=== PATIENT | male | born 1935 | race Caucasian/White ===

== ENCOUNTER 2016-09-06 15:33 | Emergency (ER) ==
[2016-09-06 15:41] VITALS: BP 153/79; TEMP 98.6; BMI 25.4
[2016-09-06 16:38] LABS: BASOPHILS # (AUTO) 0.1 K/uL (0-0.2); BASOPHILS % (AUTO) 0.9 % (0.0-3.0); EOSINOPHILS # (AUTO) 0.1 K/ul (0.0-0.7); EOSINOPHILS % (AUTO) 1.5 % (0.0-7.0); HEMATOCRIT 46.2 % (42.0-52.0); HEMOGLOBIN 15.9 g/dl (14.0-18.0); IMMATURE GRANULOCYTE % (AUTO) 0.3 % (0.0-5.0); LYMPHOCYTES # (AUTO) 1.8 K/uL (0.60-3.4); LYMPHOCYTES % (AUTO) 23.1 (10.0-50.0); MEAN CORPUSCULAR HEMOGLOBIN 29.6 pg (27.0-31.0); MEAN CORPUSCULAR HGB CONC 34.4 (31.8-35.4); MONOCYTES # (AUTO) 0.6 K/uL (0.4-2.0); MONOCYTES % (AUTO) 8.2 (0-10); NEUTROPHILS # (AUTO) 5.1 K/ul (2.0-6.9); PLATELET COUNT 205 10^3/uL (140-440); RED BLOOD COUNT 5.37 10^6/ul (4.70-6.10); WHITE BLOOD COUNT 7.79 K/ul (4.2-10.2)
--- NOTE | 2016-09-06 16:50 | DI ---
EXAM: Chest two views HISTORY: Cough COMPARISON: 03/20/2016 TECHNIQUE: Two views of the chest were performed FINDINGS: Mild left basilar subsegmental atelectasis and/or scarring. Mild biapical scarring. No airspace consolidation. There is no pleural effusion or pneumothorax. The heart is normal in size. The mediastinal contour is normal. There are no acute abnormalities of the bones. IMPRESSION: Mild left basilar subsegmental atelectasis and/or scarring. No acute cardiopulmonary p rocess.
[2016-09-06 17:03] LABS: ALANINE AMINOTRANSFERASE 14 U/L (12-78); ALBUMIN 4.3 g/dL (3.4-5.0); ALBUMIN/GLOBULIN RATIO 1.19; ALKALINE PHOSPHATASE 55 U/L (56-119); ASPARTATE AMINO TRANSFERASE 15 U/L (15-37); BILIRUBIN,TOTAL 1.15 mg/dL (0.00-1.20); BLOOD UREA NITROGEN 15 mg/dL (7-18); BUN/CREATININE RATIO 14.85; CALCIUM 9.7 mg/dL (8.2-10.2); CARBON DIOXIDE 25 mmol/L (23-31); CHLORIDE 107 mmol/L (98-107); CREATINE KINASE 46 U/L; CREATININE 1.01 mg/dL (0.60-1.10); GLUCOSE 97 mg/dL (82-115); SODIUM 142 mmol/L (136-145); TOTAL PROTEIN 7.9 g/dL (5.8-8.1)
--- NOTE | 2016-09-06 17:04 | CT ---
EXAM: CT of the abdomen pelvis without contrast History: Abdominal pain. Comparison: CT abdomen pelvis 03/21/2016 Technique: Multiplanar CT images through the abdomen pelvis were obtained without the administratio n of IV contrast Findings: Lung bases are free of consolidation. Borderline cardiomegaly. Osteopenia. L1 vertebral body hemangioma again noted. Moderate to severe degenerative disc disease at L5-S1. Cholecystectomy clips. Atherosclerotic vascular calcifications. No focal liver lesions. No focal l iver or splenic lesions. Prominent pancreatic head and there are scattered pancreatic calcification s. Adrenal glands are unremarkable. No renal stones and no hydronephrosis. No ureteral calculi. Atherosclerotic vascular calcifications. No bowel obstruction. No free air. Enlarged prostate abu tting the base of the bladder. Trace pelvic fluid. No perirectal inflammation. Mobile cecum. Tiny fat containing left inguinal hernia. Impression: 1. Prominent pancreatic head could be due to scarring from prior episodes of pancreatitis but neopl astic pancreatic head tumor is not excluded and recommend followup with a nonemergent pancreatic MRI protocol. Also correlate with pancreatic enzymes for possible superimposed acute pancreatitis. 2. Enlarged prostate abutting the base of the bladder.
[2016-09-06 17:06] LABS: BILIRUBIN,URINE Negative (NEGATIVE); KETONES,URINE 1+ (NEGATIVE); LEUKOCYTE ESTERASE ,URINE Negative (NEGATIVE); NITRITE,URINE Negative (NEGATIVE); PROTEIN,URINE Negative (NEGATIVE); URINE, BLOOD 1+ (NEGATIVE)
[2016-09-06 17:44] LABS: ADD URINE MICROSCOPIC YES
--- NOTE | 2016-09-06 17:54 | ED.PDOC ---
General ED Provider: Dr. LUCÍA CHRISTIANSON Chief Complaint: Abdominal Pain Stated Complaint: abdominal pain Time Seen by Physician: 15:40 Mode of Arrival: Walk-In Information Source: Patient Exam Limitations: No limitations Primary Care Provider: FRANCISCO HERNANDEZ Nursing and Triage Documentation Reviewed and Agree: Yes GI Complaint Exam - Abdominal Pain Complaint/Exam Onset: Gradual Duration: 1 day Symptoms Are: Still present Timing: Intermittent Initial Severity: Mild Current Severity: Mild Location of Pain: Diffuse Character: Reports: Dull Aggravating: Reports: None Alleviating: Reports: None Associated Signs and Symptoms: Denies: Diaphoresis, Fever, Cough, Chest pain, Dizziness, Back pain, Constipation, Blood in stool, Dysuria, Urinary frequency, Decreased urine output, Decreased appetite, Discharge, Nausea, Vomiting, Diarrhea, Decreased activity Related History: Reports: Similar episode AAA Risk Factors: Reports: Hypertension Cardiac Risk Factors: Reports: Hypertension Testicular Torsion Risk Factors: Reports: None Surgical Obstruction Risk Factors: Reports: None Related Surgical History: Reports: None Abdominal Findings: Present: None Differential Diagnoses: Bowel Obstruction, Constipation, Gastroenteritis Review of Systems - Review Of Systems Constitutional: Reports: No symptoms Eyes: Reports: No symptoms Ears, Nose, Mouth, Throat: Reports: No symptoms Respiratory: Reports: No symptoms Cardiac: Reports: No symptoms GI: Reports: Abdominal pain : Reports: No symptoms Musculoskeletal: Reports: No symptoms Skin: Reports: No symptoms Neurological: Reports: No symptoms Endocrine: Reports: No symptoms Hematologic/Lymphatic: Reports: No symptoms All Other Systems: Reviewed and Negative Past Medical History - Past Medical History Endocrine: Reports: None Cardiovascular: Reports: CAD, Hypertension, A-Fib Respiratory: Reports: COPD, Asthma Hematological: Reports: None Gastrointestinal: Reports: Other (obstruction post appendectomy- 3 episodes after , another episode- last over a year ago- now same symptoms) Genitourinary: Reports: None Neuro/Psych: Reports: None Musculoskeletal: Reports: Arthritis, Back Pain Cancer: Reports: None Other Pertinent Past Medical History: CHOLECTOMY - Surgical History General Surgical History: Reports: Appendectomy, Cholecystectomy, Back Surgery. Denies: CABG (stents) - Family History Family History: Reports: Unknown - Social History Smoking Status: Never smoker Hx Substance Use: No Alcohol Screening: None Physical Exam - Physical Exam Appearance: Well-appearing, No pain distress, Well-nourished Eyes: SHWETA, EOMI, Conjunctiva clear ENT: Ears normal, Nose normal, Oropharynx normal Respiratory: Airway patent, Breath sounds clear, Breath sounds equal, Respirations nonlabored Cardiovascular: RRR, Pulses normal, No rub, No murmur GI/: Soft, Nontender, No masses, Bowel sounds normal, No Organomegaly Musculoskeletal: Normal strength, ROM intact, No edema, No calf tenderness Skin: Warm, Dry, Normal color Neurological: Sensation intact, Motor intact, Reflexes intact, Cranial nerves intact, Alert, Oriented Psychiatric: Affect appropriate, Mood appropriate Interpretation - Radiology Interpretation Radiology Interpretation By: Radiologist Radiology Results: No acute changes Critical Care Note - Critical Care Note Total Time (mins): 0 Course - Course Hematology/Chemistry: 09/06/16 16:37 09/06/16 16:37 Orders, Labs, Meds: Lab Review 09/06/16 09/06/16 16:37 17:00 WBC 7.79 RBC 5.37 Hgb 15.9 Hct 46.2 MCV 86.0 MCH 29.6 MCHC 34.4 RDW Coeff of Bernadette 13.2 Plt Count 205 Immature Gran % (Auto) 0.3 Neut % (Auto) 66.0 Lymph % (Auto) 23.1 Miller % (Auto) 8.2 Eos % (Auto) 1.5 Baso % (Auto) 0.9 Immature Gran # (Auto) 0.0 Neut # 5.1 Lymph # 1.8 Miller # 0.6 Eos # 0.1 Baso # 0.1 Sodium 142 Potassium 4.0 Chloride 107 Carbon Dioxide 25 Anion Gap 14.0 BUN 15 Creatinine 1.01 Estimated GFR (MDRD) 71.00 BUN/Creatinine Ratio 14.85 Glucose 97 Calcium 9.7 Total Bilirubin 1.15 AST 15 ALT 14 Alkaline Phosphatase 55 L Total Creatine Kinase 46 Troponin I < 0.0100 Total Protein 7.9 Albumin 4.3 Globulin 3.6 Albumin/Globulin Ratio 1.19 Urine Color Yellow Urine Clarity Clear Urine pH 6.0 Ur Specific [place] 1.015 Urine Protein Negative Urine Glucose (UA) Negative Urine Ketones 1+ Urine Blood 1+ Urine Nitrite Negative Urine Bilirubin Negative Urine Urobilinogen 0.2 Ur Leukocyte Esterase Negative Urine Microscopic RBC 0-2 Ur Squamous Epith Cells Not present Orders Category Date Time Status EKG-(ED ONLY) Stat CARDIO 09/06/16 16:18 Completed CBC W/ AUTO DIFF Stat LAB 09/06/16 16:37 Completed COMPREHENSIVE METABOLIC PANEL Stat LAB 09/06/16 16:37 Completed CREATINE KINASE Stat LAB 09/06/16 16:37 Completed TROPONIN I Stat LAB 09/06/16 16:37 Completed URINALYSIS C & S IF INDICATED Stat LAB 09/06/16 17:00 Completed CHEST, 2 VIEWS PA & LAT Stat RADS 09/06/16 16:[address] ABDOMEN/PELVIS WO CONTRAST Stat RADS 09/06/16 16:17 Completed Vital Signs: Temp Pulse Resp BP Pulse Ox 09/06/16 15:34 98.6 F 66 20 153/79 H 94 L Departure - Departure Time of Disposition: 17:53 Disposition: HOME SELF-CARE Discharge Problem: Abdominal pain Instructions: Abdominal Pain (ED) Condition: Good Pt referred to PMD for follow-up: No Additional Instructions: Please call your Family Physician as soon as possible to schedule a follow-up appointment. Allergies/Adverse Reactions: Allergies butorphanol tartrate [From Stadol] Adverse Reaction (Verified 09/06/16 15:43) hydromorphone HCl [From Dilaudid] Adverse Reaction (Verified 09/06/16 15:43) meperidine HCl [From Demerol] Adverse Reaction (Verified 09/06/16 15:43) makes dizzy Home Medications: Ambulatory Orders Terazosin HCl [Hytrin] 5 mg PO BEDTIME 05/12/13 Sotalol HCl [Betapace] 40 mg PO BID #60 tablet 05/16/13 Alprazolam 0.5 mg PO BEDTIME #30 tablet 03/11/14 Aspirin [Aspirin Chewable] 81 mg PO DAILYWM 03/21/15 Finasteride 5 mg PO DAILY 03/21/15 Simvastatin 40 mg PO DAILY 03/21/15 Gabapentin [Neurontin] 300 mg PO DAILY 03/19/16 Disposition Discussed With: Patient
== END 2016-09-06 18:12 | disposition home or self-care (01) ==
LOC: ED 15:33
DX: R10.84 Generalized abdominal pain (principal); I10 Essential (primary) hypertension; K86.9 Disease of pancreas, unspecified; R31.9 Hematuria, unspecified; I25.10 Atherosclerotic heart disease of native coronary artery without angina pectoris; Z79.899 Other long term (current) drug therapy
CPT/HCPCS: 36415; 80053; 81001; 82550; 84484; 85025; 93005; 93010; 99283

== ENCOUNTER 2016-10-02 08:50 | Outpatient (CLI) ==
--- NOTE | 2016-10-02 13:38 | MRI ---
EXAM: MRI abdomen without and with contrast HISTORY: Prominent pancreatic head TECHNIQUE: Multiplanar, multisequence without and following administration of intravenous Omniscan, amount unspecified COMPARISON: CT abdomen from 09/06/2016 FINDINGS: The heart is incompletely imaged. No pericardial or pleural effusions are evident. Patient respiratory motion artifact obscures details on several sequences. The hepatic signal inten sity is normal relative to the spleen. The spleen has normal size and signal. No hepatic lesions a re evident. The gallbladder is surgically absent without biliary dilatation. The pancreatic duct h as normal caliber without evidence of divisum or side branch duct dilatation. No duodenal diverticu la are appreciated. The pancreas has slight decreased signal prior to the administration of contras t and has diminished enhancement. There is nonspecific prominence of the pancreatic head without a discrete mass. No diffusion restriction is appreciated in this region. The adrenal glands are norm al. A small simple cyst at the interpolar region of the right kidney is 5.3 mm. No suspicious quinten l lesions are evident. The renal collecting systems are nondilated. The aorta has normal caliber a nd flow signal. The visible intestines have normal signal caliber. No lymphadenopathy or ascites are detected. The bone marrow signal intensity is maintained. IMPRESSION: 1. No evidence of pancreatic head mass. 2. Chronic pancreatitis. 3. Simple cyst, interpolar region of the right kidney.
== END 2016-10-02 08:51 | disposition home or self-care (01) ==
LOC: RAD 08:50
PROVIDERS: ATTEND Internal Medicine
DX: K86.89 Other specified diseases of pancreas (principal)

== ENCOUNTER 2016-10-27 08:51 | Outpatient (CLI) ==
[2016-10-27 13:41] VITALS: BMI 24.9
== END 2016-10-27 08:52 | disposition home or self-care (01) ==
LOC: AMBL 08:51
PROVIDERS: ATTEND Emergency Medicine
DX: R11.10 Vomiting, unspecified (principal); R53.1 Weakness; R10.9 Unspecified abdominal pain; R55 Syncope and collapse

== ENCOUNTER 2016-10-27 09:11 | Inpatient (IN) ==
[2016-10-27] MEDS ORDERED: SODIUM CHLORIDE 1,000 ML IV STA (09:21)
[2016-10-27] MEDS ORDERED: ZOFRAN 4 MG/2 ML IVP STA (09:21)
--- NOTE | 2016-10-27 09:39 | ED.PDOC ---
General ED Provider: Dr. ZACH FERRARI JR Chief Complaint: Abdominal Pain Stated Complaint: started feeling bad last night at 10 dizzy vomiting, passing out this morning. denies diarrhea[ End ]syncope twice observed when trying to get him up has had bradycardia in the past 97.4 60 18 96% 164/116 Time Seen by Physician: 09:30 Mode of Arrival: Ambulance Information Source: Patient, EMT Exam Limitations: Clinical condition Primary Care Provider: FRANCISCO HERNANDEZ Nursing and Triage Documentation Reviewed and Agree: No Review of Systems - Review Of Systems Constitutional: Reports: Malaise Eyes: Reports: No symptoms Ears, Nose, Mouth, Throat: Reports: No symptoms Respiratory: Reports: No symptoms Cardiac: Reports: No symptoms GI: Reports: Vomiting : Reports: No symptoms Musculoskeletal: Reports: No symptoms Skin: Reports: No symptoms Neurological: Reports: Other (DIZZY everything is spinning so much I vomit, canot move without everything gettin worse) Endocrine: Reports: No symptoms Hematologic/Lymphatic: Reports: No symptoms All Other Systems: Other Past Medical History - Past Medical History Endocrine: Reports: Dyslipidemia Cardiovascular: Reports: CAD, Hypertension, A-Fib Respiratory: Reports: COPD, Asthma Hematological: Reports: None Gastrointestinal: Reports: GERD, Other (obstruction post appendectomy- 3 episodes after , another episode- last over a year ago- now same symptoms) Genitourinary: Reports: None Neuro/Psych: Reports: None Musculoskeletal: Reports: Arthritis, Back Pain Cancer: Reports: None Other Pertinent Past Medical History: CHOLECTOMY - Surgical History General Surgical History: Reports: Appendectomy, Cholecystectomy, Tonsillectomy , Stent (3 STENTS), Back Surgery ( 35 YRS AGO WITH A FUSION). Denies: CABG ( stents) - Family History Family History: Reports: Unknown - Social History Smoking Status: Never smoker Hx Substance Use: No Alcohol Screening: None Physical Exam - Physical Exam Appearance: Well-appearing, Ill-appearing Ill-appearing: Mild Pain Distress: Mild Eyes: SHWETA, EOMI, Conjunctiva clear, Right pupil size, Left pupil size ( leftward nystagmus) ENT: Nose normal, Oropharynx normal, TMs Occluded (left completely right partially) Neck: Supple Respiratory: Airway patent, Breath sounds clear, Breath sounds equal, Respirations nonlabored Cardiovascular: RRR, Pulses normal, No rub, No murmur GI/: Soft, Nontender, No masses, Bowel sounds normal, No Organomegaly Musculoskeletal: Normal strength, ROM intact, No edema, No calf tenderness Skin: Warm, Dry, Normal color Neurological: Sensation intact, Motor intact, Reflexes intact, Cranial nerves intact, Alert, Oriented Psychiatric: Affect appropriate, Mood appropriate Interpretation - Radiology Interpretation Radiology Interpretation By: Radiologist Radiology Results: No acute changes Exam Interpreted: CT Scan Critical Care Note - Critical Care Note Total Time (mins): 0 Course - Course Hematology/Chemistry: 10/27/16 10:00 10/27/16 10:00 Orders, Labs, Meds: Lab Review 10/27/16 10/27/16 09:50 10:00 WBC 6.62 RBC 4.87 Hgb 14.5 Hct 41.3 L MCV 84.8 MCH 29.8 MCHC 35.1 RDW Coeff of Bernadette 12.6 Plt Count 181 Immature Gran % (Auto) 0.3 Neut % (Auto) 84.4 Lymph % (Auto) 10.4 [place] % (Auto) 4.4 Eos % (Auto) 0.2 Baso % (Auto) 0.3 Immature Gran # (Auto) 0.0 Neut # 5.6 Lymph # 0.7 Park # 0.3 L Eos # 0.0 Baso # 0.0 D-Dimer (Manual) 380.54 Puncture Site R rad O2 Saturation 93.0 L ABG pH 7.372 ABG pCO2 43.0 ABG pO2 70.0 L ABG HCO3 24.9 ABG Total CO2 26 ABG Base Excess 0 Ozzy Test + FiO2 % 21.0 Sodium 141 Potassium 3.7 Chloride 109 H Carbon Dioxide 23 Anion Gap 12.7 BUN 12 Creatinine 0.80 Estimated GFR (MDRD) 93.00 BUN/Creatinine Ratio 15.00 Glucose 120 H Lactic Acid 7.6 Calcium 8.6 Total Bilirubin 1.15 AST 11 L ALT 11 L Alkaline Phosphatase 46 L Total Creatine Kinase 54 Troponin I < 0.0100 B-Natriuretic Peptide 76 Total Protein 6.7 Albumin 3.7 Globulin 3.0 Albumin/Globulin Ratio 1.23 Amylase 53 Lipase 43 Procalcitonin < 0.05 Orders Category Date Time Status ABG DRAW REQUEST Stat CARDIO 10/27/16 09:36 Completed EKG-(ED ONLY) Stat CARDIO 10/27/16 09:33 Completed ED SECURITY INTELLIGENCE ANALYST APPLIED .ONCE EMERGENCY 10/27/16 09:33 Active ED IV/MEDIPORT/POWERPORT .ONCE EMERGENCY 10/27/16 09:33 Active ABG Stat LAB 10/27/16 09:50 Completed AMYLASE Stat LAB 10/27/16 10:00 Completed B-TYPE NATRIURETIC PEPTIDE Stat LAB 10/27/16 10:00 Completed BLOOD CULTURE Stat LAB 10/27/16 10:00 Received CBC W/ AUTO DIFF Stat LAB 10/27/16 10:00 Completed COMPREHENSIVE METABOLIC PANEL Stat LAB 10/27/16 10:00 Completed CREATINE KINASE Stat LAB 10/27/16 10:00 Completed D-DIMER Stat LAB 10/27/16 10:00 Completed LACTIC ACID Stat LAB 10/27/16 10:00 Completed LIPASE Stat LAB 10/27/16 10:00 Completed PROCALCITONIN Stat LAB 10/27/16 10:00 Completed TROPONIN I Stat LAB 10/27/16 10:00 Completed URINALYSIS C & S IF INDICATED Stat LAB 10/27/16 13:05 Completed 0.9 % Sodium Chloride [Saline Flush] MEDS 10/27/16 09:33 Active 1 syr IVF PRN PRN Carbamide Peroxide Otic [Debrox] MEDS 10/27/16 09:58 Discontinued 1 drop OT .STK-MED ONE Carbamide Peroxide Otic [Debrox] MEDS 10/27/16 09:58 Discontinued 5 drop OT ONCE STA Meclizine HCl [Antivert] MEDS 10/27/16 12:50 Discontinued 25 mg PO ONCE STA Ondansetron HCl/Pf [Zofran 4 mg/2 ml] MEDS 10/27/16 09:21 Discontinued 4 mg IVP ONCE STA Sodium Chloride 0.9% [Sodium Chloride] 1,000 ml MEDS 10/27/16 09:21 Discontinued IV BOLUS CHEST, 1V AP ONLY Stat RADS 10/27/16 09:[address] HEAD W/O CONTRAST Stat RADS 10/27/16 09:38 Completed Medications Generic Name Dose Route Start Last Admin Trade Name Freq PRN Reason Stop Dose Admin Acetaminophen 650 mg 10/27/16 13:36 10/27/16 18:34 Tylenol PO 650 mg Q4H PRN Administration Mild Pain Alprazolam 0.5 mg 10/27/16 21:00 Xanax PO BEDTIME YANN Aspirin 81 mg 10/28/16 08:00 Aspirin Chewable PO DAILYWM YANN Carbamide Perox/Anhydrous Glycerin 5 drop 10/27/16 21:00 Debrox OT Q12HR YANN Diazepam 5 mg 10/27/16 18:00 10/27/16 17:43 Valium PO 5 mg Q6HR YANN Administration Finasteride 5 mg 10/28/16 09:00 Proscar PO DAILY YANN Gabapentin 300 mg 10/28/16 09:00 Neurontin PO DAILY YANN Hydrochlorothiazide 6.25 mg 10/27/16 14:30 10/27/16 14:43 Hydrochlorothiazide PO 6.25 mg [id number] YANN Administration Sodium Chloride 1,000 mls @ 70 mls/hr 10/27/16 13:30 10/27/16 14:10 Sodium Chloride IV 10/28/16 03:47 70 mls/hr .[id number] YANN Administration Losartan Potassium 50 mg 10/27/16 14:30 10/27/16 14:42 Cozaar PO 50 mg [id number] YANN Administration Meclizine HCl 25 mg 10/27/16 17:00 10/27/16 17:43 Antivert PO 25 mg QID YANN Administration Simvastatin 40 mg 10/28/16 09:00 Zocor PO DAILY YANN Sodium Chloride 1 syr 10/27/16 09:33 Saline Flush IVF PRN PRN To flush IV Sotalol HCl 40 mg 10/27/16 21:00 Betapace PO BID YANN Terazosin HCl 5 mg 10/27/16 21:00 Hytrin PO BEDTIME YANN Discontinued Medications Generic Name Dose Route Start Last Admin Trade Name Freq PRN Reason Stop Dose Admin Carbamide Perox/Anhydrous Glycerin 5 drop 10/27/16 09:58 10/27/16 10:02 Debrox OT 10/27/16 09:59 5 drop ONCE STA Administration Diazepam 5 mg 10/27/16 13:10 10/27/16 13:59 Valium PO 10/27/16 13:11 5 mg ONCE STA Administration Sodium Chloride 1,000 mls @ 1,000 mls/hr 10/27/16 09:21 10/27/16 09:30 Sodium Chloride IV 10/27/16 10:20 1,000 mls/hr BOLUS STA Administration Meclizine HCl 25 mg 10/27/16 12:50 10/27/16 13:00 Antivert PO 10/27/16 12:51 25 mg ONCE STA Administration Non-Formulary Medication 0.5 tab 10/27/16 13:45 10/27/16 14:59 Losartan/Hydrochlorothiazide [Losartan-Hctz 100-12.5 Mg Tab] PO Not Given [facility] Ondansetron HCl 4 mg 10/27/16 09:21 10/27/16 09:30 Zofran 4 Mg/2 Ml IVP 10/27/16 09:22 4 mg ONCE STA Administration Vital Signs: Temp Pulse Resp BP Pulse Ox 10/27/16 09:12 97.4 F L 60 18 164/116 H 96 Departure - Departure Time of Disposition: 13:30 Disposition: ADMITTED INPATIENT Discharge Problem: Nausea, Vomiting, Vertigo Condition: Good Pt referred to PMD for follow-up: Yes Allergies/Adverse Reactions: Allergies butorphanol tartrate [From Stadol] Adverse Reaction (Verified 10/27/16 09:16) hydromorphone HCl [From Dilaudid] Adverse Reaction (Verified 10/27/16 09:16) meperidine HCl [From Demerol] Adverse Reaction (Verified 10/27/16 09:16) makes dizzy Home Medications: Ambulatory Orders Terazosin HCl [Hytrin] 5 mg PO BEDTIME 05/12/13 Sotalol HCl [Betapace] 40 mg PO BID #60 tablet 05/16/13 Alprazolam 0.5 mg PO BEDTIME #30 tablet 03/11/14 Aspirin [Aspirin Chewable] 81 mg PO DAILYWM 03/21/15 Finasteride 5 mg PO DAILY 03/21/15 Simvastatin 40 mg PO DAILY 03/21/15 Gabapentin [Neurontin] 300 mg PO DAILY 03/19/16 Losartan/Hydrochlorothiazide [Losartan-Hctz 100-12.5 mg Tab] 0.5 tab PO MOWEFR 10/27/16
[2016-10-27 09:54] LABS: ABG BASE EXCESS 0 (-2.0-2.0); ABG HCO3 24.9 (22.0-26.0); ABG PH 7.372 (7.35-7.45); ABG TCO2 26 (22.0-28.0)
[2016-10-27] MEDS ORDERED: DEBROX OT STA (09:58)
[2016-10-27] MEDS ORDERED: DEBROX OT ONE (09:58)
[2016-10-27 10:13] LABS: BASOPHILS % (AUTO) 0.3 % (0.0-3.0); EOSINOPHILS % (AUTO) 0.2 % (0.0-7.0); HEMATOCRIT 41.3 % (42.0-52.0); HEMOGLOBIN 14.5 g/dl (14.0-18.0); IMMATURE GRANULOCYTE % (AUTO) 0.3 % (0.0-5.0); LYMPHOCYTES # (AUTO) 0.7 K/uL (0.60-3.4); LYMPHOCYTES % (AUTO) 10.4 (10.0-50.0); MEAN CORPUSCULAR HEMOGLOBIN 29.8 pg (27.0-31.0); MEAN CORPUSCULAR HGB CONC 35.1 (31.8-35.4); MEAN CORPUSCULAR VOLUME 84.8 fl (80.0-94.0); MONOCYTES # (AUTO) 0.3 K/uL (0.4-2.0); MONOCYTES % (AUTO) 4.4 (0-10); NEUTROPHILS # (AUTO) 5.6 K/ul (2.0-6.9); NEUTROPHILS % (AUTO) 84.4; PLATELET COUNT 181 10^3/uL (140-440); RED BLOOD COUNT 4.87 10^6/ul (4.70-6.10); WHITE BLOOD COUNT 6.62 K/ul (4.2-10.2)
--- NOTE | 2016-10-27 10:19 | DI ---
EXAM: Single frontal view of the chest HISTORY: Chest pain. COMPARISON: Chest x-ray 09/06/2016 FINDINGS: Cardiomediastinal silhouette is unremarkable. There is no pneumothorax or pleural effusio n. There is no consolidation, nodule or mass. There is minimal left basilar atelectasis. Calcifie d granulomas noted in the left lung. The osseous structures are unchanged. IMPRESSION: Mild left basilar atelectasis.
[2016-10-27 10:56] LABS: ALANINE AMINOTRANSFERASE 11 U/L (12-78); ALBUMIN 3.7 g/dL (3.4-5.0); ALBUMIN/GLOBULIN RATIO 1.23; ALKALINE PHOSPHATASE 46 U/L (56-119); AMYLASE 53 U/L (25-115); ANION GAP 12.7; ASPARTATE AMINO TRANSFERASE 11 U/L (15-37); BILIRUBIN,TOTAL 1.15 mg/dL (0.00-1.20); BLOOD UREA NITROGEN 12 mg/dL (7-18); CALCIUM 8.6 mg/dL (8.2-10.2); CARBON DIOXIDE 23 mmol/L (23-31); CHLORIDE 109 mmol/L (98-107); CREATINE KINASE 54 U/L; GLUCOSE 120 mg/dL (82-115); LIPASE 43 U/L (8-78); POTASSIUM 3.7 mmol/L (3.5-5.1); SODIUM 141 mmol/L (136-145); TOTAL PROTEIN 6.7 g/dL (5.8-8.1)
--- NOTE | 2016-10-27 12:14 | CT ---
Exam: CT head without contrast. HISTORY: Dizziness with nausea and vomiting. Vertigo, bradycardia. Procedures: 5 mm contiguous axial images were obtained through the skull without the use of contras t. FINDINGS: There are no prior studies of the head at this institution. There is mild prominence of the bilateral lateral ventricles and cerebral sulci. There is mild periventricular white matter hyp odensity.There is no intracranial hemorrhage, mass effect, hydrocephalus, extra-axial fluid collecti on or midline shift. The ventricles and basal cisterns are patent. There is no evidence of acute l arge vessel infarct. Bone windows demonstrate normal aeration of the mastoid air cells. There is complete opacification of the left maxillary sinus with coarse calcifications superiorly nearly occluded ostiomeatal unit. Bilateral mary bullosa are noted, larger on the right. Atherosclerotic calcifications are noted. There is no acute fracture. IMPRESSION: No acute intracranial process. 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 Chronic-appearing opacification throughout the left maxillary sinus with dystrophic calcifications s uperiorly in the region of the occluded ostiomeatal unit. Bilateral mary bullosa. Findings were faxed to the emergency department at 11:55 a.m.
[2016-10-27] MEDS ORDERED: ANTIVERT PO STA (12:50)
[2016-10-27] MEDS ORDERED: VALIUM PO STA (13:10)
[2016-10-27 13:18] LABS: BILIRUBIN,URINE Negative (NEGATIVE); KETONES,URINE 2+ (NEGATIVE); LEUKOCYTE ESTERASE ,URINE Negative (NEGATIVE); NITRITE,URINE Negative (NEGATIVE); PROTEIN,URINE Trace (NEGATIVE); URINE, BLOOD Trace-intact (NEGATIVE)
[2016-10-27 13:20] LABS: ADD URINE MICROSCOPIC YES
[2016-10-27] MEDS ORDERED: SODIUM CHLORIDE 1,000 ML IV SCH (13:30)
[2016-10-27 13:41] VITALS: BMI 24.9
[2016-10-27] MEDS ORDERED: LOSARTAN PO SCH (13:45)
[2016-10-27] MEDS ORDERED: [UNRECOGNIZED DRUG - OTHER] PO SCH (13:45)
[2016-10-27] MEDS ORDERED: HYDROCHLOROTHIAZIDE PO SCH (13:45)
[2016-10-27] MEDS ORDERED: ZOFRAN 4 MG/2 ML ONE (13:57)
[2016-10-27] MEDS: COZAAR PO SCH (14:42)
[2016-10-27] MEDS: HYDROCHLOROTHIAZIDE PO SCH (14:43)
--- NOTE | 2016-10-27 15:01 | US ---
EXAM: Ultrasound bilateral carotid duplex HISTORY: Dizziness COMPARISON: CT head same day TECHNIQUE: Sonographic and color Doppler evaluation of the carotids were performed. FINDINGS: The right carotid is patent in appearance with moderate atherosclerotic plaque visualized. The right ICA peak systolic velocity measures 140 cm/sec which is normal. The ICA / CCA peak systolic velocity ratio is 2.4 and ICA end-diastolic velocity is 30 cm/sec. The left carotid is patent in appearance with mild atherosclerotic plaque visualized. The left ICA peak systolic velocity measures 90 cm/sec which is normal. The left ICA / CCA peak systolic velocity ratio is 0.8 and ICA end-diastolic velocity is 20 cm/sec. Vertebral arteries demonstrate antegrade flow bilaterally. IMPRESSION: 1. Elevated right ICA peak systolic velocity with moderate sonographic atherosclerotic disease cons istent with moderate, 50 - 69% stenosis. 2. Atherosclerotic disease of the left carotid without elevated velocities to suggest hemodynamical ly significant stenosis.
[2016-10-27] MEDS: VALIUM PO SCH ×2 (17:43→23:51)
[2016-10-27] MEDS: ANTIVERT PO SCH ×2 (17:43→21:06)
[2016-10-27] MEDS: TYLENOL PO PRN (18:34)
[2016-10-27 20:22] LABS: TROPONIN I 0.019 ng/ml (0.0000-0.4000)
[2016-10-27] MEDS: XANAX PO SCH (21:06)
[2016-10-27] MEDS: HYTRIN PO SCH (21:06)
[2016-10-27] MEDS: BETAPACE PO SCH (21:07)
[2016-10-27] MEDS: DEBROX OT SCH (21:07)
[2016-10-28 05:02] LABS: BASOPHILS # (AUTO) 0.1 K/uL (0-0.2); EOSINOPHILS # (AUTO) 0.1 K/ul (0.0-0.7); HEMATOCRIT 40.9 % (42.0-52.0); IMMATURE GRANULOCYTE % (AUTO) 0.3 % (0.0-5.0); LYMPHOCYTES # (AUTO) 1.6 K/uL (0.60-3.4); LYMPHOCYTES % (AUTO) 26.3 (10.0-50.0); MEAN CORPUSCULAR HEMOGLOBIN 30.2 pg (27.0-31.0); MEAN CORPUSCULAR HGB CONC 34.2 (31.8-35.4); MEAN CORPUSCULAR VOLUME 88.3 fl (80.0-94.0); MONOCYTES # (AUTO) 0.5 K/uL (0.4-2.0); MONOCYTES % (AUTO) 8.9 (0-10); NEUTROPHILS # (AUTO) 3.7 K/ul (2.0-6.9); NEUTROPHILS % (AUTO) 61.5; PLATELET COUNT 119 10^3/uL (140-440); RED BLOOD COUNT 4.63 10^6/ul (4.70-6.10); WHITE BLOOD COUNT 6.04 K/ul (4.2-10.2)
[2016-10-28 05:22] LABS: ALBUMIN 3.2 g/dL (3.4-5.0); ALBUMIN/GLOBULIN RATIO 1.23; ANION GAP 13.7; BILIRUBIN,TOTAL 1.13 mg/dL (0.00-1.20); BUN/CREATININE RATIO 13.09; CALCIUM 8.2 mg/dL (8.2-10.2); CREATININE 0.84 mg/dL (0.60-1.10); POTASSIUM 3.7 mmol/L (3.5-5.1); TOTAL PROTEIN 5.8 g/dL (5.8-8.1)
[2016-10-28 05:36] LABS: CREATINE KINASE 157 U/L
[2016-10-28 05:38] LABS: CREATINE KINASE MB 1.2 ng/ml (0.0-3.6)
[2016-10-28] MEDS: VALIUM PO SCH ×4 (05:47→23:53)
[2016-10-28] MEDS: DEBROX OT SCH ×2 (08:43→21:33)
[2016-10-28] MEDS: NEURONTIN PO SCH (08:43)
[2016-10-28] MEDS: ASPIRIN CHEWABLE PO SCH (08:44)
[2016-10-28] MEDS: PROSCAR PO SCH (08:44)
[2016-10-28] MEDS: ANTIVERT PO SCH ×4 (08:44→21:33)
[2016-10-28] MEDS: ZOCOR PO SCH (08:44)
[2016-10-28] MEDS: BETAPACE PO SCH ×2 (08:44→21:36)
--- NOTE | 2016-10-28 10:00 | PCM.PROG ---
Attending Provider: ATTENDING PROVIDER: Dr. FRANCISCO HERNANDEZ DATE OF SERVICE: 10/28/16 SUBJECTIVE: This 81 year old WHITE/ M was hospitalized 10/27/16 with near syncopal episode. The patient has bradycardia for number of years. It under control with Valium and Antivert. REVIEW OF SYSTEMS: CONSTITUTIONAL: No night sweats. No fatigue, malaise, lethargy. No fever or chills. HEENT: Eyes: No visual changes. No eye pain. No eye discharge. ENT: No runny nose. No epistaxis. No sinus pain. No odynophagia. No congestion. RESPIRATORY: No cough, no congestion. No hemoptysis. CARDIOVASCULAR: No angina symptoms. No CHF symptoms. No atypical chest pain for CAD. No palpitations. No shortness of breath. GASTROINTESTINAL: No abdominal pain. No nausea or vomiting. No diarrhea or constipation. No hematemesis. No hematochezia. GENITOURINARY: No urgency. No frequency. No dysuria. No hematuria. No obstructive symptoms. No discharge. No pain. No significant abnormal bleeding. MUSCULOSKELETAL: No musculoskeletal pain; no joint swelling. NEUROLOGICAL: Awake, alert, oriented to time, place and person. No headache. No neck pain. No syncope. No seizures. No dizziness. PSYCHIATRIC: Not anxious. No depression. No suicidal thoughts. No homicidal thoughts. SKIN: No rash. No lesions. No wounds. ENDOCRINE: No unexplained weight loss. No weight gain. HEMATOLOGIC/LYMPHATIC: No anemia. No purpura. No petechiae. No prolonged or excessive bleeding. No palpable lymph nodes. PHYSICAL EXAMINATION: GENERAL: The patient is awake, alert and oriented to time,place and person, lying in bed in no distress. VITAL SIGNS: Temperature 97.2 F, Pulse 51, Respiratory Rate 16, BP 108/56, Pulse Ox 95% HEENT: Head normocephalic, atraumatic. Eyes: Extraocular muscles are intact. Pupils are equal, round and reactive to light and accommodation. Ears: No lesions. Nose appeared normal. Throat: No exudate or erythema. NECK: Supple. No JVD, no carotid bruit. No lymphadenopathy or thyromegaly. LUNGS: Clear to auscultation. Percussion note normal. Chest symmetrical. HEART: S1, S2, no S3. No murmurs. No cyanosis or clubbing. No ascites. Pulses: Dorsalis pedis and posterior tibial pulses +1 to +2 both sides. ABDOMEN: Soft. Non-tender. Bowel sounds active. No CVA tenderness. No mass felt. EXTREMITIES: No edema. Full range of motion of all extremities, equal. NEUROLOGIC: No focal deficit. Cranial nerves II through XII are grossly intact. No headache, no double vision or headache. SKIN: Not dry. Intact. Turgor-normal. LYMPHATIC: No palpable lymph nodes/no lymphedema. MUSCULOSKELETAL: Normal joints with no swelling. Muscle tone is normal. LAB REVIEW: 10/28/16 03:45 10/28/16 03:45 10/28/16 03:45: WBC 6.04, RBC 4.63 L, Hgb 14.0, Hct 40.9 L, MCV 88.3, MCH 30.2, MCHC 34.2, RDW Coeff of Bernadette 13.2, Plt Count 119 L D, Immature Gran % (Auto) 0.3 , Neut % (Auto) 61.5, Lymph % (Auto) 26.3, [place] % (Auto) 8.9, Eos % (Auto) 2.0, Baso % (Auto) 1.0, Immature Gran # (Auto) 0.0, Neut # 3.7, Lymph # 1.6, Walsh # 0.5, Eos # 0.1, Baso # 0.1, Sodium 143, Potassium 3.7, Chloride 111 H, Carbon Dioxide 22 L, Anion Gap 13.7, BUN 11, Creatinine 0.84, Estimated GFR (MDRD) 88.00, BUN/Creatinine Ratio 13.09, Glucose 79 L, Calcium 8.2, Total Bilirubin 1.13, AST 16, ALT 10 L, Alkaline Phosphatase 40 L, Total Creatine Kinase 157, CK -MB (CK-2) 1.2, CK-MB (CK-2) % 0.38493, Troponin I < 0.0100, Total Protein 5.8, Albumin 3.2 L, Globulin 2.6, Albumin/Globulin Ratio 1.23 10/27/16 19:50: Total Creatine Kinase 50, Troponin I 0.0190 10/27/16 13:05: Urine Color Yellow, Urine Clarity Clear, Urine pH 7.0, Ur Specific [place] 1.020, Urine Protein Trace, Urine Glucose (UA) Negative, Urine Ketones 2+, Urine Blood Trace-intact, Urine Nitrite Negative, Urine Bilirubin Negative, Urine Urobilinogen 1.0, Ur Leukocyte Esterase Negative, Urine Microscopic RBC 2-5, Ur Squamous Epith Cells 0-2 ASSESSMENT: 1. Syncopal episode likely from vertigo 2. Coronary artery disease PLAN: 1. Antivert 2. Valium Plan and coordination of the patient's care discussed in the presence of Media Consultant and nurse. CONDITION: Stable SCRIBED BY: Dipak LILLY scribed while in presence of service performed by Dr. FRANCISCO HERNANDEZ on 10/28/16 ([id number])
--- NOTE | 2016-10-28 13:16 | DS ---
DATE OF SERVICE: 10/29/16 FINAL DIAGNOSIS: 1. Syncope 2. Vestibular dysfunction 3. Vertigo 4. Bradycardia 5. Hypertension 6. Dyslipidemia 7. Coronary artery disease 8. GERD 9. 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 Enlarged prostate(Dr. Watt) 12. Anxiety 13. Cholecystectomy 14. Status post stent application, 2007 and 2009 15. Appendectomy 16. Tonsillectomy 17. Lumbar Fusion, 1981 LAST VITALS: Temperature 97, pulse 52, blood pressure 134/71, respiratory rate 18 and pulse ox 94% DISCHARGE INSTRUCTIONS: Discharge the patient home. Return to the office to see Dr. Paulino in one week. Resume home medications. MEDICATIONS AT DISCHARGE: Xanax 0.5mg PO bedtime Aspirin chewable 81mg PO daily Proscar 5mg PO daily Neurontin 300mg PO daily Losartan Hydrochlorothiazide 100-12.5mg half tablet PO MoWeFr at 0900 Antivert 12.5mg PO four times a day Zocor 40mg PO daily Betapace 40mg Po twice a day Hytrin 5mg PO bedtime ALLERGIES: Butorphanol tartrate Hydromorphone meperidine HCL NEW PRESCRIPTIONS: Meclizine HCL 25mg PO four times a day PRN dizziness #30 with 0 refills. DIET INSTRUCTIONS: Regular as tolerated ACTIVITY: Get plenty of rest at home. Gradually increase activity according to toleration. Do not rise quickly. Dangle feet/legs prior to rising. SMOKING: Non smoker DISEASE SPECIFIC EDUCATION: Syncope Vertigo Bradycardia Home medications New prescriptions Activity Followup HOSPITAL COURSE: The patient is a 81 year old white male hospitalized with dizziness. The patient almost pasted out a couple of time before coming to the hospital. The patient had typical vestibular dysfunction with vertigo. It was treated with Antivert and Valium. The patient was kept in the hospital for 48 hours. Telemetry strip revealed bradycardia which the patient has had it for number of years. The patient is up and about. His heart rate fluctuates from 40-80 per minutes. His blood pressure is normal. He did not have any pauses more than 2 seconds, Carotid scan was practically unremarkable except for one side showed 50 -70% occulted carotid artery. His neurological status remained normal. On discharge the patient's hgb was 13.2, hct 39, WBC 6,000 normal differential, creatinine 0.8, BUN 15, potassium 3.7. Condition at the time of discharge is stable. The patient is strongly advised to eat a little bit more salt, drink more fluids and advised to take some rest when working outside in the hot weather every 2-3 hourly. CONDITION: Stable. TIME SPENT: More than 60 minutes. MTDD
[2016-10-28] MEDS ORDERED: DECADRON 4 MG/ML SDV ONE (16:02)
[2016-10-28] MEDS: XANAX PO SCH (21:33)
[2016-10-28] MEDS: HYTRIN PO SCH (21:33)
[2016-10-28] MEDS: TYLENOL PO PRN (21:36)
[2016-10-29 05:25] LABS: BASOPHILS # (AUTO) 0.1 K/uL (0-0.2); BASOPHILS % (AUTO) 1.6 % (0.0-3.0); EOSINOPHILS # (AUTO) 0.2 K/ul (0.0-0.7); EOSINOPHILS % (AUTO) 2.9 % (0.0-7.0); HEMATOCRIT 39.1 % (42.0-52.0); HEMOGLOBIN 13.2 g/dl (14.0-18.0); IMMATURE GRANULOCYTE % (AUTO) 0.2 % (0.0-5.0); LYMPHOCYTES # (AUTO) 1.8 K/uL (0.60-3.4); LYMPHOCYTES % (AUTO) 29.5 (10.0-50.0); MEAN CORPUSCULAR HEMOGLOBIN 29.5 pg (27.0-31.0); MEAN CORPUSCULAR HGB CONC 33.8 (31.8-35.4); MEAN CORPUSCULAR VOLUME 87.5 fl (80.0-94.0); MONOCYTES # (AUTO) 0.5 K/uL (0.4-2.0); MONOCYTES % (AUTO) 8.6 (0-10); NEUTROPHILS # (AUTO) 3.5 K/ul (2.0-6.9); NEUTROPHILS % (AUTO) 57.2; PLATELET COUNT 160 10^3/uL (140-440); RED BLOOD COUNT 4.47 10^6/ul (4.70-6.10); WHITE BLOOD COUNT 6.14 K/ul (4.2-10.2)
[2016-10-29] MEDS: VALIUM PO SCH (05:28)
[2016-10-29 05:36] LABS: ALBUMIN 3.3 g/dL (3.4-5.0); ALBUMIN/GLOBULIN RATIO 1.27; ANION GAP 10.7; BILIRUBIN,TOTAL 0.92 mg/dL (0.00-1.20); BUN/CREATININE RATIO 17.44; CALCIUM 8.5 mg/dL (8.2-10.2); CREATININE 0.86 mg/dL (0.60-1.10); POTASSIUM 3.7 mmol/L (3.5-5.1); TOTAL PROTEIN 5.9 g/dL (5.8-8.1)
[2016-10-29] MEDS: ASPIRIN CHEWABLE PO SCH (08:30)
[2016-10-29] MEDS: PROSCAR PO SCH (08:30)
[2016-10-29] MEDS: ZOCOR PO SCH (08:30)
[2016-10-29] MEDS: ANTIVERT PO SCH ×2 (08:31→13:14)
[2016-10-29] MEDS: BETAPACE PO SCH (08:31)
[2016-10-29] MEDS: NEURONTIN PO SCH (08:31)
[2016-10-29] MEDS: HYDROCHLOROTHIAZIDE PO SCH (08:31)
[2016-10-29] MEDS: COZAAR PO SCH (08:31)
[2016-10-29] MEDS: DEBROX OT SCH (08:32)
[2016-10-29 10:59] VITALS: BP 134/71; TEMP 97
--- NOTE | 2016-10-29 13:19 | PCM.PROG ---
Attending Provider: ATTENDING PROVIDER: Dr. FRANCISCO HERNANDEZ DATE OF SERVICE: 10/29/16 SUBJECTIVE: This 81 year old WHITE/ M was hospitalized 10/27/16 with vertigo, vestibular dysfunction. The patient's condition has improve remarkably. He is up and about walking with little supervision, steady, no black outs or syncopal episodes. The patient is bradycardiac as usual, dips into the 40's lower it is asymptomatic. REVIEW OF SYSTEMS: CONSTITUTIONAL: No night sweats. No fatigue, malaise, lethargy. No fever or chills. HEENT: Eyes: No visual changes. No eye pain. No eye discharge. ENT: No runny nose. No epistaxis. No sinus pain. No odynophagia. No congestion. RESPIRATORY: No cough, no congestion. No hemoptysis. CARDIOVASCULAR: No angina symptoms. No CHF symptoms. No atypical chest pain for CAD. No palpitations. No shortness of breath. GASTROINTESTINAL: No abdominal pain. No nausea or vomiting. No diarrhea or constipation. No hematemesis. No hematochezia. GENITOURINARY: No urgency. No frequency. No dysuria. No hematuria. No obstructive symptoms. No discharge. No pain. No significant abnormal bleeding. MUSCULOSKELETAL: No musculoskeletal pain; no joint swelling. NEUROLOGICAL: Awake, alert, oriented to time, place and person. No headache. No neck pain. No syncope. No seizures. No dizziness. PSYCHIATRIC: Not anxious. No depression. No suicidal thoughts. No homicidal thoughts. SKIN: No rash. No lesions. No wounds. ENDOCRINE: No unexplained weight loss. No weight gain. HEMATOLOGIC/LYMPHATIC: No anemia. No purpura. No petechiae. No prolonged or excessive bleeding. No palpable lymph nodes. PHYSICAL EXAMINATION: GENERAL: The patient is awake, alert and oriented to time, place and person, lying in bed in no distress. VITAL SIGNS: Temperature 97.5 F, Pulse 45, Respiratory Rate 14, BP 117/69, Pulse Ox 97% HEENT: Head normocephalic, atraumatic. Eyes: Extraocular muscles are intact. Pupils are equal, round and reactive to light and accommodation. Ears: No lesions. Nose appeared normal. Throat: No exudate or erythema. NECK: Supple. No JVD, no carotid bruit. No lymphadenopathy or thyromegaly. LUNGS: Clear to auscultation. Percussion note normal. Chest symmetrical. HEART: S1, S2, no S3. No murmurs. No cyanosis or clubbing. No ascites. Pulses: Dorsalis pedis and posterior tibial pulses +1 to +2 both sides. ABDOMEN: Soft. Non-tender. Bowel sounds active. No CVA tenderness. No mass felt. EXTREMITIES: No edema. Full range of motion of all extremities, equal. NEUROLOGIC: No focal deficit. Cranial nerves II through XII are grossly intact. No headache, no double vision or headache. Drowsiness because of Valium. SKIN: Not dry. Intact. Turgor-normal. LYMPHATIC: No palpable lymph nodes/no lymphedema. MUSCULOSKELETAL: Normal joints with no swelling. Muscle tone is normal. LAB REVIEW: 10/29/16 05:14 10/29/16 05:14 10/29/16 05:14: WBC 6.14, RBC 4.47 L, Hgb 13.2 L, Hct 39.1 L, MCV 87.5, MCH 29.5 , MCHC 33.8, RDW Coeff of Bernadette 13.1, Plt Count 160 D, Immature Gran % (Auto) 0.2 , Neut % (Auto) 57.2, Lymph % (Auto) 29.5, [place] % (Auto) 8.6, Eos % (Auto) 2.9, Baso % (Auto) 1.6, Immature Gran # (Auto) 0.0, Neut # 3.5, Lymph # 1.8, [place] # 0.5, Eos # 0.2, Baso # 0.1, Sodium 142, Potassium 3.7, Chloride 109 H, Carbon Dioxide 26, Anion Gap 10.7, BUN 15, Creatinine 0.86, Estimated GFR (MDRD) 86.00 , BUN/Creatinine Ratio 17.44, Glucose 79 L, Calcium 8.5, Total Bilirubin 0.92, AST 11 L, ALT 10 L, Alkaline Phosphatase 43 L, Total Protein 5.9, Albumin 3.3 L , Globulin 2.6, Albumin/Globulin Ratio 1.27 ASSESSMENT: 1. Presyncope from vestibular dysfunction, has resolve PLAN: 1. Work up so far negative. 2. Carotid scan showed 50 to 70% on left side will follow 3. Echo to be done if not done in past couple of years to evaluate LV function and vertigo. 4. Advised to drink a lot of fluid and rest especially after hours of working outside. Plan and coordination of the patient's care discussed in the presence of Panel Saw Operator and nurse. CONDITION: Stable SCRIBED BY: Dipak LILLY scribed while in presence of service performed by Dr. FRANCISCO HERNANDEZ on 10/29/16 ([id number])
--- NOTE | 2016-10-31 11:47 | HP ---
DATE OF SERVICE: 10/27/16 REASON FOR HOSPITALIZATION: Syncopal episode HISTORY OF PRESENT ILLNESS: The patient is an 81 year old white male was brought to the emergency room because the patient passed out twice and has been working since morning in the hot weather. The patient got extremely dizzy, lighted headed with nausea. His head started spinning and the next thing he knows that he was passing out. The patient recovered from it and the second episode happened he called his son and by then he had already passed out second time. REVIEW OF SYSTEMS: CONSTITUTIONAL: No night sweats. Weakness and fatigue with dizziness. No fever or chills. HEENT: Eyes: No visual changes. No eye pain. No eye discharge. ENT: No runny nose. No epistaxis. No sinus pain. No sore throat. No odynophagia. No ear pain. No congestion. RESPIRATORY: No cough, no congestion. No hemoptysis. CARDIOVASCULAR: No angina symptoms. No CHF symptoms. No atypical chest pain for CAD. No palpitations. No shortness of breath. No chest. No PND. No Orthopnea. GASTROINTESTINAL: No abdominal pain. Nausea but no vomiting. No diarrhea or constipation. No hematemesis. No hematochezia. GENITOURINARY: No urgency. No frequency. No dysuria. No hematuria. No obstructive symptoms. No discharge. No pain. No significant abnormal bleeding. MUSCULOSKELETAL: No musculoskeletal pain. No joint swelling. No arthritis. NEUROLOGICAL: No headache. No neck pain. No syncope. No seizures. Dizziness. PSYCHIATRIC: Not anxious. No depression. No suicidal thoughts. No homicidal thoughts. SKIN: No rash. No lesions. No wounds. ENDOCRINE: No unexplained weight loss. No weight gain. HEMATOLOGIC/LYMPHATIC: No anemia. No purpura. No petechiae. No prolonged or excessive bleeding. No palpable lymph nodes. PERSONAL/FAMILY/SOCIAL HISTORY: The patient is , non-smoker and no alcohol abuse. The patient lives by himself with the help of daughter and son. he does all activity of daily living ; very active. PAST MEDICAL/SURGICAL PROBLEMS: History of intermittent small bowel obstruction Claudio arrhythmias PVC's Coronary artery disease Benign Prostatic Hypertrophy Dyslipidemia Hypertension Neuropathy MEDICATIONS: Hytrin 5mg PO daily Betapace 40mg PO twice a day Xanax 0.5mg at bedtime Aspirin 81mg PO daily Finasteride 5mg PO daily Simvastatin 40mg PO daily Neurontin 300mg PO daily Hyzaar 100-12.5mg PO daily ALLERGIES: Butorphanol Hydromorphone Meperidine PHYSICAL EXAMINATION: GENERAL: The patient is oriented to time, place and person. Color looks normal. VITAL SIGNS: Temperature 97.5, pulse 80, respiratory rate 20, blood pressure 160/100 and pulse 96%. BMI 25. HEENT: Head normocephalic, atraumatic. Eyes: Extraocular muscles are intact. Pupils are equal, round and reactive to light and accommodation. Ears: No lesions. Nose appeared normal. Throat: No exudate or erythema. Face: Symmetrical. NECK: Supple. No JVP, no carotid bruit. No lymphadenopathy or thyromegaly. LUNGS: Decreased breath sounds but Clear to auscultation. Percussion note normal. Chest symmetrical. HEART: S1, S2, no S3. No murmurs. No cyanosis or clubbing. No ascites. Pulses: Dorsalis pedis and posterior tibial pulses +1 Bilaterally. ABDOMEN: Soft. Nontender. Bowel sounds active. No CVA tenderness. No mass felt. EXTREMITIES: No edema. Full range of motion of all extremities, equal. Pulses +2 bilaterally. NEUROLOGIC: No focal deficit. Cranial nerves II through XII are grossly intact. No headache, no double vision or headache. SKIN: Not dry. Intact. Turgor - normal. No rash. LYMPHATIC: No palpable lymph nodes/no lymphedema. MUSCULOSKELETAL: Normal joints with no swelling. Muscle tone is normal. LABS: Hgb 14.5, hct 41, WBC 6,600 normal differential, creatinine 0.8, BUN 12, potassium 3.7, glucose 120 and BNP 76. ASSESSMENT: 1. Syncopal episode type of symptoms likely from vertigo or vestibular dysfunction 2. Claudio arrhythmia 3. Coronary artery disease 4. Hypertension 5. Dyslipidemia 6. Recurrent small bowel obstruction PLAN: 1. Antivert 25mg Three times a day 2. Valium 5mg PO four times a day 3. Continue the rest of the medications 4. Telemetry 5. Cardiac markers to rule out MA ischemia 6. Carotid scan 7. CT scan of the head was negative. CONDITION: Stable at present time. TIME SPENT: More than [address] [facility]
--- NOTE | 2016-10-31 11:55 | PN ---
10/27/16: Level 5 10/28/16: Intermediate 10/29/16: D as in discharge MTDD
--- NOTE | 2016-11-04 12:18 | ECHO2D ---
Date of Exam: 10/29/2016 Ordering Physician: FRANCISCO HERNANDEZ Reason for Echo: SHORT OF BREATH, CORONARY ARTERY DISEASE, HYPERTENSION M-Mode Normal Adult Results LV Dimensions Normal Adult Results AoV Opening excursions >1.6 >1.6 LVEDD-base- 3.5-5.8 4.8 Ao root dimensions 2.0-3.7 4.1 LVESD-base- 3.1-4.6 L. Atrium dimensions 1.9-3.8 5.4 Post. Wall thickness 0.8-1.1 1.4 IV septum (thickness) 0.7-1.2 1.5 Post. Wall excursion 0.72-1.3 NORMAL Septal motion NORMAL Systolic motion R. Ventricular cavity 1.5-2.0 NORMAL LVEF 60% 62% Paradoxical septal wall motion NORMAL 2-D :ENLARGED LEFT ATRIAL CAVITY, NORMAL LEFT VENTRICLE SIZE, NORMAL LEFT VENTRICULAR CONTRACTILITY, NO EFFUSION, NO THROMBUS. M-MODE: MV: NORMAL AV: NORMAL TV: NORMAL PV: CHAMBER SIZE: BORDERLINE LEFT ATRIAL ENLARGEMENT WALL MOTION: NORMAL PERICARDIUM: NORMAL INTERPRETATION: 1. LEFT VENTRICULAR HYPERTROPHY WITH ENLARGED LEFT ATRIAL CAVITY (5.4cm) 2. NORMAL LEFT VENTRICULAR CONTRACTILITY 3. 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
== END 2016-10-29 15:35 | disposition home or self-care (01) | DRG 312 ==
LOC: ED 09:11 → MEDSURG B 12:59
PROVIDERS: ADMIT Internal Medicine; ATTEND Internal Medicine
DX: R55 Syncope and collapse (principal); H81.90 Unspecified disorder of vestibular function, unspecified ear; R42 Dizziness and giddiness; R11.2 Nausea with vomiting, unspecified; R10.9 Unspecified abdominal pain; I49.8 Other specified cardiac arrhythmias; I25.10 Atherosclerotic heart disease of native coronary artery without angina pectoris; I10 Essential (primary) hypertension; E78.5 Hyperlipidemia, unspecified; H55.00 Unspecified nystagmus; Z79.899 Other long term (current) drug therapy
CPT/HCPCS: 36415; 80053; 81001; 82150; 82550; 82553; 82803; 83605; 83690; 83880; 84145; 84484; 85025; 85379; 87040; 93005; 93010; 96361; 96374; 99284

== ENCOUNTER 2016-12-23 06:34 | Outpatient (CLI) ==
--- NOTE | 2016-12-23 09:30 | ECHO2D ---
Date of Exam: 12/23/16 Ordering Physician: FRANCISCO HERNANDEZ Reason for Echo: A-FIB, CAD WITH STENT M-Mode Normal Adult Results LV Dimensions Normal Adult Results AoV Opening excursions >1.6 >1.6 LVEDD-base- 3.5-5.8 4.9 Ao root dimensions 2.0-3.7 4.0 LVESD-base- 3.1-4.6 L. Atrium dimensions 1.9-3.8 3.8 Post. Wall thickness 0.8-1.1 1.3 IV septum (thickness) 0.7-1.2 1.3 Post. Wall excursion 0.72-1.3 NORMAL Septal motion NORMAL Systolic motion R. Ventricular cavity 1.5-2.0 NORMAL LVEF 60% 53% Paradoxical septal wall motion NORMAL 2-D : 2-D M Mode Echocardiogram was performed using apical four chamber and left parasternal long and short axis views. Mitral, tricuspid and aortic valves appear to be normal. Contractility of the left ventricle seems to be normal, so is the cavity size. Left atrial cavity size and aortic root appear to be normal. There is no pericardial effusion. There is no thrombus noted in the left ventricular or left aortic cavity. No mitral valve prolapse noted. M-MODE: MV: NORMAL AV: NORMAL TV: NORMAL PV: CHAMBER SIZE: NORMAL WALL MOTION: NORMAL PERICARDIUM: NORMAL INTERPRETATION: 1. LEFT VENTRICLE HYPERTROPHY 2. NORMAL VALVES 3. NORMAL LEFT VENTRICULAR CONTRACTILITY MTDD
== END 2016-12-23 06:35 | disposition home or self-care (01) ==
LOC: CAR 06:34
PROVIDERS: ATTEND Internal Medicine
DX: I48.91 Unspecified atrial fibrillation (principal); I10 Essential (primary) hypertension; I51.7 Cardiomegaly; I25.10 Atherosclerotic heart disease of native coronary artery without angina pectoris; Z95.5 Presence of coronary angioplasty implant and graft; Z01.810 Encounter for preprocedural cardiovascular examination
CPT/HCPCS: 93005; 93010

== ENCOUNTER 2016-12-25 06:45 | Outpatient (CLI) ==
[2016-12-25] MEDS ORDERED: ATROPINE SULFATE PFS ONE (07:08)
[2016-12-25] MEDS ORDERED: DOBUTAMINE 250 ML IV ONE (07:08)
--- NOTE | 2016-12-26 10:35 | ECHOSTRESS ---
Date of Exam: 12/25/16 Ordering Physician: FRANCISCO HERNANDEZ Reason for Echo: SURG CLEARANCE, HX A-FIB, CAD WITH STENT, DOBUTAMINE STRESS -- NO ISCHEMIA M-Mode Normal Adult Results LV Dimensions Normal Adult Results AoV Opening excursions >1.6 LVEDD-base- 3.5-5.8 Ao root dimensions 2.0-3.7 LVESD-base- 3.1-4.6 L. Atrium dimensions 1.9-3.8 Post. Wall thickness 0.8-1.1 IV septum (thickness) 0.7-1.2 Post. Wall excursion 0.72-1.3 Septal motion Systolic motion R. Ventricular cavity 1.5-2.0 LVEF 60% Paradoxical septal wall motion 2-D: NORMAL LEFT VENTRICULAR CONTRACTILITY--RESTING AND WITH DOBUTAMINE INFUSION M-MODE: MV: AV: TV: PV: CHAMBER SIZE: WALL MOTION: NORMAL LEFT VENTRICULAR CONTRACTILITY--RESTING AND WITH DOBUTAMINE INFUSION PERICARDIUM: INTERPRETATION: 1. NORMAL LEFT VENTRICULAR CONTRACTILITY--RESTING AND WITH DOBUTAMINE INFUSION MTDD
--- NOTE | 2016-12-26 10:44 | DOBSTECHO ---
Date of Test: 12/25/16 Ordering Physician: FRANCISCO HERNANDEZ Reason for Examination: SURGICAL CLEARANCE, HX OF A-FIB, CAD WITH STENT Current Medications: ASPIRIN, FINASTERIDE, SOTALOL, SIMVASTATIN, TERAZOSIN, SYMBICORT, GABAPENTIN, LOSARTAN Height: 77" Weight: 212 LBS Target Heart Rate: 119/140 ST Segment Stage Time HR BPM BP mmhg Rhythm +/- Up Down Comments/Symptoms Control Sitting 40 130/60 SR X NONE Dobutamine 250mg/D5W 5cmg/KG/mn 10cmg/KG/mn 3" 45 148/60 SR X NONE 15cmg/KG/mn 2" 46 150/80 SR X NONE 20cmg/KG/mn 2" 48 176/80 SR X NONE 25cmg/KG/mn 2" 66 190/80 SR X NONE 30cmg/KG/mn 2:10 114 SR X .25 ATROPINE 35cmg/KG/mn 40cmg/KG/mn Time: 4" HR B/P Time: 7" HR B/P Time: 9" HR B/P Recovery 72 190/90 Recovery 63 120/80 Recovery 58 Total Time: 11:10 Maximum Heart Rate Reached: 114 Interpretation: 1. NO EVIDENCE OF ISCHEMIA BY ST-T WAVE 2. NO CHEST PAIN OR DISCOMFORT 3. NORMAL LEFT VENTRICULAR CONTRACTILITY--RESTING AND WITH DOBUTAMINE INFUSION MTDD
== END 2016-12-25 06:46 | disposition home or self-care (01) ==
LOC: CAR 06:45
PROVIDERS: ATTEND Internal Medicine
DX: R06.02 Shortness of breath (principal); I10 Essential (primary) hypertension; I51.7 Cardiomegaly; I48.91 Unspecified atrial fibrillation; I25.10 Atherosclerotic heart disease of native coronary artery without angina pectoris; Z95.5 Presence of coronary angioplasty implant and graft; Z01.810 Encounter for preprocedural cardiovascular examination

== ENCOUNTER 2017-04-02 15:16 | Inpatient (IN) ==
[2017-04-02] MEDS ORDERED: OXYCODONE PO PRN (15:51)
[2017-04-02 16:15] VITALS: BMI 25.2
--- NOTE | 2017-04-02 16:33 | RS.OTINEVL ---
Subjective - Patient information Date of Evaluation: 04/02/17 Date of Arrival on Unit: 04/02/17 Admitted From:: Facility Transfer Diagnosis: R TKA Usual Living Arrangement: Alone Living Arrangement Comments: Pt lives alone in his house. He is a 4 yrs ago. Pt has 2 steps to enter his home. Pt has a handle at the door to hold on to. Medical History: Hypertension, Arthritis Medical History Comments:: Back surgery over 40 years ago. Surgical History: Knee Replacement Surgical History Comments:: 2 stents in heart, 1 stent in heart, gallbladder removed, bowel obstr. 3 yrs ago, appendectomy Subjective Information/ Patient Comments:: "They were walking me down the [place] and my face started to droop and my Left thumb went numb. Daughter reports he had a TIA on Thursday and was slurring his words and had difficulty swallowing. 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 Pt was driving and independent with ADLS. Current Level of Function: Partially Dependent Current Equipment Used at Home: No equipment. Pain Assessment - Pain Side: right Pain Location Body Site: Knee Pain Aggravating Factors: ADL's, Changing Position, Standing, Walking Pain Alleviating Factors: Ice, Medication, Sitting, Lying Supine Interventions - Objective Patient Orientation: Person, Place, Situation Current Interventions: IV's Observation: Pt is approximately 6 foot 6 inches. Pt is very motivated. Pt has little edema and heat in his R TKA. Pt appears to have LUE impaired proprioception, and coordination of left side. Pt overshoots the nose with eyes closed and uses the ring finger instead of the index finger x 2. OT cued pt to use the index finger and he attempted again with the ring finger. Pt is weak in the Left thumb. Interventions - ROM Right Upper Extremity AROM: WFL's Left Upper Extremity AROM: WFL's - Strength Right Upper Extremity Strength: Normal Left Upper Extremity Strength: Mild Weakness - Sensation Right Upper Extremity Sensation: Intact/Normal Left Upper Extremity Sensation: Impaired Balance - Sitting Balance Static Sitting Balance: Good Dynamic Sitting Balance: Good - Standing Balance Static Standing Balance: Fair Dynamic Standing Balance: Fair - Comments Balance Assessment Comments: Pt requires a RW at this time to maintain balance. ADL Skills - Self Feeding Self Feeding: CGA - Grooming Grooming: Min Assist - Bathing Bathing UE: Supervision Bathing LE: Min Assist - Dressing Dressing UE: Supervision Dressing LE: Mod Assist - Toilet Management Toileting Management: Min Assist Functional Mobility - Bed Mobility Rolling R/L: Independent Scooting: Supervision Supine to Sit: Supervision Sit to Supine: Supervision - Transfers Sit to Stand: Min Assist, 1 person assist Stand to Sit: Min Assist, 1 person assist Stand Pivot Transfers: Min Assist, 1 person assist - Ambulation Weight Bearing Status: FWB Assistive Device Used: Rolling Walker Assistance needed with Ambulation: Min Assist, 1 person assist - Safety Awareness Safety Awareness: Fair Additional Treatment Performed - Additional units charged ADL: 15 - Time with patient Total treatment time: 33 Activities Patient Interests:: Watching Television Patient Education Patient Education: Home Safety, Activity Modification, Education of Plan of Care Teaching Recipient: Patient, Family Teaching Methods: Discussion Assessment Problem List:: Decreased level of function, Decreased safety/Risk of falls, Weakness Rehab Potential: Good Further Therapy Indicated?: Yes Short Term Goals - Goals GOAL 1: Pt to be CGA with sink level ADLS. Goal to be met by: 04/09/17 Progress towards goal: Progressing GOAL 2: Pt to increase LUE strength to 4/5. Goal to be met by: 04/09/17 GOAL 3: Pt to increase standing balance to Good for self care management. Goal to be met by: 04/09/17 Air Twister Winder Goals GOAL 1: Pt to be [place] with sink level ADLS. Goal to be met by: 04/16/17 GOAL 2: Pt to increase LUE strength to 4+/5. Goal to be met by: 04/16/17 GOAL 3: Pt to increase standing balance to Good+ for self care management. Goal to be met by: 04/16/17 Plan Plan of Care: Therapeutic EX, Neuromuscular Re-Educ, Therapeutic Activity, Self- Care/Home Management Modalities: Cold Pack/Cryotherapy Frequency of Treatment: 1-2 X day, as tolerated Duration of Treatment: 2 Weeks Anticipated Discharge Destination: Home Has the Physician been added for Co-signature?: Yes
--- NOTE | 2017-04-02 17:25 | DI ---
EXAM: AP single view of the chest. HISTORY: Cough. FINDINGS: The bones are unremarkable. The cardiac silhouette is mildly enlarged. The pulmonary vasc ulature is within normal limits. The costophrenic angles are clear. There are calcified granulomas. No infiltrate or consolidation. Impression: Mild cardiomegaly.
[2017-04-02] MEDS: XARELTO PO SCH (17:46)
[2017-04-02] MEDS: BETAPACE PO SCH (17:46)
[2017-04-02] MEDS: FORMOTEROL IH SCH (20:18)
[2017-04-02] MEDS: MOMETASONE IH SCH (20:18)
[2017-04-02] MEDS: XANAX PO SCH (20:19)
[2017-04-02] MEDS: OXYCODONE PO PRN (20:19)
[2017-04-02] MEDS: HYTRIN PO SCH (20:19)
[2017-04-02] MEDS: DUONEB NEB SCH (23:27)
[2017-04-03 05:05] LABS: BASOPHILS % (AUTO) 0.6 % (0.0-3.0); EOSINOPHILS # (AUTO) 0.3 K/ul (0.0-0.7); EOSINOPHILS % (AUTO) 3.7 % (0.0-7.0); HEMATOCRIT 33.2 % (42.0-52.0); HEMOGLOBIN 11.3 g/dl (14.0-18.0); IMMATURE GRANULOCYTE % (AUTO) 0.3 % (0.0-5.0); LYMPHOCYTES # (AUTO) 1.1 K/uL (0.60-3.4); LYMPHOCYTES % (AUTO) 14.9 (10.0-50.0); MEAN CORPUSCULAR HEMOGLOBIN 29.5 pg (27.0-31.0); MEAN CORPUSCULAR VOLUME 86.7 fl (80.0-94.0); MONOCYTES # (AUTO) 0.7 K/uL (0.4-2.0); MONOCYTES % (AUTO) 9.8 (0-10); NEUTROPHILS % (AUTO) 70.7; PLATELET COUNT 150 10^3/uL (140-440); RED BLOOD COUNT 3.83 10^6/ul (4.70-6.10); WHITE BLOOD COUNT 7.03 K/ul (4.2-10.2)
[2017-04-03] MEDS: DUONEB NEB SCH ×3 (05:12→21:53)
[2017-04-03 05:32] LABS: ALBUMIN 2.4 g/dL (3.4-5.0); ALBUMIN/GLOBULIN RATIO 0.71; BILIRUBIN,TOTAL 1.21 mg/dL (0.00-1.20); BUN/CREATININE RATIO 18.42; CALCIUM 8.7 mg/dL (8.2-10.2); CREATININE 0.76 mg/dL (0.60-1.10); TOTAL PROTEIN 5.8 g/dL (5.8-8.1)
[2017-04-03] MEDS ORDERED: MILK OF MAGNESIA PO PRN (08:05)
[2017-04-03] MEDS: MOMETASONE IH SCH ×2 (08:12→20:41)
[2017-04-03] MEDS: FORMOTEROL IH SCH ×2 (08:12→20:41)
[2017-04-03] MEDS: ASPIRIN CHEWABLE PO SCH (08:13)
[2017-04-03] MEDS: BETAPACE PO SCH ×2 (08:13→16:39)
[2017-04-03] MEDS: PROSCAR PO SCH (08:14)
[2017-04-03] MEDS: NEURONTIN PO SCH (08:14)
[2017-04-03] MEDS: COZAAR PO SCH (08:14)
[2017-04-03] MEDS: HYDROCHLOROTHIAZIDE PO SCH (08:14)
[2017-04-03] MEDS: OXYCODONE PO PRN ×2 (09:08→19:00)
--- NOTE | 2017-04-03 09:08 | HP ---
DATE OF SERVICE: 04/03/17 (Dr. Paulino did not see the patient on day of admission) HISTORY OF PRESENT ILLNESS: This 82-year-old white/ male was hospitalized 04/02/17. The patient was admitted to [facility] for total right knee replacement. He had questionable TIA during hospitalization at [facility]. He experienced drooling, speech disturbance and hand weakness. Symptoms have resolved with exception of mild left hand weakness. PAST MEDICAL HISTORY: Hypertension Osteoarthritis Benign prostatic hypertrophy Anxiety COPD History of intermittent small bowel obstruction CAD Dyslipidemia Neuropathy PAST SURGICAL HISTORY: Cholecystectomy Lumbar laminectomy Appendectomy Heart catheterization REVIEW OF SYSTEMS: CONSTITUTIONAL: No night sweats. No fatigue, malaise, lethargy. No fever or chills. HEENT: Eyes: No visual changes. No eye pain. No eye discharge. ENT: No runny nose. No epistaxis. No sinus pain. No odynophagia. No congestion. RESPIRATORY: No cough, no congestion. No hemoptysis. No shortness of breath. CARDIOVASCULAR: No angina symptoms. No CHF symptoms. No atypical chest pain for CAD. No palpitations. No orthopnea.. GASTROINTESTINAL: No abdominal pain. No nausea or vomiting. No diarrhea or constipation. No hematemesis. No hematochezia. GENITOURINARY: No urgency. No frequency. No dysuria. No hematuria. No obstructive symptoms. No discharge. No pain. No significant abnormal bleeding. MUSCULOSKELETAL: Mild right knee pain. NEUROLOGICAL: Awake, alert, oriented to time, place and person. No headache. No neck pain. No syncope. No seizures. No dizziness. Mild left hand weakness. PSYCHIATRIC: Not anxious. No depression. No suicidal thoughts. No homicidal thoughts. SKIN: No rash. Right knee incision. ENDOCRINE: No unexplained weight loss. No weight gain. HEMATOLOGIC/LYMPHATIC: No anemia. No purpura. No petechiae. No prolonged or excessive bleeding. No palpable lymph nodes. PERSONAL/FAMILY/SOCIAL HISTORY: The patient is a . He is a nonsmoker. No alcohol abuse. The patient lives by himself with the help of daughter and son. He does all activities of daily living, is very active. MEDICATIONS: (Home) Hytrin 5 mg p.o. bedtime Betapace 40 mg p.o. b.i.d. Alprazolam 0.5 mg p.o. bedtime Finasteride 5 mg p.o. daily Aspirin 81 mg p.o. daily with meal Neurontin 300 mg p.o. daily Losartan/Hydrochlorothiazide 0.5 mg tab p.o. SorenWeFr Anand one vial NEB Rtq.8hr Mometasone/Formoterol 8.8 gm Hfa.Aer.Ad 2 inh IH b.i.d. ALLERGIES: BUTORPHANOL TARTRATE, HYDROMORPHONE HCI, MEPERIDINE HCI PHYSICAL EXAMINATION: GENERAL: The patient is lying in bed in no distress. VITAL SIGNS: Temperature 98.1, pulse 75, BP 111/64, respiratory rate 18. Oxygen 91% on room air. HEENT: Head normocephalic, atraumatic. Eyes: Extraocular muscles are intact. Pupils are equal, round and reactive to light and accommodation. Ears: No lesions. Nose appeared normal. Throat: No exudate or erythema. NECK: Supple. No JVD, no carotid bruit. No lymphadenopathy or thyromegaly. LUNGS: Diminished breath sounds but clear and equal to auscultation. Percussion note normal. Chest symmetrical. HEART: S1, S2, no S3. No murmurs. No cyanosis or clubbing. No ascites. Pulses: Dorsalis pedis and posterior tibial pulses +1 to +2 both sides. ABDOMEN: Soft. Nontender. Bowel sounds active. No CVA tenderness. No mass felt. EXTREMITIES: No edema. Full range of motion of all extremities, equal. NEUROLOGIC: Mild left hand weakness.. Cranial nerves II through XII are grossly intact. No headache, no double vision or headache. SKIN: Warm and dry. Incision anterior right knee, clean, dry and intact. No sign of infection. LYMPHATIC: No palpable lymph nodes/no lymphedema. MUSCULOSKELETAL: Normal joints with no swelling. Muscle tone is normal. LAB REVIEW: 04/03/17 04:47: Sodium 139, Potassium 4.0, Chloride 106, Carbon Dioxide 27, Anion Gap 10.0, BUN 14, Creatinine 0.76, Estimated GFR (MDRD) 98.00, BUN/ Creatinine Ratio 18.42, Glucose 98, Calcium 8.7, Total Bilirubin 1.21 H, AST 28 , ALT 35, Alkaline Phosphatase 68, Total Protein 5.8, Albumin 2.4 L, Globulin 3.4, Albumin/Globulin Ratio 0.71 04/03/17 04:47: WBC 7.03, RBC 3.83 L, Hgb 11.3 L, Hct 33.2 L, MCV 86.7, MCH 29.5 , MCHC 34.0, RDW Coeff of Bernadette 13.2, Plt Count 150, Immature Gran % (Auto) 0.3, Neut % (Auto) 70.7, Lymph % (Auto) 14.9, [place] % (Auto) 9.8, Eos % (Auto) 3.7, Baso % (Auto) 0.6, Immature Gran # (Auto) 0.0, Neut # 5.0, Lymph # 1.1, [place] # 0.7, Eos # 0.3, Baso # 0.0 ASSESSMENT: 1. Total right knee replacement 2. Questionable TIA with left hand weakness PLAN: 1. Telemetry for 24 hours 2. H & H daily 3. CMP every other day 4. Speech therapy consult 5. PT/OT evaluate and treat TIME SPENT: More than 70 minutes. Plan and coordination of the patient's care discussed in the presence of Turning And Beading Machine Operator and nurse. CONDITION: Stable SCRIBED BY: STEWART TYLER Sulfur Burner scribed while in presence of service performed by Dr. Paulino/Anjelica Dewey APRN on 04/03/17 ([id number]) [facility]OSPITALAutumn
[2017-04-03] MEDS: COLACE PO SCH ×2 (09:34→20:41)
--- NOTE | 2017-04-03 11:45 | RS.PTINEVL ---
Subjective - Patient information Date of Evaluation: 04/03/17 Date of Arrival on Unit: 04/02/17 Admitted From:: Facility Transfer Diagnosis: OA R knee , pt also suffered TIA after surgery Usual Living Arrangement: Alone Living Arrangement Comments: son lives close by and dtr is also available to help Home Environment: House, Level/No stairs Medical History: COPD Medical History Comments:: CAD, GERD, Afib, h/o SBO LATEX ALLERGY?: No Surgical History: Knee Replacement, Lumbar Spine, Cholecystectomy Subjective Information/ Patient Comments:: pt states that he had a pain pill approx 1 hour ago - Level of function Prior to this admission, the patient could do the following:: Independent Selfcare, Independent ADL's, Independent Ambulation, Perform Spectrographer/ Cooking Current Level of Function: Partially Dependent Current Equipment Used at Home: No equipment. Pain Assessement - Location Right Knee Description: Sharp, Aching Intensity: 8 (with ROM, 3/10 at rest) Pain Behavior: Rubbing Site, Facial Grimacing Pain Aggravating Factors: Changing Position, Exercise/Activity, Walking Pain Alleviating Factors: Ice, Medication Effects of Pain: limits ROM and mobility Interventions - Objective Patient Orientation: Person, Place, Time, Situation Current Interventions: Telemetry Observation: pt with 2+pitting edema RLE Range of Motion - ROM Right Upper Extremity AROM: WFL's Left Upper Extremity AROM: WFL's Right Lower Extremity AROM: Slight limitation (R knee AAROM flex 55 ext -12) Left Lower Extremity AROM: WFL's Muscle Strength - Muscle Strength Right Upper Extremity Strength: Normal Left Upper Extremity Strength: Mild Weakness (shld flex 4/5, elbow flex/ext 4/5 , decresed housing project manager strength on L) Right Lower Extremity Strength: Mild Weakness (hip flex 4/5, knee flex/ext 3-/5 , ankle Df/PF 4-/5) Left Lower Extremity Strength: Mild Weakness (grossly 4+/5) Sensation - Sensation Right Upper Extremity Sensation: Intact/Normal Left Upper Extremity Sensation: Intact/Normal Right Lower Extremity Sensation: Intact/Normal Left Lower Extremity Sensation: Intact/Normal Balance - Sitting Balance and Reactions Static Sitting Balance: Good Dynamic Sitting Balance: Fair Sitting Equilibrium Reactions: Delayed Left, Delayed Right Sitting Protective Reactions: Delayed Left, Delayed Right - Standing Balance and Reactions Static Standing Balance: Fair Dynamic Standing Balance: Poor Standing Equilibrium Reactions: Delayed Left, Delayed Right Standing Protective Reactions: Delayed Left, Delayed Right - Comments Balance Assessment Comments: TUG 50secs Functional Mobility - Bed Mobility Rolling R/L: Min Assist Supine to Sit: Min Assist - Transfers Sit to Stand: Min Assist Stand to Sit: CGA - Safety Awareness Safety Awareness: Good Ambulation - Ambulation Weight Bearing Status: WBAT Assistive Device Used: Rolling Walker Distance: 50ft Assistance needed with Ambulation: Min Assist, 1 person assist, Verbal Cues Gait Deviations: Forward posture, Short stride Ambulation Comments: pt amb with decreased heel strike/toe off gait pattern with antalgic gait with decreased step length, flexed posture Factors Affecting Ambulation: Decreased Balance, Pain, Weakness, Decreased ROM, Decreased Safety, Limited Endurance Treatment time - Units charged Exercise: 1 - Time with patient Total treatment time: 50 Patient Education - Education Patient Education: Education of diagnosis, Home Exercise Program, Home Safety, Activity Modification, Education of Plan of Care Teaching Recipient: Patient Teaching Methods: Discussion, Demonstration (Discussion regarding standing with assist to urinate, pt states RN wants him to use urinal in the bed but he makes a mess) Assessment - Assessment Problem List:: Decreased level of function, Requires training/education, Decreased safety/Risk of falls, Weakness, Pain limits previous level of function , Cognitive status limits abilities Rehab Potential: Good Further Therapy Indicated?: Yes Short Term Goals GOAL #1: pt demonstrate independence with positioning in bed Goal to be met by: 04/10/17 GOAL #2: pt transfer sup to/from sit to/from stand CGA Goal to be met by: 04/10/17 GOAL #3: pt amb with rwx with improved heel strike and no LOB CGA Goal to be met by: 04/10/17 Cash Specialist Goals GOAL #1: pt ROM R knee flex 100 ext 0 and pt independent with HEP Goal to be met by: 04/17/17 GOAL #2: pt amb with AAD with no LOB and improved sequencing functional distance Goal to be met by: 04/17/17 GOAL #3: pt transfer sup to/from sit to/from stand independently Goal to be met by: 04/17/17 Plan Plan of Care: Therapeutic EX, Therapeutic Activity, Self-Care/Home Management Modalities: Cold Pack/Cryotherapy Other:: gait training Frequency of Treatment: 1-2 X day, as tolerated Duration of Treatment: 2 Weeks Anticipated Discharge Destination: Home Has the Physician been added for Co-signature?: Yes
[2017-04-03] MEDS ORDERED: [UNRECOGNIZED DRUG - OTHER] PO SCH (15:52)
[2017-04-03] MEDS ORDERED: LOSARTAN PO SCH (15:52)
[2017-04-03] MEDS ORDERED: HYDROCHLOROTHIAZIDE PO SCH (15:52)
[2017-04-03] MEDS: XARELTO PO SCH (16:39)
[2017-04-03] MEDS: XANAX PO SCH (20:41)
[2017-04-03] MEDS: HYTRIN PO SCH (20:41)
[2017-04-04] MEDS: DUONEB NEB SCH ×3 (05:00→22:54)
[2017-04-04] MEDS: OXYCODONE PO PRN ×2 (07:56→20:19)
[2017-04-04] MEDS: NEURONTIN PO SCH (08:32)
[2017-04-04] MEDS: ASPIRIN CHEWABLE PO SCH (08:32)
[2017-04-04] MEDS: BETAPACE PO SCH ×2 (08:32→16:48)
[2017-04-04] MEDS: COLACE PO SCH ×2 (08:32→20:20)
[2017-04-04] MEDS: PROSCAR PO SCH (08:33)
[2017-04-04] MEDS: MOMETASONE IH SCH ×2 (08:34→20:19)
[2017-04-04] MEDS: FORMOTEROL IH SCH ×2 (08:34→20:19)
[2017-04-04] MEDS: XARELTO PO SCH (16:48)
[2017-04-04] MEDS: XANAX PO SCH (20:20)
[2017-04-04] MEDS: HYTRIN PO SCH (20:20)
[2017-04-05] MEDS: OXYCODONE PO PRN ×3 (03:09→21:55)
[2017-04-05] MEDS: DUONEB NEB SCH ×3 (05:00→22:17)
[2017-04-05] MEDS: MOMETASONE IH SCH ×2 (08:07→20:07)
[2017-04-05] MEDS: FORMOTEROL IH SCH ×2 (08:07→20:07)
[2017-04-05] MEDS: BETAPACE PO SCH ×2 (08:07→16:37)
[2017-04-05] MEDS: ASPIRIN CHEWABLE PO SCH (08:07)
[2017-04-05] MEDS: NEURONTIN PO SCH (08:07)
[2017-04-05] MEDS: PROSCAR PO SCH (08:07)
[2017-04-05] MEDS: COLACE PO SCH ×2 (08:07→20:05)
[2017-04-05] MEDS: XARELTO PO SCH (16:37)
[2017-04-05] MEDS: XANAX PO SCH (20:05)
[2017-04-05] MEDS: HYTRIN PO SCH (20:05)
[2017-04-06 05:19] LABS: BASOPHILS # (AUTO) 0.1 K/uL (0-0.2); EOSINOPHILS # (AUTO) 0.2 K/ul (0.0-0.7); EOSINOPHILS % (AUTO) 2.7 % (0.0-7.0); HEMATOCRIT 34.2 % (42.0-52.0); HEMOGLOBIN 11.3 g/dl (14.0-18.0); IMMATURE GRANULOCYTE % (AUTO) 0.5 % (0.0-5.0); LYMPHOCYTES # (AUTO) 1.4 K/uL (0.60-3.4); LYMPHOCYTES % (AUTO) 17.2 (10.0-50.0); MEAN CORPUSCULAR HEMOGLOBIN 28.6 pg (27.0-31.0); MEAN CORPUSCULAR VOLUME 86.6 fl (80.0-94.0); MONOCYTES % (AUTO) 13.2 (0-10); NEUTROPHILS # (AUTO) 5.1 K/ul (2.0-6.9); NEUTROPHILS % (AUTO) 65.4; PLATELET COUNT 255 10^3/uL (140-440); RED BLOOD COUNT 3.95 10^6/ul (4.70-6.10); WHITE BLOOD COUNT 7.86 K/ul (4.2-10.2)
[2017-04-06] MEDS: DUONEB NEB SCH ×3 (05:20→21:14)
[2017-04-06 05:40] LABS: ALBUMIN 2.5 g/dL (3.4-5.0); ALBUMIN/GLOBULIN RATIO 0.71; ANION GAP 12.1; BILIRUBIN,TOTAL 1.91 mg/dL (0.00-1.20); BUN/CREATININE RATIO 17.56; CALCIUM 8.4 mg/dL (8.2-10.2); CREATININE 0.74 mg/dL (0.60-1.10); POTASSIUM 4.1 mmol/L (3.5-5.1)
[2017-04-06] MEDS: ASPIRIN CHEWABLE PO SCH (08:07)
[2017-04-06] MEDS: BETAPACE PO SCH ×2 (08:07→17:18)
[2017-04-06] MEDS: NEURONTIN PO SCH (08:07)
[2017-04-06] MEDS: PROSCAR PO SCH (08:07)
[2017-04-06] MEDS: COZAAR PO SCH (08:08)
[2017-04-06] MEDS: COLACE PO SCH ×3 (08:08→20:26)
[2017-04-06] MEDS: HYDROCHLOROTHIAZIDE PO SCH (08:08)
[2017-04-06] MEDS: MOMETASONE IH SCH ×2 (08:09→20:27)
[2017-04-06] MEDS: FORMOTEROL IH SCH ×2 (08:09→20:27)
--- NOTE | 2017-04-06 09:53 | PCM.PROG ---
Attending Provider: ATTENDING PROVIDER: Dr. FRANCISCO HERNANDEZ This patient is seen with Anjelica Dewey, Nurse Practitioner. DATE OF SERVICE: 04/06/17 SUBJECTIVE: This 82 year old WHITE/ M was hospitalized 04/02/17. The patient is sitting in chair, is alert. He has been getting up and about over weekend. hE IS ready to start PT today. REVIEW OF SYSTEMS: CONSTITUTIONAL: No night sweats. No fatigue, malaise, lethargy. No fever or chills. HEENT: Eyes: No visual changes. No eye pain. No eye discharge. ENT: No runny nose. No epistaxis. No sinus pain. No odynophagia. No congestion. RESPIRATORY: No cough, no congestion. No hemoptysis. No shortness of breath. CARDIOVASCULAR: No angina symptoms. No CHF symptoms. No atypical chest pain for CAD. No palpitations. No orthopnea.. GASTROINTESTINAL: No abdominal pain. No nausea or vomiting. Constipation. No hematemesis. No hematochezia. GENITOURINARY: No urgency. No frequency. No dysuria. No hematuria. No obstructive symptoms. No discharge. No pain. No significant abnormal bleeding. MUSCULOSKELETAL: Right knee pain. NEUROLOGICAL: Awake, alert, oriented to time, place and person. No headache. No neck pain. No syncope. No seizures. No dizziness. PSYCHIATRIC: Not anxious. No depression. No suicidal thoughts. No homicidal thoughts. SKIN: No rash. No lesions. Right knee incision ENDOCRINE: No unexplained weight loss. No weight gain. HEMATOLOGIC/LYMPHATIC: No anemia. No purpura. No petechiae. No prolonged or excessive bleeding. No palpable lymph nodes. PHYSICAL EXAMINATION: GENERAL: The patient is awake, alert and oriented, sitting in chair in no distress. VITAL SIGNS: Temperature 98.4 F, Pulse 81, Respiratory Rate 16, BP 141/80, Pulse Ox 94% HEENT: Head normocephalic, atraumatic. Eyes: Extraocular muscles are intact. Pupils are equal, round and reactive to light and accommodation. Ears: No lesions. Nose appeared normal. Throat: No exudate or erythema. NECK: Supple. No JVD, no carotid bruit. No lymphadenopathy or thyromegaly. LUNGS: Clear to auscultation. Percussion note normal. Chest symmetrical. HEART: S1, S2, no S3. No murmurs. No cyanosis or clubbing. No ascites. Pulses: Dorsalis pedis and posterior tibial pulses +1 to +2 both sides. ABDOMEN: Soft. Non-tender. Bowel sounds active. No CVA tenderness. No mass felt. EXTREMITIES: No edema. Full range of motion of all extremities, equal. NEUROLOGIC: No focal deficit. Cranial nerves II through XII are grossly intact. No headache, no double vision or headache. SKIN: Right knee swelling incision clean, dry and intact no sign of infection LYMPHATIC: No palpable lymph nodes/no lymphedema. MUSCULOSKELETAL: Normal joints with no swelling. Muscle tone is normal. LAB REVIEW: 04/06/17 05:17 04/06/17 05:17 04/06/17 05:17: Sodium 138, Potassium 4.1, Chloride 107, Carbon Dioxide 23, Anion Gap 12.1, BUN 13, Creatinine 0.74, Estimated GFR (MDRD) 102.00, BUN/ Creatinine Ratio 17.56, Glucose 107, Calcium 8.4, Total Bilirubin 1.91 H, AST 71 H, ALT 86 H, Alkaline Phosphatase 95, Total Protein 6.0, Albumin 2.5 L, Globulin 3.5, Albumin/Globulin Ratio 0.71 04/06/17 05:17: WBC 7.86, RBC 3.95 L, Hgb 11.3 L, Hct 34.2 L, MCV 86.6, MCH 28.6 , MCHC 33.0, RDW Coeff of Bernadette 13.1, Plt Count 255, Immature Gran % (Auto) 0.5, Neut % (Auto) 65.4, Lymph % (Auto) 17.2, [place] % (Auto) 13.2 H, Eos % (Auto) 2.7 , Baso % (Auto) 1.0, Immature Gran # (Auto) 0.0, Neut # 5.1, Lymph # 1.4, [place] # 1.0, Eos # 0.2, Baso # 0.1 ASSESSMENT: 1. Total right hip replacement 2. Questionable TIA with left hand weakness 3. Constipation 4. Elevated liver function PLAN: 1. D/C telemetry 2. Repeat CMP tomorrow 3. Colace suppository. Plan and coordination of the patient's care discussed in the presence of Block Operator and nurse. CONDITION: Stable SCRIBED BY: STEWART TYLER Career Agent scribed while in presence of service performed by Dr. Hernandez/Anjelica Dewey APRN on 04/06/17 ([id number])
[2017-04-06] MEDS: OXYCODONE PO PRN ×3 (13:30→23:34)
[2017-04-06] MEDS: DULCOLAX RC PRN (15:53)
[2017-04-06] MEDS: XARELTO PO SCH (17:18)
[2017-04-06] MEDS: XANAX PO SCH (20:26)
[2017-04-06] MEDS: HYTRIN PO SCH (20:26)
[2017-04-07 05:12] LABS: ALBUMIN 2.5 g/dL (3.4-5.0); ALBUMIN/GLOBULIN RATIO 0.68; ANION GAP 12.9; BILIRUBIN,TOTAL 1.9 mg/dL (0.00-1.20); BUN/CREATININE RATIO 19.23; CALCIUM 8.5 mg/dL (8.2-10.2); CREATININE 0.78 mg/dL (0.60-1.10); POTASSIUM 3.9 mmol/L (3.5-5.1); TOTAL PROTEIN 6.2 g/dL (5.8-8.1)
[2017-04-07] MEDS: DUONEB NEB SCH ×3 (05:30→22:28)
[2017-04-07] MEDS: ASPIRIN CHEWABLE PO SCH (08:42)
[2017-04-07] MEDS: BETAPACE PO SCH ×2 (08:43→17:07)
[2017-04-07] MEDS: COLACE PO SCH ×3 (08:43→20:58)
[2017-04-07] MEDS: MOMETASONE IH SCH ×2 (08:44→20:59)
[2017-04-07] MEDS: FORMOTEROL IH SCH ×2 (08:44→20:59)
[2017-04-07] MEDS: OXYCODONE PO PRN ×4 (08:45→23:19)
[2017-04-07] MEDS: PROSCAR PO SCH (08:45)
[2017-04-07] MEDS: NEURONTIN PO SCH (08:45)
--- NOTE | 2017-04-07 11:04 | PCM.PROG ---
Attending Provider: ATTENDING PROVIDER: Dr. FRANCISCO HERNANDEZ DATE OF SERVICE: 04/07/17 SUBJECTIVE: This 82 year old WHITE/ M was hospitalized 04/02/17. The patient is hospitalized with total right knee replacement. The patient is recovering very well. He doesn't have any problem with walking except for mild soreness of right knee. REVIEW OF SYSTEMS: CONSTITUTIONAL: No night sweats. No fatigue, malaise, lethargy. No fever or chills. HEENT: Eyes: No visual changes. No eye pain. No eye discharge. ENT: No runny nose. No epistaxis. No sinus pain. No odynophagia. No congestion. RESPIRATORY: No cough, no congestion. No hemoptysis. No shortness of breath. CARDIOVASCULAR: No angina symptoms. No CHF symptoms. No atypical chest pain for CAD. No palpitations. No orthopnea.. GASTROINTESTINAL: No abdominal pain. No nausea or vomiting. No diarrhea or constipation. No hematemesis. No hematochezia. GENITOURINARY: No urgency. No frequency. No dysuria. No hematuria. No obstructive symptoms. No discharge. No pain. No significant abnormal bleeding. MUSCULOSKELETAL: Soreness of right knee. NEUROLOGICAL: Awake, alert, oriented to time, place and person. No headache. No neck pain. No syncope. No seizures. No dizziness. PSYCHIATRIC: Not anxious. No depression. No suicidal thoughts. No homicidal thoughts. SKIN: No rash. No lesions. Right knee incision looks clean, dry and intact. ENDOCRINE: No unexplained weight loss. No weight gain. HEMATOLOGIC/LYMPHATIC: No anemia. No purpura. No petechiae. No prolonged or excessive bleeding. No palpable lymph nodes. PHYSICAL EXAMINATION: GENERAL: The patient is awake, alert and oriented, lying/sitting in bed in no distress. VITAL SIGNS: Temperature 98.1 F, Pulse 77, Respiratory Rate 20, BP 116/62, Pulse Ox 94% HEENT: Head normocephalic, atraumatic. Eyes: Extraocular muscles are intact. Pupils are equal, round and reactive to light and accommodation. Ears: No lesions. Nose appeared normal. Throat: No exudate or erythema. NECK: Supple. No JVD, no carotid bruit. No lymphadenopathy or thyromegaly. LUNGS: Clear to auscultation. Percussion note normal. Chest symmetrical. HEART: S1, S2, no S3. No murmurs. No cyanosis or clubbing. No ascites. Pulses: Dorsalis pedis and posterior tibial pulses +1 to +2 both sides. ABDOMEN: Soft. Non-tender. Bowel sounds active. No CVA tenderness. No mass felt. EXTREMITIES: No edema. Full range of motion of all extremities, equal. NEUROLOGIC: No focal deficit. Cranial nerves II through XII are grossly intact. No headache, no double vision or headache. SKIN: Warm, dry. Right knee incision is clean and dry. No sign of infection. Turgor-normal. LYMPHATIC: No palpable lymph nodes/no lymphedema. MUSCULOSKELETAL: Normal joints with no swelling. Muscle tone is normal. LAB REVIEW: 04/06/17 05:17 04/07/17 04:47 04/07/17 04:47: Sodium 138, Potassium 3.9, Chloride 106, Carbon Dioxide 23, Anion Gap 12.9, BUN 15, Creatinine 0.78, Estimated GFR (MDRD) 96.00, BUN/ Creatinine Ratio 19.23, Glucose 105, Calcium 8.5, Total Bilirubin 1.90 H, AST 53 H, ALT 77, Alkaline Phosphatase 97, Total Protein 6.2, Albumin 2.5 L, Globulin 3.7, Albumin/Globulin Ratio 0.68 ASSESSMENT: 1. Right knee replacement recovering well; incision looks clean. Calf muscles are nontender. 2. 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 3. Telemetry does not show atrial fibrillation. 4. CVS stable. PLAN: Continue PT Plan and coordination of the patient's care discussed in the presence of Fourdrinier Machine Operator and nurse. CONDITION: Stable SCRIBED BY: Dipak PETERS scribed while in presence of service performed by Dr. FRANCISCO HERNANDEZ on 04/07/17 ([id number])
[2017-04-07] MEDS: XARELTO PO SCH (17:08)
[2017-04-07] MEDS: HYTRIN PO SCH (20:58)
[2017-04-07] MEDS: XANAX PO SCH (20:58)
[2017-04-08] MEDS: DUONEB NEB SCH ×3 (05:08→21:59)
[2017-04-08] MEDS: MOMETASONE IH SCH ×2 (08:44→20:33)
[2017-04-08] MEDS: FORMOTEROL IH SCH ×2 (08:44→20:33)
[2017-04-08] MEDS: ASPIRIN CHEWABLE PO SCH (08:45)
[2017-04-08] MEDS: HYDROCHLOROTHIAZIDE PO SCH (08:45)
[2017-04-08] MEDS: COLACE PO SCH ×3 (08:45→20:33)
[2017-04-08] MEDS: PROSCAR PO SCH (08:45)
[2017-04-08] MEDS: NEURONTIN PO SCH (08:45)
[2017-04-08] MEDS: BETAPACE PO SCH ×2 (08:45→17:47)
[2017-04-08] MEDS: COZAAR PO SCH (08:46)
--- NOTE | 2017-04-08 11:02 | PCM.PROG ---
Attending Provider: ATTENDING PROVIDER: Dr. FRANCISCO HERNANDEZ This patient is seen with Anjelica Dewey, Nurse Practitioner. DATE OF SERVICE: 04/08/17 SUBJECTIVE: This 82 year old WHITE/ M was hospitalized 04/02/17. The patient is sitting in the chair, is alert. The patient is doing well with physical therapy. He has been eating good. REVIEW OF SYSTEMS: CONSTITUTIONAL: No night sweats. No fatigue, malaise, lethargy. No fever or chills. HEENT: Eyes: No visual changes. No eye pain. No eye discharge. ENT: No runny nose. No epistaxis. No sinus pain. No odynophagia. No congestion. RESPIRATORY: No cough, no congestion. No hemoptysis. No shortness of breath. CARDIOVASCULAR: No angina symptoms. No CHF symptoms. No atypical chest pain for CAD. No palpitations. No orthopnea.. GASTROINTESTINAL: No abdominal pain. No nausea or vomiting. No diarrhea or constipation. No hematemesis. No hematochezia. GENITOURINARY: No urgency. No frequency. No dysuria. No hematuria. No obstructive symptoms. No discharge. No pain. No significant abnormal bleeding. MUSCULOSKELETAL: Right knee pain. NEUROLOGICAL: Awake, alert, oriented to time, place and person. No headache. No neck pain. No syncope. No seizures. No dizziness. PSYCHIATRIC: Not anxious. No depression. No suicidal thoughts. No homicidal thoughts. SKIN: No rash. No lesions. Right knee incision. ENDOCRINE: No unexplained weight loss. No weight gain. HEMATOLOGIC/LYMPHATIC: No anemia. No purpura. No petechiae. No prolonged or excessive bleeding. No palpable lymph nodes. PHYSICAL EXAMINATION: GENERAL: The patient is awake, alert and oriented, sitting in chair in no distress. VITAL SIGNS: Temperature 97.6 F, Pulse 75, Respiratory Rate 18, BP 122/56, Pulse Ox 95% HEENT: Head normocephalic, atraumatic. Eyes: Extraocular muscles are intact. Pupils are equal, round and reactive to light and accommodation. Ears: No lesions. Nose appeared normal. Throat: No exudate or erythema. NECK: Supple. No JVD, no carotid bruit. No lymphadenopathy or thyromegaly. LUNGS: Clear to auscultation. Percussion note normal. Chest symmetrical. HEART: S1, S2, no S3. No murmurs. No cyanosis or clubbing. No ascites. Pulses: Dorsalis pedis and posterior tibial pulses +1 to +2 both sides. ABDOMEN: Soft. Non-tender. Bowel sounds active. No CVA tenderness. No mass felt. EXTREMITIES: No edema. Full range of motion of all extremities, equal. Calf muscles nontender. NEUROLOGIC: No focal deficit. Cranial nerves II through XII are grossly intact. No headache, no double vision or headache. SKIN: Warm, dry and intact. Turgor-normal. Incision looks clean, dry and intact, no sign of infection. LYMPHATIC: No palpable lymph nodes/no lymphedema. MUSCULOSKELETAL: Normal joints with no swelling. Muscle tone is normal. LAB REVIEW: 04/06/17 05:17 04/07/17 04:47 ASSESSMENT: 1. Right knee replacement recovering well, incision is clean and healthy looking. 2. 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 4. Telemetry does not show atrial fibrillation 5. CVS stable 6. Liver function improved PLAN: 1. Continue PT/OT 2. Continue to monitor Plan and coordination of the patient's care discussed in the presence of Material Flow Analyst and nurse. CONDITION: Stable SCRIBED BY: STEWART TYLER Fish Agent scribed while in presence of service performed by Dr. Hernandez/Anjelica Dewey APRN on 04/08/17 ([id number])
--- NOTE | 2017-04-08 12:46 | PN ---
DATE OF SERVICE: SUBJECTIVE: The patient was hospitalized with right knee replacement. The patient is up and about doing well. He is remarkable doing better. Has mild soreness. PHYSICAL EXAMINATION: GENERAL: The patient is up and about. VITAL SIGNS: HEENT: Head normocephalic, atraumatic. Eyes: Extraocular muscles are intact. Pupils are equal, round and reactive to light and accommodation. Ears: No lesions. Nose appeared normal. Throat: No exudate or erythema. NECK: Supple. No JVD, no carotid bruit. No lymphadenopathy or thyromegaly. LUNGS: Clear to auscultation. Percussion note normal. Chest symmetrical. HEART: S1, S2, no S3. No murmurs. No cyanosis or clubbing. No ascites. Pulses: Dorsalis pedis and posterior tibial pulses +1 to +2 both sides. ABDOMEN: Soft. Nontender. Bowel sounds active. No CVA tenderness. No mass felt. EXTREMITIES: No edema. Full range of motion of all extremities, equal. Mild swelling of the right knee. NEUROLOGIC: No focal deficit. Cranial nerves II through XII are grossly intact. No headache, no double vision or headache. Had CVA with left hemiparesis we can classify that as a TIA but I think that it lasted more than 24 hours. SKIN: Not dry. Intact. Turgor - normal. LYMPHATIC: No palpable lymph nodes/no lymphedema. MUSCULOSKELETAL: Normal joints with no swelling. Muscle tone is normal. The patient was seen and examined with Nurse Practitioner and Heel Cementer Machine. TIME SPENT: More than 30 minutes. Plan and coordination of the patient's care discussed in the presence of nurse. SHARON
[2017-04-08] MEDS: XARELTO PO SCH (17:47)
[2017-04-08] MEDS: XANAX PO SCH (20:33)
[2017-04-08] MEDS: HYTRIN PO SCH (20:33)
[2017-04-08] MEDS: OXYCODONE PO PRN (20:34)
[2017-04-09] MEDS: DUONEB NEB SCH ×3 (05:20→21:24)
[2017-04-09 06:10] LABS: BASOPHILS # (AUTO) 0.1 K/uL (0-0.2); BASOPHILS % (AUTO) 1.1 % (0.0-3.0); EOSINOPHILS # (AUTO) 0.2 K/ul (0.0-0.7); EOSINOPHILS % (AUTO) 1.9 % (0.0-7.0); HEMATOCRIT 32.4 % (42.0-52.0); HEMOGLOBIN 10.8 g/dl (14.0-18.0); LYMPHOCYTES # (AUTO) 1.6 K/uL (0.60-3.4); LYMPHOCYTES % (AUTO) 19.5 (10.0-50.0); MEAN CORPUSCULAR HEMOGLOBIN 29.1 pg (27.0-31.0); MEAN CORPUSCULAR HGB CONC 33.3 (31.8-35.4); MEAN CORPUSCULAR VOLUME 87.3 fl (80.0-94.0); MONOCYTES # (AUTO) 0.8 K/uL (0.4-2.0); MONOCYTES % (AUTO) 9.7 (0-10); NEUTROPHILS # (AUTO) 5.4 K/ul (2.0-6.9); NEUTROPHILS % (AUTO) 66.8; PLATELET COUNT 300 10^3/uL (140-440); RED BLOOD COUNT 3.71 10^6/ul (4.70-6.10); WHITE BLOOD COUNT 8.04 K/ul (4.2-10.2)
[2017-04-09 06:36] LABS: ALBUMIN 2.6 g/dL (3.4-5.0); ALBUMIN/GLOBULIN RATIO 0.74; ANION GAP 10.6; BILIRUBIN,TOTAL 1.35 mg/dL (0.00-1.20); BUN/CREATININE RATIO 21.05; CALCIUM 8.4 mg/dL (8.2-10.2); CREATININE 0.76 mg/dL (0.60-1.10); POTASSIUM 3.6 mmol/L (3.5-5.1); TOTAL PROTEIN 6.1 g/dL (5.8-8.1)
[2017-04-09] MEDS: PROSCAR PO SCH (08:02)
[2017-04-09] MEDS: MOMETASONE IH SCH ×2 (08:02→20:12)
[2017-04-09] MEDS: FORMOTEROL IH SCH ×2 (08:02→20:12)
[2017-04-09] MEDS: COLACE PO SCH ×3 (08:02→20:12)
[2017-04-09] MEDS: NEURONTIN PO SCH (08:03)
[2017-04-09] MEDS: ASPIRIN CHEWABLE PO SCH (08:03)
[2017-04-09] MEDS: BETAPACE PO SCH ×2 (08:03→17:05)
[2017-04-09] MEDS: OXYCODONE PO PRN ×3 (08:54→20:13)
--- NOTE | 2017-04-09 11:32 | PN ---
DATE OF SERVICE: 04/05/17 SUBJECTIVE: 82-year-old white male hospitalized with total right knee replacement. The patient also had a TIA with left hemiparesis. In fact, the patient's hemiparesis lasted for more than 24 hours so it could be classified as stroke. In any case, the patient has completely recovered. He is able to walk on his own. The stiffness of the right knee is much less. REVIEW OF SYSTEMS: CONSTITUTIONAL: No night sweats. No fatigue, malaise, lethargy. No fever or chills. HEENT: Eyes: No visual changes. No eye pain. No eye discharge. ENT: No runny nose. No epistaxis. No sinus pain. No sore throat. No odynophagia. No congestion. RESPIRATORY: No cough, no congestion. No hemoptysis. No shortness of breath. No PND. CARDIOVASCULAR: No angina symptoms. No CHF symptoms. No atypical chest pain for CAD. No palpitations. No orthopnea. GASTROINTESTINAL: No abdominal pain. No nausea or vomiting. No diarrhea or constipation. No hematemesis. No hematochezia. GENITOURINARY: No urgency. No frequency. No dysuria. No hematuria. No obstructive symptoms. No discharge. No pain. No significant abnormal bleeding. MUSCULOSKELETAL: No musculoskeletal pain; no joint swelling. NEUROLOGICAL: No headache. No neck pain. No syncope. No seizures. No dizziness. PSYCHIATRIC: Not anxious. No depression. No suicidal thoughts. No homicidal thoughts. SKIN: No rash. No lesions. No wounds. ENDOCRINE: No unexplained weight loss. No weight gain. HEMATOLOGIC/LYMPHATIC: No anemia. No purpura. No petechiae. No prolonged or excessive bleeding. No palpable lymph nodes. PHYSICAL EXAMINATION: GENERAL: The patient is oriented to time, place and person. VITAL SIGNS: Temperature 98, pulse 88, respiratory rate 18, BP 125/70, pulse ox 96%. HEENT: Head normocephalic, atraumatic. Eyes: Extraocular muscles are intact. Pupils are equal, round and reactive to light and accommodation. Ears: No lesions. Nose appeared normal. Throat: No exudate or erythema. NECK: Supple. No JVD, no carotid bruit. No lymphadenopathy or thyromegaly. LUNGS: Decreased breath sounds. Clear to auscultation. Percussion note normal. Chest symmetrical. HEART: S1, S2, no S3. No murmurs. No cyanosis or clubbing. No ascites. Pulses: Dorsalis pedis and posterior tibial pulses +1 to +2 both sides. ABDOMEN: Soft. Nontender. Bowel sounds active. No CVA tenderness. No mass felt. EXTREMITIES: No edema. Full range of motion of all extremities, equal. NEUROLOGIC: No focal deficit. Cranial nerves II through XII are grossly intact. No headache, no double vision or headache. SKIN: Not dry. Intact. Turgor - normal. LYMPHATIC: No palpable lymph nodes/no lymphedema. MUSCULOSKELETAL: Normal joints with no swelling. Muscle tone is normal. LABS: Hemoglobin 11, hematocrit 33, WBC 7,000, normal differential. Creatinine 0.7. BUN 14. ASSESSMENT: 1. Right knee replacement, stable 2. History of CVA with left hemiparesis status post surgery PLAN: 1. Will put telemetry on patient to see whether patient has atrial fib or not. Carotid scan did not show any significantly blocked arteries. The patient's cardiovascular status is stable. The patient has kary arrhythmias. CONDITION: Stable TIME SPENT: More than 30 minutes. Plan and coordination of the patient's care discussed in the presence of nurse. SHARON
--- NOTE | 2017-04-09 11:34 | PN ---
CODING FOR BILLIN04/05/17 INTERMEDIATE MTDD
[2017-04-09] MEDS: DULCOLAX RC PRN (16:08)
[2017-04-09] MEDS: XARELTO PO SCH (17:05)
[2017-04-09] MEDS: HYTRIN PO SCH (20:12)
[2017-04-09] MEDS: XANAX PO SCH (20:12)
[2017-04-10] MEDS: DUONEB NEB SCH ×3 (05:03→22:00)
[2017-04-10] MEDS: BETAPACE PO SCH ×2 (08:40→17:17)
[2017-04-10] MEDS: ASPIRIN CHEWABLE PO SCH (08:40)
[2017-04-10] MEDS: COLACE PO SCH ×3 (08:40→20:11)
[2017-04-10] MEDS: OXYCODONE PO PRN ×2 (08:41→20:07)
[2017-04-10] MEDS: HYDROCHLOROTHIAZIDE PO SCH (08:41)
[2017-04-10] MEDS: PROSCAR PO SCH (08:41)
[2017-04-10] MEDS: COZAAR PO SCH (08:41)
[2017-04-10] MEDS: NEURONTIN PO SCH (08:42)
[2017-04-10] MEDS: FORMOTEROL IH SCH ×2 (08:42→20:07)
[2017-04-10] MEDS: MOMETASONE IH SCH ×2 (08:42→20:07)
--- NOTE | 2017-04-10 09:48 | PCM.PROG ---
Attending Provider: ATTENDING PROVIDER: Dr. FRANCISCO HERNANDEZ This patient is seen with Anjelica Dewey, Nurse Practitioner. DATE OF SERVICE: 04/10/17 SUBJECTIVE: This 82 year old WHITE/ M was hospitalized 04/02/17. The patient is sitting in chair, is alert. He slept well, is eating well. He had a bowel movement yesterday. He is doing well with PT. REVIEW OF SYSTEMS: CONSTITUTIONAL: No night sweats. No fatigue, malaise, lethargy. No fever or chills. HEENT: Eyes: No visual changes. No eye pain. No eye discharge. ENT: No runny nose. No epistaxis. No sinus pain. No odynophagia. No congestion. RESPIRATORY: No cough, no congestion. No hemoptysis. No shortness of breath. CARDIOVASCULAR: No angina symptoms. No CHF symptoms. No atypical chest pain for CAD. No palpitations. No orthopnea.. GASTROINTESTINAL: No abdominal pain. No nausea or vomiting. No diarrhea or constipation. No hematemesis. No hematochezia. GENITOURINARY: No urgency. No frequency. No dysuria. No hematuria. No obstructive symptoms. No discharge. No pain. No significant abnormal bleeding. MUSCULOSKELETAL: Right knee pain. NEUROLOGICAL: Awake, alert, oriented to time, place and person. No headache. No neck pain. No syncope. No seizures. No dizziness. PSYCHIATRIC: Not anxious. No depression. No suicidal thoughts. No homicidal thoughts. SKIN: No rash. Right knee incision looks good. No sign of infection. ENDOCRINE: No unexplained weight loss. No weight gain. HEMATOLOGIC/LYMPHATIC: No anemia. No purpura. No petechiae. No prolonged or excessive bleeding. No palpable lymph nodes. PHYSICAL EXAMINATION: GENERAL: The patient is awake, alert and oriented, sitting in chair in no distress. VITAL SIGNS: Temperature 98.3 F, Pulse 73, Respiratory Rate 20, BP 131/99, Pulse Ox 94% HEENT: Head normocephalic, atraumatic. Eyes: Extraocular muscles are intact. Pupils are equal, round and reactive to light and accommodation. Ears: No lesions. Nose appeared normal. Throat: No exudate or erythema. NECK: Supple. No JVD, no carotid bruit. No lymphadenopathy or thyromegaly. LUNGS: Clear to auscultation. Percussion note normal. Chest symmetrical. HEART: S1, S2, no S3. No murmurs. No cyanosis or clubbing. No ascites. Pulses: Dorsalis pedis and posterior tibial pulses +1 to +2 both sides. ABDOMEN: Soft. Non-tender. Bowel sounds active. No CVA tenderness. No mass felt. EXTREMITIES: No edema. Full range of motion of all extremities, equal. NEUROLOGIC: No focal deficit. Cranial nerves II through XII are grossly intact. No headache, no double vision or headache. SKIN: Warm, dry and intact. Turgor-normal. Right knee incision is clean, dry and intact. No sign of infection. LYMPHATIC: No palpable lymph nodes/no lymphedema. MUSCULOSKELETAL: Normal joints with no swelling. Muscle tone is normal. LAB REVIEW: 04/09/17 04:49 04/09/17 04:49 ASSESSMENT: 1. Right knee replacement recovering well, incision is clean and healthy looking. 2. 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 4. Telemetry does not show atrial fibrillation 5. CVS stable 6. Liver function improved PLAN: 1. Continue PT Plan and coordination of the patient's care discussed in the presence of Home Care Consultant and nurse. CONDITION: Stable SCRIBED BY: STEWART TYLER Metallurgy Laboratory Technician scribed while in presence of service performed by Dr. Hernandez/Anjelica Dewey APRN on 04/10/17 ([id number])
[2017-04-10] MEDS: XARELTO PO SCH (17:18)
[2017-04-10] MEDS: XANAX PO SCH (20:07)
[2017-04-10] MEDS: HYTRIN PO SCH (20:07)
[2017-04-11] MEDS: DUONEB NEB SCH ×3 (05:12→21:14)
[2017-04-11] MEDS: PROSCAR PO SCH (08:28)
[2017-04-11] MEDS: NEURONTIN PO SCH (08:28)
[2017-04-11] MEDS: ASPIRIN CHEWABLE PO SCH (08:28)
[2017-04-11] MEDS: COLACE PO SCH ×3 (08:28→20:55)
[2017-04-11] MEDS: FORMOTEROL IH SCH ×2 (08:28→20:55)
[2017-04-11] MEDS: OXYCODONE PO PRN ×2 (08:28→20:55)
[2017-04-11] MEDS: MOMETASONE IH SCH ×2 (08:28→20:55)
[2017-04-11] MEDS: BETAPACE PO SCH ×2 (08:29→17:29)
[2017-04-11] MEDS: XARELTO PO SCH (17:29)
[2017-04-11] MEDS: XANAX PO SCH (20:55)
[2017-04-11] MEDS: HYTRIN PO SCH (20:55)
[2017-04-12] MEDS: OXYCODONE PO PRN ×3 (01:03→23:08)
[2017-04-12] MEDS: DUONEB NEB SCH ×3 (05:03→22:45)
[2017-04-12 05:32] LABS: BASOPHILS # (AUTO) 0.1 K/uL (0-0.2); BASOPHILS % (AUTO) 1.1 % (0.0-3.0); EOSINOPHILS # (AUTO) 0.2 K/ul (0.0-0.7); EOSINOPHILS % (AUTO) 2.3 % (0.0-7.0); HEMATOCRIT 33.3 % (42.0-52.0); HEMOGLOBIN 11.2 g/dl (14.0-18.0); IMMATURE GRANULOCYTE % (AUTO) 0.4 % (0.0-5.0); LYMPHOCYTES # (AUTO) 1.6 K/uL (0.60-3.4); LYMPHOCYTES % (AUTO) 21.1 (10.0-50.0); MEAN CORPUSCULAR HEMOGLOBIN 29.2 pg (27.0-31.0); MEAN CORPUSCULAR HGB CONC 33.6 (31.8-35.4); MEAN CORPUSCULAR VOLUME 86.7 fl (80.0-94.0); MONOCYTES # (AUTO) 0.6 K/uL (0.4-2.0); MONOCYTES % (AUTO) 8.1 (0-10); NEUTROPHILS # (AUTO) 5.1 K/ul (2.0-6.9); PLATELET COUNT 317 10^3/uL (140-440); RED BLOOD COUNT 3.84 10^6/ul (4.70-6.10); WHITE BLOOD COUNT 7.53 K/ul (4.2-10.2)
[2017-04-12 05:57] LABS: ALBUMIN 2.7 g/dL (3.4-5.0); ALBUMIN/GLOBULIN RATIO 0.73; BILIRUBIN,TOTAL 1.02 mg/dL (0.00-1.20); BUN/CREATININE RATIO 16.88; CALCIUM 8.7 mg/dL (8.2-10.2); CREATININE 0.77 mg/dL (0.60-1.10); TOTAL PROTEIN 6.4 g/dL (5.8-8.1)
[2017-04-12] MEDS: NEURONTIN PO SCH (08:39)
[2017-04-12] MEDS: ASPIRIN CHEWABLE PO SCH (08:39)
[2017-04-12] MEDS: COLACE PO SCH ×3 (08:39→20:29)
[2017-04-12] MEDS: BETAPACE PO SCH ×2 (08:39→17:40)
[2017-04-12] MEDS: FORMOTEROL IH SCH ×2 (08:39→20:29)
[2017-04-12] MEDS: MOMETASONE IH SCH ×2 (08:39→20:29)
[2017-04-12] MEDS: PROSCAR PO SCH (08:39)
[2017-04-12] MEDS: XARELTO PO SCH (17:38)
[2017-04-12] MEDS: HYTRIN PO SCH (20:29)
[2017-04-12] MEDS: XANAX PO SCH (20:30)
[2017-04-13] MEDS: DUONEB NEB SCH ×3 (05:03→22:18)
--- NOTE | 2017-04-13 09:04 | PN ---
DATE OF SERVICE: 04/13/17 SUBJECTIVE: The patient was hospitalized with right knee replacement. The patient's condition has improved. He is walking around and feeling a lot better and getting strength back. Mild soreness of the right knee noted. PHYSICAL EXAMINATION: HEENT: Head normocephalic, atraumatic. Eyes: Extraocular muscles are intact. Pupils are equal, round and reactive to light and accommodation. Ears: No lesions. Nose appeared normal. Throat: No exudate or erythema. NECK: Supple. No JVD, no carotid bruit. No lymphadenopathy or thyromegaly. LUNGS: Clear to auscultation. Percussion note normal. Chest symmetrical. HEART: S1, S2, no S3. No murmurs. No cyanosis or clubbing. No ascites. Pulses: Dorsalis pedis and posterior tibial pulses +1 to +2 both sides. ABDOMEN: Soft. Nontender. Bowel sounds active. No CVA tenderness. No mass felt. EXTREMITIES: No edema. Full range of motion of all extremities, equal. Right knee healing properly with no evidence of infection. Calf nontender. NEUROLOGIC: No focal deficit. Cranial nerves II through XII are grossly intact. No headache, no double vision or headache. Neurological status is stable after the patient had mild stroke with no neurological deficit post surgical. SKIN: Not dry. Intact. Turgor - normal. LYMPHATIC: No palpable lymph nodes/no lymphedema. MUSCULOSKELETAL: Normal joints with no swelling. Muscle tone is normal. CONDITION: Stable The patient was seen and examined with Nurse Practitioner and Pre Billing Specialist. TIME SPENT: More than 30 minutes. Plan and coordination of the patient's care discussed in the presence of nurse. SHARON
[2017-04-13] MEDS: MOMETASONE IH SCH ×2 (09:07→20:24)
[2017-04-13] MEDS: FORMOTEROL IH SCH ×2 (09:07→20:24)
[2017-04-13] MEDS: ASPIRIN CHEWABLE PO SCH (09:08)
[2017-04-13] MEDS: HYDROCHLOROTHIAZIDE PO SCH (09:08)
[2017-04-13] MEDS: COLACE PO SCH ×3 (09:10→20:25)
[2017-04-13] MEDS: NEURONTIN PO SCH (09:10)
[2017-04-13] MEDS: COZAAR PO SCH (09:11)
[2017-04-13] MEDS: PROSCAR PO SCH (09:11)
[2017-04-13] MEDS: BETAPACE PO SCH ×2 (09:12→17:50)
--- NOTE | 2017-04-13 10:32 | PCM.PROG ---
Attending Provider: ATTENDING PROVIDER: Dr. FRANCISCO HERNANDEZ This patient is seen with Anjelica Dewey, Nurse Practitioner. DATE OF SERVICE: 04/13/17 SUBJECTIVE: This 82 year old WHITE/ M was hospitalized 04/02/17. The patient is alert, lying in bed. He has been feeling well over weekend. REVIEW OF SYSTEMS: CONSTITUTIONAL: No night sweats. No fatigue, malaise, lethargy. No fever or chills. HEENT: Eyes: No visual changes. No eye pain. No eye discharge. ENT: No runny nose. No epistaxis. No sinus pain. No odynophagia. No congestion. RESPIRATORY: No cough, no congestion. No hemoptysis. No shortness of breath. CARDIOVASCULAR: No angina symptoms. No CHF symptoms. No atypical chest pain for CAD. No palpitations. No orthopnea.. GASTROINTESTINAL: No abdominal pain. No nausea or vomiting. No diarrhea or constipation. No hematemesis. No hematochezia. GENITOURINARY: No urgency. No frequency. No dysuria. No hematuria. No obstructive symptoms. No discharge. No pain. No significant abnormal bleeding. MUSCULOSKELETAL: Right knee pain. NEUROLOGICAL: Awake, alert, oriented to time, place and person. No headache. No neck pain. No syncope. No seizures. No dizziness. PSYCHIATRIC: Not anxious. No depression. No suicidal thoughts. No homicidal thoughts. SKIN: No rash. No lesions. Right knee incision looks good. No sign of infection. ENDOCRINE: No unexplained weight loss. No weight gain. HEMATOLOGIC/LYMPHATIC: No anemia. No purpura. No petechiae. No prolonged or excessive bleeding. No palpable lymph nodes. PHYSICAL EXAMINATION: GENERAL: The patient is awake, alert and oriented, lying in bed in no distress. VITAL SIGNS: Temperature 98.2 F, Pulse 72, Respiratory Rate 16, BP 130/75, Pulse Ox 94% HEENT: Head normocephalic, atraumatic. Eyes: Extraocular muscles are intact. Pupils are equal, round and reactive to light and accommodation. Ears: No lesions. Nose appeared normal. Throat: No exudate or erythema. NECK: Supple. No JVD, no carotid bruit. No lymphadenopathy or thyromegaly. LUNGS: Clear to auscultation. Percussion note normal. Chest symmetrical. HEART: S1, S2, no S3. No murmurs. No cyanosis or clubbing. No ascites. Pulses: Dorsalis pedis and posterior tibial pulses +1 to +2 both sides. ABDOMEN: Soft. Non-tender. Bowel sounds active. No CVA tenderness. No mass felt. EXTREMITIES: No edema. Full range of motion of all extremities, equal. NEUROLOGIC: No focal deficit. Cranial nerves II through XII are grossly intact. No headache, no double vision or headache. SKIN: Not dry. Intact. Turgor-normal. Right knee incision is clean, dry and intact. No sign of infection. LYMPHATIC: No palpable lymph nodes/no lymphedema. MUSCULOSKELETAL: Normal joints with no swelling. Muscle tone is normal. LAB REVIEW: 04/12/17 05:20 04/12/17 05:20 ASSESSMENT: 1. Right knee replacement recovering well, incision is clean and healthy looking. 2. 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 3. CVS stable 4. Liver function improved PLAN: 1. Resume PT/OT today 2. The patient progressing well Plan and coordination of the patient's care discussed in the presence of Air Compressor Engineer and nurse. CONDITION: Stable SCRIBED BY: STEWART TYLER Core Maker scribed while in presence of service performed by Dr. Hernandez/Anjelica Dewey APRN on 04/13/17 ([id number])
--- NOTE | 2017-04-13 13:23 | PN ---
DATE OF SERVICE: 04/08/17 SUBJECTIVE: The patient had right knee replacement and was seen and examined with the nurse practitioner, shelter case manager. PHYSICAL EXAMINATION: HEENT: Head normocephalic, atraumatic. Eyes: Extraocular muscles are intact. Pupils are equal, round and reactive to light and accommodation. Ears: No lesions. Nose appeared normal. Throat: No exudate or erythema. NECK: Supple. No JVD, no carotid bruit. No lymphadenopathy or thyromegaly. LUNGS: Clear to auscultation. Percussion note normal. Chest symmetrical. HEART: S1, S2, no S3. No murmurs. No cyanosis or clubbing. No ascites. Pulses: Dorsalis pedis and posterior tibial pulses +1 to +2 both sides. ABDOMEN: Soft. Nontender. Bowel sounds active. No CVA tenderness. No mass felt. EXTREMITIES: No edema. Right knee looks good with no drainage. The patient has normal neurological status. NEUROLOGIC: No focal deficit. Cranial nerves II through XII are grossly intact. No headache, no double vision or headache. SKIN: Not dry. Intact. Turgor - normal. LYMPHATIC: No palpable lymph nodes/no lymphedema. MUSCULOSKELETAL: Normal joints with no swelling. Muscle tone is normal. CONDITION: STABLE TIME SPENT: More than 30 minutes. Plan and coordination of the patient's care discussed in the presence of nurse. SHARON
--- NOTE | 2017-04-13 14:08 | PN ---
DATE OF SERVICE: 04/10/17 SUBJECTIVE: The patient is up and about, admitted after right knee replacement. The patient , during the hospital stay, post op developed CVA with left hemiparesis, could have been TIA, duration was a little bit over 24 hours. In any case, the patient has no residual CHEF'S ASSISTANT effect. He is up and about, normal talking, swallowing. REVIEW OF SYSTEMS: CONSTITUTIONAL: No night sweats. No fatigue, malaise, lethargy. No fever or chills. HEENT: Eyes: No visual changes. No eye pain. No eye discharge. ENT: No runny nose. No epistaxis. No sinus pain. No sore throat. No odynophagia. No congestion. RESPIRATORY: No cough, no congestion. No hemoptysis. No shortness of breath. CARDIOVASCULAR: No angina symptoms. No CHF symptoms. No atypical chest pain for CAD. No palpitations. No orthopnea. GASTROINTESTINAL: No abdominal pain. No nausea or vomiting. No diarrhea or constipation. No hematemesis. No hematochezia. GENITOURINARY: No urgency. No frequency. No dysuria. No hematuria. No obstructive symptoms. No discharge. No pain. No significant abnormal bleeding. MUSCULOSKELETAL: No musculoskeletal pain; no joint swelling. NEUROLOGICAL: No headache. No neck pain. No syncope. No seizures. No dizziness. PSYCHIATRIC: Not anxious. No depression. No suicidal thoughts. No homicidal thoughts. SKIN: No rash. No lesions. Incision healthy looking. No sign of infection. ENDOCRINE: No unexplained weight loss. No weight gain. HEMATOLOGIC/LYMPHATIC: No anemia. No purpura. No petechiae. No prolonged or excessive bleeding. No palpable lymph nodes. PHYSICAL EXAMINATION: HEENT: Head normocephalic, atraumatic. Eyes: Extraocular muscles are intact. Pupils are equal, round and reactive to light and accommodation. Ears: No lesions. Nose appeared normal. Throat: No exudate or erythema. NECK: Supple. No JVD, no carotid bruit. No lymphadenopathy or thyromegaly. LUNGS: Clear to auscultation. Percussion note normal. Chest symmetrical. HEART: S1, S2, no S3. No murmurs. No cyanosis or clubbing. No ascites. Pulses: Dorsalis pedis and posterior tibial pulses +1 to +2 both sides. ABDOMEN: Soft. Nontender. Bowel sounds active. No CVA tenderness. No mass felt. EXTREMITIES: No edema. Full range of motion of all extremities, equal. NEUROLOGIC: No focal deficit. Cranial nerves II through XII are grossly intact. No headache, no double vision or headache. SKIN: Not dry. Intact. Turgor - normal. LYMPHATIC: No palpable lymph nodes/no lymphedema. MUSCULOSKELETAL: Normal joints with no swelling. Muscle tone is normal. LABS: Hemoglobin/hematocrit 10.8 and 32. ASSESSMENT: 1. Right knee replacement, stable. The patient is up and about progressing very well. TIME SPENT: More than 30 minutes. Plan and coordination of the patient's care discussed in the presence of nurse. SHARON
--- NOTE | 2017-04-13 14:23 | PN ---
DATE OF SERVICE: 04/11/17 SUBJECTIVE: 82 year old white male hospitalized with right knee replacement. The patient's condition has improved and he is much better. He is working with the physical therapy well. REVIEW OF SYSTEMS: CONSTITUTIONAL: No night sweats. No fatigue, malaise, lethargy. No fever or chills. HEENT: Eyes: No visual changes. No eye pain. No eye discharge. ENT: No runny nose. No epistaxis. No sinus pain. No sore throat. No odynophagia. No congestion. RESPIRATORY: No cough, no congestion. No hemoptysis. No shortness of breath. CARDIOVASCULAR: No angina symptoms. No CHF symptoms. No atypical chest pain for CAD. No palpitations. No orthopnea. No PND. GASTROINTESTINAL: No abdominal pain. No nausea or vomiting. No diarrhea or constipation. No hematemesis. No hematochezia. GENITOURINARY: No urgency. No frequency. No dysuria. No hematuria. No obstructive symptoms. No discharge. No pain. No significant abnormal bleeding. MUSCULOSKELETAL: No musculoskeletal pain; no joint swelling. NEUROLOGICAL: No headache. No neck pain. No syncope. No seizures. No dizziness. PSYCHIATRIC: Not anxious. No depression. No suicidal thoughts. No homicidal thoughts. SKIN: No rash. No lesions. No wounds. ENDOCRINE: No unexplained weight loss. No weight gain. HEMATOLOGIC/LYMPHATIC: No anemia. No purpura. No petechiae. No prolonged or excessive bleeding. No palpable lymph nodes. PHYSICAL EXAMINATION: GENERAL: The patient is oriented to time, place and person. VITAL SIGNS: Temperature 98, pulse 72, respiratory rate 16, blood pressure 122/ 60 and pulse ox 95%. HEENT: Head normocephalic, atraumatic. Eyes: Extraocular muscles are intact. Pupils are equal, round and reactive to light and accommodation. Ears: No lesions. Nose appeared normal. Throat: No exudate or erythema. NECK: Supple. No JVD, no carotid bruit. No lymphadenopathy or thyromegaly. LUNGS: Decreased breath sounds but clear to auscultation. Percussion note normal. Chest symmetrical. HEART: S1, S2, no S3. No murmurs. No cyanosis or clubbing. No ascites. Pulses: Dorsalis pedis and posterior tibial pulses +1 to +2 both sides. ABDOMEN: Soft. Nontender. Bowel sounds active. No CVA tenderness. No mass felt. EXTREMITIES: No edema. Full range of motion of all extremities, equal. Calf muscles nontender. NEUROLOGIC: No focal deficit. Cranial nerves II through XII are grossly intact. No headache, no double vision or headache. SKIN: Not dry. Intact. Turgor - normal. Incision looks with no drainage. LYMPHATIC: No palpable lymph nodes/no lymphedema. MUSCULOSKELETAL: Normal joints with no swelling. Muscle tone is normal. LABS: Hgb 10.8, hct 32, WBC 8,000 normal differential, creatinine 0.7, BUN 16, potassium 3.6. ASSESSMENT: 1. Right knee replacement, patient recovering well 2. CVA post surgery, no evidence of it. Neurological normal. The patient has left hemiparesis with TIA and/or CVA PLAN: 1. The patient doesn't seem to have atrial fibrillation noted and any other arrhythmias except for bradyarrhythmias on telemetry. CONDITION: STABLE TIME SPENT: More than 30 minutes. Plan and coordination of the patient's care discussed in the presence of nurse. SHARON
[2017-04-13] MEDS: XARELTO PO SCH (17:51)
[2017-04-13] MEDS: OXYCODONE PO PRN (20:23)
[2017-04-13] MEDS: XANAX PO SCH (20:23)
[2017-04-13] MEDS: HYTRIN PO SCH (20:23)
[2017-04-14] MEDS: DUONEB NEB SCH ×3 (05:14→22:26)
[2017-04-14] MEDS: PROSCAR PO SCH (08:15)
[2017-04-14] MEDS: MOMETASONE IH SCH ×2 (08:15→20:36)
[2017-04-14] MEDS: COLACE PO SCH ×3 (08:15→20:38)
[2017-04-14] MEDS: ASPIRIN CHEWABLE PO SCH (08:15)
[2017-04-14] MEDS: FORMOTEROL IH SCH ×2 (08:15→20:36)
[2017-04-14] MEDS: NEURONTIN PO SCH (08:16)
[2017-04-14] MEDS: BETAPACE PO SCH ×2 (08:16→16:50)
[2017-04-14] MEDS: XARELTO PO SCH (16:50)
[2017-04-14] MEDS: XANAX PO SCH (20:38)
[2017-04-14] MEDS: HYTRIN PO SCH (20:38)
[2017-04-14] MEDS: OXYCODONE PO PRN (20:38)
[2017-04-15] MEDS: OXYCODONE PO PRN ×3 (01:15→20:46)
[2017-04-15] MEDS: DUONEB NEB SCH ×3 (05:08→22:08)
[2017-04-15 05:49] LABS: BASOPHILS # (AUTO) 0.1 K/uL (0-0.2); BASOPHILS % (AUTO) 1.5 % (0.0-3.0); EOSINOPHILS # (AUTO) 0.2 K/ul (0.0-0.7); EOSINOPHILS % (AUTO) 2.3 % (0.0-7.0); HEMATOCRIT 33.8 % (42.0-52.0); HEMOGLOBIN 11.4 g/dl (14.0-18.0); IMMATURE GRANULOCYTE % (AUTO) 0.2 % (0.0-5.0); LYMPHOCYTES # (AUTO) 1.5 K/uL (0.60-3.4); LYMPHOCYTES % (AUTO) 22.6 (10.0-50.0); MEAN CORPUSCULAR HEMOGLOBIN 29.3 pg (27.0-31.0); MEAN CORPUSCULAR HGB CONC 33.7 (31.8-35.4); MEAN CORPUSCULAR VOLUME 86.9 fl (80.0-94.0); MONOCYTES # (AUTO) 0.6 K/uL (0.4-2.0); MONOCYTES % (AUTO) 9.1 (0-10); NEUTROPHILS # (AUTO) 4.2 K/ul (2.0-6.9); NEUTROPHILS % (AUTO) 64.3; PLATELET COUNT 322 10^3/uL (140-440); RED BLOOD COUNT 3.89 10^6/ul (4.70-6.10); WHITE BLOOD COUNT 6.51 K/ul (4.2-10.2)
[2017-04-15 06:25] LABS: ALBUMIN 2.7 g/dL (3.4-5.0); ALBUMIN/GLOBULIN RATIO 0.75; ANION GAP 9.8; BILIRUBIN,TOTAL 0.83 mg/dL (0.00-1.20); BUN/CREATININE RATIO 15.18; CALCIUM 8.8 mg/dL (8.2-10.2); CREATININE 0.79 mg/dL (0.60-1.10); POTASSIUM 3.8 mmol/L (3.5-5.1); TOTAL PROTEIN 6.3 g/dL (5.8-8.1)
[2017-04-15] MEDS: ASPIRIN CHEWABLE PO SCH (09:21)
[2017-04-15] MEDS: HYDROCHLOROTHIAZIDE PO SCH (09:21)
[2017-04-15] MEDS: BETAPACE PO SCH ×2 (09:23→16:57)
[2017-04-15] MEDS: NEURONTIN PO SCH (09:23)
[2017-04-15] MEDS: PROSCAR PO SCH (09:23)
[2017-04-15] MEDS: COZAAR PO SCH (09:24)
[2017-04-15] MEDS: MOMETASONE IH SCH ×2 (09:26→20:46)
[2017-04-15] MEDS: COLACE PO SCH ×3 (09:26→20:46)
[2017-04-15] MEDS: FORMOTEROL IH SCH ×2 (09:26→20:46)
--- NOTE | 2017-04-15 13:39 | PCM.PROG ---
Attending Provider: ATTENDING PROVIDER: Dr. FRANCISCO HERNANDEZ DATE OF SERVICE: 04/15/17 SUBJECTIVE: This 82 year old WHITE/ M was hospitalized 04/02/17. The patient is admitted to swing bed for right knee replacement. He is up and about> Incision looks good. Calf muscles are normal. Cardiovascular status is stable. Neurological status is stable. Labs are normal. REVIEW OF SYSTEMS: CONSTITUTIONAL: No night sweats. No fatigue, malaise, lethargy. No fever or chills. HEENT: Eyes: No visual changes. No eye pain. No eye discharge. ENT: No runny nose. No epistaxis. No sinus pain. No odynophagia. No congestion. RESPIRATORY: No cough, no congestion. No hemoptysis. No shortness of breath. CARDIOVASCULAR: No angina symptoms. No CHF symptoms. No atypical chest pain for CAD. No palpitations. No orthopnea.. GASTROINTESTINAL: No abdominal pain. No nausea or vomiting. No diarrhea or constipation. No hematemesis. No hematochezia. GENITOURINARY: No urgency. No frequency. No dysuria. No hematuria. No obstructive symptoms. No discharge. No pain. No significant abnormal bleeding. MUSCULOSKELETAL: No musculoskeletal pain; no joint swelling. NEUROLOGICAL: Awake, alert, oriented to time, place and person. No headache. No neck pain. No syncope. No seizures. No dizziness. PSYCHIATRIC: Not anxious. No depression. No suicidal thoughts. No homicidal thoughts. SKIN: No rash. No lesions. Right knee incision, healthy looking. ENDOCRINE: No unexplained weight loss. No weight gain. HEMATOLOGIC/LYMPHATIC: No anemia. No purpura. No petechiae. No prolonged or excessive bleeding. No palpable lymph nodes. PHYSICAL EXAMINATION: GENERAL: The patient is awake, alert and oriented, lying/sitting in bed in no distress. VITAL SIGNS: Temperature 98.1 F, Pulse 67, Respiratory Rate 18, BP 118/66, Pulse Ox 92% HEENT: Head normocephalic, atraumatic. Eyes: Extraocular muscles are intact. Pupils are equal, round and reactive to light and accommodation. Ears: No lesions. Nose appeared normal. Throat: No exudate or erythema. NECK: Supple. No JVD, no carotid bruit. No lymphadenopathy or thyromegaly. LUNGS: Clear to auscultation. Percussion note normal. Chest symmetrical. HEART: S1, S2, no S3. No murmurs. No cyanosis or clubbing. No ascites. Pulses: Dorsalis pedis and posterior tibial pulses +1 to +2 both sides. ABDOMEN: Soft. Non-tender. Bowel sounds active. No CVA tenderness. No mass felt. EXTREMITIES: No edema. Full range of motion of all extremities, equal. NEUROLOGIC: No focal deficit. Cranial nerves II through XII are grossly intact. No headache, no double vision or headache. SKIN: Warm, dry and intact. Turgor-normal. Right knee incision is healthy looking, clean, dry and intact. No sign of infection. LYMPHATIC: No palpable lymph nodes/no lymphedema. MUSCULOSKELETAL: Normal joints with no swelling. Muscle tone is normal. LAB REVIEW: 04/15/17 05:24 04/15/17 05:24 04/15/17 05:24: Sodium 140, Potassium 3.8, Chloride 107, Carbon Dioxide 27, Anion Gap 9.8, BUN 12, Creatinine 0.79, Estimated GFR (MDRD) 94.00, BUN/ Creatinine Ratio 15.18, Glucose 94, Calcium 8.8, Total Bilirubin 0.83, AST 14 L , ALT 18, Alkaline Phosphatase 84, Total Protein 6.3, Albumin 2.7 L, Globulin 3.6, Albumin/Globulin Ratio 0.75 04/15/17 05:24: WBC 6.51, RBC 3.89 L, Hgb 11.4 L, Hct 33.8 L, MCV 86.9, MCH 29.3 , MCHC 33.7, RDW Coeff of Bernadette 13.2, Plt Count 322, Immature Gran % (Auto) 0.2, Neut % (Auto) 64.3, Lymph % (Auto) 22.6, [place] % (Auto) 9.1, Eos % (Auto) 2.3, Baso % (Auto) 1.5, Immature Gran # (Auto) 0.0, Neut # 4.2, Lymph # 1.5, [place] # 0.6, Eos # 0.2, Baso # 0.1 ASSESSMENT: 1. Right knee replacement 2. History of left hemiparesis with CVA postop PLAN: 1. Up and about 2. Continue PT Plan and coordination of the patient's care discussed in the presence of Line Clearance Foreman and nurse. CONDITION: Stable SCRIBED BY: STEWART TYLER, Bilingual Administrative Assistant scribed while in presence of service performed by Dr. FRANCISCO HERNANDEZ on 04/15/17 (0800)
[2017-04-15] MEDS: XARELTO PO SCH (16:10)
[2017-04-15] MEDS: XANAX PO SCH (20:46)
[2017-04-15] MEDS: HYTRIN PO SCH (20:46)
[2017-04-16] MEDS: DUONEB NEB SCH ×3 (05:10→22:30)
[2017-04-16] MEDS: ASPIRIN CHEWABLE PO SCH (08:14)
[2017-04-16] MEDS: PROSCAR PO SCH (08:14)
[2017-04-16] MEDS: COLACE PO SCH ×3 (08:14→20:28)
[2017-04-16] MEDS: BETAPACE PO SCH ×2 (08:14→17:19)
[2017-04-16] MEDS: FORMOTEROL IH SCH ×2 (08:15→20:31)
[2017-04-16] MEDS: MOMETASONE IH SCH ×2 (08:15→20:31)
[2017-04-16] MEDS: NEURONTIN PO SCH (08:15)
--- NOTE | 2017-04-16 14:35 | PN ---
DATE OF SERVICE: 04/03/17 SUBJECTIVE: 82-year-old white female hospitalized with total right knee replacement. The patient also had an episode in the hospital with TIA involving the left upper and lower extremity with some slurred speech which has completely resolved. The patient is feeling better. He did not mention that to me. REVIEW OF SYSTEMS: CONSTITUTIONAL: No night sweats. No fatigue, malaise, lethargy. No fever or chills. HEENT: Eyes: No visual changes. No eye pain. No eye discharge. ENT: No runny nose. No epistaxis. No sinus pain. No sore throat. No odynophagia. No congestion. RESPIRATORY: No cough, no congestion. No hemoptysis. No shortness of breath. CARDIOVASCULAR: No angina symptoms. No CHF symptoms. No atypical chest pain for CAD. No palpitations. No orthopnea. GASTROINTESTINAL: No abdominal pain. No nausea or vomiting. No diarrhea or constipation. No hematemesis. No hematochezia. GENITOURINARY: No urgency. No frequency. No dysuria. No hematuria. No obstructive symptoms. No discharge. No pain. No significant abnormal bleeding. MUSCULOSKELETAL: No musculoskeletal pain; no joint swelling. NEUROLOGICAL: No headache. No neck pain. No syncope. No seizures. No dizziness. PSYCHIATRIC: Not anxious. No depression. No suicidal thoughts. No homicidal thoughts. SKIN: No rash. ENDOCRINE: No unexplained weight loss. No weight gain. HEMATOLOGIC/LYMPHATIC: No anemia. No purpura. No petechiae. No prolonged or excessive bleeding. No palpable lymph nodes. PHYSICAL EXAMINATION: GENERAL: The patient is oriented to time, place and person. HEENT: Head normocephalic, atraumatic. Eyes: Extraocular muscles are intact. Pupils are equal, round and reactive to light and accommodation. Ears: No lesions. Nose appeared normal. Throat: No exudate or erythema. NECK: Supple. No JVD, no carotid bruit. No lymphadenopathy or thyromegaly. LUNGS: Decreased breath sounds but clear to auscultation. Percussion note normal. Chest symmetrical. HEART: S1, S2, no S3. No murmurs. No cyanosis or clubbing. No ascites. Pulses: Dorsalis pedis and posterior tibial pulses +1 to +2 both sides. ABDOMEN: Soft. Nontender. Bowel sounds active. No CVA tenderness. No mass felt. EXTREMITIES: No edema. Right knee seems to be somewhat swollen with mild redness. No discharge noted. The calf is nontender. Full range of motion of all extremities, equal. NEUROLOGIC: No focal deficit. Cranial nerves II through XII are grossly intact. No headache, no double vision or headache. SKIN: Not dry. Intact. Turgor - normal. LYMPHATIC: No palpable lymph nodes/no lymphedema. MUSCULOSKELETAL: Normal joints with no swelling. Muscle tone is normal. ASSESSMENT: 1. RIGHT KNEE REPLACEMENT 2. CORONARY ARTERY DISEASE 3. 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 HYPERTENSION 6. DYSLIPIDEMIA PLAN: 1. Have telemetry watch the patient's neurological status. 2. The patient is on Xarelto 10 and aspirin, to watch H & H. CONDITION: Stable. The patient was seen and examined with the nurse practitioner and correctional case records supervisor. TIME SPENT: More than 30 minutes. Plan and coordination of the patient's care discussed in the presence of nurse. SHARON
[2017-04-16] MEDS: XARELTO PO SCH (17:19)
[2017-04-16] MEDS: HYTRIN PO SCH (20:28)
[2017-04-16] MEDS: XANAX PO SCH (20:28)
[2017-04-16] MEDS: OXYCODONE PO PRN (20:29)
[2017-04-17] MEDS: DUONEB NEB SCH (05:00)
[2017-04-17 05:45] VITALS: BP 123/64; TEMP 98.1
[2017-04-17] MEDS: BETAPACE PO SCH (07:52)
[2017-04-17] MEDS: ASPIRIN CHEWABLE PO SCH (07:52)
[2017-04-17 08:45] LABS: BASOPHILS # (AUTO) 0.1 K/uL (0-0.2); BASOPHILS % (AUTO) 1.1 % (0.0-3.0); EOSINOPHILS # (AUTO) 0.1 K/ul (0.0-0.7); EOSINOPHILS % (AUTO) 1.2 % (0.0-7.0); HEMATOCRIT 38.8 % (42.0-52.0); IMMATURE GRANULOCYTE % (AUTO) 0.3 % (0.0-5.0); LYMPHOCYTES # (AUTO) 1.1 K/uL (0.60-3.4); LYMPHOCYTES % (AUTO) 17.3 (10.0-50.0); MEAN CORPUSCULAR HEMOGLOBIN 29.2 pg (27.0-31.0); MEAN CORPUSCULAR HGB CONC 33.5 (31.8-35.4); MEAN CORPUSCULAR VOLUME 87.2 fl (80.0-94.0); MONOCYTES # (AUTO) 0.6 K/uL (0.4-2.0); MONOCYTES % (AUTO) 8.5 (0-10); NEUTROPHILS # (AUTO) 4.6 K/ul (2.0-6.9); NEUTROPHILS % (AUTO) 71.6; PLATELET COUNT 355 10^3/uL (140-440); RED BLOOD COUNT 4.45 10^6/ul (4.70-6.10); WHITE BLOOD COUNT 6.48 K/ul (4.2-10.2)
[2017-04-17 09:02] LABS: ALBUMIN 3.2 g/dL (3.4-5.0); ALBUMIN/GLOBULIN RATIO 0.86; ANION GAP 10.1; BILIRUBIN,TOTAL 0.92 mg/dL (0.00-1.20); BUN/CREATININE RATIO 15.29; CALCIUM 9.3 mg/dL (8.2-10.2); CREATININE 0.85 mg/dL (0.60-1.10); POTASSIUM 4.1 mmol/L (3.5-5.1); TOTAL PROTEIN 6.9 g/dL (5.8-8.1)
[2017-04-17] MEDS: FORMOTEROL IH SCH (09:10)
[2017-04-17] MEDS: MOMETASONE IH SCH (09:10)
[2017-04-17] MEDS: HYDROCHLOROTHIAZIDE PO SCH (09:11)
[2017-04-17] MEDS: COZAAR PO SCH (09:11)
[2017-04-17] MEDS: PROSCAR PO SCH (09:13)
[2017-04-17] MEDS: NEURONTIN PO SCH (09:13)
[2017-04-17] MEDS: COLACE PO SCH (09:18)
--- NOTE | 2017-04-17 09:28 | PCM.PROG ---
Attending Provider: ATTENDING PROVIDER: Dr. FRANCISCO HERNANDEZ This patient is seen with Anjelica Dewey, Nurse Practitioner. DATE OF SERVICE: 04/17/17 SUBJECTIVE: This 82 year old WHITE/ M was hospitalized 04/02/17. The patient is lying in bed, is alert. He states he is ready to go home. He would like to do further therapy at [facility] as outpatient. REVIEW OF SYSTEMS: CONSTITUTIONAL: No night sweats. No fatigue, malaise, lethargy. No fever or chills. HEENT: Eyes: No visual changes. No eye pain. No eye discharge. ENT: No runny nose. No epistaxis. No sinus pain. No odynophagia. No congestion. RESPIRATORY: No cough, no congestion. No hemoptysis. No shortness of breath. CARDIOVASCULAR: No angina symptoms. No CHF symptoms. No atypical chest pain for CAD. No palpitations. No orthopnea.. GASTROINTESTINAL: No abdominal pain. No nausea or vomiting. No diarrhea or constipation. No hematemesis. No hematochezia. GENITOURINARY: No urgency. No frequency. No dysuria. No hematuria. No obstructive symptoms. No discharge. No pain. No significant abnormal bleeding. MUSCULOSKELETAL: Right knee pain. NEUROLOGICAL: Awake, alert, oriented to time, place and person. No headache. No neck pain. No syncope. No seizures. No dizziness. PSYCHIATRIC: Not anxious. No depression. No suicidal thoughts. No homicidal thoughts. SKIN: No rash. No lesions. Surgical incision right knee. ENDOCRINE: No unexplained weight loss. No weight gain. HEMATOLOGIC/LYMPHATIC: No anemia. No purpura. No petechiae. No prolonged or excessive bleeding. No palpable lymph nodes. PHYSICAL EXAMINATION: GENERAL: The patient is awake, alert and oriented, lying in bed in no distress. VITAL SIGNS: Temperature 98.1 F, Pulse 61, Respiratory Rate 16, BP 123/64, Pulse Ox 99% HEENT: Head normocephalic, atraumatic. Eyes: Extraocular muscles are intact. Pupils are equal, round and reactive to light and accommodation. Ears: No lesions. Nose appeared normal. Throat: No exudate or erythema. NECK: Supple. No JVD, no carotid bruit. No lymphadenopathy or thyromegaly. LUNGS: Clear to auscultation. Percussion note normal. Chest symmetrical. HEART: S1, S2, no S3. No murmurs. No cyanosis or clubbing. No ascites. Pulses: Dorsalis pedis and posterior tibial pulses +1 to +2 both sides. ABDOMEN: Soft. Non-tender. Bowel sounds active. No CVA tenderness. No mass felt. EXTREMITIES: No edema. Full range of motion of all extremities, equal. NEUROLOGIC: No focal deficit. Cranial nerves II through XII are grossly intact. No headache, no double vision or headache. SKIN: Warm, dry. Intact. Turgor-normal. Right knee incision clean, dry and intact. No sign of infection. No drainage, no redness. LYMPHATIC: No palpable lymph nodes/no lymphedema. MUSCULOSKELETAL: Normal joints with no swelling. Muscle tone is normal. LAB REVIEW: 04/15/17 05:24 04/15/17 05:24 ASSESSMENT: 1. Right knee replacement 2. History of left hemiparesis with CVA postop 3. Anemia as result of surgery PLAN: 1. D/C home 2. CBC CMP prior to discharge 3. Schedule outpatient PT/OT at [facility] 4. Appointment next week [facility] Dr. Hernandez/Anjelica Dewey APRN 5. Appointment with Ortho/Dr. Mazin Hernandez 05/12/17 Plan and coordination of the patient's care discussed in the presence of Supervisor Gelatin Plant and nurse. CONDITION: Stable SCRIBED BY: STEWART TYLER Medical Records Technician scribed while in presence of service performed by Dr. Hernandez/Anjelica Dewey APRN on 04/17/17 (075)
--- NOTE | 2017-04-17 09:45 | CM.DICTOOL ---
ADMISSION: 04/02/17 15:16 DISCHARGE: 04/17/17 FINAL DIAGNOSIS TOTAL RIGHT KNEE REPLACEMENT, DR. YUKI HERNANDEZ, 03/30/17 ([place]) TIA, 03/31/17 ATRIAL-FIBRILLATION ANEMIA, IRON DEFICIENCY ANXIETY ASTHMA CAD S/P CARDIAC STENTS X3 AND CABG CONSTIPATION COPD DYSLIPIDEMIA GERD HYPERTENSION HISTORY OF SMALL BOWEL OBSTRUCTION OSTEOARTHRITIS SINUS BRADYCARDIA APPENDECTOMY BACK SURGERY CHOLECYSTECTOMY COLONOSCOPY CATARACT REMOVAL WITH LENS IMPLANTS NEVER USED TOBACCO NO ALCOHOL LAST VITALS Temp Pulse Resp BP Pulse Ox 98.1 F 61 16 123/64 99 04/17/17 05:44 04/17/17 05:44 04/17/17 05:44 04/17/17 05:44 04/17/17 05:44 ACTIVE MEDICATIONS Albuterol/Ipratropium (Duoneb) 1 vial NEB RTQ8H [facility] Last Admin: 04/17/17 05:00 Dose: 1 vial Alprazolam (Xanax) 0.5 mg PO BEDTIME [facility] Last Admin: 04/16/17 20:28 Dose: 0.5 mg Aspirin (Aspirin Chewable) 81 mg PO DAILYWM [facility] Last Admin: 04/16/17 08:14 Dose: 81 mg Finasteride (Proscar) 5 mg PO DAILY [facility] Last Admin: 04/16/17 08:14 Dose: 5 mg Gabapentin (Neurontin) 300 mg PO DAILY [facility] Last Admin: 04/16/17 08:15 Dose: 300 mg Hydrochlorothiazide (Hydrochlorothiazide) 6.25 mg PO MoWeFr [facility] Last Admin: 04/15/17 09:21 Dose: 6.25 mg Losartan Potassium (Cozaar) 50 mg PO MoWeFr [facility] Last Admin: 04/15/17 09:24 Dose: 50 mg Non-Formulary Medication (Mometasone/Formoterol [Dulera 100 Mcg/5 Mcg Inhaler]) 2 inh IH BID [facility] Last Admin: 04/16/17 20:31 Dose: 2 inh Oxycodone HCl (Oxycodone) 5 - 15 mg PO Q4-6H PRN PRN Reason: pain Last Admin: 04/16/17 20:29 Dose: 5 mg Rivaroxaban (Xarelto) 10 mg PO QPM [facility] Last Admin: 04/16/17 17:19 Dose: 10 mg Sotalol HCl (Betapace) 40 mg PO BIDWM [facility] Last Admin: 04/16/17 17:19 Dose: 40 mg Terazosin HCl (Hytrin) 5 mg PO BEDTIME [facility] Last Admin: 04/16/17 20:28 Dose: 5 mg ALLERGIES butorphanol tartrate [From Stadol] Adverse Reaction (Verified 10/27/16 09:16) hydromorphone HCl [From Dilaudid] Adverse Reaction (Verified 10/27/16 09:16) meperidine HCl [From Demerol] Adverse Reaction (Verified 10/27/16 09:16) NEW PRESCRIPTIONS: NEW MEDICATIONS: 1. OXYCODONE 5MG TAKE 1 TO 3 TABLETS EVERY 4 TO 6 HOURS NEEDED FOR PAIN 2. XARELTO 10MG TAKE 1 TABLET DAILY FOR 18 DAYS. YOU FINISHED YOUR 18 DAYS ON . SMOKING: N/A DISEASE SPECIFIC EDUCATION: POST -OP CARE INFECTION S/S MEDICATION ACTIVITY/SAFETY LAB REVIEW: 04/17/17 08:15 04/17/17 08:15 04/17/17 08:15: Sodium 139, Potassium 4.1, Chloride 106, Carbon Dioxide 27, Anion Gap 10.1, BUN 13, Creatinine 0.85, Estimated GFR (MDRD) 87.00, BUN/ Creatinine Ratio 15.29, Glucose 109, Calcium 9.3, Total Bilirubin 0.92, AST 15, ALT 15, Alkaline Phosphatase 90, Total Protein 6.9, Albumin 3.2 L, Globulin 3.7 , Albumin/Globulin Ratio 0.86 04/17/17 08:15: WBC 6.48, RBC 4.45 L, Hgb 13.0 L, Hct 38.8 L, MCV 87.2, MCH 29.2 , MCHC 33.5, RDW Coeff of Bernadette 13.1, Plt Count 355, Immature Gran % (Auto) 0.3, Neut % (Auto) 71.6, Lymph % (Auto) 17.3, [place] % (Auto) 8.5, Eos % (Auto) 1.2, Baso % (Auto) 1.1, Immature Gran # (Auto) 0.0, Neut # 4.6, Lymph # 1.1, [place] # 0.6, Eos # 0.1, Baso # 0.1 PLAN: DISCHARGE HOME TODAY. CONTINUE HOME MEDICATIONS PER NURSING SHEET NEW MEDICATIONS: 1. OXYCODONE 5MG TAKE 1 TO 3 TABLETS EVERY 4 TO 6 HOURS NEEDED FOR PAIN 2. XARELTO 10MG TAKE 1 TABLET DAILY FOR 18 DAYS. YOU FINISHED YOUR 18 DAYS ON . YOUR PT EVALUATION IS SCHEDULED FOR 04/21/17 AT 10AM. MAKE A FOLLOW UP APPOINTMENT WITH DR. FRANCISCO HERNANDEZ FOLLOWING A PHYSICAL THERAPY SESSION. CALL TO MAKE YOUR APPOINTMENT AT [phone]. KEEP YOUR APPOINTMENT WITH DR. YUKI HERNANDEZ [facility] [place] [id number] [address] [phone] 05/12/17 AT 10:50 A.M. NO ADDED SALT DIET ACTIVITY TOLERATED; USE WALKER WHEN AMBULATING. USE ICE PACK TO RIGHT KNEE FOR PAIN AND SWELLING. SITTING UP IN BED. ALERT AND ORIENTED X 4. Griselda FINN APRN INTO SEE PATIENT. PATIENT STATES FEELING BETTER AND IS READY TO GO HOME. PLAN OF CARE DISCUSSED PER Griselda FINN APRN INCLUDING DISCHARGE, REHAB SERVICES AND MEDICATIONS. PATIENT VERBALIZES UNDERSTANDING AND AGREEMENT. VITAL SIGNS ARE STABLE. IS AFEBRILE. POX 99% ON ROOM AIR. HEART TONES ARE REGULAR. LUNGS ARE CLEAR. NO COUGH NOTED. ABDOMEN IS SOFT, NON-TENDER WITH BOWEL SOUNDS POSITIVE IN ALL 4 QUADS. LAST BM 04/15. PEDAL PULSES POSITIVE. HAS MILD SWELLING TO RIGHT KNEE. INCISION TO RIGHT KNEE WELL APPROXIMATED WITH DERMA-PALACIO INTACT. NO DRAINAGE OR S/S OF INFECTION. HAS BRUISING TO RIGHT INNER THIGH, RIGHT KNEE AND RIGHT CALF. BRUISING IS IMPROVING GLUTEAL FOLD IS RED. ENCOURAGED TO CHANGE POSITIONS FREQUENTLY AND TO NOT LAY ON HIS BACK. IS FALL RISK WITH FALL PRECAUTIONS IN USE. IS STANDBY ASSIST WITH USE OF ROLLING WALKER. GAIT IS STEADY AND SLOW. DR. FRANCISCO HERNANDEZ MD Griselda FINN APRN
--- NOTE | 2017-04-20 08:48 | PN ---
DATE OF SERVICE: 04/17/17 SUBJECTIVE: 82 year old white male hospitalized with right replacement. The patient has improved remarkably. His incision is dry calf muscles non-tender. PHYSICAL EXAMINATION: HEENT: Head normocephalic, atraumatic. Eyes: Extraocular muscles are intact. Pupils are equal, round and reactive to light and accommodation. Ears: No lesions. Nose appeared normal. Throat: No exudate or erythema. NECK: Supple. No JVD, no carotid bruit. No lymphadenopathy or thyromegaly. LUNGS: Clear to auscultation. Percussion note normal. Chest symmetrical. HEART: S1, S2, no S3. No murmurs. No cyanosis or clubbing. No ascites. Pulses: Dorsalis pedis and posterior tibial pulses +1 to +2 both sides. No symptoms of CHF or coronary insufficiency. ABDOMEN: Soft. Nontender. Bowel sounds active. No CVA tenderness. No mass felt. EXTREMITIES: No edema. Full range of motion of all extremities, equal. Mild soreness of the right knee noted. NEUROLOGIC: No focal deficit. Cranial nerves II through XII are grossly intact. No headache, no double vision or headache. SKIN: Not dry. Intact. Turgor - normal. LYMPHATIC: No palpable lymph nodes/no lymphedema. MUSCULOSKELETAL: Normal joints with no swelling. Muscle tone is normal. PLAN: 1. The patient is going to be followed by physical therapy as an outpatient. His rehab was very successful. 2. The patient will be discharged home. TIME SPENT: More than 30 minutes. Plan and coordination of the patient's care discussed in the presence of nurse. SHARON
--- NOTE | 2017-04-21 13:14 | PN ---
DATE OF SERVICE: 04/17/17 SUBJECTIVE: Mr. Fu was hospitalized for physical therapy in the swing bed with right knee replacement. The patient has progressed very well. He is up and about without any support. The patient had postop CVA with left hemiparesis which has completely resolved. He had a monitor put on, did not show any atrial fib. PHYSICAL EXAMINATION: HEENT: Head normocephalic, atraumatic. Eyes: Extraocular muscles are intact. Pupils are equal, round and reactive to light and accommodation. Ears: No lesions. Nose appeared normal. Throat: No exudate or erythema. NECK: Supple. No JVD, no carotid bruit. No lymphadenopathy or thyromegaly. LUNGS: Clear to auscultation. Percussion note normal. Chest symmetrical. HEART: S1, S2, no S3. No murmurs. No cyanosis or clubbing. No ascites. Pulses: Dorsalis pedis and posterior tibial pulses +1 to +2 both sides. ABDOMEN: Soft. Nontender. Bowel sounds active. No CVA tenderness. No mass felt. EXTREMITIES: The right knee looks a lot better. The incision is all healed up. No infection. TIME SPENT: More than 30 minutes. The patient was seen and examined with nurse practitioner and lining caser. Plan and coordination of the patient's care discussed in the presence of nurse. SHARON
--- NOTE | 2017-04-21 13:24 | PN ---
CODING FOR BILLING 04/02/17 SWING BED ADMISSION = EXTENSIVE 04/03/17 SECOND LEVEL BUT A 4 04/04/17 " 04/05/17 " 04/06/17 " 04/07/17 " 04/08/17 " 04/09/17 " 04/10/17 " 04/11/17 " 04/12/17 " 04/13/17 " 04/14/17 " 04/15/17 " 04/16/17 " 04/17/17 FINAL DAY - DISCHARGE FOR SWING - EXTENSIVE MTDD
--- NOTE | 2017-04-22 15:52 | DS ---
DATE OF SERVICE: 04/17/17 FINAL DIAGNOSIS: 1. TOTAL RIGHT KNEE REPLACEMENT, DR. YUKI HERNANDEZ, 03/30/17 ([facility]) 2. TIA 03/31/17 3. ATRIAL FIBRILLATION 4. ANEMIA, IRON DEFICIENCY 5. ANXIETY 6. ASTHMA 7. CORONARY ARTERY DISEASE STATUS POST CARDIAC STENTS TIMES THREE AND CABG 8. CONSTIPATION 9. COPD 10. DYSLIPIDEMIA 11. GERD 12. HYPERTENSION 13. HISTORY OF SMALL BOWEL OBSTRUCTION 14. 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 APPENDECTOMY 17. BACK SURGERY 18. CHOLECYSTECTOMY 19. COLONOSCOPY 20. CATARACT REMOVAL WITH LENS IMPLANTS 21. NEVER USED TOBACCO OR ALCOHOL DISCHARGE INSTRUCTIONS: Followup appointment: Dr. Nikhil Hernandez following a physical therapy session. Call to make appointment at [phone]. Keep appointment with Dr. Yuki Hernandez at [facility] [employer]/[place] [address], pH [phone] at 05/12/17 at 10:50 a.m. MEDICATIONS AT DISCHARGE: Albuterol/Ipratropium (Duoneb) neb Rt q.8h YANN Xanax 0.5 mg p.o. bedtime YANN Aspirin 81 mg p.o. daily with meal YANN Proscar 5 mg p.o. daily YANN Gabapentin 300 mg p.o. daily YANN Hydrochlorothiazide 6.25 mg p.o. MoWeFri YANN Losartan/Potassium (Cozaar) 50 mg p.o. Mo We Fri YANN Mometasone/Formoterol Dulera 100 mcg/5 mcg inhaler two [facility] b.i.d. Oxycodone 5-15 mg p.o.q.4-6h p.r.n. Rivaroxaban (Xarelto) 10 mg p.o.q .p.m. YANN Sotalol 40 mg p.o. b.i.d. with meal YANN Terazosin (Hytrin) 5 mg p.o. bedtime [facility] NEW PRESCRIPTIONS: Oxycodone 5 mg take 1 to 3 tablets every 4 to 6 hours as needed for pain Xarelto 10 mg take one tablet daily for 18 days, you finished your 18 days on DIET INSTRUCTIONS: No added salt diet ACTIVITY: As tolerated; use walker when ambulating; use ice pack to right knee for pain and swelling. SMOKING: N/A DISEASE SPECIFIC EDUCATION: Postop care Infection S/S Medication Activity/Safety HOSPITAL COURSE: This is an 82-year-old female who underwent a total right knee replacement by Dr. Yuki Hernandez on 03/30/17. He was then admitted to [facility] in a swing bed for Physical Therapy/Rehabilitation. His condition has remained stable during his hospital stay. He did have a few days with some anemia with his hemoglobin the lowest being 10.0. Today, on day of discharge, it has leveled off and is 12. He did have elevated liver function and a bili of 1.91 on admission thought to be due to dehydration after several days of him eating and drinking normally , his liver function has returned to normal and his bilirubin has also returned to normal. He has been doing remarkably well with his physical therapy. He has been up and about on his own. His knee and incision site look good. The incision is clean, dry and intact with no surrounding erythema. There is some mild bruising to the posterior aspect of the right knee. His pain has been controlled very well. He has only been taking one pain pill sometimes two a day usually at nighttime just to help him rest. Otherwise, he has not had any complaints of pain. The patient did experience what they thought was a mild mini stroke he had at [facility] right after having his surgery. The CT scan did not show any acute changes. The only residual problem he had from this was a little bit of tingling and weakness in his left thumb. The physical therapist has worked with him on this while he is here and it seems to be resolved. He has no other weakness. Facial movements are symmetrical, speech is normal. Everything seems to have resolved. His labs today have been stable. His vital signs are stable, temperature 98.1, heart rate 61, respirations 16, BP 123 /64, pulse ox 99%. He finished his 18 days of Xarelto. He is going to be discharged home. He has a good family support with his daughter and son both living nearby. He has chosen to continue his PT and OT as an outpatient at the hospital so he will be coming back for that. Will see him in the office next week and he has an appointment with Dr. Yuki Hernandez as a followup on 05/12. TIME SPENT: More than 60 minutes. SHARON
== END 2017-04-17 10:25 | disposition home or self-care (01) | DRG 560 ==
LOC: MEDSURG B 15:16
PROVIDERS: ADMIT Internal Medicine; ATTEND Internal Medicine
DX: Z47.1 Aftercare following joint replacement surgery (principal); Z96.651 Presence of right artificial knee joint; D62 Acute posthemorrhagic anemia; I69.354 Hemiplegia and hemiparesis following cerebral infarction affecting left non-dominant side; I69.328 Other speech and language deficits following cerebral infarction; I48.91 Unspecified atrial fibrillation; F41.9 Anxiety disorder, unspecified; J44.9 Chronic obstructive pulmonary disease, unspecified; I25.10 Atherosclerotic heart disease of native coronary artery without angina pectoris; K59.00 Constipation, unspecified; E78.5 Hyperlipidemia, unspecified; K21.9 Gastro-esophageal reflux disease without esophagitis; I10 Essential (primary) hypertension; M19.90 Unspecified osteoarthritis, unspecified site; R00.1 Bradycardia, unspecified; R79.89 Other specified abnormal findings of blood chemistry; Z95.5 Presence of coronary angioplasty implant and graft; Z95.1 Presence of aortocoronary bypass graft; Z87.19 Personal history of other diseases of the digestive system; Z79.82 Long term (current) use of aspirin; Z79.899 Other long term (current) drug therapy
CPT/HCPCS: 36415; 80053; 85025; 87081; 93005; 93010; 94640; 97802

== ENCOUNTER 2017-05-06 09:00 | Outpatient (RCR) ==
--- NOTE | 2017-04-21 11:42 | RS.OPPTEV2 ---
Date of Note: 04/21/17 Visit #: 1 Date of Evaluation: 04/21/17 Payer Source: MEDICARE Date of Onset/Injury/Change in Status: 03/30/17 Surgery Performed?: Yes Procedure Performed: RTKR Treatment Diagnosis: OA R knee History of Condition/Mechanism of Injury:: pt with long history of OA R knee. pt underwent R TKR 03/30/17 and suffered a TIA after surgery. Prior Level of Function.....Patient was independent with: ADL's, Self Care, Ambulation/Mobility, Community Integration/Access Functional Limitations: ADL's, Sitting, Standing, Bending, Squatting, Ambulation , Community Access/Integration Current Subjective/complaints:: pt states that he is doing good at home and practicing his exercises. Treatment Side (optional): Right *Precautions: fall precautions Medical History Medical History: Hypertension, COPD Medical History Comments:: CAD, GERD, Afib, h/o SBO Surgical History: Knee Replacement, Lumbar Spine, Cholecystectomy Surgical History Comments:: 2 stents in heart, 1 stent in heart, gallbladder removed, bowel obstr. 3 yrs ago, appendectomy Smoking Status: Never smoker Hx Home Medications: aspirin, finasteride, sotalol, alpazolam, terazosin, gabapentin, losartan, nebulizer, Dulera Patient's Goals: to return to amb without pain and be able to mow the yard. Pain Assessment - Pain Description Pain Location: right knee joint Pain Description: muscle soreness Current Pain Intensity: 0 at rest Functional Outcome Measure LE Functional Scale: 39 (52%) - G Codes & Severity Modifier G Codes & Modifier: mobility current CK. mobility goal CI Source of G Code score: LE functional scale Observation - Observation Inspection: min non pitting edema R knee. Posture: Forward Head, Rounded Shoulders, Increased Thoracic Kyphosis Gait - Gait Pattern General Gait Pattern Observation: Crouched Gait, Short Stance Time (R) Gait Comments: pt amb with antalgic gait pattern, decreased step length, and flexed posture. General Range of Motion: BUE WFL's. LLE WFL's Muscle Strength: BUE 5/5,. LLE 5/5 Knee ROM: Left WFL's Knee Muscle Strength: Left WFL's - Right Knee ROM Right Knee Extension: -6 Right Knee Flexion: 85 (AAROM) Knee ROM Limitations: Soft Tissue Tightness, Muscle Weakness - Right Knee Strength Right Knee Extension: 3- Fair- Right Knee Flexion: 3- Fair- Sensation - Sensation Right Upper Extremity: Intact/Normal Left Upper Extremity: Impaired Right Lower Extremity: Intact/Normal Left Lower Extremity: Intact/Normal Comments: n/t L thumb Balance - Sitting Balance Static Sitting Balance: Good Dynamic Sitting Balance: Good - Standing Balance Static Standing Balance: Good Dynamic Standing Balance: Fair - Comments Balance Assessment Comments: TUG 40 secs - Heat/Cryotherapy Treatment: Cryotherapy Comments:: R knee Interventions - Exercise/Activities/Manual Therapy Exercises/Activities: pt performed RLE AP, QS, HS, hip abd/add, SAQ, SLR, LAQ 2 sets of 10 reps standing heel raises, ham curls x 10 reps Total minutes of Exercise: 20 Manual Therapy: NA HOME EXERCISE PROGRAM: pt given written HEP including AP, QS, HS, hip abd/add, SAQ, SLR, LAQ, and standing heel raises, hamstring curls. - Charges Total Direct Minutes: 58 Total Treatment Time: 58 Procedures billed for this date of service:: aubrey clark Assessment Assessment: pt presents with decreased ROM, strength RLE as well as decreased balance and gait safety. Patient Education: Home Exercise Program, Home Safety, Activity Modification, Education of Plan of Care Rehab Potential: Good Short Term Goals Goal #1: pt with improved R knee ROM flex 90 ext -4 Goal to be met by: 05/05/17 Goal #2: pt amb in dept with straight cane with no LOB improved heel strike/toe off Goal to be met by: 05/05/17 Goal #3: pt with improved TUG <35 secs Goal to be met by: 05/05/17 Sensor Specialist Goals Goal #1: pt with improved RLE strength 4to4+/5 and independent with HEP Goal to be met by: 05/19/17 Progress towards goal: Met Goal #2: pt with improved LE functional scale 50/80 Goal to be met by: 05/19/17 (35% limitation) Progress towards goal: Met Goal #3: pt amb community distances with least AD independently with no LOB Goal to be met by: 05/19/17 Progress towards goal: Met Goal #4: pt with improved ROM R knee flex 100 ext 0 Goal to be met by: 05/19/17 Plan - Treatment to be Provided Procedures: Therapeutic Exercises, Therapeutic Activity, Gait Training, Patient Education Modalities: Electrical Stimulation, Cryotherapy Other:: Modalities as needed, if necessary - Treatment Plan Frequency: 3 X week Duration: 4 weeks ORDER # VISITS AND/OR THROUGH DATE: 05/22/17 - Treatment Code (1) Osteoarthritis Code(s): M19.90 - UNSPECIFIED OSTEOARTHRITIS, UNSPECIFIED SITE Qualifiers: Osteoarthritis location: knee Osteoarthritis type: primary Laterality: right Qualified Code(s): M17.11 - Unilateral primary osteoarthritis, right knee (2) Aftercare following knee joint replacement surgery Code(s): Z47.1 - AFTERCARE FOLLOWING JOINT REPLACEMENT SURGERY; Z96.659 - PRESENCE OF UNSPECIFIED ARTIFICIAL KNEE JOINT Qualifiers: Laterality: right Qualified Code(s): Z47.1 - Aftercare following joint replacement surgery; Z96.651 - Presence of right artificial knee joint; Z96.651 - Presence of right artificial knee joint
--- NOTE | 2017-04-22 12:02 | RS.OPPTDN ---
Subjective Date of Note: 04/22/17 Visit #: 2 Date of Evaluation: 04/21/17 Payer Source: MEDICARE Treatment Diagnosis: OA R knee Current Subjective/complaints:: Patient reports he is doing his HEP and is able to do some light activities in his home. States he continues to use walker for safety. Reports pain is low. *Precautions: fall precautions Pain Assessment - Pain Description Pain Location: right knee joint Pain Description: muscle soreness Current Pain Intensity: 1-2/10 following exercise today Other Comments regarding Pain:: Reports discomfort at the right calf where he has increased bruising. Patient advised he could start alternating heat and ice to the right knee, and may use heat to the right calf to reduce pain and bruising. Interventions - Exercise/Activities/Manual Therapy Exercises/Activities: In sitting, AP, LAQ 2#, and green theraband for ham curl, all 2s/10reps. In supine, QS, HS, hip abd/add, all 2s/10reps. SLR 3s/10reps. SAQ 3# and ham curl with green tband, 3s/10reps each. Isometric hip add with ball, multiple reps. Assisted heel slides. Patella mob. Increased passive stretching of hamstrings and knee flexion/extension. Reviewed standing toe-ups and ham curls. Discussed safety with ambulation and light activities at home. Reviewed HEP sheets. Total minutes of Exercise: 45mins Manual Therapy: NA HOME EXERCISE PROGRAM: pt given written HEP including AP, QS, HS, hip abd/add, SAQ, SLR, LAQ, and standing heel raises, hamstring curls. - Objective Findings Observations,measurements,etc.: Passive right knee flexion to 92 degrees. - Charges Total Direct Minutes: 45mins Total Treatment Time: 45mins Procedures billed for this date of service:: EX3 Assessment: Patient tolerates increase in exercise well. He continues to demo progress with ROM. Patient Education: Body/Joint mechanics, Home Exercise Program, Home Safety, Activity Modification Patient demonstrates compliance with HEP?: Yes Short Term Goals Goal #1: pt with improved R knee ROM flex 90 ext -4 Goal to be met by: 05/05/17 Progress towards Goal:: Progressing Goal #2: pt amb in dept with straight cane with no LOB improved heel strike/toe off Goal to be met by: 05/05/17 Goal #3: pt with improved TUG <35 secs Goal to be met by: 05/05/17 Stone Repairer Goals Goal #1: pt with improved RLE strength 4to4+/5 and independent with HEP Goal to be met by: 05/19/17 Progress towards goal: Progressing Goal #2: pt with improved LE functional scale 50/80 Goal to be met by: 05/19/17 (35% limitation) Progress towards goal: Met Goal #3: pt amb community distances with least AD independently with no LOB Goal to be met by: 05/19/17 Progress towards goal: Progressing Goal #4: pt with improved ROM R knee flex 100 ext 0 Goal to be met by: 05/19/17 Plan PLAN OF CARE EXPIRES ON:: 05/19/17 ORDER # VISITS AND/OR THROUGH DATE: 05/19/17 PLAN: Progress strengthening and ROM exercise to increase patients safety and functional activity level.
--- NOTE | 2017-04-23 11:31 | RS.OPPTDN ---
Subjective Date of Note: 04/23/17 Visit #: 3 Date of Evaluation: 04/21/17 Payer Source: MEDICARE Treatment Diagnosis: OA R knee Current Subjective/complaints:: Patient reports mild soreness after session yesterday, but states he was able to have a good nights sleep. States he is working on HEP and performing quad sets about every 2 hours. *Precautions: fall precautions Pain Assessment - Pain Description Pain Location: right knee joint Pain Description: muscle soreness Current Pain Intensity: mild Interventions - Exercise/Activities/Manual Therapy Exercises/Activities: In supine, QS, HS, hip abd/add, all 2s/10reps. SLR 3s/ 10reps. SAQ 4# and ham curl with green tband, 3s/10reps each. Hip add and abd with knee in extension with green theraband, 2s/10reps each. Isometric hip add with ball, multiple reps. Assisted heel slides. Patella mob. Increased passive stretching of hamstrings and knee flexion/extension. In sitting, AP, LAQ 2#, and green theraband for ham curl, all 2s/10reps. Passive knee flexion in sitting , then manually resisted isometric knee flexion and extension. Patient assisted to stationary bike for slow but full revolutions x4mins. Total minutes of Exercise: 45mins Manual Therapy: NA HOME EXERCISE PROGRAM: pt given written HEP including AP, QS, HS, hip abd/add, SAQ, SLR, LAQ, and standing heel raises, hamstring curls. - Objective Findings Observations,measurements,etc.: In sitting, AA right knee flexion to 93 degrees. - Charges Total Direct Minutes: 45mins Total Treatment Time: 50mins Procedures billed for this date of service:: EX3 Assessment: Patient progressing with ROM and working toward ambulation with cane in community. Patient Education: Home Exercise Program, Home Safety Patient demonstrates compliance with HEP?: Yes Short Term Goals Goal #1: pt with improved R knee ROM flex 90 ext -4 Goal to be met by: 05/05/17 Progress towards Goal:: Progressing Goal #2: pt amb in dept with straight cane with no LOB improved heel strike/toe off Goal to be met by: 05/05/17 Goal #3: pt with improved TUG <35 secs Goal to be met by: 11/28/17 Residential Goals Goal #1: pt with improved RLE strength 4to4+/5 and independent with HEP Goal to be met by: 05/19/17 Progress towards goal: Progressing Goal #2: pt with improved LE functional scale 50/80 Goal to be met by: 05/19/17 (35% limitation) Progress towards goal: Met Goal #3: pt amb community distances with least AD independently with no LOB Goal to be met by: 05/19/17 Progress towards goal: Progressing Goal #4: pt with improved ROM R knee flex 100 ext 0 Goal to be met by: 05/19/17 Plan PLAN OF CARE EXPIRES ON:: 05/19/17 ORDER # VISITS AND/OR THROUGH DATE: 05/19/17 PLAN: Continue progression of ROM and strengthening exercise to increase patients safety and functional activity level.
--- NOTE | 2017-04-27 13:16 | RS.OPPTDN ---
Subjective Date of Note: 04/27/17 Visit #: 4 Date of Evaluation: 04/21/17 Payer Source: MEDICARE Treatment Diagnosis: OA R knee Current Subjective/complaints:: Patient reports an increase in right knee tightness this morning. States he is getting a bike for home use from a family member. *Precautions: fall precautions Pain Assessment - Pain Description Pain Location: Right knee Current Pain Intensity: mild Interventions - Exercise/Activities/Manual Therapy Exercises/Activities: In supine, QS, HS, hip abd/add, all 2s/10reps. SLR 3s/ 10reps. SAQ 4# and ham curl increased to blue tband, 3s/10reps each. Hip add and abd with knee in extension with green theraband, 2s/10reps each. Isometric hip add with ball, multiple reps. Assisted heel slides. Patella mob. Passive stretching of hamstrings and knee flexion/extension. In sitting, AP, LAQ 3#, and increased to blue theraband for ham curl, all 2s/10reps. Passive knee flexion in sitting, and increased manually resisted isometric knee flexion and extension. Patient assisted to stationary bike for slow but full revolutions forward and retro x5mins(not included in direct time). Total minutes of Exercise: 40mins/45mins Manual Therapy: NA HOME EXERCISE PROGRAM: pt given written HEP including AP, QS, HS, hip abd/add, SAQ, SLR, LAQ, and standing heel raises, hamstring curls. - Objective Findings Observations,measurements,etc.: Patient walking with cane today. Demos slow but steady gait with good pattern and no LOB. - Charges Total Direct Minutes: 40mins Total Treatment Time: 45mins Procedures billed for this date of service:: EX3 Assessment: Patient with stiffness in the right knee joint this morning, but able to progress resistive exercises. Patient Education: Home Exercise Program Patient demonstrates compliance with HEP?: Yes Short Term Goals Goal #1: pt with improved R knee ROM flex 90 ext -4 Goal to be met by: 05/05/17 Progress towards Goal:: Progressing Goal #2: pt amb in dept with straight cane with no LOB improved heel strike/toe off Goal to be met by: 05/05/17 Progress towards Goal:: Progressing Goal #3: pt with improved TUG <35 secs Goal to be met by: 05/05/17 Appeals Examiner Goals Goal #1: pt with improved RLE strength 4to4+/5 and independent with HEP Goal to be met by: 05/19/17 Progress towards goal: Progressing Goal #2: pt with improved LE functional scale 50/80 Goal to be met by: 05/19/17 (35% limitation) Progress towards goal: Met Goal #3: pt amb community distances with least AD independently with no LOB Goal to be met by: 05/19/17 Progress towards goal: Progressing Goal #4: pt with improved ROM R knee flex 100 ext 0 Goal to be met by: 05/19/17 Plan PLAN OF CARE EXPIRES ON:: 05/19/17 ORDER # VISITS AND/OR THROUGH DATE: 05/19/17 PLAN: Progress ROM and strength of the right LE to increase functional activity level.
--- NOTE | 2017-04-29 12:03 | RS.OPPTDN ---
Subjective Date of Note: 04/29/17 Visit #: 5 Date of Evaluation: 04/21/17 Payer Source: MEDICARE Treatment Diagnosis: OA R knee Current Subjective/complaints:: Patient reports he is walking better and feels like right knee ROM is also improving. *Precautions: fall precautions Pain Assessment - Pain Description Pain Location: right knee Current Pain Intensity: mild Interventions - Exercise/Activities/Manual Therapy Exercises/Activities: In supine, QS, HS, hip abd/add, all 2s/10reps. SLR 3s/ 10reps. SAQ 4# and ham curl increased to blue tband, 3s/10reps each. Hip add and abd with knee in extension with red theraband, 2s/10reps each. Isometric hip add with ball, multiple reps. Assisted heel slides. Passive stretching of hamstrings and knee flexion/extension. In sitting, AP, LAQ increased to 4#, and blue theraband for ham curl, all increased to 3s/10reps. Passive knee flexion in sitting, and increased manually resisted isometric knee flexion and extension. Patient assisted to stationary bike for slow but full revolutions forward and retro x6mins(not included in direct time). Total minutes of Exercise: 40mins/46mins Manual Therapy: NA HOME EXERCISE PROGRAM: pt given written HEP including AP, QS, HS, hip abd/add, SAQ, SLR, LAQ, and standing heel raises, hamstring curls. - Objective Findings Observations,measurements,etc.: Passive right knee flexion 104 degrees, active in 94 degrees, and assisted extension to -7 degrees. - Charges Total Direct Minutes: 40mins Total Treatment Time: 46mins Procedures billed for this date of service:: EX3 Assessment: Patient progressing with strength and ROM of the right knee and demos good gait pattern with cane. Patient Education: Home Exercise Program Patient demonstrates compliance with HEP?: Yes Short Term Goals Goal #1: pt with improved R knee ROM flex 90 ext -4 Goal to be met by: 05/05/17 Progress towards Goal:: Progressing Goal #2: pt amb in dept with straight cane with no LOB improved heel strike/toe off Goal to be met by: 05/05/17 Progress towards Goal:: Met Goal #3: pt with improved TUG <35 secs Goal to be met by: 05/05/17 Progress towards Goal:: Progressing School Physical Therapist Goals Goal #1: pt with improved RLE strength 4to4+/5 and independent with HEP Goal to be met by: 05/19/17 Progress towards goal: Progressing Goal #2: pt with improved LE functional scale 50/80 Goal to be met by: 05/19/17 (35% limitation) Progress towards goal: Met Goal #3: pt amb community distances with least AD independently with no LOB Goal to be met by: 05/19/17 Progress towards goal: Progressing Goal #4: pt with improved ROM R knee flex 100 ext 0 Goal to be met by: 05/19/17 Plan PLAN OF CARE EXPIRES ON:: 05/19/17 ORDER # VISITS AND/OR THROUGH DATE: 05/19/17 PLAN: Continue to progress exercise for strength and ROM to increase functional activity level.
--- NOTE | 2017-05-01 10:59 | RS.OPPTDN ---
Subjective Date of Note: 05/01/17 Visit #: 6 Date of Evaluation: 04/21/17 Payer Source: MEDICARE Treatment Diagnosis: OA R knee Current Subjective/complaints:: Patient reports increased soreness after last session, but feels exercise and stretching has improved ROM. States he is walking without cane today. *Precautions: fall precautions Pain Assessment - Pain Description Pain Location: Right knee Current Pain Intensity: 0 at rest, mild with exercise. Interventions - Exercise/Activities/Manual Therapy Exercises/Activities: In sitting, LAQ 4#, green theraband for ham curl, and isometric hip add with ball, all increased to 3s/10reps. In supine, QS, hip abd/ add, all 2s/10reps. SLR 3s/10reps. SAQ 4# and ham curl increased with green theraband, 3s/10reps each. Hip add and abd with knee in extension with red theraband, increased to 3s/10reps each. Isometric hip add with ball, multiple reps. Passive stretching of hamstrings and knee flexion/extension. Passive knee flexion in sitting, and increased manually resisted isometric knee flexion and extension. Patient assisted to stationary bike for slow but full revolutions forward and retro x7mins(not included in direct time). Instructed patient in passive extension stretching with right foot resting on coffee table or stool. Total minutes of Exercise: 43mins/50mins Manual Therapy: NA HOME EXERCISE PROGRAM: pt given written HEP including AP, QS, HS, hip abd/add, SAQ, SLR, LAQ, and standing heel raises, hamstring curls. Passive extension stretching. - Objective Findings Observations,measurements,etc.: Pateint demos slow but steady gait without cane , with good pattern and equal swing/stance phases. - Charges Total Direct Minutes: 43mins Total Treatment Time: 50mins Procedures billed for this date of service:: EX3 Assessment: Patient progressing well and has stopped using cane. Patient Education: Home Exercise Program Patient demonstrates compliance with HEP?: Yes Short Term Goals Goal #1: pt with improved R knee ROM flex 90 ext -4 Goal to be met by: 05/05/17 Progress towards Goal:: Progressing Goal #2: pt amb in dept with straight cane with no LOB improved heel strike/toe off Goal to be met by: 05/05/17 Progress towards Goal:: Met Goal #3: pt with improved TUG <35 secs Goal to be met by: 05/05/17 Progress towards Goal:: Progressing Usp Goals Goal #1: pt with improved RLE strength 4to4+/5 and independent with HEP Goal to be met by: 05/19/17 Progress towards goal: Progressing Goal #2: pt with improved LE functional scale 50/80 Goal to be met by: 05/19/17 (35% limitation) Progress towards goal: Met Goal #3: pt amb community distances with least AD independently with no LOB Goal to be met by: 05/19/17 Progress towards goal: Met Goal #4: pt with improved ROM R knee flex 100 ext 0 Goal to be met by: 05/19/17 Plan PLAN OF CARE EXPIRES ON:: 05/19/17 ORDER # VISITS AND/OR THROUGH DATE: 05/19/17 PLAN: Continue progression of exercise for strength and ROM to increase patients safety and functional independence.
--- NOTE | 2017-05-04 10:33 | RS.OPPTDN ---
Subjective Date of Note: 05/04/17 Visit #: 7 Date of Evaluation: 04/21/17 Payer Source: MEDICARE Treatment Diagnosis: OA R knee Current Subjective/complaints:: Patient reports continued swelling but improved ROM of the right knee. States he has been walking without cane all weekend and is consistently working on passive extension stretching. *Precautions: fall precautions Pain Assessment - Pain Description Pain Location: Right knee Current Pain Intensity: mild Interventions - Exercise/Activities/Manual Therapy Exercises/Activities: Began stationary bike 3mins (not included in direct time) . In sitting, increased to blue theraband for ham curl, and isometric hip add with ball, and isometric knee flexion and extension. In supine, QS, hip abd/add , all 2s/10reps. Added 1# to SLR 3s/10reps. SAQ increased to 5# and ham curl increased with to blue theraband, 3s/10reps each. Hip add and abd with knee in extension with red theraband, 3s/10reps each. Isometric hip add and isometric bilateral foot inversion with ball, both 2s/10reps. Passive stretching of hamstrings and knee flexion/extension. Passive knee flexion in sitting, and addional manually resisted isometric knee flexion and extension. Total minutes of Exercise: 42mins/45mins Manual Therapy: NA HOME EXERCISE PROGRAM: pt given written HEP including AP, QS, HS, hip abd/add, SAQ, SLR, LAQ, and standing heel raises, hamstring curls. Passive extension stretching. - Objective Findings Observations,measurements,etc.: Passive right knee flexion with aggressive stretch to 109 and 110 degrees. - Charges Total Direct Minutes: 42mins Total Treatment Time: 45mins Procedures billed for this date of service:: EX3 Assessment: Patients right knee flexion progressing. 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 Goal #1: pt with improved RLE strength 4to4+/5 and independent with HEP Goal to be met by: 05/19/17 Progress towards goal: Progressing Goal #2: pt with improved LE functional scale 50/80 Goal to be met by: 05/19/17 (35% limitation) Progress towards goal: Met Goal #3: pt amb community distances with least AD independently with no LOB Goal to be met by: 05/19/17 Progress towards goal: Met Goal #4: pt with improved ROM R knee flex 100 ext 0 Goal to be met by: 05/19/17 Plan PLAN OF CARE EXPIRES ON:: 05/19/17 ORDER # VISITS AND/OR THROUGH DATE: 05/19/17 PLAN: Progress strength and ROM of right knee to increase patients functional activity level.
--- NOTE | 2017-05-06 10:02 | RS.OPPTDN ---
Subjective Date of Note: 05/06/17 Visit #: 8 Date of Evaluation: 04/21/17 Payer Source: MEDICARE Treatment Diagnosis: OA R knee Current Subjective/complaints:: Patient reports he is walking better. States he will see physician next week. Patient asks if he can start driving. *Precautions: fall precautions Interventions - Exercise/Activities/Manual Therapy Exercises/Activities: In sitting, increased to blue theraband for ham curl, LAQ with 4#, and isometric knee flexion and extension. In supine, QS, hip abd/add, all 2s/10reps. SLR 3s/10reps. SAQ 5# and ham curl blue theraband, 3s/10reps each. Hip add and abd with knee in extension with red theraband and in hook- lying with blue theraband, each 2s/10reps. Isometric hip add and isometric bilateral foot inversion with ball, both 2s/10reps. Passive stretching of hamstrings and knee flexion/extension. Ended with 7mins on stationary bike, not included in direct time. Total minutes of Exercise: 43mins/50mins Manual Therapy: NA HOME EXERCISE PROGRAM: pt given written HEP including AP, QS, HS, hip abd/add, SAQ, SLR, LAQ, and standing heel raises, hamstring curls. Passive extension stretching. - Charges Total Direct Minutes: 43mins Total Treatment Time: 50mins Procedures billed for this date of service:: EX3 Assessment: Patient progressing well with strength, ROM, and has progressed to slow steady ambulation without cane. Patient needs to improve safe and independent functional activity level as he lives alone. Patient Education: Body/Joint mechanics, Home Exercise Program, Home Safety Patient demonstrates compliance with HEP?: Yes Short Term Goals Goal #1: pt with improved R knee ROM flex 90 ext -4 Goal to be met by: 05/05/17 Progress towards Goal:: Progressing Comments:: Needs to progress extension of the right knee to improve gait and meet goal Goal #2: pt amb in dept with straight cane with no LOB improved heel strike/toe off Goal to be met by: 05/05/17 Progress towards Goal:: Met Goal #3: pt with improved TUG <35 secs Goal to be met by: 05/05/17 Progress towards Goal:: Progressing Signal Technician Goals Goal #1: pt with improved RLE strength 4to4+/5 and independent with HEP Goal to be met by: 05/19/17 Progress towards goal: Progressing Goal #2: pt with improved LE functional scale 50/80 Goal to be met by: 05/19/17 (35% limitation) Progress towards goal: Met Goal #3: pt amb community distances with least AD independently with no LOB Goal to be met by: 05/19/17 Progress towards goal: Met Goal #4: pt with improved ROM R knee flex 100 ext 0 Goal to be met by: 05/19/17 Plan PLAN OF CARE EXPIRES ON:: 05/19/17 ORDER # VISITS AND/OR THROUGH DATE: 05/19/17 PLAN: Progress strength and ROM of the right LE to improve gait and increase patients independent functional activity level.
== END 2017-05-07 | disposition still patient (30) ==
PROVIDERS: ATTEND Orthopaedic Surgery
DX: Z96.652 Presence of left artificial knee joint (principal)

== ENCOUNTER 2017-05-11 09:00 | Outpatient (RCR) ==
--- NOTE | 2017-05-08 11:02 | RS.OPPTDN ---
Subjective Date of Note: 05/08/17 Visit #: 9 Date of Evaluation: 04/21/17 Payer Source: MEDICARE Treatment Diagnosis: OA R knee Current Subjective/complaints:: Patient reports he is walking better and discomfort in the right knee joint is improving. Reports he is doing more light to mod activities at home, [place]. States he will see physician next week on Thursday. *Precautions: fall precautions Pain Assessment - Pain Description Pain Location: right knee Current Pain Intensity: 0/10 Other Comments regarding Pain:: Occasional stiffness in the joint Interventions - Exercise/Activities/Manual Therapy Exercises/Activities: In sitting, increased to blue theraband for ham curl, LAQ with 4#, and isometric knee flexion and extension. In supine, QS, hip abd/add, all 2s/10reps. SLR 3s/10reps. SAQ 5# and ham curl blue theraband, 3s/10reps each. Hip add and abd with knee in extension with red theraband and in hook- lying with blue theraband, each 2s/10reps. Isometric hip add and isometric bilateral foot inversion with ball, both 2s/10reps. Passive stretching of hamstrings and knee flexion/extension. Ended with 4mins on stationary bike, not included in direct time. Total minutes of Exercise: 43mins/47mins Manual Therapy: NA HOME EXERCISE PROGRAM: pt given written HEP including AP, QS, HS, hip abd/add, SAQ, SLR, LAQ, and standing heel raises, hamstring curls. Passive extension stretching. - Objective Findings Observations,measurements,etc.: Right knee passive flexion 113 degrees and active right knee extension to -8 degrees(measurements taken following EX). - Charges Timed Code Treatment Minutes: 43mins Total Treatment Time: 47mins Procedures billed for this date of service:: EX3 Assessment: Patient progressing well and increasing his functional activity level. 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 Goal #1: pt with improved RLE strength 4to4+/5 and independent with HEP Goal to be met by: 05/19/17 Progress towards goal: Met Goal #2: pt with improved LE functional scale 50/80 Goal to be met by: 05/19/17 (35% limitation) Progress towards goal: Met Goal #3: pt amb community distances with least AD independently with no LOB Goal to be met by: 05/19/17 Progress towards goal: Met Goal #4: pt with improved ROM R knee flex 100 ext 0 Goal to be met by: 05/19/17 Plan PLAN OF CARE EXPIRES ON:: 05/19/17 ORDER # VISITS AND/OR THROUGH DATE: 05/19/17 PLAN: Continue with strengthening and ROM exercise to increase patients functional activity level.
--- NOTE | 2017-05-11 12:03 | RS.OPPTDN ---
Subjective Date of Note: 05/11/17 Visit #: 10 Date of Evaluation: 04/21/17 Payer Source: MEDICARE Treatment Diagnosis: OA R knee Current Subjective/complaints:: Patient reports he is doing well and is able to perform most light to moderate daily activities. He continues to be ambulatory in community without AD and is now driving. Foloowing discussion/assessment of progress, patient agrees he is ready for discharge with HEP. *Precautions: fall precautions Pain Assessment - Pain Description Pain Description: 0/10 Interventions - Exercise/Activities/Manual Therapy Exercises/Activities: In sitting, increased to blue theraband for ham curl, LAQ with 4#, and isometric knee flexion and extension. In supine, QS, hip abd/add, all 2s/10reps. SLR 3s/10reps. SAQ 5# and ham curl blue theraband, 3s/10reps each. Hip add and abd with knee in extension with red theraband and in hook- lying with blue theraband, each 2s/10reps. Isometric hip add and isometric bilateral foot inversion with ball, both 2s/10reps. Passive stretching of hamstrings and knee flexion/extension. Ended with 5mins on stationary bike, not included in direct time. Total minutes of Exercise: 40mins/45mins Manual Therapy: NA HOME EXERCISE PROGRAM: pt given written HEP including AP, QS, HS, hip abd/add, SAQ, SLR, LAQ, and standing heel raises, hamstring curls. Passive extension stretching. - Objective Findings Observations,measurements,etc.: Passive right knee flexion to 117 degrees and active to 114-115 degrees. Active assisted right knee extension to -5 degrees. - Charges Timed Code Treatment Minutes: 40mins Total Treatment Time: 45mins Procedures billed for this date of service:: EX3 Assessment: Patient has progressed well and benefitted from therapy. He has returned to driving, performing most daily activities, and has met 5 of 7 goals. He is motivated to continue HEP and working on passive stretching of the right knee extension. Patient Education: Home Exercise Program, Home Safety, Education of Plan of Care Comments: Reviewed and finalized safety education and HEP. Patient demonstrates compliance with HEP?: Yes Short Term Goals Goal #1: pt with improved R knee ROM flex 90 ext -4 Goal to be met by: 05/05/17 Progress towards Goal:: Progressing Comments:: Act assist right knee flexion -5 degrees. Goal #2: pt amb in dept with straight cane with no LOB improved heel strike/toe off Goal to be met by: 05/05/17 Progress towards Goal:: Met Goal #3: pt with improved TUG <35 secs Goal to be met by: 05/05/17 Progress towards Goal:: Met Mcfp Goals Goal #1: pt with improved RLE strength 4to4+/5 and independent with HEP Goal to be met by: 05/19/17 Progress towards goal: Met Goal #2: pt with improved LE functional scale 50/80 Goal to be met by: 05/19/17 (35% limitation) Progress towards goal: Met Goal #3: pt amb community distances with least AD independently with no LOB Goal to be met by: 05/19/17 Progress towards goal: Met Goal #4: pt with improved ROM R knee flex 100 ext 0 Goal to be met by: 05/19/17 Progress towards goal: Progressing Plan PLAN OF CARE EXPIRES ON:: 05/19/17 ORDER # VISITS AND/OR THROUGH DATE: 05/19/17 PLAN: Discharge with HEP due to good progress.
--- NOTE | 2017-05-11 13:26 | RS.OPPTDC ---
Date of Discharge: 05/11/17 Date of Evaluation: 04/21/17 Number of Visits: 10 Treatment Diagnosis: OA R knee Current Level of Function: pt amb independently without AD. Performs most light to mod ADL's independently, driving now. Current Complaints/Gains: Reports mostly muscle soreness, as opposed to knee pain. Reports performing HEP. States he has not been taking medications for knee pain. Functional Outcome Measure LE Functional Scale: 57 - G Codes & Severity Modifier G Codes & Modifier: mobility goal CI. mobility dc CJ Source of G Code score: LE functional scale Observation - Observation Posture: Forward Head, Rounded Shoulders Gait - Gait Pattern General Gait Pattern Observation: Antalgic Gait General Range of Motion: R knee AROM flex 114-115, PROM R knee flex 117 AAROM R knee ext -5 Muscle Strength: R knee flex 4+/5, ext 4+/5 Interventions - Exercise/Activities/Manual Therapy Exercises/Activities: pt independent with HEP Manual Therapy: NA HOME EXERCISE PROGRAM: pt given written HEP including AP, QS, HS, hip abd/add, SAQ, SLR, LAQ, and standing heel raises, hamstring curls. Passive extension stretching. - Charges Timed Code Treatment Minutes: n/a Total Treatment Time: n/a Procedures billed for this date of service:: n/a Assessment Assessment: pt has met 5 out of 7 goals, pt is compliant with HEP and feels ready for DC Patient Education: Home Exercise Program, Activity Modification, Education of Plan of Care Rehab Potential: Good Short Term Goals Goal #1: pt with improved R knee ROM flex 90 ext -4 Goal to be met by: 05/05/17 Progress towards Goal:: Progressing Goal #2: pt amb in dept with straight cane with no LOB improved heel strike/toe off Goal to be met by: 05/05/17 Progress towards Goal:: Met Goal #3: pt with improved TUG <35 secs Goal to be met by: 05/05/17 Progress towards Goal:: Met Snf Goals Goal #1: pt with improved RLE strength 4to4+/5 and independent with HEP Goal to be met by: 05/19/17 Progress towards goal: Met Goal #2: pt with improved LE functional scale 50/80 Goal to be met by: 05/19/17 (35% limitation) Progress towards goal: Met Goal #3: pt amb community distances with least AD independently with no LOB Goal to be met by: 05/19/17 Progress towards goal: Met Goal #4: pt with improved ROM R knee flex 100 ext 0 Goal to be met by: 05/19/17 Progress towards goal: Progressing Plan Comments: pt feels he can continue ex on his own.
== END 2017-06-07 ==
PROVIDERS: ATTEND Orthopaedic Surgery
DX: Z96.652 Presence of left artificial knee joint (principal)

== ENCOUNTER 2017-11-10 09:26 | Emergency (ER) ==
[2017-11-10 09:33] VITALS: BP 158/79; TEMP 97.4; BMI 25.1
[2017-11-10] MEDS ORDERED: MORPHINE 4 MG/ML SYRINGE IM STA (09:57)
[2017-11-10] MEDS ORDERED: MORPHINE 2 MG/ML SYRINGE IVP STA (10:16)
[2017-11-10] MEDS ORDERED: PHENERGAN 25 MG/ML VIAL 25 MG in SODIUM CHLORIDE 50 ML IV STA (10:17)
[2017-11-10] MEDS ORDERED: SODIUM CHLORIDE 1,000 ML IV STA (10:19)
[2017-11-10] MEDS ORDERED: PHENERGAN 25 MG/ML VIAL ONE (11:05)
--- NOTE | 2017-11-10 11:36 | CT ---
EXAM: CT abdomen pelvis without contrast HISTORY: Constipation COMPARISON: 09/06/2016 TECHNIQUE: CT abdomen pelvis performed without intravenous contrast. Coronal and sagittal reformatt ed images obtained. FINDINGS: Lung bases clear. No free air. Hemangioma L1. Heart normal in size. Coronary calcifica tions. Evaluation organ parenchyma limited without contrast. Liver unremarkable. Patient status po st cholecystectomy. Calcifications in the pancreas consistent with changes of chronic pancreatitis. Spleen unremarkable. Adrenals unremarkable. Kidneys unremarkable. Aorta normal in caliber. Extens renetta atherosclerosis. Bladder unremarkable. Prostate mildly enlarged. Small fat-containing bilatera l inguinal hernias. No lymphadenopathy or ascites. Stomach appears normal. No dilated loops small bowel. Appendix not visualized. There is congenital intestine malrotation with small bowel in the r ight abdomen and colon in the left abdomen. Mild fecal retention, mostly in the proximal colon. IMPRESSION: 1. No acute abnormality identified in the abdomen or pelvis. 2. Mild fecal retention. 3. Congenital intestine malrotation. 4. Extensive atherosclerosis. 5. Enlarged prostate.
--- NOTE | 2017-11-10 12:47 | ED.PDOC ---
General ED Provider: Dr. LCUÍA CHRISTIANSON Chief Complaint: Abdominal Pain Stated Complaint: abndominal pain Time Seen by Physician: 09:30 (seen with staff at all times ) Mode of Arrival: Walk-In Information Source: Patient Exam Limitations: No limitations Primary Care Provider: FRANCISCO HERNANDEZ Referred to ED by: Other (PT FEELS HE MAY HAVE AN OBSTRUCTION) Nursing and Triage Documentation Reviewed and Agree: Yes Reviewed sepsis parameters & appropriate labs ordered?: Yes (PMD SEEN PT IN THE ED WELL) System Inflammatory Response Syndrome: Not Applicable Sepsis Protocol: For patient's 13 years and over: Temp is 96.8 and below OR 101 and greater Pulse >90 BPM Resp >20/minute Acutely Altered Mental Status Are patient's symptoms suggestive of a new infection, such as: -Pneumonia -Skin, Soft Tissue -Endocarditis -UTI -Bone, Joint Infection -Implantable Device -Acute Abdominal Infection -Wound Infection -Meningitis -Blood Stream Catheter Infection -Unknown GI Complaint Exam - Abdominal Pain Complaint/Exam Onset: Gradual Duration: 1 DAY HAS HAD BOWEL OBSTRUCTION HE THINKS IT'S THE SAME ISSUE Symptoms Are: Still present Timing: Intermittent Initial Severity: Mild Current Severity: None Location of Pain: Diffuse Character: Reports: Dull Alleviating: Reports: None Associated Signs and Symptoms: Denies: Diaphoresis, Fever, Cough, Chest pain, Dizziness, Back pain, Constipation, Blood in stool, Dysuria, Urinary frequency, Decreased urine output, Decreased appetite, Discharge, Nausea, Vomiting, Diarrhea, Decreased activity Related History: Reports: Similar episode AAA Risk Factors: Reports: Hypertension Cardiac Risk Factors: Reports: Hypertension, Elevated lipids, CAD Testicular Torsion Risk Factors: Reports: None Surgical Obstruction Risk Factors: Reports: None Related Surgical History: Reports: None Abdominal Findings: Present: None Differential Diagnoses: Appendicitis, Bowel Obstruction, Constipation, Diverticulitis, Gastroenteritis, Hepatitis, Pancreatitis, Irritable Bowel Syndrome, PUD, UTI Quality Indicators for AMI: EKG in 10min. Quality Indicators for Cardiac Chest Pain: EKG in 10min. Quality Indicator For Non-Traumatic Chest Pain/Syncope: EKG Performed Review of Systems - Review Of Systems Constitutional: Reports: No symptoms Eyes: Reports: No symptoms Ears, Nose, Mouth, Throat: Reports: No symptoms Respiratory: Reports: No symptoms Cardiac: Reports: No symptoms GI: Reports: Abdominal pain : Reports: No symptoms Musculoskeletal: Reports: No symptoms Skin: Reports: No symptoms Neurological: Reports: No symptoms Endocrine: Reports: No symptoms Hematologic/Lymphatic: Reports: No symptoms All Other Systems: Reviewed and Negative Past Medical History - Past Medical History Previously Healthy: Yes Endocrine: Reports: Dyslipidemia Cardiovascular: Reports: CAD, Hypertension, A-Fib Respiratory: Reports: COPD, Asthma Hematological: Reports: None Gastrointestinal: Reports: GERD, Other (obstruction post appendectomy- 3 episodes after , another episode- last over a year ago- now same symptoms) Genitourinary: Reports: None Neuro/Psych: Reports: None Musculoskeletal: Reports: Arthritis, Back Pain Cancer: Reports: None Other Pertinent Past Medical History: CHOLECTOMY - Surgical History General Surgical History: Reports: Appendectomy, Cholecystectomy, Tonsillectomy , Stent (3 STENTS), Back Surgery ( 35 YRS AGO WITH A FUSION). Denies: CABG ( stents) - Family History Family History: Reports: Unknown - Social History Smoking Status: Never smoker Hx Substance Use: No Alcohol Screening: None Physical Exam - Physical Exam Appearance: Well-appearing, No pain distress, Well-nourished Eyes: SHWETA, EOMI, Conjunctiva clear ENT: Ears normal, Nose normal, Oropharynx normal Respiratory: Airway patent, Breath sounds clear, Breath sounds equal, Respirations nonlabored Cardiovascular: RRR, Pulses normal, No rub, No murmur GI/: Soft, Nontender, No masses, Bowel sounds normal, No Organomegaly Musculoskeletal: Normal strength, ROM intact, No edema, No calf tenderness Skin: Warm, Dry, Normal color Neurological: Sensation intact, Motor intact, Reflexes intact, Cranial nerves intact, Alert, Oriented Psychiatric: Affect appropriate, Mood appropriate Interpretation - Radiology Interpretation Radiology Interpretation By: Radiologist Radiology Results: Negative Exam Interpreted: CT Scan (NO ACUTE CHANGES ) - [place] Rate: Normal Rhythm: Sinus Ectopy: None - EKG Interpretation Rate: Normal Rhythm: Sinus Ectopy: None [place]: NL ST Segment: Normal Re-Evaluation - Re-Evaluation Time of Re-Evaluation: 12:48 (PMD ALSO SAW PT IN THE ED SAID PT CAN GO HOME) Status: Improved Vital Signs Stable: Yes Pain Level: 0 Appearance: NAD Lungs: Clear Skin: Warm and Dry Neuro: Alert and Oriented X3 CV: RRR Critical Care Note - Critical Care Note Total Time (mins): 0 Course - Course Hematology/Chemistry: 11/10/17 10:11/10/17 10:05 Orders, Labs, Meds: Lab Review 11/10/17 11/10/17 11/10/17 10:05 10:05 12:00 WBC 5.88 RBC 4.94 Hgb 14.5 Hct 42.3 MCV 85.6 MCH 29.4 MCHC 34.3 RDW Coeff of Bernadette 13.3 Plt Count 198 Immature Gran % (Auto) 0.3 Neut % (Auto) 62.6 Lymph % (Auto) 25.2 [place] % (Auto) 9.0 Eos % (Auto) 1.7 Baso % (Auto) 1.2 Immature Gran # (Auto) 0.0 Neut # (Auto) 3.7 Lymph # (Auto) 1.5 [place] # (Auto) 0.5 Eos # (Auto) 0.1 Baso # (Auto) 0.1 Sodium 141 Potassium 4.0 Chloride 108 H Carbon Dioxide 23 Anion Gap 14.0 BUN 11 Creatinine 0.81 Estimated GFR (MDRD) 91.00 BUN/Creatinine Ratio 13.58 Glucose 95 Calcium 9.1 Total Bilirubin 1.1 AST 15 ALT 10 L Alkaline Phosphatase 61 Total Protein 7.3 Albumin 3.6 Globulin 3.7 Albumin/Globulin Ratio 0.97 Amylase 43 Lipase 20 Urine Color Yellow Urine Clarity Clear Urine pH 6.5 Ur Specific [place] 1.015 Urine Protein Negative Urine Glucose (UA) Negative Urine Ketones Negative Urine Blood Trace-intact Urine Nitrite Negative Urine Bilirubin Negative Urine Urobilinogen 0.2 Ur Leukocyte Esterase Negative Urine Microscopic RBC 0-2 Ur Squamous Epith Cells Not present Orders Category Date Time Status ED IV/MEDIPORT/POWERPORT .ONCE EMERGENCY 11/10/17 10:18 Active AMYLASE Stat LAB 11/10/17 10:05 Completed CBC W/ AUTO DIFF Stat LAB 11/10/17 10:05 Completed COMPREHENSIVE METABOLIC PANEL Stat LAB 11/10/17 10:05 Completed LIPASE Stat LAB 11/10/17 10:05 Completed URINALYSIS C & S IF INDICATED Stat LAB 11/10/17 12:00 Completed 0.9 % Sodium Chloride [Saline Flush] MEDS 11/10/17 10:17 Active 1 syr IVF PRN PRN Morphine Sulfate [Morphine 2 mg/ml Syringe] MEDS 11/10/17 10:16 Discontinued 2 mg IVP ONCE STA Promethazine HCl [Phenergan 25 mg/ml Vial] MEDS 11/10/17 11:05 Discontinued 25 mg .ROUTE .STK-MED ONE Promethazine HCl [Phenergan 25 mg/ml Vial] 25 mg MEDS 11/10/17 10:17 Discontinued 0.9 % Sodium Chloride [Sodium Chloride] 50 ml IV ONCE Sodium Chloride 0.9% [Sodium Chloride] 1,000 ml MEDS 11/10/17 10:19 Active IV 125 mls/hr CT ABDOMEN/PELVIS WO CONTRAST Stat RADS 11/10/17 10:18 Completed Medications Generic Name Dose Route Start Last Admin Trade Name Freq PRN Reason Stop Dose Admin Sodium Chloride 1,000 mls @ 125 mls/hr 11/10/17 10:19 11/10/17 11:10 Sodium Chloride IV 11/10/17 18:18 125 mls/hr .Q8H STA Administration Sodium Chloride 1 syr 11/10/17 10:17 11/10/17 11:10 Saline Flush IVF 1 syr PRN PRN Administration To flush IV Discontinued Medications Generic Name Dose Route Start Last Admin Trade Name Freq PRN Reason Stop Dose Admin Promethazine HCl 25 mg/ Sodium 51 mls @ 75 mls/hr 11/10/17 10:17 11/10/17 11: 14 Chloride IV 11/10/17 10:57 75 mls/hr ONCE STA Administration Morphine Sulfate 2 mg 11/10/17 10:16 11/10/17 11:13 Morphine 2 Mg/Ml Syringe IVP 11/10/17 10:17 2 mg ONCE STA Administration Vital Signs: Temp Pulse Resp BP Pulse Ox 11/10/17 09:26 97.4 F L 60 16 158/79 H 94 L Departure - Departure Time of Disposition: 12:48 Disposition: HOME SELF-CARE Discharge Problem: Abdominal pain Instructions: Abdominal Pain (ED) Condition: Good Pt referred to PMD for follow-up: Yes IPMP verified?: No Additional Instructions: Please call your Family Physician as soon as possible to schedule a follow-up appointment. Allergies/Adverse Reactions: Allergies butorphanol tartrate [From Stadol] Adverse Reaction (Verified 11/10/17 09:36) hydromorphone HCl [From Dilaudid] Adverse Reaction (Verified 11/10/17 09:36) meperidine HCl [From Demerol] Adverse Reaction (Verified 11/10/17 09:36) makes dizzy Home Medications: Ambulatory Orders Terazosin HCl [Hytrin] 5 mg PO BEDTIME 05/12/13 Sotalol HCl [Betapace] 40 mg PO BID #60 tablet 05/16/13 Alprazolam 0.5 mg PO BEDTIME #30 tablet 03/11/14 Aspirin [Aspirin Chewable] 81 mg PO DAILYWM 03/21/15 Finasteride 5 mg PO DAILY 03/21/15 Gabapentin [Neurontin] 300 mg PO DAILY 03/19/16 Losartan/Hydrochlorothiazide [Losartan-Hctz 100-12.5 mg Tab] 0.5 tab PO MOWEFR 10/27/16 Mometasone/Formoterol [Dulera 100 Mcg/5 Mcg Inhaler] 2 inh IH BID 04/02/17 Omeprazole [Prilosec] 40 mg PO BEDTIME 11/10/17
== END 2017-11-10 12:55 | disposition home or self-care (01) ==
LOC: ED 09:26
DX: R10.9 Unspecified abdominal pain (principal); E78.5 Hyperlipidemia, unspecified; I10 Essential (primary) hypertension; I25.10 Atherosclerotic heart disease of native coronary artery without angina pectoris; Z87.19 Personal history of other diseases of the digestive system; Z79.899 Other long term (current) drug therapy
CPT/HCPCS: 36415; 80053; 81001; 82150; 83690; 85025; 96361; 96365; 96375; 99283

== ENCOUNTER 2017-11-25 07:30 | Outpatient (CLI) | payer OTHER ==
--- NOTE | 2017-11-25 08:55 | CT ---
EXAM: CTA of the abdomen and pelvis with and without contrast History: Abdominal pain. Comparison: CT abdomen pelvis 11/10/2017 Technique: Multiplanar CT images through the abdomen pelvis were obtained with and without the admin istration of IV contrast. MIP images and 3-D reconstructions were also acquired. Findings: Subsegmental atelectasis seen within the lower lungs. Heart is mildly enlarged. No acute osseous abnormalities. L1 vertebral body hemangioma. Severe degenerative disc disease at L5-L1. No renal stones and no hydronephrosis. The liver and spleen are not enlarged. Status post cholecyste ctomy. Adrenal glands are unremarkable. No peripancreatic inflammation and no focal pancreatic lesi ons. No renal masses. No bowel obstruction. Moderate colonic stool. 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 Enlarged prostate abutting the base of the bladder. No bladder wall thickening . No free air. Small amount of free pelvic fluid. No perirectal inflammation. No abdominal aortic aneurysm. No aortic dissection. Mild to moderate narrowing at the origins of the celiac artery and superior mesenteric artery. The inferior mesenteric artery is small but patent. The bilateral commo n iliac arteries and external iliac arteries are patent with only mild disease. Mild to moderate sreekanth rowing at the origins of the bilateral renal arteries. There is no pneumatosis and no bowel wall thi ckening. Mild to moderate atherosclerotic vascular calcifications. Impression: 1. No abdominal aortic aneurysm and no aortic dissection. Mild to moderate stenosis of the main art erial branches of the abdominal aorta. There is no evidence for mesenteric ischemia. 2. Small amount of nonspecific free fluid in the pelvis. 3. Enlarged prostate abutting the base of the bladder.
== END 2017-11-25 07:31 | disposition home or self-care (01) ==
LOC: RAD 07:30
PROVIDERS: ATTEND Internal Medicine
DX: R10.9 Unspecified abdominal pain (principal)

== ENCOUNTER 2017-12-07 12:38 | Inpatient (IN) | payer OTHER ==
[2017-12-07 13:19] VITALS: BMI 24.0
[2017-12-07] MEDS ORDERED: TYLENOL PO PRN (14:38)
[2017-12-07] MEDS ORDERED: NITROSTAT SL PRN (14:38)
[2017-12-07] MEDS ORDERED: ATROPINE SULFATE PFS IVP PRN (14:38)
[2017-12-07] MEDS ORDERED: MORPHINE 4 MG/ML VIAL IVP PRN (14:38)
[2017-12-07] MEDS ORDERED: ZOFRAN 4 MG/2 ML IVP STA (14:42)
[2017-12-07] MEDS ORDERED: TORADOL IVP STA (14:43)
[2017-12-07] MEDS: SODIUM CHLORIDE 1,000 ML IV SCH (15:11)
[2017-12-07] MEDS ORDERED: FORMOTEROL IH PRN (15:28)
[2017-12-07] MEDS ORDERED: MOMETASONE IH PRN (15:28)
[2017-12-07] MEDS ORDERED: HYDROCHLOROTHIAZIDE PO SCH (15:30)
[2017-12-07] MEDS ORDERED: LOSARTAN PO SCH (15:30)
[2017-12-07] MEDS ORDERED: [UNRECOGNIZED DRUG - OTHER] PO SCH (15:30)
[2017-12-07] MEDS ORDERED: DUONEB NEB PRN (15:36)
--- NOTE | 2017-12-07 18:21 | DI ---
EXAM: CHEST FRONTAL AND LATERAL VIEWS HISTORY: Decreased saturation of oxygen. COMPARISON: 04/02/2017 FINDINGS: Heart size is within normal limits. Mild atherosclerotic disease. Lungs are mildly hyperin flated. No acute infiltrates are seen. No vascular congestion. There is no consolidation, visible p leural fluid or pneumothorax. Bones reveal no acute fracture. IMPRESSION: No acute cardiopulmonary process.
--- NOTE | 2017-12-07 18:30 | CT ---
EXAM: CT of the abdomen and pelvis with IV contrast. HISTORY: Abdominal pain. PROCEDURE: After the intravenous injection of contrast contiguous axial CT images of the abdomen and pelvis were obtained with coronal and sagittal reformats. FINDINGS: Comparison made with CT of 11/25/2017. There is motion artifact which limits the exam. The re is minimal bibasilar atelectasis. The liver is normal in appearance. The gallbladder is surgicall y absent. There are calcifications in the pancreas consistent with chronic pancreatitis. No CT evide nce of acute pancreatitis. The spleen, adrenal glands and kidneys are normal in appearance. The abdom inal aorta is within normal limits in diameter. There are atherosclerotic calcifications in the irvin r arteries of the abdomen and pelvis. Redemonstrated is a mobile cecum positioned in the central lowe r abdomen. The appendix is not visualized. No bowel obstruction. No free air in the abdomen or pelv is. There is minimal free fluid in the dependent pelvis. The bladder is minimally filled which limit s the evaluation. The seminal vesicles are unremarkable. The prostate gland is enlarged measuring 5 .4 cm. There are degenerative changes in the spine. There is a hemangioma in the L1 vertebral body. Impression: Minimal free fluid in the dependent pelvis. Mobile cecum as described. Calcifications in the pancreas consistent with chronic pancreatitis. No CT evidence of acute pancrea titis. Enlarged prostate gland as described. Atherosclerotic vascular disease. Cholecystectomy. Minimal bibasilar dependent atelectasis.
[2017-12-07] MEDS: NEURONTIN PO SCH (20:43)
[2017-12-07] MEDS: HYTRIN PO SCH (20:43)
[2017-12-07] MEDS: BETAPACE PO SCH (20:44)
[2017-12-07] MEDS ORDERED: XANAX PO SCH (21:00)
[2017-12-07] MEDS: TORADOL IVP SCH (21:13)
[2017-12-08] MEDS: SODIUM CHLORIDE 1,000 ML IV SCH ×2 (01:10→12:54)
[2017-12-08] MEDS: TORADOL IVP SCH ×3 (05:02→20:30)
[2017-12-08] MEDS ORDERED: ASPIRIN CHEWABLE PO SCH (08:00)
[2017-12-08] MEDS ORDERED: XANAX ONE (08:23)
[2017-12-08] MEDS: NEURONTIN PO SCH (08:26)
[2017-12-08] MEDS: BETAPACE PO SCH ×2 (08:26→20:33)
[2017-12-08] MEDS: ASPIRIN EC PO SCH (08:26)
[2017-12-08] MEDS: PROSCAR PO SCH (08:26)
[2017-12-08] MEDS: XANAX PO SCH ×2 (08:38→20:36)
[2017-12-08] MEDS ORDERED: XANAX PO SCH (09:00)
--- NOTE | 2017-12-08 10:39 | PCM.PROG ---
Attending Provider: ATTENDING PROVIDER: Dr. FRANCISCO HERNANDEZ DATE OF SERVICE: 12/08/17 SUBJECTIVE: This 82 year old WHITE/ M was hospitalized 12/07/17. The patient is hospitalized with dehydration, diarrhea and abdominal pain, which is chronic. History of recurrent small bowel obstruction. He has lost weight 8 to 10 lbs in past few weeks. REVIEW OF SYSTEMS: CONSTITUTIONAL: No night sweats. No fatigue, malaise, lethargy. No fever or chills. HEENT: Eyes: No visual changes. No eye pain. No eye discharge. ENT: No runny nose. No epistaxis. No sinus pain. No odynophagia. No congestion. RESPIRATORY: No cough, no congestion. No hemoptysis. No shortness of breath. CARDIOVASCULAR: No angina symptoms. No CHF symptoms. No symptoms of coronary insufficiency. No atypical chest pain for CAD. No palpitations. No orthopnea.. GASTROINTESTINAL: Poor appetite. Abdominal pain and discomfort. No nausea or vomiting. No diarrhea or constipation. No hematemesis. No hematochezia. GENITOURINARY: No urgency. No frequency. No dysuria. No hematuria. No obstructive symptoms. No discharge. No pain. No significant abnormal bleeding. MUSCULOSKELETAL: No musculoskeletal pain; no joint swelling. NEUROLOGICAL: Awake, alert, oriented to time, place and person. No headache. No neck pain. No syncope. No seizures. No dizziness. PSYCHIATRIC: Not anxious. No depression. No suicidal thoughts. No homicidal thoughts. SKIN: No rash. No lesions. No wounds. ENDOCRINE: Weight loss. HEMATOLOGIC/LYMPHATIC: No anemia. No purpura. No petechiae. No prolonged or excessive bleeding. No palpable lymph nodes. PHYSICAL EXAMINATION: GENERAL: The patient is awake, alert and oriented, lying in bed in no distress. VITAL SIGNS: Temperature 97.5 F, Pulse 58, Respiratory Rate 19, BP 158/78, Pulse Ox 93% HEENT: Head normocephalic, atraumatic. Eyes: Extraocular muscles are intact. Pupils are equal, round and reactive to light and accommodation. Ears: No lesions. Nose appeared normal. Throat: No exudate or erythema. NECK: Supple. No JVD, no carotid bruit. No lymphadenopathy or thyromegaly. LUNGS: Clear to auscultation. Percussion note normal. Chest symmetrical. HEART: S1, S2, no S3. No murmurs. No cyanosis or clubbing. No ascites. Pulses: Dorsalis pedis and posterior tibial pulses +1 to +2 both sides. ABDOMEN: Soft. Non-tender. Bowel sounds active. No CVA tenderness. No mass felt. EXTREMITIES: No edema. Full range of motion of all extremities, equal. NEUROLOGIC: No focal deficit. Cranial nerves II through XII are grossly intact. No headache, no double vision or headache. SKIN: Warm and dry. Intact. Turgor-normal. LYMPHATIC: No palpable lymph nodes/no lymphedema. MUSCULOSKELETAL: Normal joints with no swelling. Muscle tone is normal. LAB REVIEW: 12/08/17 04:30 12/08/17 04:30 12/08/17 04:30: Sodium 140, Potassium 3.7, Chloride 109 H, Carbon Dioxide 21 L, Anion Gap 13.7, BUN 13, Creatinine 0.81, Estimated GFR (MDRD) 91.00, BUN/ Creatinine Ratio 16.04, Glucose 87, Calcium 8.6, Total Bilirubin 0.9, AST 11 L, ALT 9 L, Alkaline Phosphatase 53 L, Total Protein 6.8, Albumin 3.3 L, Globulin 3.5, Albumin/Globulin Ratio 0.94 12/08/17 04:30: WBC 5.69, RBC 4.60 L, Hgb 13.5 L, Hct 39.7 L, MCV 86.3, MCH 29.3 , MCHC 34.0, RDW Coeff of Bernadette 13.2, Plt Count 174, Immature Gran % (Auto) 0.2, Neut % (Auto) 65.5, Lymph % (Auto) 20.2, [place] % (Auto) 8.8, Eos % (Auto) 3.9, Baso % (Auto) 1.4, Immature Gran # (Auto) 0.0, Neut # (Auto) 3.7, Lymph # (Auto ) 1.2, [place] # (Auto) 0.5, Eos # (Auto) 0.2, Baso # (Auto) 0.1 12/07/17 22:39: Total Creatine Kinase 30, Troponin I < 0.0100 12/07/17 22:30: Urine Color Yellow, Urine Clarity Clear, Urine pH 6.0, Ur Specific [place] 1.010, Urine Protein 1+, Urine Glucose (UA) Negative, Urine Ketones Trace, Urine Blood 2+, Urine Nitrite Negative, Urine Bilirubin 1+, Urine Urobilinogen 4.0, Ur Leukocyte Esterase Negative, Urine Microscopic RBC 10 -20, Ur Squamous Epith Cells 0-2, Urine Bacteria Trace 12/07/17 21:20: Miscellaneous Test 12/07/17 14:50: Sodium 141, Potassium 3.7, Chloride 107, Carbon Dioxide 24, Anion Gap 13.7, BUN 10, Creatinine 0.77, Estimated GFR (MDRD) 97.00, BUN/ Creatinine Ratio 12.98, Glucose 92, Calcium 9.1, Total Bilirubin 1.4 H, AST 12 L , ALT 11 L, Alkaline Phosphatase 55 L, Total Creatine Kinase 33, Troponin I < 0.0100, Total Protein 7.5, Albumin 3.6, Globulin 3.9, Albumin/Globulin Ratio 0.92 12/07/17 14:50: WBC 8.68, RBC 4.96, Hgb 14.6, Hct 42.3, MCV 85.3, MCH 29.4, MCHC 34.5, RDW Coeff of Bernadette 13.2, Plt Count 188, Immature Gran % (Auto) 0.2, Neut % (Auto) 74.7, Lymph % (Auto) 15.2, [place] % (Auto) 8.1, Eos % (Auto) 1.2, Baso % (Auto) 0.6, Immature Gran # (Auto) 0.0, Neut # (Auto) 6.5, Lymph # (Auto ) 1.3, [place] # (Auto) 0.7, Eos # (Auto) 0.1, Baso # (Auto) 0.1 CT scan shows as usual chronic pancreatitis, otherwise normal. ASSESSMENT: 1. Chronic abdominal pain with history of intermittent small bowel obstruction. 2. CAD. 3. Sinus bradycardia. PLAN: 1. Give IV fluids. 2. Waiting for stool culture. 3. Xanax 0.25 mg b.i.d. during day and once at night. 4. Refer to Dr. Sutton - to move up appointment that was originally scheduled for January. Plan and coordination of the patient's care discussed in the presence of Process Architect and nurse. CONDITION: Stable SCRIBED BY: STEWART TYLER Application Support Lead scribed while in presence of service performed by Dr. FRANCISCO HERNANDEZ on 12/08/17 ([id number])
--- NOTE | 2017-12-08 11:05 | HP ---
DATE OF SERVICE: 12/07/17 REASON FOR HOSPITALIZATION/HISTORY OF PRESENT ILLNESS: Lost 9 pounds. The patient is weak, laying in bed for 3 days. Diarrhea 10-12 times yesterday, not eating much. He can't control his bowels upon standing pure water. PAST MEDICAL HISTORY: Hypertension Bradycardia High Cholesterol CAD Atrial fibrillation Asthma History of bowel obstruction GERD COPD TIA BPH PAST SURGICAL HISTORY: Appendectomy Gallbladder Right total knee replacement Back surgery 1975 Heart stents REVIEW OF SYSTEMS: CONSTITUTIONAL: No fever, Fatigue. HEENT: No sinus drainage, no sore throat. RESPIRATORY: No cough, no congestion. CARDIOVASCULAR: No atypical chest pain for coronary artery disease. No angina , CHF symptoms, palpitations or shortness of breath. GASTROINTESTINAL: No melena. Abdominal pain. No GERD. GENITOURINARY: No hematuria, no prostatism, no polyuria. PULMONOLOGIST: No blackout, no dizziness, no headache, no double vision. MUSCULOSKELETAL: No osteoarthritis pain, no joint swelling. ENDOCRINE: No weight loss, no weight gain. SKIN: Not dry, no rash. PSYCHIATRIC: Not anxious, no depression, no suicidal thoughts, no homicidal thoughts. SOCIAL HISTORY: Marital Status: . Alcohol Usage: No. Tobacco Usage: No. FAMILY HISTORY: Father -CAD Mother -Diabetes Mellitus Brother 1 age 73 CABGS Sisters 3 84,79 and 75 CABGS MEDICATIONS: Ipratropium albuterol Meclizine 25mg PO three times a day PRN Losartan -Hydrochlorothiazide 100-12.5 take half tablet four times a day ProAir two puffs every 4 hours Symbicort 160-4.5 two puffs two times per day in the morning and evening Aspirin 81mg PO daily Gabapentin 300mg PO daily Finasteride 5mg PO daily Alprazolam 0.5mg PO daily Sotalol 80mg PO half tablet twice a day Terazosin 5mg PO at bedtime Simvastatin 40mg PO daily Nitroglycerin 0.4mg PRN Dulera 100mcg/5mcg two puffs twice a day PRN ALLERGIES: Demerol Decadron Stadol PHYSICAL EXAMINATION: V/S: Pulse 68, blood pressure 158/66, temperature 98.96, oxygen saturation 96%. GENERAL APPEARANCE: Oriented times three. HEENT: Normal. NECK: No JVP, no bruits. RESPIRATORY: Lungs are clear. CARDIOVASCULAR: S1, S2, no S3, no murmurs. No cyanosis, clubbing. No ascites. GI/ABDOMEN: Left quadrant tenderness. Bowel sounds are active. EXTREMITIES: edema, pulses +1, equal. PULMONOLOGIST: Deep tendon reflexes, sensory, motor and gait all normal. RECTAL: - Dr. Watt/PELVIC: 2007 [facility] appointment 01/23. ASSESSMENT: 1. Dehydration 2. Diarrhea 3. Abdominal pain 4. History of recurrent small bowel obstruction 5. Right knee replacement 6. BPH Dr. Watt 7. TIA 8.Hypertension/LVH 9.CAD/Stent 10.Dyslipidemia 11.GERD 12.COPD 13.History of atrial fibrillation PLAN: 1. Routine telemetry orders 2. Normal saline at 75cc and hour 3. Chest x-ray 4. CBC /CMP daily 5. Stool for C-Diff 6. GI panel by PCR for stool 7. Continue all medications 8. Stool for culture and sensitivity 9. CT scan of abdomen and pelvis with contrast 10.Toradol 30mg IV now and Q 8 hourly 11.Zofran 4mg IV now and Q 6 hours PRN TIME SPENT: More than 70 minutes. MTDD
[2017-12-08] MEDS: HYTRIN PO SCH (20:31)
[2017-12-09] MEDS: SODIUM CHLORIDE 1,000 ML IV SCH ×3 (00:37→23:58)
[2017-12-09] MEDS: TORADOL IVP SCH ×3 (04:52→20:33)
[2017-12-09] MEDS ORDERED: HYDROCHLOROTHIAZIDE PO SCH (09:00)
[2017-12-09] MEDS ORDERED: COZAAR PO SCH (09:00)
[2017-12-09] MEDS: ASPIRIN EC PO SCH (09:10)
[2017-12-09] MEDS: XANAX PO SCH ×2 (09:14→20:30)
[2017-12-09] MEDS: NEURONTIN PO SCH (09:16)
[2017-12-09] MEDS: PROSCAR PO SCH (09:18)
[2017-12-09] MEDS: ZOFRAN 4 MG/2 ML IVP PRN (09:21)
[2017-12-09] MEDS ORDERED: DECADRON 4 MG/ML SDV IVP STA (11:02)
[2017-12-09] MEDS: PROTONIX PO SCH ×2 (11:43→17:11)
[2017-12-09] MEDS: BETAPACE PO SCH ×2 (11:44→20:30)
[2017-12-09] MEDS: ENTOCORT EC PO SCH ×2 (15:51→20:30)
[2017-12-09] MEDS: HYTRIN PO SCH (20:30)
[2017-12-10] MEDS: TORADOL IVP SCH ×3 (05:26→21:17)
[2017-12-10] MEDS: PROTONIX PO SCH ×2 (05:37→17:17)
[2017-12-10] MEDS ORDERED: COZAAR PO SCH (09:00)
[2017-12-10] MEDS: ASPIRIN EC PO SCH (09:01)
[2017-12-10] MEDS: ENTOCORT EC PO SCH ×3 (09:02→21:16)
[2017-12-10] MEDS: COZAAR PO SCH (09:02)
[2017-12-10] MEDS: NEURONTIN PO SCH (09:03)
[2017-12-10] MEDS: NORVASC PO SCH ×2 (09:03→21:19)
[2017-12-10] MEDS: PROSCAR PO SCH (09:03)
[2017-12-10] MEDS: HYDROCHLOROTHIAZIDE PO SCH (09:04)
[2017-12-10] MEDS: XANAX PO SCH ×2 (09:08→21:17)
[2017-12-10] MEDS: SODIUM CHLORIDE 1,000 ML IV SCH (13:11)
--- NOTE | 2017-12-10 13:20 | PCM.PROG ---
Attending Provider: ATTENDING PROVIDER: Dr. FRANCISCO HERNANDEZ This patient is seen with Anjelica Dewey, Nurse Practitioner. DATE OF SERVICE: 12/10/17 SUBJECTIVE: This 82 year old WHITE/ M was hospitalized 12/07/17. The patient is lying in bed, alert. He had abdominal pain last night no stool since yesterday. He states he feels like he could eat this morning. REVIEW OF SYSTEMS: CONSTITUTIONAL: No night sweats. No fatigue, malaise, lethargy. No fever or chills. HEENT: Eyes: No visual changes. No eye pain. No eye discharge. ENT: No runny nose. No epistaxis. No sinus pain. No odynophagia. No congestion. RESPIRATORY: No cough, no congestion. No hemoptysis. No shortness of breath. CARDIOVASCULAR: No angina symptoms. No CHF symptoms. No atypical chest pain for CAD. No palpitations. No orthopnea.. GASTROINTESTINAL: Abdominal pain. No nausea or vomiting. No diarrhea or constipation. No hematemesis. No hematochezia. GENITOURINARY: No urgency. No frequency. No dysuria. No hematuria. No obstructive symptoms. No discharge. No pain. No significant abnormal bleeding. MUSCULOSKELETAL: No musculoskeletal pain; no joint swelling. NEUROLOGICAL: Awake, alert, oriented to time, place and person. No headache. No neck pain. No syncope. No seizures. No dizziness. PSYCHIATRIC: Not anxious. No depression. No suicidal thoughts. No homicidal thoughts. SKIN: No rash. No lesions. No wounds. ENDOCRINE: No unexplained weight loss. No weight gain. HEMATOLOGIC/LYMPHATIC: No anemia. No purpura. No petechiae. No prolonged or excessive bleeding. No palpable lymph nodes. PHYSICAL EXAMINATION: GENERAL: The patient is awake, alert and oriented, lying in bed in no distress. VITAL SIGNS: Temperature 97.6 F, Pulse 51, Respiratory Rate 12, BP 168/77, Pulse Ox 96% HEENT: Head normocephalic, atraumatic. Eyes: Extraocular muscles are intact. Pupils are equal, round and reactive to light and accommodation. Ears: No lesions. Nose appeared normal. Throat: No exudate or erythema. NECK: Supple. No JVD, no carotid bruit. No lymphadenopathy or thyromegaly. LUNGS: Clear to auscultation. Percussion note normal. Chest symmetrical. HEART: S1, S2, no S3. No murmurs. No cyanosis or clubbing. No ascites. Pulses: Dorsalis pedis and posterior tibial pulses +1 to +2 both sides. ABDOMEN: Soft. Non-tender. Bowel sounds active. No CVA tenderness. No mass felt. EXTREMITIES: No edema. Full range of motion of all extremities, equal. NEUROLOGIC: No focal deficit. Cranial nerves II through XII are grossly intact. No headache, no double vision or headache. SKIN: Not dry. Intact. Turgor-normal. LYMPHATIC: No palpable lymph nodes/no lymphedema. MUSCULOSKELETAL: Normal joints with no swelling. Muscle tone is normal. LAB REVIEW: 12/10/17 04:30 12/09/17 04:30 12/10/17 04:30: WBC 7.97, RBC 4.75, Hgb 13.8 L, Hct 41.2 L, MCV 86.7, MCH 29.1, MCHC 33.5, RDW Coeff of Bernadette 12.8, Plt Count 149, Immature Gran % (Auto) 0.4, Neut % (Auto) 77.6, Lymph % (Auto) 14.4, [place] % (Auto) 7.2, Eos % (Auto) 0.1, Baso % (Auto) 0.3, Immature Gran # (Auto) 0.0, Neut # (Auto) 6.2, Lymph # (Auto ) 1.2, [place] # (Auto) 0.6, Eos # (Auto) 0.0, Baso # (Auto) 0.0 ASSESSMENT: 1. Chronic abdominal pain with history of intermittent small bowel obstruction. 2. CAD. 3. Sinus bradycardia. 4. Hypertension PLAN: 1. CMP 2. Lipase 3. Amylase 4. [place] diet 5. Appointment with GI Plan and coordination of the patient's care discussed in the presence of Unarmed Security Officer and nurse. CONDITION: Stable SCRIBED BY: Dipak PETERS scribed while in presence of service performed by Dr. Hernandez/Anjelica Dewey APRN on 12/10/17 ([id number])
[2017-12-10] MEDS: HYTRIN PO SCH (21:16)
[2017-12-11] MEDS: SODIUM CHLORIDE 1,000 ML IV SCH ×2 (01:36→15:13)
[2017-12-11] MEDS: PROTONIX PO SCH ×2 (05:34→17:56)
[2017-12-11] MEDS: TORADOL IVP SCH ×3 (05:34→20:39)
[2017-12-11] MEDS: COZAAR PO SCH (09:46)
[2017-12-11] MEDS: NORVASC PO SCH ×2 (09:47→21:10)
[2017-12-11] MEDS: ASPIRIN EC PO SCH (09:47)
[2017-12-11] MEDS: XANAX PO SCH ×2 (09:47→21:08)
[2017-12-11] MEDS: PROSCAR PO SCH (09:47)
[2017-12-11] MEDS: NEURONTIN PO SCH (09:47)
[2017-12-11] MEDS: HYDROCHLOROTHIAZIDE PO SCH (09:48)
[2017-12-11] MEDS: ENTOCORT EC PO SCH ×3 (09:48→21:07)
--- NOTE | 2017-12-11 10:19 | PCM.PROG ---
Attending Provider: ATTENDING PROVIDER: Dr. FRANCISCO PAULINO This patient is seen with Anjelica Dewey, Nurse Practitioner. DATE OF SERVICE: 12/11/17 SUBJECTIVE: This 82 year old WHITE/ M was hospitalized 12/07/17. The patient is lying in bed, alert. He has had diarrhea through the night with mucus watery stools, He did eat some yesterday, no actual abdominal pain. REVIEW OF SYSTEMS: CONSTITUTIONAL: Weakness. No night sweats. No malaise, lethargy. No fever or chills. HEENT: Eyes: No visual changes. No eye pain. No eye discharge. ENT: No runny nose. No epistaxis. No sinus pain. No odynophagia. No congestion. RESPIRATORY: No cough, no congestion. No hemoptysis. No shortness of breath. CARDIOVASCULAR: No angina symptoms. No CHF symptoms. No atypical chest pain for CAD. No palpitations. No orthopnea.. GASTROINTESTINAL: Positive for diarrhea. No abdominal pain. No nausea or vomiting. No hematemesis. No hematochezia. GENITOURINARY: No urgency. No frequency. No dysuria. No hematuria. No obstructive symptoms. No discharge. No pain. No significant abnormal bleeding. MUSCULOSKELETAL: No musculoskeletal pain; no joint swelling. NEUROLOGICAL: Awake, alert, oriented to time, place and person. No headache. No neck pain. No syncope. No seizures. No dizziness. PSYCHIATRIC: Not anxious. No depression. No suicidal thoughts. No homicidal thoughts. SKIN: No rash. No lesions. No wounds. ENDOCRINE: No unexplained weight loss. No weight gain. HEMATOLOGIC/LYMPHATIC: No anemia. No purpura. No petechiae. No prolonged or excessive bleeding. No palpable lymph nodes. PHYSICAL EXAMINATION: GENERAL: The patient is awake, alert and oriented, lying in bed in no distress. VITAL SIGNS: Temperature 98.0 F, Pulse 42, Respiratory Rate 15, BP 148/65, Pulse Ox 93% HEENT: Head normocephalic, atraumatic. Eyes: Extraocular muscles are intact. Pupils are equal, round and reactive to light and accommodation. Ears: No lesions. Nose appeared normal. Throat: No exudate or erythema. NECK: Supple. No JVD, no carotid bruit. No lymphadenopathy or thyromegaly. LUNGS: Clear to auscultation. Percussion note normal. Chest symmetrical. HEART: S1, S2, no S3. No murmurs. No cyanosis or clubbing. No ascites. Pulses: Dorsalis pedis and posterior tibial pulses +1 to +2 both sides. ABDOMEN: Soft. Non-tender. Bowel sounds active. No CVA tenderness. No mass felt. EXTREMITIES: No edema. Full range of motion of all extremities, equal. NEUROLOGIC: No focal deficit. Cranial nerves II through XII are grossly intact. No headache, no double vision or headache. SKIN: Not dry. Intact. Turgor-normal. LYMPHATIC: No palpable lymph nodes/no lymphedema. MUSCULOSKELETAL: Normal joints with no swelling. Muscle tone is normal. LAB REVIEW: 12/11/17 04:30 12/10/17 04:30 12/11/17 04:30: WBC 7.44, RBC 4.55 L, Hgb 13.2 L, Hct 40.0 L, MCV 87.9, MCH 29.0 , MCHC 33.0, RDW Coeff of Bernadette 13.3, Plt Count 166, Immature Gran % (Auto) 0.1, Neut % (Auto) 69.6, Lymph % (Auto) 19.6, [place] % (Auto) 7.8, Eos % (Auto) 2.0, Baso % (Auto) 0.9, Immature Gran # (Auto) 0.0, Neut # (Auto) 5.2, Lymph # (Auto ) 1.5, [place] # (Auto) 0.6, Eos # (Auto) 0.2, Baso # (Auto) 0.1 12/10/17 04:30: Sodium 140, Potassium 3.9, Chloride 110 H, Carbon Dioxide 20 L, Anion Gap 13.9, BUN 9, Creatinine 0.82, Estimated GFR (MDRD) 90.00, BUN/ Creatinine Ratio 10.97, Glucose 102, Calcium 8.3, Total Bilirubin 0.8, AST 19, ALT 9 L, Alkaline Phosphatase 43 L, Total Protein 6.3, Albumin 3.0 L, Globulin 3.3, Albumin/Globulin Ratio 0.91, Amylase 42, Lipase 30 ASSESSMENT: 1. Chronic abdominal pain with history of intermittent small bowel obstruction. 2. Diarrhea 3. CAD 4. Sinus bradycardia. 5. Hypertension PLAN: 1. Will call Dr. Olivo/Tony for referral; appointment with Dr. Shiben is not until January and the patient is unable to wait. Plan and coordination of the patient's care discussed in the presence of Day Care Center Director and nurse. CONDITION: Stable SCRIBED BY: Davian PETERSist scribed while in presence of service performed by Dr. Paulino/Anjelica Dewey APRN on 12/11/17 ([id number])
[2017-12-11] MEDS: HYTRIN PO SCH (21:07)
[2017-12-12] MEDS: SODIUM CHLORIDE 1,000 ML IV SCH ×2 (03:56→19:43)
[2017-12-12] MEDS: TORADOL IVP SCH ×3 (05:33→21:04)
[2017-12-12] MEDS: PROTONIX PO SCH ×2 (05:49→16:41)
[2017-12-12] MEDS: COZAAR PO SCH (08:41)
[2017-12-12] MEDS: XANAX PO SCH ×2 (08:41→21:21)
[2017-12-12] MEDS: NORVASC PO SCH ×2 (08:41→21:20)
[2017-12-12] MEDS: ASPIRIN EC PO SCH (08:41)
[2017-12-12] MEDS: NEURONTIN PO SCH (08:41)
[2017-12-12] MEDS: PROSCAR PO SCH (08:41)
[2017-12-12] MEDS: ENTOCORT EC PO SCH ×3 (08:41→21:20)
[2017-12-12] MEDS: HYDROCHLOROTHIAZIDE PO SCH (08:41)
[2017-12-12] MEDS: K-DUR PO SCH ×2 (13:14→16:41)
[2017-12-12] MEDS: HYTRIN PO SCH (21:20)
[2017-12-13] MEDS: TORADOL IVP SCH ×3 (05:31→20:56)
[2017-12-13] MEDS: PROTONIX PO SCH ×2 (05:31→16:59)
[2017-12-13] MEDS: PROSCAR PO SCH (08:57)
[2017-12-13] MEDS: K-DUR PO SCH ×3 (08:57→16:59)
[2017-12-13] MEDS: XANAX PO SCH ×2 (08:58→20:56)
[2017-12-13] MEDS: ASPIRIN EC PO SCH (08:58)
[2017-12-13] MEDS: COZAAR PO SCH (08:58)
[2017-12-13] MEDS: NORVASC PO SCH ×2 (08:58→20:57)
[2017-12-13] MEDS: HYDROCHLOROTHIAZIDE PO SCH (08:58)
[2017-12-13] MEDS: ENTOCORT EC PO SCH ×3 (08:58→20:57)
[2017-12-13] MEDS: NEURONTIN PO SCH (08:59)
[2017-12-13] MEDS: SODIUM CHLORIDE 1,000 ML IV SCH ×2 (17:08)
[2017-12-13] MEDS: HYTRIN PO SCH (20:57)
[2017-12-13] MEDS: ZOFRAN 4 MG/2 ML IVP PRN (21:05)
[2017-12-14] MEDS: TORADOL IVP SCH ×2 (05:30→13:09)
[2017-12-14] MEDS: SODIUM CHLORIDE 1,000 ML IV SCH (05:44)
--- NOTE | 2017-12-14 08:28 | CT ---
Exam: CT abdomen pelvis with intravenous contrast. Comparison: 12/07/2017. Reason for exam: Abdominal pain. FINDINGS: There is mild basilar atelectasis/early pneumonia. The partially imaged heart appears prom inent in size. There is thickening of the proximal gastric wall with mild surrounding inflammatory change. The liver, spleen, adrenal glands, and pancreas appear grossly unremarkable. Nodular density seen adjacent to the pancreatic tail is presumably a small splenule on axial image nu mber 29. No hydronephrosis, hydroureter, or ureterolithiasis in either kidney. 2 mm stone is seen in the right renal collecting system. Renal vascular calcifications are seen in the left kidney. No intra-abdominal free air or pelvic free fluid. The prostate is prominent in size with impression on the posterior urinary bladder. There is mild circumferential bladder wall thickening. No focal small bowel dilatation or transition point. Degenerative disease is seen in the lumbosacral spine with intervertebral body disc space height loss . The gallbladder has been removed. Impression: 1. Basilar atelectasis/pneumonia. 2. Thickening of the proximal gastric wall with mild surrounding inflammatory change may represent ga stritis. 3. Mild cardiomegaly. 4. Prostatic enlargement. 5. Mild circumferential bladder wall thickening likely secondary to outlet obstruction.
[2017-12-14] MEDS: ASPIRIN EC PO SCH (09:40)
[2017-12-14] MEDS: ENTOCORT EC PO SCH (09:41)
[2017-12-14] MEDS: COZAAR PO SCH (09:41)
[2017-12-14] MEDS: HYDROCHLOROTHIAZIDE PO SCH (09:41)
[2017-12-14] MEDS: PROSCAR PO SCH (09:43)
[2017-12-14] MEDS: NEURONTIN PO SCH (09:43)
[2017-12-14] MEDS: NORVASC PO SCH (09:43)
[2017-12-14] MEDS: K-DUR PO SCH ×2 (09:43→13:08)
[2017-12-14] MEDS: XANAX PO SCH (09:44)
[2017-12-14] MEDS: PROTONIX PO SCH (09:44)
--- NOTE | 2017-12-14 11:00 | PCM.PROG ---
Attending Provider: ATTENDING PROVIDER: Dr. FRANCISCO PAULINO This patient is seen with Anjelica Dewey, Nurse Practitioner. DATE OF SERVICE: 12/14/17 SUBJECTIVE: This 82 year old WHITE/ M was hospitalized 12/07/17. The patient is lying in bed alert. He still had some slight abdominal pain last night. He still has jelly-like stools multiple times, unable to eat much. REVIEW OF SYSTEMS: CONSTITUTIONAL: Weakness. No night sweats. No malaise, lethargy. No fever or chills. HEENT: Eyes: No visual changes. No eye pain. No eye discharge. ENT: No runny nose. No epistaxis. No sinus pain. No odynophagia. No congestion. RESPIRATORY: No cough, no congestion. No hemoptysis. No shortness of breath. CARDIOVASCULAR: No angina symptoms. No CHF symptoms. No atypical chest pain for CAD. No palpitations. No orthopnea.. GASTROINTESTINAL: Diarrhea. Nausea. No abdominal pain. No vomiting. No constipation. No hematemesis. No hematochezia. GENITOURINARY: No urgency. No frequency. No dysuria. No hematuria. No obstructive symptoms. No discharge. No pain. No significant abnormal bleeding. MUSCULOSKELETAL: No musculoskeletal pain; no joint swelling. NEUROLOGICAL: Awake, alert, oriented to time, place and person. No headache. No neck pain. No syncope. No seizures. No dizziness. PSYCHIATRIC: Not anxious. No depression. No suicidal thoughts. No homicidal thoughts. SKIN: No rash. No lesions. No wounds. ENDOCRINE: No unexplained weight loss. No weight gain. HEMATOLOGIC/LYMPHATIC: No anemia. No purpura. No petechiae. No prolonged or excessive bleeding. No palpable lymph nodes. PHYSICAL EXAMINATION: GENERAL: The patient is awake, alert and oriented, lying in bed in no distress. VITAL SIGNS: Temperature 97.7 F, Pulse 53, Respiratory Rate 16, BP 143/70, Pulse Ox 95% HEENT: Head normocephalic, atraumatic. Eyes: Extraocular muscles are intact. Pupils are equal, round and reactive to light and accommodation. Ears: No lesions. Nose appeared normal. Throat: No exudate or erythema. NECK: Supple. No JVD, no carotid bruit. No lymphadenopathy or thyromegaly. LUNGS: Clear to auscultation. Percussion note normal. Chest symmetrical. HEART: S1, S2, no S3. No murmurs. No cyanosis or clubbing. No ascites. Pulses: Dorsalis pedis and posterior tibial pulses +1 to +2 both sides. ABDOMEN: Soft. Non-tender. Bowel sounds active. No CVA tenderness. No mass felt. EXTREMITIES: No edema. Full range of motion of all extremities, equal. NEUROLOGIC: No focal deficit. Cranial nerves II through XII are grossly intact. No headache, no double vision or headache. SKIN: Not dry. Intact. Turgor-normal. LYMPHATIC: No palpable lymph nodes/no lymphedema. MUSCULOSKELETAL: Normal joints with no swelling. Muscle tone is normal. LAB REVIEW: 12/14/17 04:30 12/14/17 04:30 12/14/17 04:30: Sodium 141, Potassium 4.0, Chloride 110 H, Carbon Dioxide 24, Anion Gap 11.0, BUN 11, Creatinine 0.79, Estimated GFR (MDRD) 94.00, BUN/ Creatinine Ratio 13.92, Glucose 94, Calcium 8.7, Total Bilirubin 0.8, AST 11 L, ALT 8 L, Alkaline Phosphatase 45 L, Total Protein 6.1, Albumin 3.0 L, Globulin 3.1, Albumin/Globulin Ratio 0.97 12/14/17 04:30: WBC 6.23, RBC 4.49 L, Hgb 12.9 L, Hct 39.4 L, MCV 87.8, MCH 28.7 , MCHC 32.7, RDW Coeff of Bernadette 13.4, Plt Count 173, Immature Gran % (Auto) 0.3, Neut % (Auto) 66.3, Lymph % (Auto) 21.5, [place] % (Auto) 9.0, Eos % (Auto) 1.9, Baso % (Auto) 1.0, Immature Gran # (Auto) 0.0, Neut # (Auto) 4.1, Lymph # (Auto ) 1.3, [place] # (Auto) 0.6, Eos # (Auto) 0.1, Baso # (Auto) 0.1 ASSESSMENT: 1. Chronic abdominal pain with history of intermittent small bowel obstruction. 2. Diarrhea - jelly-like stools 3. Weight loss 4. CAD 5. Sinus bradycardia, with stable bp 6. Hypertension PLAN: 1. D/C home. 2. He has appointment with Dr. Antonio tomorrow. Plan and coordination of the patient's care discussed in the presence of Cinder Block Maker and nurse. CONDITION: Stable SCRIBED BY: Davian PETERSist scribed while in presence of service performed by Dr. Paulino/Anjelica Dewey APRN on 12/14/17 ([id number])
--- NOTE | 2017-12-14 12:06 | CM.DICTOOL ---
ADMISSION: 12/07/17 12:38 DISCHARGE: 12/14/17 DATE OF SERVICE: 12/14/17 FINAL DIAGNOSIS ABDOMINAL PAIN, CHRONIC DEHYDRATION DIARRHEA SINUS BRADYCARDIA INTERMITTENT SMALL BOWEL OBSTRUCTIONS, LAST 03/23 HYPERTENSION CAD ATRAIL FIBRILLATION DYSLIPIDEMIA COPD/ASTHMA GERD DJD SPINE BPH, (DR. LOVE) TIA ANXIETY CHOLECYSTECTOMY S/P CARDIAC STENT APPLICATION, 2007, 2009 APPENDECTOMY TONSILLECTOMY LUMBAR FUSION, 1979' TOTAL RIGHT KNEE ARTHROPLASTY LAST VITALS Temp Pulse Resp BP Pulse Ox 97.7 F 53 L 16 143/70 H 95 12/14/17 05:08 12/14/17 05:08 12/14/17 05:08 12/14/17 05:08 12/14/17 05:08 TAKE THESE MEDICATIONS AT HOME Alprazolam (Xanax) 0.25 mg PO BID [facility] Last Admin: 12/13/17 20:56 Dose: 0.25 mg Amlodipine Besylate (Norvasc) 5 mg PO BID [facility] Last Admin: 12/13/17 20:57 Dose: 5 mg Aspirin (Aspirin Ec) 81 mg PO DAILYWM [facility] Last Admin: 12/13/17 08:58 Dose: 81 mg Budesonide (Entocort Ec) 3 mg PO TID [facility] Last Admin: 12/13/17 20:57 Dose: 3 mg Finasteride (Proscar) 5 mg PO DAILY [facility] Last Admin: 12/13/17 08:57 Dose: 5 mg Gabapentin (Neurontin) 300 mg PO DAILY [facility] Last Admin: 12/13/17 08:59 Dose: 300 mg Losartan Potassium/Hydrochlorothiazide 100/12.5 mg one-half tab PO DAILY [facility] Last Admin: 12/13/17 08:58 Dose: 50/6.25 mg Non-Formulary Medication (Mometasone/Formoterol [Dulera 100 Mcg/5 Mcg Inhaler]) 2 inh IH BID PRN PRN Reason: Wheezing Pantoprazole Sodium (Protonix) 40 mg PO BIDAC [facility] Last Admin: 12/13/17 16:59 Dose: 40 mg Potassium Chloride (K-Dur) 20 meq PO TIDWM [facility] Last Admin: 12/13/17 16:59 Dose: 20 meq Terazosin HCl (Hytrin) 5 mg PO BEDTIME [facility] Last Admin: 12/13/17 20:57 Dose: 5 mg ALLERGIES butorphanol tartrate [From Stadol] Adverse Reaction (Verified 11/10/17 09:36) hydromorphone HCl [From Dilaudid] Adverse Reaction (Verified 11/10/17 09:36) meperidine HCl [From Demerol] Adverse Reaction (Verified 11/10/17 09:36) DISCONTINUED MEDICATIONS Sotalol HCL (Betapace) 5 mg PO at Bedtime NEW PRESCRIPTIONS: NEW PRESCRIPTIONS Amlodipine Besylate [Norvasc] 5 mg PO BID #60 tablet 12/14/17 Budesonide [Entocort EC] 3 mg PO BID #60 capdr...er 12/14/17 Pantoprazole Sodium [Protonix] 40 mg PO BIDAC #60 tablet. 12/14/17 Potassium Chloride [K-Dur] 20 meq PO BID #60 tab 12/14/17 SMOKING: NEVER SMOKED DISEASE SPECIFIC EDUCATION: DEHYDRATION DIARRHEA ABDOMINAL PAIN HOME MEDICATIONS NEW PRESCRIPTIONS FOLLOW UP REFERRAL TO DR. SNOWDEN LAB REVIEW: 12/14/17 04:30 12/14/17 04:30 12/14/17 04:30: Sodium 141, Potassium 4.0, Chloride 110 H, Carbon Dioxide 24, Anion Gap 11.0, BUN 11, Creatinine 0.79, Estimated GFR (MDRD) 94.00, BUN/ Creatinine Ratio 13.92, Glucose 94, Calcium 8.7, Total Bilirubin 0.8, AST 11 L, ALT 8 L, Alkaline Phosphatase 45 L, Total Protein 6.1, Albumin 3.0 L, Globulin 3.1, Albumin/Globulin Ratio 0.97 12/14/17 04:30: WBC 6.23, RBC 4.49 L, Hgb 12.9 L, Hct 39.4 L, MCV 87.8, MCH 28.7 , MCHC 32.7, RDW Coeff of Bernadette 13.4, Plt Count 173, Immature Gran % (Auto) 0.3, Neut % (Auto) 66.3, Lymph % (Auto) 21.5, [place] % (Auto) 9.0, Eos % (Auto) 1.9, Baso % (Auto) 1.0, Immature Gran # (Auto) 0.0, Neut # (Auto) 4.1, Lymph # (Auto ) 1.3, [place] # (Auto) 0.6, Eos # (Auto) 0.1, Baso # (Auto) 0.1 PLAN: DISCHARGE HOME RETURN TO SEE DR. HERNANDEZ IN HIS OFFICE ON 12/18/17 AT 10:00 A.M. KEEP YOUR APPOINTMENT WITH DR. SNOWDEN ([facility]) [address] [place] [address], [address] [place] [address]#: [phone] 12/15/17 AT 12:30 P.M. ARRIVE 15 MINUTES EARLY PLEASE TAKE YOUR INSURANCE CARDS AND PHOTO ID TO THIS APPOINTMENT RESUME YOUR HOME MEDICATIONS PER LIST PROVIDED BY THE NURSING STAFF DO NOT TAKE YOUR SOTALOL HCL (BETAPACE) NEW PRESCRIPTIONS AMLODIPINE BESYLATE (NORVASC) 5 MG, TAKE ONE TABLET BY MOUTH TWICE DAILY BUDESONIDE (ENTOCORT EC) 3 MG, TAKE ONE TABLET BY MOUTH TWICE DAILY PROTONIX 40 MG, TAKE ONE TABLET BY MOUTH TWICE DAILY BEFORE MEALS POTASSIUM CHLORIDE (K-DUR) 20 MEQ, TAKE ONE TABLET BY MOUTH TWICE DAILY WITH MEALS ACTIVITY GET PLENTY OF REST AT HOME. GRADUALLY INCREASE YOUR ACTIVITY ACCORDING TO YOUR TOLERATION DIET HEALTHY HEART, TOLERATED SUMMARY THE PATIENT IS ALERT AND ORIENTED X3. HE CURRENTLY RESIDES AT HOME ALONE. HIS CHILDREN ARE SUPPORTIVE OF HIS NEEDS WHEN NECESSARY. HE HAS BEEN INDEPENDENT WITH ADL'S AND HAS NOT REQUIRED DME, HOME HEALTH OR HOMEMAKING SERVICES. HE DESIRES TO RETURN HOME AT DISCHARGE. THE HYDRATION AND NUTRITIONAL STATUS ARE IMPROVED AT DISCHARGE. MR. ALBRIGHT CONTINUES TO HAVE GELATINOUS SMALL STOOLS FREQUENTLY DURING THE DAY. AT TIMES HE IS INCONTINENT STOOL AND REQUIRES ADULT INCONTINENT PADS. HE IS AWARE OF AND AGREEABLE TO KEEPING HIS SCHEDULED APPOINTMENT WITH DR. SNOWDEN LISTED ABOVE. CURRENT CODE STATUS FULL CODE CLAUDIA FINN APRN FRANCISCO HERNANDEZ M.D.
[2017-12-14 12:39] VITALS: BP 154/75; TEMP 97.6
--- NOTE | 2017-12-14 13:03 | PN ---
DATE OF SERVICE: 12/13/17 SUBJECTIVE: 82-year-old white male hospitalized with dehydration, diarrhea. The pain has improved to some extent. He had some meals but the patient still has epigastric discomfort off and on. He feels like the abdomen is distended. The patient does not have regular bowel, he has mucusy diarrhea. REVIEW OF SYSTEMS: CONSTITUTIONAL: No night sweats. No fatigue, malaise, lethargy. No fever or chills. HEENT: Eyes: No visual changes. No eye pain. No eye discharge. ENT: No runny nose. No epistaxis. No sinus pain. No sore throat. No odynophagia. No congestion. RESPIRATORY: No cough, no congestion. No hemoptysis. No shortness of breath. CARDIOVASCULAR: No angina symptoms. No CHF symptoms. No atypical chest pain for CAD. No palpitations. No orthopnea. No PND. GASTROINTESTINAL: Abdominal discomfort as usual. No nausea or vomiting. No diarrhea or constipation. No hematemesis. No hematochezia. GENITOURINARY: No urgency. No frequency. No dysuria. No hematuria. No obstructive symptoms. No discharge. No pain. No significant abnormal bleeding. MUSCULOSKELETAL: No musculoskeletal pain; no joint swelling. NEUROLOGICAL: No headache. No neck pain. No syncope. No seizures. No dizziness. PSYCHIATRIC: Not anxious. No depression. No suicidal thoughts. No homicidal thoughts. SKIN: No rash. No lesions. No wounds. ENDOCRINE: No unexplained weight loss. No weight gain. HEMATOLOGIC/LYMPHATIC: No anemia. No purpura. No petechiae. No prolonged or excessive bleeding. No palpable lymph nodes. PHYSICAL EXAMINATION: GENERAL: The patient is oriented to time, place and person. VITAL SIGNS: Temperature 97.6, pulse 70, respiratory rate 20, BP 148/60, pulse ox 95%. HEENT: Head normocephalic, atraumatic. Eyes: Extraocular muscles are intact. Pupils are equal, round and reactive to light and accommodation. Ears: No lesions. Nose appeared normal. Throat: No exudate or erythema. NECK: Supple. No JVD, no carotid bruit. No lymphadenopathy or thyromegaly. LUNGS: Clear to auscultation. Percussion note normal. Chest symmetrical. HEART: S1, S2, no S3. No murmurs. No cyanosis or clubbing. No ascites. Pulses: Dorsalis pedis and posterior tibial pulses +1 to +2 both sides. ABDOMEN: Mildly distended. Soft. Rebound tenderness. Bowel sounds hyperactive. No CVA tenderness. No mass felt. EXTREMITIES: No edema. Full range of motion of all extremities, equal. NEUROLOGIC: No focal deficit. Cranial nerves II through XII are grossly intact. No headache, no double vision or headache. SKIN: Not dry. Intact. Turgor - normal. LYMPHATIC: No palpable lymph nodes/no lymphedema. MUSCULOSKELETAL: Normal joints with no swelling. Muscle tone is normal. ASSESSMENT: 1. History of intermittent bowel obstruction. 2. Colitis 3. Coronary artery disease 4. Claudio arrhythmias 5. Anxiety disorder PLAN: 1. Continue IV fluids 2. Continue Budesonide 3. Will do CT scan of the abdomen in the morning CONDITION: Stable TIME SPENT: More than 30 minutes. Plan and coordination of the patient's care discussed in the presence of nurse. SHARON
--- NOTE | 2017-12-14 13:56 | DS ---
DATE OF SERVICE: 12/14/17 FINAL DIAGNOSIS: 1. Abdominal pain, chronic 2. Dehydration 3. Diarrhea 4. Sinus bradycardia 5. Intermittent small bowel obstructions, last 03/23 6. Hypertension 7. CAD 8. Atrial fibrillation 9. 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 Watt) 14.TIA 15.Anxiety 16.Cholecystectomy 17.Status post cardiac stent application, 2007 and 2009 18.Appendectomy 19.Tonsillectomy 20.Lumbar fusion, 21.Total right knee arthroplasty LAST VITALS: Temperature 97.7, pulse 53, Respiratory rate 16, blood pressure 143/70 and pulse ox 95%. DISCHARGE INSTRUCTIONS: Discharge home. Return to see Dr. Paulino in his office on 12/18/17 at 10:00am. Keep appointment with Dr. Antonio 12/15/17 at 12:30 arrive 15 minutes early. Resume home medications as per list provided by the nursing staff. DO not take Sotalol. MEDICATIONS AT DISCHARGE: Xanax 0.25mg PO twice a day Norvasc 5mg PO twice a day Aspirin 81mg PO daily Entocort 3mg PO three times a day Proscar 5mg PO daily Neurontin 300mg PO daily Losartan Potassium/Hydrochlorothiazide 100-12.5mg one half tbalet PO daily Dulera 100mcg/5mcg inhaler two inhalation IH twice a day PRN Protonix 40mg Po twice a day K-Dur 20meq PO three times a day Hytrin 5mg Po bedtime ALLERGIES: Butorphanol tartrate Hydromorphone Meperidine DISCONTINUED MEDICATIONS: Sotalol NEW PRESCRIPTIONS: Norvasc 5mg Po twice a day Entocort EC 3mg PO twice a day Protonix 40mg Po twice a day K-Dur 20meq PO twice a day DIET INSTRUCTIONS: Healthy Heart, As tolerated ACTIVITY: Get plenty of rest at home. Gradually increase your activity according to you toleration. SMOKING: Never smoked DISEASE SPECIFIC EDUCATION: Dehydration Diarrhea Abdominal pain Home medications New prescriptions Followup Referral to Dr. Antonio [facility] COURSE: This is an 82 year old white male who has had a history of intermittent small bowel obstructions for the past couple of years. Over the past several weeks he has presented to our office off and on with abdominal pain and diarrhea. On the day of admission he presented to our office with a 15 pound weight loss and was still having diarrhea and abdominal pain. He has grown very weak and he was hypotensive. He was subsequently admitted for IV fluids and to hopefully find the cause. Prior to the admission he had received of abdomen and ultrasound of the abdomen and extensive lab work with normal amylase and lipase. A CTA of the abdomen all of which were normal. We admitted him and did stool studies. Stool for C-Diff, all of that was negative. He was placed on normal saline at 75cc an hour. He did develop some hypokalemia for which he was started on Potassium 20meq three times a day and that has since resolved. Over the course of this day the pain somewhat improve when he would receive Morphine however diarrhea is more like water and white mucus and less like stool. A repeat CT with and without contrast did not show any definite bowel obstruction. He last had a colonoscopy in [address] Antoino and they have agreed to see him tomorrow at 12 :10 in their office. His blood pressure has become slightly elevated and we have added Norvasc 5mg at night. He did have some sinus bradycardia on telemetry however he is asymptomatic and his blood pressure has been well controlled, has even been high. He was also started on Entocort 3mg three times a day orally to see if it would aid in improvement of his abdominal pain. It has not made much difference. The patient is somewhat decreased but he still scared to eat. He is still eating very little. His weakness is somewhat improved and his kidney functions has improved. Stools have not, they are usually worse at night. He reports that he is unable to stand without having a bowel movement which is really more like watery mucus. We will discharge him today in stable condition. Temperature 97.7, heart rate 53, respiratory rate 16 , blood pressure 143/70 and pulse ox 95%. We repeated his amylase and lipase and they were both normal. His work up has been extensive and has been normal. We believe that he does need a colonoscopy and further workup by Dr. Antonio's office so we will discharge him in stable condition later on this afternoon with the intention of him to see Dr. Antonio tomorrow at 12:10. TIME SPENT: More than 60 minutes. SHARON
--- NOTE | 2017-12-14 14:25 | PN ---
DATE OF SERVICE: 12/09/17 SUBJECTIVE: 82-year-old white male hospitalized with dehydration, diarrhea. The patient's conditon has been stable but he has been passing mucusy stool. The patient's appetite is not good but he has been eating some. Kidney functions are stable. He doesn't have any CHF symptoms or coronary insufficiency. Heart rate goes down to 45. Betapace has been held. PHYSICAL EXAMINATION: HEENT: Head normocephalic, atraumatic. Eyes: Extraocular muscles are intact. Pupils are equal, round and reactive to light and accommodation. Ears: No lesions. Nose appeared normal. Throat: No exudate or erythema. NECK: Supple. No JVD, no carotid bruit. No lymphadenopathy or thyromegaly. LUNGS: Clear to auscultation. Percussion note normal. Chest symmetrical. HEART: S1, S2, no S3. No murmurs. No cyanosis or clubbing. No ascites. Pulses: Dorsalis pedis and posterior tibial pulses +1 to +2 both sides. ABDOMEN: The patient has epigastric type discomfort with upper quadrant pain at times. History of intermittent small bowel obstruction on physical exam, practically unremarkable. Soft. Nontender. Bowel sounds active. No CVA tenderness. No mass felt. EXTREMITIES: No edema. Full range of motion of all extremities, equal. NEUROLOGIC: No focal deficit. Cranial nerves II through XII are grossly intact. No headache, no double vision or headache. SKIN: Not dry. Intact. Turgor - normal. LYMPHATIC: No palpable lymph nodes/no lymphedema. MUSCULOSKELETAL: Normal joints with no swelling. Muscle tone is normal. ASSESSMENT: 1. Abdominal pain, intermittent 2. Mucusy diarrhea, etiology unknown 3. The patient has history of intermittent small bowel obstruction for which he was almost prepared to have surgery by the lady surgeon at [facility], which was later on canceled because the lady surgeon left. Mr. Fu was reevaluated recently by Dr. Eagle who would not do any intervention unless the patient has small bowel obstruction. He talked to structures assembler to get patient seen by structures assembler for further evaluation. His appointment with structures assembler is in January so will try to get the patient seen earlier. TIME SPENT: More than 30 minutes. Plan and coordination of the patient's care discussed in the presence of nurse. SHARON
--- NOTE | 2017-12-14 14:35 | PN ---
DATE OF SERVICE: 12/10/17 SUBJECTIVE: 82-year-old white male seen with nurse practitioner. REVIEW OF SYSTEMS: CONSTITUTIONAL: No night sweats. No fatigue, malaise, lethargy. No fever or chills. HEENT: Eyes: No visual changes. No eye pain. No eye discharge. ENT: No runny nose. No epistaxis. No sinus pain. No sore throat. No odynophagia. No congestion. RESPIRATORY: No cough, no congestion. No hemoptysis. No shortness of breath. CARDIOVASCULAR: No angina symptoms. No CHF symptoms. No atypical chest pain for CAD. No palpitations. No orthopnea. GASTROINTESTINAL: Intermittent epigstric pain. No nausea or vomiting. No diarrhea or constipation. No hematemesis. No hematochezia. GENITOURINARY: No urgency. No frequency. No dysuria. No hematuria. No obstructive symptoms. No discharge. No pain. No significant abnormal bleeding. MUSCULOSKELETAL: No musculoskeletal pain; no joint swelling. NEUROLOGICAL: No headache. No neck pain. No syncope. No seizures. No dizziness. PSYCHIATRIC: Not anxious. No depression. No suicidal thoughts. No homicidal thoughts. SKIN: No rash. No lesions. No wounds. ENDOCRINE: No unexplained weight loss. No weight gain. HEMATOLOGIC/LYMPHATIC: No anemia. No purpura. No petechiae. No prolonged or excessive bleeding. No palpable lymph nodes. PHYSICAL EXAMINATION: HEENT: Head normocephalic, atraumatic. Eyes: Extraocular muscles are intact. Pupils are equal, round and reactive to light and accommodation. Ears: No lesions. Nose appeared normal. Throat: No exudate or erythema. NECK: Supple. No JVD, no carotid bruit. No lymphadenopathy or thyromegaly. LUNGS: Decreased breath sounds. Clear to auscultation. Percussion note normal. Chest symmetrical. HEART: S1, S2, no S3. No murmurs. No cyanosis or clubbing. No ascites. Pulses: Dorsalis pedis and posterior tibial pulses +1 to +2 both sides. ABDOMEN: Soft. Nontender. Bowel sounds active. No CVA tenderness. No mass felt. EXTREMITIES: No edema. Full range of motion of all extremities, equal. NEUROLOGIC: No focal deficit. Cranial nerves II through XII are grossly intact. No headache, no double vision or headache. SKIN: Not dry. Intact. Turgor - normal. LYMPHATIC: No palpable lymph nodes/no lymphedema. MUSCULOSKELETAL: Normal joints with no swelling. Muscle tone is normal. ASSESSMENT/PLAN: The patient has intermittent epigstric pain. He is on Protonix. No evidence of bowel obstruction. He is afraid to eat because of pain. The patient has evidence of chronic pancreatitis with calcification but his amylase and lipase have always been normal. He still has mucusy diarrhea. The patient has been started on Budesonide and Decadron IM was given. Calls have been placed to extended insurance clerk to get him seen earlier. TIME SPENT: More than 30 minutes. Plan and coordination of the patient's care discussed in the presence of nurse. SHARON
--- NOTE | 2017-12-14 14:42 | PN ---
DATE OF SERVICE: 12/11/17 SUBJECTIVE: 82-year-old white male hospitalized with diarrhea, abdominal pain and dehydration. The patient's hydration status has improved. His appetite is improving to some extent. He is eating some. He still has mucusy diarrhea. REVIEW OF SYSTEMS: CONSTITUTIONAL: No night sweats. No fatigue, malaise, lethargy. No fever or chills. HEENT: Eyes: No visual changes. No eye pain. No eye discharge. ENT: No runny nose. No epistaxis. No sinus pain. No sore throat. No odynophagia. No congestion. RESPIRATORY: No cough, no congestion. No hemoptysis. No shortness of breath. CARDIOVASCULAR: No angina symptoms. No CHF symptoms. No atypical chest pain for CAD. No palpitations. No orthopnea. GASTROINTESTINAL: No abdominal pain. No nausea or vomiting. No diarrhea or constipation. No hematemesis. No hematochezia. GENITOURINARY: No urgency. No frequency. No dysuria. No hematuria. No obstructive symptoms. No discharge. No pain. No significant abnormal bleeding. MUSCULOSKELETAL: No musculoskeletal pain; no joint swelling. NEUROLOGICAL: No headache. No neck pain. No syncope. No seizures. No dizziness. PSYCHIATRIC: Not anxious. No depression. No suicidal thoughts. No homicidal thoughts. SKIN: No rash. No lesions. No wounds. ENDOCRINE: No unexplained weight loss. No weight gain. HEMATOLOGIC/LYMPHATIC: No anemia. No purpura. No petechiae. No prolonged or excessive bleeding. No palpable lymph nodes. PHYSICAL EXAMINATION: HEENT: Head normocephalic, atraumatic. Eyes: Extraocular muscles are intact. Pupils are equal, round and reactive to light and accommodation. Ears: No lesions. Nose appeared normal. Throat: No exudate or erythema. NECK: Supple. No JVD, no carotid bruit. No lymphadenopathy or thyromegaly. LUNGS: Clear to auscultation. Percussion note normal. Chest symmetrical. HEART: S1, S2, no S3. No murmurs. No cyanosis or clubbing. No ascites. Pulses: Dorsalis pedis and posterior tibial pulses +1 to +2 both sides. ABDOMEN: Soft. Nontender. Bowel sounds active. No CVA tenderness. No mass felt. EXTREMITIES: No edema. Full range of motion of all extremities, equal. NEUROLOGIC: No focal deficit. Cranial nerves II through XII are grossly intact. No headache, no double vision or headache. SKIN: Not dry. Intact. Turgor - normal. LYMPHATIC: No palpable lymph nodes/no lymphedema. MUSCULOSKELETAL: Normal joints with no swelling. Muscle tone is normal. LABS: Unremarkable. No evidence of bowel obstruction. The patient has colitis type of symptoms, could be from intermittent partial small bowel obstruction. ASSESSMENT/PLAN: The patient has history of intermittent small bowel obstruction, now has mucusy diarrhea with colitis type of symptoms. The patient's condition hasn't improved. Hydration status has improved. I called Dr. Sutton and Dr. Antonio's office and have agreed to see him on this coming Thursday, in the next 3 to 4 days. Until then, we will keep the patient here and continue to hydrate with slow IV fluids. The patient's cardiovascular status is stable. CONDITION: Stable TIME SPENT: More than 30 minutes. Plan and coordination of the patient's care discussed in the presence of nurse. SHARON
--- NOTE | 2017-12-14 15:46 | PN ---
DATE OF SERVICE: 12/12/17 SUBJECTIVE: 82-year-old white male hospitalized with pain, diarrhea. The patient continues to have mucusy diarrhea with some abdominal discomfort. Hypokalemia noted. The patient will be on potassium supplement. The patient is going to be seen by GI life consultant on Thursday by Dr. Antonio. The patient ate yesterday, has a lot of gas , watery diarrhea noted. Condition is stable. The patient was seen and examined with nurse practitioner. TIME SPENT: More than 30 minutes. Plan and coordination of the patient's care discussed in the presence of nurse. SHARON
--- NOTE | 2017-12-15 09:24 | PN ---
DATE OF SERVICE: 12/14/17 SUBJECTIVE: The patient was hospitalized with nausea and diarrhea. The patient's CT scan didn't show any small bowel obstruction. He still had mucous diarrhea. The patient is to be seen by slug press operator tomorrow. The patient's cardiovascular status is stable. He is taken off Betapace. Condition at the time of discharge is stable. TIME SPENT: More than 30 minutes. Plan and coordination of the patient's care discussed in the presence of nurse. SHARON
--- NOTE | 2017-12-15 09:25 | PN ---
12/07/17: Level 5 12/08/17: Intermediate 12/09/17: Intermediate 12/10/17: Intermediate 12/11/17: Intermediate 12/12/17: Intermediate 12/13/17: Brief 12/14/17: D as in discharge MTDD
--- NOTE | 2017-12-15 11:27 | PN ---
DATE OF SERVICE: 12/12/17 SUBJECTIVE: The patient was examined while laying in bed. He states that he did have diarrhea through the night which is more like watery stools that has decreased as far as white mucus is concerned it is more like water. He has not had any significant abdominal pain but hasn't eaten as he states that he is scared. He is still feeling pretty weak. We were able to get him an appointment with GI next Thursday. REVIEW OF SYSTEMS: CONSTITUTIONAL: No night sweats. No fatigue, malaise, lethargy. No fever or chills. Weakness. HEENT: Eyes: No visual changes. No eye pain. No eye discharge. ENT: No runny nose. No epistaxis. No sinus pain. No sore throat. No odynophagia. No congestion. RESPIRATORY: No cough, no congestion. No hemoptysis. No shortness of breath. CARDIOVASCULAR: No angina symptoms. No CHF symptoms. No atypical chest pain for CAD. No palpitations. No orthopnea. GASTROINTESTINAL: Abdominal pain. No nausea or vomiting. Diarrhea. No hematemesis. No hematochezia. GENITOURINARY: No urgency. No frequency. No dysuria. No hematuria. No obstructive symptoms. No discharge. No pain. No significant abnormal bleeding. MUSCULOSKELETAL: No musculoskeletal pain; no joint swelling. NEUROLOGICAL: No headache. No neck pain. No syncope. No seizures. No dizziness. PSYCHIATRIC: Not anxious. No depression. No suicidal thoughts. No homicidal thoughts. SKIN: No rash. No lesions. No wounds. ENDOCRINE: No unexplained weight loss. No weight gain. HEMATOLOGIC/LYMPHATIC: No anemia. No purpura. No petechiae. No prolonged or excessive bleeding. No palpable lymph nodes. PHYSICAL EXAMINATION: GENERAL: The patient is alert and oriented times three. HEENT: Head normocephalic, atraumatic. Eyes: Extraocular muscles are intact. Pupils are equal, round and reactive to light and accommodation. Ears: No lesions. Nose appeared normal. Throat: No exudate or erythema. NECK: Supple. No JVD, no carotid bruit. No lymphadenopathy or thyromegaly. LUNGS: Diminished breath sounds. Clear to auscultation. Percussion note normal. Chest symmetrical. HEART: S1, S2, no S3. No murmurs. No cyanosis or clubbing. No ascites. Pulses: Dorsalis pedis and posterior tibial pulses +1 to +2 both sides. ABDOMEN: Soft. Nontender. Bowel sounds active. No CVA tenderness. No mass felt. EXTREMITIES: No edema. Full range of motion of all extremities, equal. NEUROLOGIC: No focal deficit. Cranial nerves II through XII are grossly intact. No headache, no double vision or headache. SKIN: Not dry. Intact. Turgor - normal. LYMPHATIC: No palpable lymph nodes/no lymphedema. MUSCULOSKELETAL: Normal joints with no swelling. Muscle tone is normal. ASSESSMENT: 1. Dehydration which has improved 2. Intermittent small bowel obstruction 3. Intermittent abdominal pain 4. Diarrhea which is persistent 5. Hypokalemia at 3.2 PLAN: 1. Will given Potassium 20meq three times a day 2. He has an appointment with Dr. Antonio on Thursday at 12:10. The family will be able to take him to this appointment. 3. Diet as tolerated 4. Encouraged him to get up in the chair and walk some. Will continue to monitor. TIME SPENT: More than 30 minutes. Plan and coordination of the patient's care discussed in the presence of nurse. SHARON
== END 2017-12-14 13:45 | disposition home or self-care (01) | DRG 392 ==
LOC: MEDSURG B 12:38
PROVIDERS: ADMIT Internal Medicine; ATTEND Internal Medicine
DX: R10.9 Unspecified abdominal pain (principal); E86.0 Dehydration; R19.7 Diarrhea, unspecified; R00.1 Bradycardia, unspecified; I10 Essential (primary) hypertension; I25.10 Atherosclerotic heart disease of native coronary artery without angina pectoris; I48.91 Unspecified atrial fibrillation; E78.5 Hyperlipidemia, unspecified; J44.9 Chronic obstructive pulmonary disease, unspecified; K21.9 Gastro-esophageal reflux disease without esophagitis; M47.9 Spondylosis, unspecified; N40.0 Benign prostatic hyperplasia without lower urinary tract symptoms; J45.909 Unspecified asthma, uncomplicated; F41.9 Anxiety disorder, unspecified; E87.6 Hypokalemia; R53.1 Weakness; K52.9 Noninfective gastroenteritis and colitis, unspecified; R63.4 Abnormal weight loss; Z68.24 Body mass index [BMI] 24.0-24.9, adult; Z86.73 Personal history of transient ischemic attack (TIA), and cerebral infarction without residual deficits
CPT/HCPCS: 36415; 80053; 81001; 82150; 82550; 83690; 84484; 85025; 87015; 87045; 87493; 87899; 93005; 93010

== ENCOUNTER 2017-12-22 07:48 | Outpatient (CLI) ==
--- NOTE | 2017-12-22 18:27 | MRI ---
EXAM: MRI abdomen without and with contrast HISTORY: Abdominal pain, weight loss TECHNIQUE: Multiplanar, multisequence without and following the administration of intravenous Omnisc an, 20 mL COMPARISON: None FINDINGS: The heart size is normal. No pericardial or pleural effusions are appreciated. There is extensive respiratory motion artifact obscures details. There is no evidence of hepatic steatosis. No suspicious hepatic lesions are detected. The spleen h as normal size and signal intensity. The pancreas has normal signal and enhancement. The gallbladde r is surgically absent. There is no significant biliary dilatation. No pancreatic duct dilatation o r divisum are evident. The adrenal glands have normal signal and morphology. The kidneys are grossly normal. No ureteral pelvicaliectasis or suspicious renal masses are evident. The visible intestines have normal signal caliber. The aorta has normal caliber and flow signal. There is a benign hemangioma in the L1 vertebral body. The bone marrow signal intensity is otherwise normal. IMPRESSION: 1. No MR explanation for the patient's pain or weight loss. 2. Previous cholecystectomy without biliary dilatation. 3. No lymphadenopathy or ascites. 4. 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
== END 2017-12-22 07:49 | disposition home or self-care (01) ==
LOC: RAD 07:48
PROVIDERS: ATTEND Internal Medicine
DX: R10.9 Unspecified abdominal pain (principal); R63.4 Abnormal weight loss

== ENCOUNTER 2017-12-23 09:52 | Outpatient (CLI) ==
--- NOTE | 2017-12-23 14:37 | MRI ---
EXAM: MRI pelvis without and with contrast HISTORY: Pelvic pain and weight loss TECHNIQUE: Multiplanar, multisequence without and following the administration of intravenous Omnisc an, 20 mL COMPARISON: CT pelvis from 12/14/2017 FINDINGS: A small volume of free pelvic fluid is noted. The bladder is grossly normal. The prostat e is enlarged. No lymphadenopathy appreciated. The vascular structures enhance normally. The visibl e intestines have normal signal and caliber. The bone marrow signal intensity is maintained. IMPRESSION: 1. Small volume of free pelvic fluid undetermined etiology. 2. Enlarged prostate. 3. No suspicious lymphadenopathy or masses.
== END 2017-12-23 09:53 | disposition home or self-care (01) ==
LOC: RAD 09:52
PROVIDERS: ATTEND Internal Medicine
DX: R10.9 Unspecified abdominal pain (principal); R63.4 Abnormal weight loss

== ENCOUNTER 2018-04-04 15:45 | Inpatient (IN) ==
[2018-04-04] MEDS ORDERED: SODIUM CHLORIDE 1,000 ML IV STA ×2 (16:40→18:56)
[2018-04-04] MEDS ORDERED: ZOFRAN 4 MG/2 ML IVP STA (16:40)
--- NOTE | 2018-04-04 16:42 | ED.PDOC ---
General ED Provider: Dr. ELVIN MORRISON Chief Complaint: Abdominal Pain Stated Complaint: Abdominal pain. Possible small bowel obstruction.HX OF RECURRENT PROBLEMS OF SIMILAR NATURE AND NOW HAS DEVELOPED SENSATION OF ABDOMINAL FULLNESS, BELCHING OF FOUL SMELLLIN GAS. FEELS NAUSEATED,. NORMALLY REQUIRES NG TUBE FOR DECOMPRESSION Time Seen by Physician: 15:50 Mode of Arrival: Walk-In Information Source: Patient, Family Exam Limitations: No limitations Primary Care Provider: FRANCISCO HERNANDEZ Nursing and Triage Documentation Reviewed and Agree: Yes Does patient meet sepsis criteria?: No System Inflammatory Response Syndrome: Not Applicable Sepsis Protocol: For patient's 13 years and over: Temp is 96.8 and below OR 101 and greater Pulse >90 BPM Resp >20/minute Acutely Altered Mental Status Are patient's symptoms suggestive of a new infection, such as: -Pneumonia -Skin, Soft Tissue -Endocarditis -UTI -Bone, Joint Infection -Implantable Device -Acute Abdominal Infection -Wound Infection -Meningitis -Blood Stream Catheter Infection -Unknown Review of Systems - Review Of Systems Constitutional: Reports: No symptoms Eyes: Reports: No symptoms Ears, Nose, Mouth, Throat: Reports: No symptoms Respiratory: Reports: No symptoms Cardiac: Reports: No symptoms GI: Reports: Abdomen distended, Nausea, Poor appetite, Poor fluid intake : Reports: No symptoms Musculoskeletal: Reports: No symptoms Skin: Reports: No symptoms Neurological: Reports: No symptoms Endocrine: Reports: No symptoms Hematologic/Lymphatic: Reports: No symptoms All Other Systems: Reviewed and Negative Past Medical History - Past Medical History Previously Healthy: Yes Endocrine: Reports: Dyslipidemia Cardiovascular: Reports: CAD, Hypertension, A-Fib Respiratory: Reports: COPD, Asthma Hematological: Reports: None Gastrointestinal: Reports: GERD, Other (obstruction post appendectomy- 3 episodes after , another episode- last over a year ago- now same symptoms) Genitourinary: Reports: None Neuro/Psych: Reports: None Musculoskeletal: Reports: Arthritis, Back Pain Cancer: Reports: None Other Pertinent Past Medical History: CHOLECTOMY - Surgical History General Surgical History: Reports: Appendectomy, Cholecystectomy, Tonsillectomy , Stent (3 STENTS), Back Surgery ( 35 YRS AGO WITH A FUSION). Denies: CABG ( stents) - Family History Family History: Reports: Unknown - Social History Smoking Status: Never smoker Hx Substance Use: No Alcohol Screening: None Physical Exam - Physical Exam Appearance: Ill-appearing Ill-appearing: Mild Pain Distress: Moderate Eyes: SHWETA, EOMI, Conjunctiva clear ENT: Ears normal, Nose normal, Oropharynx normal Neck: Supple Respiratory: Airway patent, Breath sounds clear, Breath sounds equal, Respirations nonlabored Cardiovascular: RRR, Pulses normal, No rub, No murmur GI/: Soft, No masses, No Organomegaly, Tender, Bowel sounds hypoactive Musculoskeletal: Normal strength Skin: Warm, Dry, Normal color Neurological: Sensation intact, Motor intact, Reflexes intact, Cranial nerves intact, Alert, Oriented Psychiatric: Affect appropriate, Mood appropriate Interpretation - Radiology Interpretation Radiology Interpretation By: Radiologist Exam Interpreted: CT Scan Xray Comments: INCOMPLETE SMALL BOWEL OBSTRUCTION - EKG Interpretation Time of EKG #1: 16:38 Rate: Normal Interpretation: nsr /LAD Procedures - Additional Procedures Additional Procedures: Gastric Tube Replacement (14 FR NG INSERTED INTO RT NARES WITHOUT DIFFICULTY /PER RN REQUEST TO ASSIST) Physician Notification - Case Discussed Physician Notified: DR HERNANDEZ Time of Notification: 18:40 (AGREES TO ADMISSION FOR [place]) Critical Care Note - Critical Care Note Total Time (mins): 120 Course - Course Hematology/Chemistry: 04/04/18 16:10 04/04/18 16:10 Orders, Labs, Meds: Lab Review 04/04/18 04/04/18 16:10 16:10 WBC 11.52 H RBC 5.47 Hgb 16.2 Hct 47.2 MCV 86.3 MCH 29.6 MCHC 34.3 RDW Coeff of Bernadette 13.7 Plt Count 226 Immature Gran % (Auto) 0.3 Neut % (Auto) 77.0 Lymph % (Auto) 13.6 [place] % (Auto) 7.5 Eos % (Auto) 1.0 Baso % (Auto) 0.6 Immature Gran # (Auto) 0.0 Neut # (Auto) 8.9 H Lymph # (Auto) 1.6 [place] # (Auto) 0.9 Eos # (Auto) 0.1 Baso # (Auto) 0.1 Sodium 139.0 Potassium 3.74 Chloride 103.6 Carbon Dioxide 25.4 Anion Gap 13.74 BUN 16.3 Creatinine 1.13 H Estimated GFR (MDRD) 62.00 BUN/Creatinine Ratio 14.42 Glucose 116.8 H Calcium 9.63 Total Bilirubin 1.23 AST 20.3 ALT 14.4 Alkaline Phosphatase 72.2 Total Protein 8.38 H Albumin 4.58 Globulin 3.80 Albumin/Globulin Ratio 1.20 Orders Category Date Time Status EKG-(ED ONLY) Stat CARDIO 04/04/18 16:36 Completed CBC W/ AUTO DIFF Stat LAB 04/04/18 16:10 Completed CMP [COMPREHENSIVE METABOLIC PANEL] Stat LAB 04/04/18 16:10 Completed Lidocaine HCl [Lidocaine Jelly 2%] MEDS 04/04/18 17:54 Discontinued 1 applic MUCOUSMEMB .STK-MED ONE Ondansetron HCl/Pf [Zofran 4 mg/2 ml] MEDS 04/04/18 16:40 Discontinued 4 mg IVP ONCE STA Sodium Chloride 0.9% [Sodium Chloride] 1,000 ml MEDS 04/04/18 16:40 Discontinued IV BOLUS CHEST, 1V AP ONLY Stat RADS 04/04/18 18:[address] ABDOMEN/PELVIS WO CONTRAST Stat RADS 04/04/18 16:37 Completed Medications Discontinued Medications Generic Name Dose Route Start Last Admin Trade Name Freq PRN Reason Stop Dose Admin Sodium Chloride 1,000 mls @ 500 mls/hr 04/04/18 16:40 04/04/18 16:53 Sodium Chloride IV 04/04/18 18:39 500 mls/hr BOLUS STA Administration Ondansetron HCl 4 mg 04/04/18 16:40 04/04/18 16:52 Zofran 4 Mg/2 Ml IVP 04/04/18 16:41 4 mg ONCE STA Administration Vital Signs: Temp Pulse Resp BP Pulse Ox 04/04/18 15:45 97.4 F L 84 20 123/71 94 L Departure - Departure Time of Disposition: 18:15 Disposition: ADMITTED INPATIENT Discharge Problem: Small bowel obstruction Condition: Fair Pt referred to PMD for follow-up: Yes (DAVID) IPMP verified?: No Allergies/Adverse Reactions: Allergies butorphanol tartrate [From Stadol] Adverse Reaction (Verified 04/04/18 15:48) hydromorphone HCl [From Dilaudid] Adverse Reaction (Verified 04/04/18 15:48) meperidine HCl [From Demerol] Adverse Reaction (Verified 04/04/18 15:48) makes dizzy Home Medications: Ambulatory Orders Terazosin HCl [Hytrin] 5 mg PO BEDTIME 05/12/13 Alprazolam 0.5 mg PO BEDTIME #30 tablet 03/11/14 Aspirin [Aspirin Chewable] 81 mg PO DAILYWM 03/21/15 Finasteride 5 mg PO DAILY 03/21/15 Losartan/Hydrochlorothiazide [Losartan-Hctz 100-12.5 mg Tab] 0.5 tab PO MOWEFR 10/27/16 Mometasone/Formoterol [Dulera 100 Mcg/5 Mcg Inhaler] 2 inh IH BID PRN MDD 2 puffs BID 04/02/17 Amlodipine Besylate [Norvasc] 5 mg PO BID #60 tablet 12/14/17 Pantoprazole Sodium [Protonix] 40 mg PO BIDAC #60 tablet. 12/14/17 Potassium Chloride [K-Dur] 20 meq PO BID #60 tab 12/14/17 Ipratropium/Albuterol Neb [Duoneb] 1 vial NEB TID PRN 04/04/18 Sotalol HCl [Sotalol] 40 mg PO BID 04/04/18 Transfer Form Completed: Yes Disposition Discussed With: Patient, Family, Other (DR HERNANDEZ-TO ADMIT)
--- NOTE | 2018-04-04 17:18 | CT ---
EXAM: Noncontrast CT of the abdomen pelvis HISTORY: Pain and small bowel obstruction suspected. COMPARISON: 12/14/2017 TECHNIQUE: Axial noncontrast CT of the abdomen pelvis with sagittal and coronal reformats. FINDINGS: There is mild right lower lobe atelectasis. Noncontrast technique limits evaluation of the abdominal viscera. The unenhanced liver, spleen, adren als, and left kidney appear unremarkable. There is a 3 mm right renal nonobstructing calculus. No ur eteral calculi are identified. A few pancreatic calcifications are again seen suggestive of chronic pancreatitis. The stomach is moderately distended with fluid. The duodenum does not extend to the left as typicall y seen compatible with developmental malrotation. Much of the colon is seen within the left hemiabdo men. The cecum is seen within the mid abdomen. The appendix is not definitely identified. Multiple d ilated loops of small bowel are identified. Some loops of distal small bowel are less distended but c ontains fluid. No abrupt transition point is identified. Fluid and gas is seen within much of the co cliff. There is calcified atherosclerotic plaque of the aorta and its branches. No free air or free fluid is seen. An L1 vertebral body hemangioma is seen. L5-S1 degenerative disc disease is identified. Mult ilevel lumbar facet arthropathy. IMPRESSION: Multiple dilated loops of small bowel. Some loops of distal small bowel are less distended but contai n fluid. Fluid and gas is seen within much of the colon. Findings may be due to ileus or partial smal l-bowel obstruction. Congenital malrotation of bowel. Moderate distension of the stomach with fluid. Right renal nonobstructing calculus. Other chronic findings as described above. Noncontrast exam.
[2018-04-04] MEDS ORDERED: LIDOCAINE JELLY 2% MUCOUSMEMB ONE (17:54)
--- NOTE | 2018-04-04 19:35 | DI ---
Exam: Single view chest x-ray. Date: 04/04/2018. Comparison: 12/07/2017. HISTORY: Nasogastric tube placement. FINDINGS: No acute osseous abnormalities are observed. Nasogastric tube has been advanced and the t ip is in the mid body of the stomach. The lungs are clear. Cardiac silhouette and pulmonary vascula ture are normal. Impression: Advancement of a nasogastric tube with the tip in the mid body of the stomach. Old granulomatous disease.
[2018-04-04] MEDS ORDERED: ZOFRAN 4 MG/2 ML IVP PRN (19:36)
[2018-04-04] MEDS ORDERED: DUONEB NEB PRN (19:40)
[2018-04-04 21:12] VITALS: BMI 24.0
[2018-04-04] MEDS: MORPHINE 2 MG/ML SYRINGE IVP PRN (21:14)
[2018-04-04] MEDS: PEPCID IVP SCH ×2 (21:45)
[2018-04-04] MEDS: SODIUM CHLORIDE 1,000 ML IV SCH (21:46)
[2018-04-05] MEDS: SODIUM CHLORIDE 1,000 ML IV SCH ×2 (05:14→18:14)
[2018-04-05] MEDS ORDERED: DECADRON 4 MG/ML SDV IM STA (08:28)
[2018-04-05] MEDS: PEPCID IVP SCH ×2 (08:45→21:35)
[2018-04-05] MEDS: MORPHINE 2 MG/ML SYRINGE IVP PRN (08:46)
[2018-04-05] MEDS: LOVENOX SUBCUT SCH (08:51)
[2018-04-05] MEDS ORDERED: MOMETASONE IH PRN (08:57)
[2018-04-05] MEDS ORDERED: FORMOTEROL IH PRN (08:57)
[2018-04-05] MEDS ORDERED: HYDROCHLOROTHIAZIDE PO SCH ×2 (09:00)
[2018-04-05] MEDS ORDERED: COZAAR PO SCH (09:00)
[2018-04-05] MEDS ORDERED: LOSARTAN PO SCH (09:00)
[2018-04-05] MEDS ORDERED: K-DUR PO SCH (09:00)
[2018-04-05] MEDS ORDERED: [UNRECOGNIZED DRUG - OTHER] PO SCH (09:00)
[2018-04-05] MEDS: PROSCAR PO SCH (10:45)
[2018-04-05] MEDS: BETAPACE PO SCH ×2 (10:46→20:37)
[2018-04-05] MEDS: NORVASC PO SCH ×2 (10:48→20:36)
[2018-04-05] MEDS: ASPIRIN CHEWABLE PO SCH (10:48)
[2018-04-05] MEDS: POTASSIUM CHL 10% ORAL SOL PO SCH ×2 (10:49→20:38)
[2018-04-05] MEDS ORDERED: DECADRON 4 MG/ML SDV ONE (11:13)
[2018-04-05] MEDS: HYDROCHLOROTHIAZIDE PO SCH (11:17)
[2018-04-05] MEDS: COZAAR PO SCH (11:17)
[2018-04-05] MEDS: DEXTROSE 5%-1/2NS IV SOLUTION 1,000 ML IV SCH ×2 (13:38→21:35)
[2018-04-05] MEDS ORDERED: CHLORASEPTIC SPRAY MM PRN (15:57)
[2018-04-05] MEDS ORDERED: CHLORASEPTIC SPRAY MUCOUSMEMB ONE (17:36)
[2018-04-05] MEDS: HYTRIN PO SCH (20:36)
[2018-04-05] MEDS: XANAX PO SCH (20:37)
[2018-04-06] MEDS: DEXTROSE 5%-1/2NS IV SOLUTION 1,000 ML IV SCH ×2 (05:05→16:42)
[2018-04-06] MEDS: ASPIRIN CHEWABLE PO SCH (08:52)
[2018-04-06] MEDS: NORVASC PO SCH ×2 (08:53→20:55)
[2018-04-06] MEDS: BETAPACE PO SCH ×2 (08:53→20:54)
[2018-04-06] MEDS: PROSCAR PO SCH (08:53)
[2018-04-06] MEDS: POTASSIUM CHL 10% ORAL SOL PO SCH ×2 (08:54→20:54)
[2018-04-06] MEDS: LOVENOX SUBCUT SCH (08:55)
[2018-04-06] MEDS: PEPCID IVP SCH ×2 (08:56→20:54)
--- NOTE | 2018-04-06 09:24 | HP ---
DATE OF SERVICE: 04/04/18 HISTORY OF PRESENT ILLNESS: This is an 83-year-old white male who was brought into the emergency room with acute abdominal pain. He has a history of small bowel obstruction. CT of the abdomen did reveal multiple dilated loops of small bowel with some that are less distended but contain fluid. Findings due to partial small bowel obstruction. He had not been experiencing any vomiting. He did have one bowel movement which is dark in color in the emergency room. He was admitted, made NPO , an NG tube was placed to low suction which was suctioning greenish-brown fluid. PAST MEDICAL HISTORY: Recurrent bowel obstruction Hypertension Anxiety BPH Dyslipidemia GERD PAST SURGICAL HISTORY: Right total knee replacement REVIEW OF SYSTEMS: CONSTITUTIONAL: No night sweats. No fatigue, malaise, lethargy. No fever or chills. HEENT: Eyes: No visual changes. No eye pain. No eye discharge. ENT: No runny nose. No epistaxis. No sinus pain. No sore throat. No odynophagia. No ear pain. No congestion. RESPIRATORY: No cough, no congestion. No hemoptysis. No shortness of breath. CARDIOVASCULAR: No angina symptoms. No CHF symptoms. No atypical chest pain for CAD. No palpitations. No PND. No orthopnea. GASTROINTESTINAL: Positive for abdominal pain, nausea and loss of appetite. No vomiting. No diarrhea or constipation. No hematemesis. No hematochezia. GENITOURINARY: No urgency. No frequency. No dysuria. No hematuria. No obstructive symptoms. No discharge. No pain. No significant abnormal bleeding. MUSCULOSKELETAL: No musculoskeletal pain. No joint swelling. No arthritis. NEUROLOGICAL: No headache. No neck pain. No syncope. No seizures. No dizziness. PSYCHIATRIC: Not anxious. No depression. No suicidal thoughts. No homicidal thoughts. SKIN: No rash. No lesions. No wounds. ENDOCRINE: No unexplained weight loss. No weight gain. HEMATOLOGIC/LYMPHATIC: No anemia. No purpura. No petechiae. No prolonged or excessive bleeding. No palpable lymph nodes. PERSONAL/FAMILY/SOCIAL HISTORY: The patient is , lives at home by himself. His daughter is very involved in his care. No alcohol or illicit drug use. Nonsmoker. MEDICATIONS: (HOME) Hytrin 5 mg p.o. bedtime Alprazolam 0.5 mg p.o. bedtime Finasteride 5 mg p.o. daily Aspirin 81 mg p.o. daily with meal Losartan/Hydrochlorothiazide 0.5 tab p.o. MoWeFri Mometasone/Formoterol 2 inH IH b.i.d. p.r.n. Amlodipine 5 mg p.o. b.i.d. Protonix 40 mg p.o. b.i.d. a.c. K-Dur 20 mEq p.o. b.i.d. Duoneb t.i.d. p.r.n. Sotalol 40 mg p.o. b.i.d. ALLERGIES: BUTORPHANOL TARTRATE, HYDROMORPHONE HCI, MEPERIDINE HCI PHYSICAL EXAMINATION: VITAL SIGNS: Temperature 97.7, heart rate 65, respirations 12, BP 151/78, pulse ox 94% on room air. HEENT: Head normocephalic, atraumatic. Eyes: Extraocular muscles are intact. Pupils are equal, round and reactive to light and accommodation. Ears: No lesions. Nose appeared normal. Throat: No exudate or erythema. NECK: Supple. No JVD, no carotid bruit. No lymphadenopathy or thyromegaly. LUNGS: Diminished breath sounds bilaterally. Clear to auscultation. Percussion note normal. Chest symmetrical. HEART: S1, S2, no S3. No murmurs. No cyanosis or clubbing. No ascites. Pulses: Dorsalis pedis and posterior tibial pulses +1 to +2 bilaterally. ABDOMEN: Soft. Very mild tenderness to palpation diffusely on the abdomen, nondistended. Hypoactive bowel sounds times four quadrants. No CVA tenderness. No mass felt. EXTREMITIES: No edema. Full range of motion of all extremities, equal. NEUROLOGIC: No focal deficit. Cranial nerves II through XII are grossly intact. No headache, no double vision or headache. SKIN: Not dry. Intact. Turgor - normal. LYMPHATIC: No palpable lymph nodes/no lymphedema. MUSCULOSKELETAL: Normal joints with no swelling. Muscle tone is normal. Chest x-ray is normal. Sodium 139, potassium 3.7, BUN 16, creatinine 1.13. AST 20, ALT 14, total protein 8.3. White count 11.52, hemoglobin 16.2, hematocrit 47.2, platelets 226. Again, CT of the abdomen shows findings consistent with partial small bowel obstruction. UA was normal. Amylase and lipase were normal. ASSESSMENT: 1. ACUTE SMALL BOWEL OBSTRUCTION 2. ACUTE ABDOMINAL PAIN 3. HYPERTENSION 4. DEHYDRATION PLAN: 1. We will admit. 2. Continue home medications. 3. NS IV at 125 cc/hr. 4. The patient is NPO. 5. NG tube to suction. Check placement with chest x-ray. 6. 1 cc Decadron IM today. 7. Zofran 4 mg q.6hr IV p.r.n. 8. Routine telemetry orders. 9. CBC, CMP daily. 10. Will follow closely. TIME SPENT: More than 70 minutes. MTDD
--- NOTE | 2018-04-06 10:36 | PCM.PROG ---
Attending Provider: ATTENDING PROVIDER: Dr. FRANCISCO HERNANDEZ DATE OF SERVICE: 04/06/18 SUBJECTIVE: This 83 year old WHITE/ M was hospitalized 04/04/18 with acute small bowel obstruction. The patient states he had a small BM this morning. No abdominal pain. REVIEW OF SYSTEMS: CONSTITUTIONAL: No night sweats. No fatigue, malaise, lethargy. No fever or chills. HEENT: Eyes: No visual changes. No eye pain. No eye discharge. ENT: No runny nose. No epistaxis. No sinus pain. No odynophagia. No congestion. RESPIRATORY: No cough, no congestion. No hemoptysis. No shortness of breath. CARDIOVASCULAR: No angina symptoms. No CHF symptoms. No atypical chest pain for CAD. No palpitations. No orthopnea.. GASTROINTESTINAL: No abdominal pain. No nausea or vomiting. No diarrhea or constipation. No hematemesis. No hematochezia. GENITOURINARY: No urgency. No frequency. No dysuria. No hematuria. No obstructive symptoms. No discharge. No pain. No significant abnormal bleeding. MUSCULOSKELETAL: No musculoskeletal pain; no joint swelling. NEUROLOGICAL: Awake, alert, oriented to time, place and person. No headache. No neck pain. No syncope. No seizures. No dizziness. PSYCHIATRIC: Not anxious. No depression. No suicidal thoughts. No homicidal thoughts. SKIN: No rash. No lesions. No wounds. ENDOCRINE: No unexplained weight loss. No weight gain. HEMATOLOGIC/LYMPHATIC: No anemia. No purpura. No petechiae. No prolonged or excessive bleeding. No palpable lymph nodes. PHYSICAL EXAMINATION: GENERAL: The patient is awake, alert and oriented, lying in bed in no distress. VITAL SIGNS: Temperature 97.7 F, Pulse 51, Respiratory Rate 16, BP 131/70, Pulse Ox 95% HEENT: Head normocephalic, atraumatic. Eyes: Extraocular muscles are intact. Pupils are equal, round and reactive to light and accommodation. Ears: No lesions. Nose appeared normal. Throat: No exudate or erythema. NECK: Supple. No JVD, no carotid bruit. No lymphadenopathy or thyromegaly. LUNGS: Clear to auscultation. Percussion note normal. Chest symmetrical. HEART: S1, S2, no S3. No murmurs. No cyanosis or clubbing. No ascites. Pulses: Dorsalis pedis and posterior tibial pulses +1 to +2 both sides. ABDOMEN: Soft. Non-tender. Bowel sounds are hypoactive. No CVA tenderness. No mass felt. EXTREMITIES: No edema. Full range of motion of all extremities, equal. NEUROLOGIC: No focal deficit. Cranial nerves II through XII are grossly intact. No headache, no double vision or headache. SKIN: Warm and dry. Intact. Turgor-normal. LYMPHATIC: No palpable lymph nodes/no lymphedema. MUSCULOSKELETAL: Normal joints with no swelling. Muscle tone is normal. LAB REVIEW: 04/06/18 05:30 04/06/18 05:30 04/06/18 05:30: Sodium 137.7, Potassium 3.69, Chloride 104.2, Carbon Dioxide 27.7, Anion Gap 9.49, BUN 9.5, Creatinine 0.85, Estimated GFR (MDRD) 86.00, BUN/ Creatinine Ratio 11.17, Glucose 109.9 H, Calcium 9.31, Total Bilirubin 1.23, AST 23.6, ALT 19.6, Alkaline Phosphatase 59.4, Total Protein 7.27, Albumin 4.00 , Globulin 3.27, Albumin/Globulin Ratio 1.22 04/06/18 05:30: WBC 7.33, RBC 5.03, Hgb 14.8, Hct 42.9, MCV 85.3, MCH 29.4, MCHC 34.5, RDW Coeff of Bernadette 13.2, Plt Count 182, Immature Gran % (Auto) 0.1, Neut % (Auto) 71.0, Lymph % (Auto) 20.1, [place] % (Auto) 8.0, Eos % (Auto) 0.3, Baso % (Auto) 0.5, Immature Gran # (Auto) 0.0, Neut # (Auto) 5.2, Lymph # (Auto ) 1.5, [place] # (Auto) 0.6, Eos # (Auto) 0.0, Baso # (Auto) 0.0 ASSESSMENT: 1. SMALL BOWEL OBSTRUCTION SEEMS TO BE IMPROVING CLINICALLY 2. CARDIOVASCULAR STATUS IS STABLE, NO EVIDENCE OF ANY FLUID OVERLOAD 3. HISTORY OF PULMONARY ARTERY DISEASE PLAN: 1. Remove NG tube. 2. Full liquid diet, no milk or milk products. 3. Up and about. 4. Encouraged the patient to walk. Plan and coordination of the patient's care discussed in the presence of Online Content Developer and nurse. CONDITION: STABLE SCRIBED BY: STEWART TYLER Pot Pusher scribed while in presence of service performed by Dr. FRANCISCO HERNANDEZ on 04/06/18 ([id number])
[2018-04-06] MEDS: HYTRIN PO SCH (20:54)
[2018-04-06] MEDS: XANAX PO SCH (20:55)
[2018-04-07] MEDS: DEXTROSE 5%-1/2NS IV SOLUTION 1,000 ML IV SCH (06:01)
[2018-04-07] MEDS: NORVASC PO SCH ×2 (08:39→21:58)
[2018-04-07] MEDS: POTASSIUM CHL 10% ORAL SOL PO SCH ×2 (08:39→21:58)
[2018-04-07] MEDS: ASPIRIN CHEWABLE PO SCH (08:40)
[2018-04-07] MEDS: PROSCAR PO SCH (08:40)
[2018-04-07] MEDS: COZAAR PO SCH (08:44)
[2018-04-07] MEDS: PROTONIX PO SCH ×2 (08:45→17:22)
[2018-04-07] MEDS: LOVENOX SUBCUT SCH (08:48)
[2018-04-07] MEDS: HYDROCHLOROTHIAZIDE PO SCH (08:48)
--- NOTE | 2018-04-07 09:09 | PCM.PROG ---
Attending Provider: ATTENDING PROVIDER: Dr. FRANCISCO HERNANDEZ This patient is seen with Anjelica Dewey, Nurse Practitioner. DATE OF SERVICE: 04/07/18 SUBJECTIVE: This 83 year old WHITE/ M was hospitalized 04/04/18. The patient is lying in bed resting comfortably. He tolerated clear liquid diet very well. Will advance to soft. No complaint of pain. REVIEW OF SYSTEMS: CONSTITUTIONAL: No night sweats. No fatigue, malaise, lethargy. No fever or chills. HEENT: Eyes: No visual changes. No eye pain. No eye discharge. ENT: No runny nose. No epistaxis. No sinus pain. No odynophagia. No congestion. RESPIRATORY: No cough, no congestion. No hemoptysis. No shortness of breath. CARDIOVASCULAR: No angina symptoms. No CHF symptoms. No atypical chest pain for CAD. No palpitations. No orthopnea.. GASTROINTESTINAL: Diminished appetite. No abdominal pain. No nausea or vomiting. No diarrhea or constipation. No hematemesis. No hematochezia. GENITOURINARY: No urgency. No frequency. No dysuria. No hematuria. No obstructive symptoms. No discharge. No pain. No significant abnormal bleeding. MUSCULOSKELETAL: No musculoskeletal pain; no joint swelling. NEUROLOGICAL: Awake, alert, oriented to time, place and person. No headache. No neck pain. No syncope. No seizures. No dizziness. PSYCHIATRIC: Not anxious. No depression. No suicidal thoughts. No homicidal thoughts. SKIN: No rash. No lesions. No wounds. ENDOCRINE: No unexplained weight loss. No weight gain. HEMATOLOGIC/LYMPHATIC: No anemia. No purpura. No petechiae. No prolonged or excessive bleeding. No palpable lymph nodes. PHYSICAL EXAMINATION: GENERAL: The patient is awake, alert and oriented, lying in bed in no distress. VITAL SIGNS: Temperature 98.0 F, Pulse 44, Respiratory Rate 16, BP 123/69, Pulse Ox 95% HEENT: Head normocephalic, atraumatic. Eyes: Extraocular muscles are intact. Pupils are equal, round and reactive to light and accommodation. Ears: No lesions. Nose appeared normal. Throat: No exudate or erythema. NECK: Supple. No JVD, no carotid bruit. No lymphadenopathy or thyromegaly. LUNGS: Clear to auscultation. Percussion note normal. Chest symmetrical. HEART: S1, S2, no S3. No murmurs. No cyanosis or clubbing. No ascites. Pulses: Dorsalis pedis and posterior tibial pulses +1 to +2 both sides. ABDOMEN: Soft. Non-tender. Bowel sounds active. No CVA tenderness. No mass felt. EXTREMITIES: No edema. Full range of motion of all extremities, equal. NEUROLOGIC: No focal deficit. Cranial nerves II through XII are grossly intact. No headache, no double vision or headache. SKIN: Not dry. Intact. Turgor-normal. LYMPHATIC: No palpable lymph nodes/no lymphedema. MUSCULOSKELETAL: Normal joints with no swelling. Muscle tone is normal. LAB REVIEW: 04/07/18 05:00 04/07/18 05:00 04/07/18 05:00: Sodium 138.0, Potassium 3.60, Chloride 104.6, Carbon Dioxide 29.7, Anion Gap 7.30, BUN 9.0, Creatinine 0.97, Estimated GFR (MDRD) 74.00, BUN/ Creatinine Ratio 9.27, Glucose 84.8, Calcium 8.78, Total Bilirubin 1.18, AST 20.4, ALT 16.5, Alkaline Phosphatase 53.3 L, Total Protein 6.47, Albumin 3.49 L , Globulin 2.98, Albumin/Globulin Ratio 1.17 04/07/18 05:00: WBC 4.58, RBC 4.39 L, Hgb 12.8 L, Hct 37.6 L, MCV 85.6, MCH 29.2 , MCHC 34.0, RDW Coeff of Bernadette 13.4, Plt Count 147, Immature Gran % (Auto) 0.2, Neut % (Auto) 45.2, Lymph % (Auto) 38.0, [place] % (Auto) 11.8 H, Eos % (Auto) 2.8 , Baso % (Auto) 2.0, Immature Gran # (Auto) 0.0, Neut # (Auto) 2.1, Lymph # ( Auto) 1.7, [place] # (Auto) 0.5, Eos # (Auto) 0.1, Baso # (Auto) 0.1 ASSESSMENT: 1. SMALL BOWEL OBSTRUCTION SEEMS TO BE IMPROVING CLINICALLY 2. CARDIOVASCULAR STATUS IS STABLE, NO EVIDENCE OF ANY FLUID OVERLOAD 3. HISTORY OF PULMONARY ARTERY DISEASE PLAN: 1. Advance to soft diet. 2. D/C Pepcid. 3. Restart Protonix. 4. D/C IV fluids. Plan and coordination of the patient's care discussed in the presence of Endless Belt Finisher and nurse. CONDITION: Stable SCRIBED BY: STEWART TYLER Electronics Engineering Technologist scribed while in presence of service performed by Dr. Hernandez/Anjelica Dewey APRN on 04/07/18 ([id number])
[2018-04-07] MEDS: HYTRIN PO SCH (21:58)
[2018-04-07] MEDS: XANAX PO SCH (21:58)
[2018-04-08] MEDS: PROTONIX PO SCH (06:02)
[2018-04-08 06:23] VITALS: BP 113/59; TEMP 97.6
--- NOTE | 2018-04-08 08:57 | CM.DICTOOL ---
ADMISSION: 04/04/18 19:40 DISCHARGE: APRIL 08, 2018 DATE OF SERVICE: 04/08/18 FINAL DIAGNOSIS SMALL BOWEL OBSTRUCTION, RECURRENT HYPERTENSION CAD ATRIAL FIBRILLATION ASTHMA GERD COPD TIA BPH CORONARY STENT APPLICATION, 2007 AND 2009 CHOLECYSTECTOMY APPENDECTOMY TKR, RIGHT LUMBAR SURGERY, 1974 LAST VITALS Temp Pulse Resp BP Pulse Ox 97.6 F 58 L 14 113/59 L 93 L 04/08/18 06:00 04/08/18 06:00 04/08/18 06:00 04/08/18 06:00 04/08/18 06:00 TAKE THESE MEDICATIONS AT HOME Albuterol/Ipratropium (Duoneb) 1 vial NEB RTTID PRN PRN Reason: chest wheezing or dyspnea Alprazolam (Xanax) 0.5 mg PO BEDTIME [facility] Last Admin: 04/07/18 21:58 Dose: 0.5 mg Amlodipine Besylate (Norvasc) 5 mg PO BID [facility] Last Admin: 04/07/18 21:58 Dose: 5 mg Aspirin ([facility]in Chewable) [facility] [place] [facility] Admin: 04/07/18 08:40 Dose: 81 mg Finasteride (Proscar) 5 mg PO DAILY [facility] Last Admin: 04/07/18 08:40 Dose: 5 mg Hydrochlorothiazide (Hydrochlorothiazide) 6.25 mg PO MoWeFr [facility] Last Admin: 04/07/18 08:48 Dose: 6.25 mg Losartan Potassium (Cozaar) 50 mg PO MoWeFr [facility] Last Admin: 04/07/18 08:44 Dose: 50 mg Non-Formulary Medication (Mometasone/Formoterol [Dulera 100 Mcg/5 Mcg Inhaler]) 2 inh IH BID PRN PRN Reason: SOB Pantoprazole Sodium (Protonix) 40 mg PO BIDAC [facility] Last Admin: 04/08/18 06:02 Dose: 40 mg Potassium Chloride (K-dur) 20 meq PO BID Last Dose: 04-08-18 Sotalol HCl (Betapace) 40 mg PO BID [facility] Last Admin: 04/06/18 20:54 Dose: 40 mg Terazosin HCl (Hytrin) 5 mg PO BEDTIME [facility] Last Admin: 04/07/18 21:58 Dose: 5 mg ALLERGIES butorphanol tartrate [From Stadol] Adverse Reaction (Verified 04/04/18 15:48) hydromorphone HCl [From Dilaudid] Adverse Reaction (Verified 04/04/18 15:48) meperidine HCl [From Demerol] Adverse Reaction (Verified 04/04/18 15:48) DISCONTINUED MEDICATIONS None NEW PRESCRIPTIONS: None SMOKING: Not Applicable DISEASE SPECIFIC EDUCATION: Bowel Obstruction Soft Diet Activity Medications ( Miralax, Mag Citrate) LAB REVIEW: 04/08/18 05:30 04/08/18 05:30 04/08/18 05:30: Sodium 138.1, Potassium 3.73, Chloride 104.5, Carbon Dioxide 28.6, Anion Gap 8.73, BUN 11.8, Creatinine 0.97, Estimated GFR (MDRD) 74.00, BUN /Creatinine Ratio 12.16, Glucose 89.8, Calcium 8.87, Total Bilirubin 0.77, AST 18.8, ALT 16.4, Alkaline Phosphatase 60.0, Total Protein 6.67, Albumin 3.64, Globulin 3.03, Albumin/Globulin Ratio 1.20 04/08/18 05:30: WBC 5.83, RBC 4.64 L, Hgb 13.7 L, Hct 39.9 L, MCV 86.0, MCH 29.5 , MCHC 34.3, RDW Coeff of Bernadette 13.4, Plt Count 154, Immature Gran % (Auto) 0.7, Neut % (Auto) 55.1, Lymph % (Auto) 28.8, [place] % (Auto) 11.1 H, Eos % (Auto) 2.9 , Baso % (Auto) 1.4, Immature Gran # (Auto) 0.0, Neut # (Auto) 3.2, Lymph # ( Auto) 1.7, [place] # (Auto) 0.7, Eos # (Auto) 0.2, Baso # (Auto) 0.1 PLAN: Discharge Home Diet: Soft, Avoid Milk. Eat soft cooked vegetables, may have apples without peeling Activity: Resume activity as tolerated. Ambulate Frequently An appointment is scheduled with Dr. Paulino/Anjelica Dewey APRN on Apr.15 at 10:30 am Continue medications as listed on nursing discharge information sheet. Take Miralax 17 grams daily and Mag Citrate 1/2 bottle at least 3 times daily as recommended by Anjelica Dewey APRN/Dr. Paulino Mr. Fu is alert and oriented x 3. He is independent with Activities of Daily Living. He is ambulatory without use of an assistive device. Gait is steady. Mr. Fu is continent of bowel and bladder and reports his bowels moved several times yesterday. He denies diarrhea. Meal intakes are good at 75-100%. Skin is intact and free of decubitus ulcers or irritation. Skin turgor is good. Nikhil Paulino MD Anjelica Dewey APRN
--- NOTE | 2018-04-08 09:13 | PCM.PROG ---
Attending Provider: ATTENDING PROVIDER: Dr. FRANCISCO HERNANDEZ DATE OF SERVICE: 04/08/18 SUBJECTIVE: This 83 year old WHITE/ M was hospitalized 04/04/18. The patient is up and about, feeling well. He has had a bowel movement. Appetite is good. REVIEW OF SYSTEMS: CONSTITUTIONAL: No night sweats. No fatigue, malaise, lethargy. No fever or chills. HEENT: Eyes: No visual changes. No eye pain. No eye discharge. ENT: No runny nose. No epistaxis. No sinus pain. No odynophagia. No congestion. RESPIRATORY: No cough, no congestion. No hemoptysis. No shortness of breath. CARDIOVASCULAR: No angina symptoms. No CHF symptoms. No atypical chest pain for CAD. No palpitations. No orthopnea.. GASTROINTESTINAL: Good appetite. No abdominal pain. No nausea or vomiting. No diarrhea or constipation. No hematemesis. No hematochezia. GENITOURINARY: No urgency. No frequency. No dysuria. No hematuria. No obstructive symptoms. No discharge. No pain. No significant abnormal bleeding. MUSCULOSKELETAL: No musculoskeletal pain; no joint swelling. NEUROLOGICAL: Awake, alert, oriented to time, place and person. No headache. No neck pain. No syncope. No seizures. No dizziness. PSYCHIATRIC: Not anxious. No depression. No suicidal thoughts. No homicidal thoughts. SKIN: No rash. No lesions. No wounds. ENDOCRINE: No unexplained weight loss. No weight gain. HEMATOLOGIC/LYMPHATIC: No anemia. No purpura. No petechiae. No prolonged or excessive bleeding. No palpable lymph nodes. PHYSICAL EXAMINATION: GENERAL: The patient is awake, alert and oriented, lying in bed in no distress. VITAL SIGNS: Temperature 97.6 F, Pulse 58, Respiratory Rate 14, BP 113/59, Pulse Ox 93% HEENT: Head normocephalic, atraumatic. Eyes: Extraocular muscles are intact. Pupils are equal, round and reactive to light and accommodation. Ears: No lesions. Nose appeared normal. Throat: No exudate or erythema. NECK: Supple. No JVD, no carotid bruit. No lymphadenopathy or thyromegaly. LUNGS: Clear to auscultation. Percussion note normal. Chest symmetrical. HEART: S1, S2, no S3. No murmurs. No cyanosis or clubbing. No ascites. Pulses: Dorsalis pedis and posterior tibial pulses +1 to +2 both sides. ABDOMEN: Soft. Non-tender. Bowel sounds active. No CVA tenderness. No mass felt. EXTREMITIES: No edema. Full range of motion of all extremities, equal. NEUROLOGIC: No focal deficit. Cranial nerves II through XII are grossly intact. No headache, no double vision or headache. SKIN: Warm and dry. Intact. Turgor-normal. LYMPHATIC: No palpable lymph nodes/no lymphedema. MUSCULOSKELETAL: Normal joints with no swelling. Muscle tone is normal. LAB REVIEW: 04/08/18 05:30 04/08/18 05:30 04/08/18 05:30: Sodium 138.1, Potassium 3.73, Chloride 104.5, Carbon Dioxide 28.6, Anion Gap 8.73, BUN 11.8, Creatinine 0.97, Estimated GFR (MDRD) 74.00, BUN /Creatinine Ratio 12.16, Glucose 89.8, Calcium 8.87, Total Bilirubin 0.77, AST 18.8, ALT 16.4, Alkaline Phosphatase 60.0, Total Protein 6.67, Albumin 3.64, Globulin 3.03, Albumin/Globulin Ratio 1.20 04/08/18 05:30: WBC 5.83, RBC 4.64 L, Hgb 13.7 L, Hct 39.9 L, MCV 86.0, MCH 29.5 , MCHC 34.3, RDW Coeff of Bernadette 13.4, Plt Count 154, Immature Gran % (Auto) 0.7, Neut % (Auto) 55.1, Lymph % (Auto) 28.8, [place] % (Auto) 11.1 H, Eos % (Auto) 2.9 , Baso % (Auto) 1.4, Immature Gran # (Auto) 0.0, Neut # (Auto) 3.2, Lymph # ( Auto) 1.7, [place] # (Auto) 0.7, Eos # (Auto) 0.2, Baso # (Auto) 0.1 ASSESSMENT: Please see below. 1. SMALL BOWEL OBSTRUCTION CLINICALLY RESOLVED. PLAN: 1. Will discharge home today. 2. Will followup in the office next week. 3. Encouraged to be up and about. 4. Copy of records to Dr. Eagle. Plan and coordination of the patient's care discussed in the presence of Sheet Tester and nurse. EDUCATION: Discussed with the patient to have less milk and milk products in his diet. CONDITION: Stable SCRIBED BY: STEWART TYLER Chain Maker Machine scribed while in presence of service performed by Dr. FRANCISCO HERNANDEZ on 04/08/18 ([id number])
[2018-04-08] MEDS: POTASSIUM CHL 10% ORAL SOL PO SCH (09:22)
[2018-04-08] MEDS: PROSCAR PO SCH (09:22)
[2018-04-08] MEDS: ASPIRIN CHEWABLE PO SCH (09:22)
[2018-04-08] MEDS: BETAPACE PO SCH (09:22)
[2018-04-08] MEDS: NORVASC PO SCH (09:22)
[2018-04-08] MEDS: LOVENOX SUBCUT SCH (09:24)
--- NOTE | 2018-04-08 10:33 | DS ---
DATE OF SERVICE: 04/08/18 FINAL DIAGNOSIS: 1. SMALL BOWEL OBSTRUCTION, RECURRENT 2. HYPERTENSION 3. CAD 4. ATRIAL FIBRILLATION 5. ASTHMA 6. GERD 7. COPD 8. TIA 9. BPH 10. CORONARY STENT APPLICATION, 2007 AND 2009 11. CHOLECYSTECTOMY 12. APPENDECTOMY 13. TKR, RIGHT 14. LUMBAR SURGERY, 1974 DISCHARGE INSTRUCTIONS: Followup appointment with Dr. Paulino/Anjelica Dewey APRN on 04/15/18 at 10:30 a.m. MEDICATIONS AT DISCHARGE: Albuterol neb t.i.d. p.r.n. Alprazolam 0.5 mg p.o. bedtime YANN Amlodipine 5 mg p.o. b.i.d. YANN Aspirin 81 mg p.o. daily with meal YANN Finasteride 5 mg p.o. daily YANN Hydrochlorothiazide 6.25 mg p.o. MoWeFr YANN Losartan 50 mg p.o. MoWeFri YANN Mometasone/Formoterol two INH b.i.d. p.r.n. Pantoprazole (Protonix) 40 mg p.o. b.i.d. a.c. YANN K-Dur 20 mEq p.o. b.i.d. Betapace 40 mg p.o. b.i.d. YANN Hytrin 5 mg p.o. bedtime YANN Take Miralax 17 gm daily and Mag Citrate 1/2 bottle at least three times daily as recommended by Anjelica Dewey APRN/Dr. Paulino. DISCONTINUED MEDICATIONS: None NEW PRESCRIPTIONS: None DIET INSTRUCTIONS: Soft. Avoid milk. Eat soft cooked vegetables, may have apples without peeling. ACTIVITY: Resume activity as tolerated. Ambulate frequently. SMOKING: N/A DISEASE SPECIFIC EDUCATION: Bowel obstruction Soft diet Activity Medications (Miralax, Mag Citrate) HOSPITAL COURSE: This 83 year old WHITE/ M is hospitalized with small bowel obstruction. He was treated with NG tube, NPO, and IV fluids. Condition improved within 48 hours. NG tube was removed and started on liquids, advanced to soft diet. The patient has a normal appetite, regular bowel movements. The patient has recurrent small bowel obstruction being followed by Dr. Eagle, surgeon in [place]. Cardiovascular status is stable. TIME SPENT: More than 60 minutes. CONDITION: Stable SCRIBED BY: STEWART TYLER, Creative Resource Manager scribed while in presence of service performed by Dr. FRANCISCO PAULINO on 04/08/18 ([id number]) SHARON
--- NOTE | 2018-04-08 10:35 | DS ---
DATE OF SERVICE: [] FINAL DIAGNOSIS: 1. [] DISCHARGE INSTRUCTIONS: Followup appointment in [] days with []. MEDICATIONS AT DISCHARGE: [] NEW PRESCRIPTIONS: [] DIET INSTRUCTIONS: [] ACTIVITY: [] SMOKING: [] DISEASE SPECIFIC EDUCATION: [] HOSPITAL COURSE: [] SPECIFIC ORDERS: [] TIME SPENT: More than 60 minutes. MTDD
--- NOTE | 2018-04-08 10:37 | PN ---
CODING FOR BILLING 04/04/18 LEVEL 1 - ADMISSION DAY 04/05/18 INTERMEDIATE 04/06/18 INTERMEDIATE 04/07/18 INTERMEDIATE 04/08/18 DISCHARGE MTDD
== END 2018-04-08 09:54 | disposition home or self-care (01) ==
LOC: ED 15:45 → MEDSURG B 19:40
PROVIDERS: ADMIT Internal Medicine; ATTEND Internal Medicine
DX: R10.9 Unspecified abdominal pain (principal); G45.9 Transient cerebral ischemic attack, unspecified; I10 Essential (primary) hypertension; I25.10 Atherosclerotic heart disease of native coronary artery without angina pectoris; I48.91 Unspecified atrial fibrillation; J45.909 Unspecified asthma, uncomplicated; J44.9 Chronic obstructive pulmonary disease, unspecified; K21.9 Gastro-esophageal reflux disease without esophagitis; N40.0 Benign prostatic hyperplasia without lower urinary tract symptoms; E86.0 Dehydration
CPT/HCPCS: 36415; 80053; 81001; 82150; 82962; 83690; 85025; 87040; 93005; 93010; 96361; 96374; 96375; 99284; 99285

== ENCOUNTER 2018-09-15 11:08 | Outpatient (CLI) ==
--- NOTE | 2018-09-15 12:50 | MRI ---
Examination: MRI of the lumbar spine without contrast 09/15/2018 Clinical information: Low back pain, recent injury. Comparison: None. CT abdomen and pelvis 04/04/2018. TECHNIQUE: Sagittal and axial T1 and T2W imaging, sagittal STIR and coronal T2W sequences were perfo rmed. Several sequences were repeated due to patient motion. FINDINGS: The conus medullaris is normal in signal, location and morphology terminating at the L1 ve rtebral body level. There is a mild acute superior L4 vertebral body endplate compression fracture w ith marrow edema paralleling the superior endplate and minimal posterior-superior cortical buckling. There is a large mixed T1 and T2 hyperintense signal intensity L1 vertebral body hemangioma which ex tends into the right L1 pedicle. This lesion has a striated appearance on the axial sequence and has characteristics compatible with a hemangioma. There is a 2 mm retrolisthesis of L5 on S1. The lumb ar vertebrae are otherwise normal in height and AP alignment. Slightly heterogeneous T1 marrow signa l most likely reflects osteoporosis. There is a mild thoracolumbar levoscoliosis. There is multilev el disc desiccation. Minor L3-L4 intradiskal edema. Severe loss of disc height at L5-S1 with discog enic endplate irregularity. Minor edema within the left greater than right medial psoas muscles at t he L3-L5 levels. At the L1-L2 level, there is a minimal disc bulge eccentric left. There is no central spinal canal s tenosis or foraminal stenosis. At the L2-L3 level, there is a diffuse disc bulge. There is modest right greater than left facet hyp ertrophy. No significant central spinal canal stenosis. There is mild-moderate right and mild left foraminal stenosis. At the L3-L4 level, there is a diffuse disc bulge. Minor posterior-superior cortical buckling of L4. Moderate right and modest left hypertrophic facet arthropathy. There is a trefoil configuration of the central spinal canal. No significant central spinal canal stenosis. There is mild-moderate rig ht neural foraminal stenosis. At the L4-L5 level, there is a diffuse disc bulge. Modest bilateral facet hypertrophy with slight th ickening of the ligamentum flavum. No significant central spinal canal stenosis or foraminal stenosi s. At the L5-S1 level, there is a diffuse spondylotic disc bulge. There is mild right greater than left facet hypertrophy. There is no significant central spinal canal stenosis. There is moderate left a nd mild right foraminal stenosis. Questionable laminotomy change. Impression: 1. Mild acute superior L4 vertebral body endplate compression fracture with minimal posterior-superi or cortical buckling. Minor edema within the adjacent left greater than right medial psoas muscles L 3-L5 levels. 2. No focal disc herniation or significant central spinal canal stenosis. 3. Foraminal stenosis as noted level by level, most significant on the left at L5-S1. 4. Large L1 vertebral body hemangioma. 5. Minor thoracolumbar levoscoliosis. Trace retrolisthesis of L5 on S1. 6. Questionable L5-S1 laminotomy postoperative change.
== END 2018-09-15 11:09 | disposition home or self-care (01) ==
LOC: RAD 11:08
PROVIDERS: ATTEND Internal Medicine
DX: M54.5 Low back pain (principal)

== ENCOUNTER 2018-09-17 21:56 | Emergency (ER) | payer OTHER ==
[2018-09-17 22:09] VITALS: TEMP 96.9; BMI 24.5
--- NOTE | 2018-09-17 22:33 | ED.PDOC ---
General ED Provider: Dr. NANDINI SIMMONS Chief Complaint: Dizziness Stated Complaint: Patient is on Oxycodone for Compression fracture and took 3 tablets today, 6, 10 and 2 pm and then took meclizine at 4 pm. Sill feels dizzy. Denies any chest pain. Took one medication last night. He was told to take an old prescription Time Seen by Physician: 22:34 Mode of Arrival: Walk-In Information Source: Patient, Family Primary Care Provider: FRANCISCO HERNANDEZ Nursing and Triage Documentation Reviewed and Agree: Yes Does patient meet sepsis criteria?: No System Inflammatory Response Syndrome: Not Applicable Sepsis Protocol: For patient's 13 years and over: Temp is 96.8 and below OR 101 and greater Pulse >90 BPM Resp >20/minute Acutely Altered Mental Status Are patient's symptoms suggestive of a new infection, such as: -Pneumonia -Skin, Soft Tissue -Endocarditis -UTI -Bone, Joint Infection -Implantable Device -Acute Abdominal Infection -Wound Infection -Meningitis -Blood Stream Catheter Infection -Unknown Neurological Complaint Exam - Dizziness Complaint/Exam Last Known Well: this morning Onset: Gradual Duration: 6 hours ago Symptoms Are: Still present Timing: Constant Episodes Lasting: Hours Initial Severity: Mild Current Severity: Moderate Character: Reports: Lightheaded, Dizzy Aggravating: Denies: Headache Alleviating: Reports: None Associated Signs and Symptoms: Reports: Nausea. Denies: Vomiting Related History: Similar episode Cardiac Risk Factors: Reports: Hypertension, CAD. Denies: CHF CVA Risk Factors: Reports: None Related Surgical History: Reports: None JVD Present: No Carotid Bruit Present: No Rectal Heme Positive: No Glascow Coma Scale (see protocol): 15 Nystagmus Present: No Gag Reflex Present: No Meningeal Signs Positive: No Focal Weakness: Present: None Focal Sensory Loss: Present: None Gait: Normal [id number]-[id number]: Normal Findings Romberg Test Positive: No Babinski Sign: Negative Right, Negative Left Heel to Toe Normal: No Differential Diagnoses: Anxiety, CAD, CA, BPPV, Hypovolemia, Labyrinthitis, Meniere's, Medication reaction (sedation being on alot of medications for pain) , Metabolic abnormalities, Vasovagal reaction Quality Indicators for Cardiac Chest Pain: EKG in 10min. Quality Indicator For Non-Traumatic Chest Pain/Syncope: EKG Performed Review of Systems - Review Of Systems Constitutional: Reports: No symptoms Eyes: Reports: No symptoms Ears, Nose, Mouth, Throat: Reports: No symptoms Respiratory: Reports: No symptoms Cardiac: Reports: No symptoms GI: Reports: No symptoms : Reports: No symptoms Musculoskeletal: Reports: Back pain Skin: Reports: No symptoms Neurological: Reports: Anxiety Endocrine: Reports: No symptoms Hematologic/Lymphatic: Reports: No symptoms All Other Systems: Reviewed and Negative Past Medical History - Past Medical History Previously Healthy: Yes Endocrine: Reports: Dyslipidemia Cardiovascular: Reports: CAD, Hypertension, A-Fib Respiratory: Reports: COPD, Asthma Hematological: Reports: None Gastrointestinal: Reports: GERD, Other (obstruction post appendectomy- 3 episodes after , another episode- last over a year ago- now same symptoms) Genitourinary: Reports: None Neuro/Psych: Reports: None Musculoskeletal: Reports: Arthritis, Back Pain Cancer: Reports: None Other Pertinent Past Medical History: CHOLECTOMY - Surgical History General Surgical History: Reports: Appendectomy, Cholecystectomy, Tonsillectomy , Stent (3 STENTS), Back Surgery ( 35 YRS AGO WITH A FUSION). Denies: CABG ( stents) - Family History Family History: Reports: Unknown - Social History Smoking Status: Never smoker Hx Substance Use: No Alcohol Screening: None - Immunizations Tetanus Shot up to Date: No Physical Exam - Physical Exam Appearance: Well-appearing Eyes: SHWETA, EOMI, Conjunctiva clear Neck: Supple Respiratory: Airway patent, Breath sounds clear, Breath sounds equal, Respirations nonlabored Cardiovascular: Bradycardia GI/: Soft, Nontender, No masses, Bowel sounds normal, No Organomegaly Musculoskeletal: Normal strength Skin: Warm Neurological: Alert, Oriented Psychiatric: Anxious - NIH Stroke Scale 1a. Level of Consciousness: 0=Alert and keenly responsive 1b. Level of Consciousness Questions: 0=Answers correctly to two questions 1c. Level of Consciousness Commands: 0=Performs two tasks correctly 2. Best Gaze: 0=Normal 3. Visual: 0=No visual loss 4. Facial Palsy: 0=Normal 5a. Motor Left Arm: 0=No drift,arm holds 90 degrees for 10 sec., leg 30 degrees for 5 sec. 5b. Motor Right Arm: 0=No drift,arm holds 90 degrees for 10 sec., leg 30 degrees for 5 sec. 6a. Motor Left Le=No drift,arm holds 90 degrees for 10 sec., leg 30 degrees for 5 sec. 6b. Motor Right Le=No drift,arm holds 90 degrees for 10 sec., leg 30 degrees for 5 sec. 7. Limb Ataxia: 0=Absent 8. Sensory: 0=Normal 9. Best Language: 0=No aphasia 10. Dysarthria: 0=Normal 11. Extincion and Inattention: 0=Normal Stroke Scale Total: 0 Interpretation - Cytology Laboratory Manager Rate: Claudio Rhythm: Sinus Ectopy: None - EKG Interpretation Time of EKG #1: 22:26 Rate: Claudio Rhythm: Sinus Ectopy: None [place]: Left Interpretation: non specific st abnormaliites , inverted T wave v 1 Critical Care Note - Critical Care Note Total Time (mins): 40 Course - Course Hematology/Chemistry: 09/17/18 22:26 09/17/18 22:26 Orders, Labs, Meds: Lab Review 09/17/18 04 22:26 22:26 WBC 11.47 H RBC 4.88 Hgb 14.4 Hct 42.8 MCV 87.7 MCH 29.5 MCHC 33.6 RDW Coeff of Bernadette 13.2 Plt Count 233 Immature Gran % (Auto) 0.4 Neut % (Auto) 79.0 Lymph % (Auto) 14.2 [place] % (Auto) 5.7 Eos % (Auto) 0.3 Baso % (Auto) 0.4 Immature Gran # (Auto) 0.1 Neut # (Auto) 9.1 H Lymph # (Auto) 1.6 [place] # (Auto) 0.7 Eos # (Auto) 0.0 Baso # (Auto) 0.1 Sodium 141.0 Potassium 3.95 Chloride 103.6 Carbon Dioxide 26.6 Anion Gap 14.75 BUN 15.3 Creatinine 0.78 Estimated GFR (MDRD) 95.00 BUN/Creatinine Ratio 19.61 Glucose 149.3 H Calcium 9.29 Total Bilirubin 0.71 AST 21.3 ALT 14.5 Alkaline Phosphatase 90.4 Total Creatine Kinase 41.3 L Troponin I < 0.012 Total Protein 7.50 Albumin 4.61 Globulin 2.89 Albumin/Globulin Ratio 1.59 Orders Category Date Time Status EKG-(ED ONLY) Stat CARDIO 09/17/18 22:12 Completed ED IV/MEDIPORT/POWERPORT .ONCE EMERGENCY 09/17/18 22:39 Active Orthostatic [ED ORTHOSTATIC VITAL SIGNS] .ONCE EMERGENCY 09/17/18 22:12 Active CBC W/ AUTO DIFF Stat LAB 09/17/18 22:26 Completed COMPREHENSIVE METABOLIC PANEL Stat LAB 09/17/18 22:26 Completed CREATINE KINASE Stat LAB 09/17/18 22:26 Completed TROPONIN I Stat LAB 09/17/18 22:26 Completed 0.9 % Sodium Chloride [Saline Flush] MEDS 09/17/18 22:39 Discontinued 1 syr IVF PRN PRN Ed After Hour Supply Med [Ed After Hours Supply Med MEDS 09/18/18 00:28 Discontinued Sent Home] 1 each PO ONCE ONE Ed After Hour Supply Med [Ed After Hours Supply Med MEDS 09/18/18 00:29 Discontinued Sent Home] 1 each PO ONCE ONE Hydrocodone Bit/Acetaminophen [[place] 5-325] MEDS 09/18/18 00:42 Discontinued 1 tab .ROUTE .STK-MED ONE Hydrocodone Bit/Acetaminophen [[place] 5-325] MEDS 09/18/18 00:39 Discontinued 2 tab .ROUTE .STK-MED ONE Ondansetron HCl/Pf [Zofran 4 mg/2 ml] MEDS 09/17/18 22:38 Discontinued 4 mg IVP ONCE STA Ondansetron [Zofran Odt] MEDS 09/18/18 00:39 Discontinued 8 mg .ROUTE .STK-MED ONE Sodium Chloride 0.9% [Sodium Chloride] 500 ml MEDS 09/17/18 22:39 Discontinued IV BOLUS CHEST, 1V AP ONLY Stat RADS 09/17/18 22:[address] HEAD W/O CONTRAST Stat RADS 09/17/18 22:12 Completed Medications Discontinued Medications Generic Name Dose Route Start Last Admin Trade Name Freq PRN Reason Stop Dose Admin Sodium Chloride 500 mls @ 500 mls/hr 09/17/18 22:39 09/17/18 22:52 Sodium Chloride IV 09/17/18 23:38 500 mls/hr BOLUS STA Administration Miscellaneous Information 1 each 09/18/18 00:28 Ed After Hours Supply Med Sent Home PO 09/18/18 00:29 ONCE ONE Protocol Miscellaneous Information 1 each 09/18/18 00:29 Ed After Hours Supply Med Sent Home PO 09/18/18 00:30 ONCE ONE Protocol Ondansetron HCl 4 mg 09/17/18 22:38 09/17/18 22:55 Zofran 4 Mg/2 Ml IVP 09/17/18 22:39 4 mg ONCE STA Administration Sodium Chloride 1 syr 09/17/18 22:39 09/17/18 22:54 Saline Flush IVF 1 syr PRN PRN Administration To flush IV Vital Signs: Temp Pulse Resp BP Pulse Ox 09/17/18 22:38 65 171/87 H 09/17/18 22:37 57 L 172/78 H 09/17/18 21:57 96.9 F L 55 L 20 185/78 H 94 L Departure - Departure Time of Disposition: 00:30 Disposition: HOME SELF-CARE Discharge Problem: Dizziness, Vertigo Instructions: Vertigo (ED), Lightheadedness (ED) Condition: Stable Pt referred to PMD for follow-up: Yes IPMP verified?: No Additional Instructions: PUSH FLUIDS TAKE ZOFRAN 4MG ODT EVERY 8 HOURS NEEDED FOR NAUSEA (#2) USE LIDOCAINE PATCHES TO THE AREA OF YOUR BACK FOR PAIN (#15) STOP OXYCODONE TAKE HYDROCODONE INSTEAD 5MG (1/2 - 1 TABLET) EVERY 6 HOURS NEEDED FOR SEVERE PAIN (#2) DO NOT TAKE TIZANIDINE WITHIN 12 HOURS OF HYDROCODONE MAY TAKE 500MG OF TYLENOL 4 TIMES A DAY NEEDED FOR PAIN FOLLOW UP WITH PCP IN 2 DAYS FOR PAIN MANAGEMENT REFERRAL Prescriptions: Hydrocodone Bit/Acetaminophen [[place] 5-325] 1 each PO Q6HR PRN #15 tablet PRN Reason: severe pain Lidocaine [Lidocaine Pain Relief] 1 each TP TID PRN #15 adh..patch PRN Reason: back pain Ondansetron [Zofran Odt] 4 mg PO Q8H #20 tab.rapdis Allergies/Adverse Reactions: Allergies butorphanol tartrate [From Stadol] Adverse Reaction (Verified 09/17/18 22:11) Dizziness hydromorphone HCl [From Dilaudid] Adverse Reaction (Verified 09/17/18 22:11) Unknown meperidine HCl [From Demerol] Adverse Reaction (Verified 09/17/18 22:11) Dizziness makes dizzy Home Medications: Ambulatory Orders Terazosin HCl [Hytrin] 5 mg PO BEDTIME 05/12/13 Alprazolam 0.5 mg PO BEDTIME #30 tablet 03/11/14 Aspirin [Aspirin Chewable] 81 mg PO DAILYWM 03/21/15 Finasteride 5 mg PO DAILY 03/21/15 Losartan/Hydrochlorothiazide [Losartan-Hctz 100-12.5 mg Tab] 0.5 tab PO MOWEFR 10/27/16 Mometasone/Formoterol [Dulera 100 Mcg/5 Mcg Inhaler] 2 inh IH BID PRN MDD 2 puffs BID 04/02/17 Pantoprazole Sodium [Protonix] 40 mg PO BIDAC #60 tablet. 12/14/17 Ipratropium/Albuterol Neb [Duoneb] 1 vial NEB TID PRN 04/04/18 Sotalol HCl [Sotalol] 40 mg PO BID 04/04/18 Amlodipine Besylate [Norvasc] 5 mg PO BEDTIME 09/17/18 Methylprednisolone [Medrol Dosepak] 4 mg PO DIRECTED 09/17/18 Oxycodone HCl [Oxycodone] 5 mg PO Q4H PRN 09/17/18 Potassium Chloride [K-Dur] 20 meq PO DAILY 09/17/18 Tizanidine HCl 0.5 - 1 tab PO BEDTIME PRN 09/17/18 Hydrocodone Bit/Acetaminophen [[place] 5-325] 1 each PO Q6HR PRN #15 tablet Lidocaine [Lidocaine Pain Relief] 1 each TP TID PRN #15 adh..patch 09/18/18 Ondansetron [Zofran Odt] 4 mg PO Q8H #20 tab.rapdis 09/18/18 Disposition Discussed With: Patient, Family
[2018-09-17] MEDS ORDERED: ZOFRAN 4 MG/2 ML IVP STA (22:38)
[2018-09-17 22:39] VITALS: BP 182/87
[2018-09-17] MEDS ORDERED: SODIUM CHLORIDE 500 ML IV STA (22:39)
[2018-09-18] MEDS ORDERED: ED AFTER HOURS SUPPLY MED SENT HOME PO ONE ×2 (00:28→00:29)
[2018-09-18] MEDS ORDERED: ZOFRAN ODT ONE (00:39)
[2018-09-18] MEDS ORDERED: NORCO 5-325 ONE ×2 (00:39→00:42)
--- NOTE | 2018-09-18 00:48 | DI ---
EXAM: Single-view chest HISTORY: Dizziness pain COMPARISON: Single-view chest 04/04/2018 FINDINGS: The cardiomediastinal silhouette is stable. The lungs are clear bilaterally.. No osseous abnormalities identified IMPRESSION: No evidence of active pulmonary disease
--- NOTE | 2018-09-18 00:52 | CT ---
EXAM: CT scan brain without contrast HISTORY: Dizziness COMPARISON: CT scan brain 10/27/2016 FINDINGS: Contiguous axial image were obtained from the skull base to the convexities without contra st utilizing 5-mm collimation. Sagittal and coronal reconstructions were imaged and reviewed.. The v entricles and CSF spaces are prominent compatible with age appropriate atrophy. There is mild perive ntricular hypodensity noted compatible with chronic microvascular disease. Atherosclerotic changes a re seen involving the bilateral vertebral and cavernous internal carotid arteries.. Redemonstrated i s chronic-appearing opacification throughout the left maxillary sinus with dystrophic calcification. IMPRESSION: No acute intracranial findings
== END 2018-09-18 01:05 | disposition home or self-care (01) ==
LOC: ED 21:56
DX: R42 Dizziness and giddiness (principal); R51 Headache; I10 Essential (primary) hypertension; I25.810 Atherosclerosis of coronary artery bypass graft(s) without angina pectoris; E78.5 Hyperlipidemia, unspecified; Z95.5 Presence of coronary angioplasty implant and graft; Z79.899 Other long term (current) drug therapy; M54.9 Dorsalgia, unspecified
CPT/HCPCS: 36415; 80053; 82550; 84484; 85025; 93005; 93010; 96361; 96374; 99283

== ENCOUNTER 2019-12-10 06:55 | Inpatient (IN) ==
[2019-12-10] MEDS ORDERED: PHENERGAN 25 MG/ML VIAL IM STA (07:08)
[2019-12-10] MEDS ORDERED: MORPHINE 2 MG/ML SYRINGE IM STA (07:08)
[2019-12-10] MEDS ORDERED: PROAIR HFA (SINGLE PATIENT USE) IH STA (07:21)
[2019-12-10 07:29] LABS: HEMATOCRIT 42.4 % (42.0-52.0)
--- NOTE | 2019-12-10 08:05 | CT ---
EXAM: CT scan of the abdomen and pelvis without contrast HISTORY: Right flank pain TECHNIQUE: Helical imaging of the abdomen pelvis was performed without contrast. 3 mm thin axial im ages and coronal and sagittal reconstructions were provided for interpretation. FINDINGS: The liver, spleen, pancreas, kidneys appear normal. The proximal ureters are normal size. The small bowel loops are normal caliber. There has been previous cholecystectomy. There is no fr ee air. No retroperitoneal abnormalities are seen. Small nonobstructing calculi are seen within the calyces of the kidneys. There is no free fluid seen within the pelvis. The appendix was not well seen. No definite inflamma tory changes are seen along the cecum. There is enlargement of the prostate gland. Lung bases are c lear. No lytic or blastic lesions are seen within the osseous structures. IMPRESSION: No evidence of obstructing ureteral calculi. There is no bowel obstruction or acute inflammatory change seen within the abdomen and pelvis. Nonobstructing nephrolithiasis seen within the kidneys. Prostatic hypertrophy.
--- NOTE | 2019-12-10 08:20 | ED.PDOC ---
General ED Provider: Dr. ELVIN CM Chief Complaint: Back Pain Stated Complaint: my back is hurting---i weed eated last night ---im really nauseated Time Seen by Physician: 08:19 Mode of Arrival: Wheelchair Information Source: Patient and Family Primary Care Provider: FRANCISCO HERNANDEZ Nursing and Triage Documentation Reviewed and Agree: Yes Does patient meet sepsis criteria?: No System Inflammatory Response Syndrome: Not Applicable Sepsis Protocol: For patient's 13 years and over: Temp is 96.8 and below OR 101 and greater Pulse >90 BPM Resp >20/minute Acutely Altered Mental Status Are patient's symptoms suggestive of a new infection, such as: -Pneumonia -Skin, Soft Tissue -Endocarditis -UTI -Bone, Joint Infection -Implantable Device -Acute Abdominal Infection -Wound Infection -Meningitis -Blood Stream Catheter Infection -Unknown GI Complaint Exam Abdominal Pain Complaint/Exam Onset: Gradual Duration: 24 hrs Symptoms Are: Still present Timing: Constant Initial Severity: Mild Current Severity: Moderate Location of Pain: Discrete Radiates To: Reports Flank Character: Reports Dull and Aching Aggravating: Reports None Associated Signs and Symptoms: Reports Back pain and Nausea Related History: Reports Similar episode Abdominal Findings: Present None Quality Indicator For Non-Traumatic Chest Pain/Syncope: EKG Performed Review of Systems Review Of Systems Constitutional: Reports No symptoms Eyes: Reports No symptoms Ears, Nose, Mouth, Throat: Reports No symptoms Respiratory: Reports No symptoms Cardiac: Reports No symptoms GI: Reports No symptoms : Reports No symptoms and Flank pain Musculoskeletal: Reports Back pain Skin: Reports No symptoms Neurological: Reports No symptoms Endocrine: Reports No symptoms Hematologic/Lymphatic: Reports No symptoms All Other Systems: Reviewed and Negative [facility] Social History Smoking and tobacco status: Never smoker History of recent travel: No Physical Exam Physical Exam Appearance: Reports Well-appearing Ill-appearing: None Pain Distress: Moderate Eyes: Reports SHWETA, EOMI and Conjunctiva clear ENT: Reports Ears normal, Nose normal and Oropharynx normal Neck: Supple Respiratory: Reports Airway patent and Breath sounds clear Cardiovascular: Reports RRR, Pulses normal, No rub and No murmur GI/: Reports Soft, Nontender, No masses and Bowel sounds normal Musculoskeletal: Reports Normal strength, ROM intact, No edema and No calf tenderness Skin: Reports Warm, Dry and Normal color Neurological: Reports Sensation intact, Motor intact, Reflexes intact, Cranial nerves intact and Oriented Psychiatric: Reports Affect appropriate and Mood appropriate Interpretation Radiology Interpretation Radiology Interpretation By: Radiologist Radiology Results: Negative Exam Interpreted: CT Scan EKG Interpretation Time of EKG #1: 08:18 Rate: Normal Rhythm: Sinus Ectopy: None [place]: NL ST Segment: Normal Interpretation: nsr Re-Evaluation Re-Evaluation Time of Re-Evaluation: 08:18 Status: Improved Vital Signs Stable: Yes Pain Level: 1 Appearance: NAD Lungs: Clear Skin: Warm and Dry Neuro: Alert and Oriented X3 CV: RRR Additional Comments: feels better Critical Care Note Critical Care Note Total Time (mins): 0 Course Course Hematology/Chemistry: 12/10/19 07:20 07 07:20 Orders, Labs, Meds: Lab Review 12/10/19 12/10/19 12/10/19 07:20 07:20 07:20 WBC 6.04 RBC 4.85 Hgb 14.4 Hct 42.4 MCV 87.4 MCH 29.7 MCHC 34.0 RDW Coeff of Bernadette 13.3 Plt Count 229 Immature Gran % (Auto) 0.3 Neut % (Auto) 65.6 Lymph % (Auto) 19.0 [place] % (Auto) 10.3 H Eos % (Auto) 3.1 Baso % (Auto) 1.7 Neut # (Auto) 4.0 Lymph # (Auto) 1.2 [place] # (Auto) 0.6 Eos # (Auto) 0.2 Baso # (Auto) 0.1 Immature Gran # (Auto) 0.0 Sodium 139.7 Potassium 3.93 Chloride 108.1 H Carbon Dioxide 25.6 Anion Gap 9.93 BUN 17.9 Creatinine 0.82 Estimated GFR (MDRD) 90.00 BUN/Creatinine Ratio 21.82 Glucose 96.7 Calcium 9.32 Total Bilirubin 0.80 AST 22.9 ALT 14.3 Alkaline Phosphatase 80.2 Total Creatine Kinase 64.5 Troponin I < 0.012 Total Protein 7.38 Albumin 3.82 Globulin 3.56 Albumin/Globulin Ratio 1.07 Amylase 77.3 Lipase 58.0 Urine Color Yellow Urine Clarity Clear Urine pH 6.0 Ur Specific [place] 1.025 Urine Protein Negative Urine Glucose (UA) Negative Urine Ketones Negative Urine Blood Trace-intact H Urine Nitrite Negative Urine Bilirubin Negative Urine Urobilinogen 2.0 H Ur Leukocyte Esterase Negative Urine Microscopic RBC 0-2 Ur Squamous Epith Cells 0-2 Urine Bacteria Trace Urine Mucus 1+ Orders Category Date Time Status EKG-(ED ONLY) Stat CARDIO 12/10/19 07:08 Ordered ED MAILROOM PERSONNEL APPLIED .ONCE EMERGENCY 12/10/19 07:08 Active AMYLASE Stat LAB 12/10/19 07:20 Completed CBC W/ AUTO DIFF Stat LAB 12/10/19 07:20 Completed COMPREHENSIVE METABOLIC PANEL Stat LAB 12/10/19 07:20 Completed CREATINE KINASE Stat LAB 12/10/19 07:20 Completed LIPASE Stat LAB 12/10/19 07:20 Completed TROPONIN I Stat LAB 12/10/19 07:20 Completed URINALYSIS C & S IF INDICATED Stat LAB 12/10/19 07:20 Completed Albuterol Inhaler (Single Pt) [Proair Hfa (Single MEDS 12/10/19 07:21 Discontinued Patient Use)] 2 puff IH ONCE STA Morphine Sulfate [Morphine 2 mg/ml Syringe] MEDS 12/10/19 07:08 Discontinued 4 mg IM ONCE STA Promethazine HCl [Phenergan 25 mg/ml Vial] MEDS 12/10/19 07:08 Discontinued 25 mg IM ONCE STA CT ABDOMEN/PELVIS WO CONTRAST Stat RADS 12/10/19 07:08 Completed Medications Discontinued Medications Generic Name Dose Route Start Last Admin Trade Name Migel PRN Reason Stop Dose Admin Albuterol Sulfate 2 puff 12/10/19 07:21 Proair Hfa (Single Patient Use) IH 12/10/19 07:22 ONCE STA Morphine Sulfate 4 mg 12/10/19 07:08 12/10/19 07:21 Morphine 2 Mg/Ml Syringe IM 12/10/19 07:09 4 mg ONCE STA Administration Promethazine HCl 25 mg 12/10/19 07:08 12/10/19 07:21 Phenergan 25 Mg/Ml Vial IM 12/10/19 07:09 25 mg ONCE STA Administration Vital Signs: Temp Pulse Resp BP Pulse Ox 12/10/19 06:57 97.2 F L 62 20 149/78 H 93 L Discharge Plan Discharge Patient Disposition: ADMITTED INPATIENT Discharge Problem: Intractable back pain Prescriptions: No Action terazosin 5 MG capsule 5 mg PO BEDTIME RF: 0 alprazolam 0.5 MG tablet 0.5 mg PO BEDTIME Qty: 30 RF: 2 aspirin 81 MG tablet,chewable 81 mg PO DAILYWM RF: 0 finasteride 5 MG tablet 5 mg PO DAILY RF: 0 Dulera 8.8 GM HFA aerosol inhaler 2 inh inhalation BID MDD 2 puffs BID PRN (Reason: Wheezing) RF: 0 pantoprazole 40 MG tablet,delayed release (DR/EC) 40 mg PO BIDAC Qty: 60 RF: 0 amlodipine 5 MG tablet 5 mg PO BEDTIME RF: 0 potassium chloride [Klor-Con M20] 20 MEQ tablet,ER particles/crystals 20 meq PO DAILY RF: 0 losartan-hydrochlorothiazide 1 EACH tablet 0.5 tab PO MOWEFR RF: 0 ipratropium-albuterol 1 VIAL solution for nebulization 1 vial NEB TID PRN (Reason: Asthma) RF: 0 sotalol 80 MG tablet 40 mg PO BID RF: 0 ED Provider: ELVIN CM Condition: Fair
[2019-12-10] MEDS ORDERED: MORPHINE 2 MG/ML SYRINGE IVP PRN (08:21)
[2019-12-10] MEDS ORDERED: ZOFRAN 4 MG/2 ML IVP PRN (08:21)
[2019-12-10] MEDS ORDERED: MOMETASONE FORMOTEROL IH PRN (08:24)
[2019-12-10] MEDS ORDERED: K-DUR PO SCH (09:00)
[2019-12-10] MEDS: SODIUM CHLORIDE 1,000 ML IV SCH ×2 (09:19→21:09)
[2019-12-10] MEDS: BETAPACE PO SCH ×2 (09:26→21:10)
[2019-12-10] MEDS: ASPIRIN CHEWABLE PO SCH (09:26)
[2019-12-10] MEDS: PROSCAR PO SCH (09:27)
[2019-12-10] MEDS: LOVENOX SUBCUT SCH (09:33)
[2019-12-10] MEDS: K-DUR PO SCH (09:34)
[2019-12-10 09:57] VITALS: BMI 22.2
[2019-12-10] MEDS ORDERED: PROAIR HFA (SINGLE PATIENT USE) IH SCH ×2 (10:00→12:00)
[2019-12-10] MEDS: VENTOLIN HFA (PER PUFF-WITH SPACER) IH SCH ×3 (10:15→19:45)
[2019-12-10] MEDS: ATROVENT HFA INHALER (PER PUFF-WITH SPACER) IH SCH ×3 (10:15→19:47)
[2019-12-10] MEDS ORDERED: ATROVENT HFA INHALER (PER PUFF-WITH SPACER) IH SCH (12:00)
[2019-12-10] MEDS ORDERED: TORADOL IVP SCH (12:30)
[2019-12-10] MEDS: TORADOL IVP SCH (16:52)
[2019-12-10] MEDS: PROTONIX PO SCH (16:52)
[2019-12-10] MEDS: HYTRIN PO SCH (21:09)
[2019-12-10] MEDS: NORVASC PO SCH (21:09)
[2019-12-10] MEDS: XANAX PO SCH (21:10)
[2019-12-11] MEDS: TORADOL IVP SCH ×2 (00:15→12:16)
[2019-12-11] MEDS: VENTOLIN HFA (PER PUFF-WITH SPACER) IH SCH ×4 (04:45→19:50)
[2019-12-11] MEDS: ATROVENT HFA INHALER (PER PUFF-WITH SPACER) IH SCH ×4 (04:52→19:52)
[2019-12-11 05:07] LABS: HEMATOCRIT 40.1 % (42.0-52.0)
[2019-12-11] MEDS: PROTONIX PO SCH ×2 (05:52→17:44)
[2019-12-11] MEDS: LOVENOX SUBCUT SCH (08:20)
[2019-12-11] MEDS: K-DUR PO SCH (08:20)
[2019-12-11] MEDS: ASPIRIN CHEWABLE PO SCH (08:20)
[2019-12-11] MEDS: PROSCAR PO SCH (08:21)
[2019-12-11] MEDS: BETAPACE PO SCH ×2 (08:21→21:01)
[2019-12-11] MEDS: SODIUM CHLORIDE 1,000 ML IV SCH (09:56)
--- NOTE | 2019-12-11 15:54 | CT ---
Exam: CT lumbar spine without contrast Date: 12/11/2019 Comparison: MRI lumbar spine 09/15/2018 History: Low back pain TECHNIQUE: Axial CT images through the lumbar spine were obtained without IV contrast. Multiplanar reconstructed images were obtained. FINDINGS: There is a chronic moderate compression fracture of L4 vertebral body with worsening height loss of L4 body since 09/15/2018. There is 50% height loss of L4 vertebral body. Chronic mild post erior wedging of L5 body unchanged. Chronic mild anterior wedging of L1 unchanged. There is grade 1 retrolisthesis of L5 on S1 unchanged. There is disc height narrowing at L3-4 and L5-S1 unchanged. A benign hemangioma is seen throughout most of the L1 vertebral body unchanged. Nonobstructing bila teral renal calculi measuring 2 mm on the right and 1 mm of the left seen. L1-2: Mild bilateral facet hypertrophy. Mild diffuse disc bulge. No significant central spinal can al or neural foramen stenosis. L2-L3: moderate bilateral facet and ligamentous hypertrophy and a mild diffuse disc bulge. No signif icant central spinal canal stenosis. There is mild bilateral neural foramen stenosis. L3-L4: severe bilateral facet and ligamentous hypertrophy and congenitally short pedicles. There is a moderate diffuse disc bulge. There is severe central spinal canal stenosis. There is mild left an d moderate right neural foramen stenosis. L4-5: Moderate bilateral facet ligamentous hypertrophy. There is a moderate diffuse disc bulge. Th ere are congenitally short pedicles. There is moderate central spinal canal stenosis. There is no s ignificant neural foraminal stenosis. L5-S1: severe right and moderate to severe left facet hypertrophy. There is a small broad-based oste ophyte - disc complex. There is no significant central spinal canal stenosis. There is moderate maria elena ateral neural foramen stenosis. Impression: 1. No acute bony abnormality. 2. Chronic compression fracture of L4 vertebral body with interval worsening height loss since 09/15. 3. 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
[2019-12-11] MEDS: NORVASC PO SCH (21:00)
[2019-12-11] MEDS: HYTRIN PO SCH (21:02)
[2019-12-11] MEDS: XANAX PO SCH (21:02)
[2019-12-12] MEDS: SODIUM CHLORIDE 1,000 ML IV SCH ×2 (00:29→13:23)
[2019-12-12] MEDS: TORADOL IVP SCH ×4 (00:37→20:48)
[2019-12-12] MEDS: VENTOLIN HFA (PER PUFF-WITH SPACER) IH SCH ×4 (04:50→19:35)
[2019-12-12] MEDS: ATROVENT HFA INHALER (PER PUFF-WITH SPACER) IH SCH ×4 (04:52→19:37)
[2019-12-12 04:53] LABS: HEMATOCRIT 38.4 % (42.0-52.0)
[2019-12-12] MEDS: PROTONIX PO SCH ×2 (06:11→16:09)
--- NOTE | 2019-12-12 08:42 | PCM.PROG ---
Attending Provider: ATTENDING PROVIDER: Dr. FRANCISCO HERNANDEZ DATE OF SERVICE: 12/12/19 SUBJECTIVE: This 84 year old /WHITE M was hospitalized 12/10/19 with right flank right paravertebral pain, mostly positional, standing up makes it worse. Duration now for several weeks. CT scan of the lumbar spine showed that he has L4 compression fracture with severe DJD spine. Will do chest x-ray and rib x-rays. REVIEW OF SYSTEMS: CONSTITUTIONAL: No night sweats. No fatigue, malaise, lethargy. No fever or chills. HEENT: Eyes: No visual changes. No eye pain. No eye discharge. ENT: No runny nose. No epistaxis. No sinus pain. No odynophagia. No congestion. RESPIRATORY: No cough, no congestion. No hemoptysis. No shortness of breath. CARDIOVASCULAR: No angina symptoms. No CHF symptoms. No atypical chest pain for CAD. No palpitations. No orthopnea.. GASTROINTESTINAL: No abdominal pain. No nausea or vomiting. No diarrhea or constipation. No hematemesis. No hematochezia. GENITOURINARY: No urgency. No frequency. No dysuria. No hematuria. No obstructive symptoms. No discharge. No pain. No significant abnormal bleeding. MUSCULOSKELETAL: Mild discomfort right paravertebral area. NEUROLOGICAL: Awake, alert, oriented to time, place and person. No headache. No neck pain. No syncope. No seizures. No dizziness. PSYCHIATRIC: Not anxious. No depression. No suicidal thoughts. No homicidal thoughts. SKIN: No rash. No lesions. No wounds. ENDOCRINE: No unexplained weight loss. No weight gain. HEMATOLOGIC/LYMPHATIC: No anemia. No purpura. No petechiae. No prolonged or excessive bleeding. No palpable lymph nodes. PHYSICAL EXAMINATION: GENERAL: The patient is awake, alert and oriented, lying/sitting in bed in no distress. VITAL SIGNS: Temperature 97.3 F, Pulse 56, Respiratory Rate 18, BP 142/74, Pulse Ox 94% HEENT: Head normocephalic, atraumatic. Eyes: Extraocular muscles are intact. Pupils are equal, round and reactive to light and accommodation. Ears: No lesions. Nose appeared normal. Throat: No exudate or erythema. NECK: Supple. No JVD, no carotid bruit. No lymphadenopathy or thyromegaly. LUNGS: Clear to auscultation. Percussion note normal. Chest symmetrical. HEART: S1, S2, no S3. No murmurs. No cyanosis or clubbing. No ascites. Pulses: Dorsalis pedis and posterior tibial pulses +1 to +2 both sides. ABDOMEN: Soft. Non-tender. Bowel sounds active. No CVA tenderness. No mass felt. EXTREMITIES: No edema. Full range of motion of all extremities, equal. NEUROLOGIC: No focal deficit. Cranial nerves II through XII are grossly intact. No headache, no double vision or headache. SKIN: Warm and dry. Intact. Turgor-normal. LYMPHATIC: No palpable lymph nodes/no lymphedema. MUSCULOSKELETAL: Normal joints with no swelling. Muscle tone is normal. LAB REVIEW: 12/12/19 04:40 12/12/19 04:40 12/12/19 04:40: Sodium 139.7, Potassium 3.68, Chloride 110.2 H, Carbon Dioxide 26.4, Anion Gap 6.78, BUN 12.8, Creatinine 0.74, Estimated GFR (MDRD) 101.00, BUN/Creatinine Ratio 17.29, Glucose 87.9, Calcium 8.58, Total Bilirubin 0.42, AST 22.0, ALT 14.7, Alkaline Phosphatase 75.5, Total Protein 6.16 L, Albumin 3.05 L, Globulin 3.11, Albumin/Globulin Ratio 0.98 12/12/19 04:40: WBC 5.77, RBC 4.38 L, Hgb 13.0 L, Hct 38.4 L, MCV 87.7, MCH 29.7, MCHC 33.9, RDW Coeff of Bernadette 13.2, Plt Count 190, Immature Gran % (Auto) 0.2, Neut % (Auto) 64.7, Lymph % (Auto) 20.5, [place] % (Auto) 9.9, Eos % (Auto) 3.5, Baso % (Auto) 1.2, Neut # (Auto) 3.7, Lymph # (Auto) 1.2, [place] # (Auto) 0.6, Eos # (Auto) 0.2, Baso # (Auto) 0.1, Immature Gran # (Auto) 0.0 12/11/19 04:49: TSH 4.320 ASSESSMENT: Please see below. 1. Right paravertebral pain with compression fracture L4. 2. Severe DJD L-spine. 3. Nephrolithiasis stable bilaterally. 4. No evidence of bowel obstruction. 5. Appetite is fair. PLAN: 1. Toradol 30 mg IV q.12hr for pain along with 1/2 cc Decadron. The patient's son is in the room and the case discussed. Plan and coordination of the patient's care discussed in the presence of Compliance Counsel and nurse. CONDITION: Stable SCRIBED BY: STEWART TYLER Insect Control Aide scribed while in presence of service performed by Dr. FRANCISCO HERNANDEZ on 12/12/19 ([id number])
[2019-12-12] MEDS ORDERED: HYDROCHLOROTHIAZIDE PO SCH (09:00)
[2019-12-12] MEDS ORDERED: COZAAR PO SCH (09:00)
[2019-12-12] MEDS ORDERED: DECADRON 4 MG/ML SDV IVP ONE (09:00)
[2019-12-12] MEDS: LOVENOX SUBCUT SCH (09:46)
[2019-12-12] MEDS: ASPIRIN CHEWABLE PO SCH (09:47)
[2019-12-12] MEDS: PROSCAR PO SCH (09:47)
[2019-12-12] MEDS: K-DUR PO SCH (09:48)
[2019-12-12] MEDS: BETAPACE PO SCH ×2 (09:48→20:43)
--- NOTE | 2019-12-12 10:25 | HP ---
DATE OF SERVICE: 12/10/19 HISTORY OF PRESENT ILLNESS: 84-year-old white male hospitalized with right flank pain which was moderate to severe. The pain is more on the backside of the right flank, seems to be right paraspinal upper lumbar subcostal area. The patient has been working outside and weed eating. The pain was really worse at night with nausea. The patient had a bowel movement yesterday. The patient in the emergency room was given Morphine Sulfate that helped him a lot. At the time when I examined the patient in the room, he was quite comfortable. PAST MEDICAL HISTORY: Recurrent small bowel obstruction Hypertension Coronary artery disease Atrial fibrillation Asthma Reflux disease COPD TIA CAD with stent application PAST SURGICAL HISTORY: Cholecystectomy Appendectomy Total knee replacement Right lumbar surgery 1974 REVIEW OF SYSTEMS: CONSTITUTIONAL: No weakness. No night sweats. No fatigue, malaise, lethargy. No fever or chills. HEENT: Eyes: No visual changes. No eye pain. No eye discharge. ENT: No runny nose. No epistaxis. No sinus pain. No sore throat. No odynophagia. No ear pain. No congestion. RESPIRATORY: No cough, no congestion. No hemoptysis. No shortness of breath. CARDIOVASCULAR: No angina symptoms. No CHF symptoms. No atypical chest pain for CAD. No palpitations. No PND. No orthopnea. GASTROINTESTINAL: The patient has right flank, right back pain, paraspinal lumbar area going around in a girdle type of fashion. Mild nausea with the pain but no vomiting. He had BM yesterday. Appetite normal. No diarrhea or constipation. No hematemesis. No hematochezia. GENITOURINARY: No urgency. No frequency. No dysuria. No hematuria. No obstructive symptoms. No discharge. No pain. No significant abnormal bleeding. MUSCULOSKELETAL: No musculoskeletal pain. No joint swelling. No arthritis. NEUROLOGICAL: No headache. No neck pain. No syncope. No seizures. No dizziness. PSYCHIATRIC: Not anxious. No depression. No suicidal thoughts. No homicidal thoughts. SKIN: No rash. No lesions. No wounds. ENDOCRINE: No unexplained weight loss. No weight gain. HEMATOLOGIC/LYMPHATIC: No anemia. No purpura. No petechiae. No prolonged or excessive bleeding. No palpable lymph nodes. PERSONAL/FAMILY/SOCIAL HISTORY: The patient is , lives by himself. He does all activity of daily living, very active. Nonsmoker, no alcohol abuse. MEDICATIONS: Terazosin Xanax Aspirin Dulera Pantoprazole Amlodipine Potassium Losartan Hydrochlorothiazide Ipratropium Albuterol nebulizer Sotalol ALLERGIES: STADOL, DILAUDID, DEMEROL PHYSICAL EXAMINATION: GENERAL: The patient is oriented to time, place and person. VITAL SIGNS: Temperature 97.6, pulse 50, respiratory rate 19, BP 149/78, pulse ox 95%. HEENT: Head normocephalic, atraumatic. Eyes: Extraocular muscles are intact. Pupils are equal, round and reactive to light and accommodation. Ears: No lesions. Nose appeared normal. Throat: No exudate or erythema. NECK: Supple. No JVD, no carotid bruit. No lymphadenopathy or thyromegaly. LUNGS: Decreased breath sounds but clear to auscultation. Percussion note normal. Chest symmetrical. HEART: S1, S2, no S3. No murmur. No cyanosis or clubbing. No ascites. Pulses: Dorsalis pedis and posterior tibial pulses +1 to +2 bilaterally. ABDOMEN: Soft. Nontender. Bowel sounds active. No CVA tenderness. No mass felt. EXTREMITIES: No edema. Full range of motion of all extremities, equal. NEUROLOGIC: No focal deficit. Cranial nerves II through XII are grossly intact. No headache, no double vision or headache. SKIN: Not dry. Intact. Turgor - normal. LYMPHATIC: No palpable lymph nodes/no lymphedema. MUSCULOSKELETAL: Normal joints with no swelling. Muscle tone is normal. LABS: Hemoglobin 14.4, hematocrit 42, WBC 6,000, normal differential. Creatinine 0.8, BUN 17, potassium 3.9. Liver profile normal. Troponin, CK-MB, cardiac markers normal. Urine practically negative. CT scan of the abdomen showed no evidence of obstructive ureteral calculi. The patient has nonobstructing nephrolithiasis within kidneys. No bowel obstruction noted. Prostatic hypertrophy noted. EKG sinus bradycardia, no active changes. Telemetry sinus rhythm, occasional PVC. ASSESSMENT: 1. Right flank, right paravertebral upper lumbar area pain, likely musculoskeletal. Remote possibility of nephrolithiasis. No rash seen, doesn't seen to be herpes zoster. 2. History of recurrent bowel obstruction with no evidence of any intraabdominal problems at the present time. 3. Coronary artery disease with stent, 2007, 2009. 4. History of atrial fibrillation a long time ago. 5. History of bronchial asthma with chronic lung disease. 6. Hypertension. 7. Reflux disease. 8. History of TIA. 9. Total knee replacement, right side. 10. Status post lumbar surgery, 1974. 11. Cholecystectomy. 12. Appendectomy. 13. BPH PLAN: 1. The patient is to get IV Morphine every 3 to 4 hours for pain p.r.n. 2. Toradol 30 q.12 for pain. 3. Continue the rest of the medications. 4. Continue telemetry. 5. Will monitor the patient's status as far as bowel obstruction is concerned. He doesn't have it. He was just done eating his lunch when I examined him. He has no problem at the present time with abdominal pain or vomiting. Condition is stable. TIME SPENT: More than 70 minutes. MTDD
--- NOTE | 2019-12-12 11:26 | DI ---
EXAM: PA and lateral views of the chest HISTORY: Right-sided pain COMPARISON: Chest x-ray 09/17/2018 and right lateral rib x-rays same day FINDINGS: The cardiomediastinal silhouette is normal. There is no pneumothorax or pleural effusion. There is no consolidation, nodule or mass. The osseous structures demonstrate degenerative disease of the spine. IMPRESSION: No acute cardiopulmonary process or visualized fracture. Please see same day right rib x-rays for fu rther evaluation of the ribs. No acute consolidation.
--- NOTE | 2019-12-12 11:28 | DI ---
EXAM: Two views of the right ribs HISTORY: Right rib pain. COMPARISON: Chest x-ray same day and multiple priors FINDINGS: There is no cortical irregularity or fracture of the right ribs. There is no lytic or kevin tic lesion. The soft tissues are normal. IMPRESSION: No visualized fracture of the right ribs.
--- NOTE | 2019-12-12 14:21 | PN ---
DATE OF SERVICE: 12/11/19 SUBJECTIVE: The daughter is in the room. The patient is feeling good. When he took a shower he had pain on the right flank, especially right paravertebral area. When he lays down he doesn't have any pain. The patient's pain is positional likely from radiculopathy from lumbar area. Will do CT scan of the lumbar spine. REVIEW OF SYSTEMS: CONSTITUTIONAL: No night sweats. No fatigue, malaise, lethargy. No fever or chills. HEENT: Eyes: No visual changes. No eye pain. No eye discharge. ENT: No runny nose. No epistaxis. No sinus pain. No sore throat. No odynophagia. No congestion. RESPIRATORY: No cough, no congestion. No hemoptysis. No shortness of breath. CARDIOVASCULAR: No angina symptoms. No CHF symptoms. No atypical chest pain for CAD. No palpitations. No PND. No orthopnea. GASTROINTESTINAL: Appetite is normal. No abdominal pain. No nausea or vomiting. No diarrhea or constipation. No hematemesis. No hematochezia. GENITOURINARY: No urgency. No frequency. No dysuria. No hematuria. No obstructive symptoms. No discharge. No pain. No significant abnormal bleeding. MUSCULOSKELETAL: No musculoskeletal pain; no joint swelling. NEUROLOGICAL: No headache. No neck pain. No syncope. No seizures. No dizziness. PSYCHIATRIC: Not anxious. No depression. No suicidal thoughts. No homicidal thoughts. SKIN: No rash on the right flank area. No lesions. No wounds. ENDOCRINE: No unexplained weight loss. No weight gain. HEMATOLOGIC/LYMPHATIC: No anemia. No purpura. No petechiae. No prolonged or excessive bleeding. No palpable lymph nodes. PHYSICAL EXAMINATION: VITAL SIGNS: Temperature 98.5, pulse 50, respiratory rate 18, BP 150/70, pulse ox 93%. HEENT: Head normocephalic, atraumatic. Eyes: Extraocular muscles are intact. Pupils are equal, round and reactive to light and accommodation. Ears: No lesions. Nose appeared normal. Throat: No exudate or erythema. NECK: Supple. No JVD, no carotid bruit. No lymphadenopathy or thyromegaly. LUNGS: Clear to auscultation. Percussion note normal. Chest symmetrical. HEART: S1, S2, no S3. No murmurs. No cyanosis or clubbing. No ascites. Pulses: Dorsalis pedis and posterior tibial pulses +1 to +2 bilaterally. ABDOMEN: Soft. Nontender. Bowel sounds active. No CVA tenderness. No mass felt. EXTREMITIES: No edema. Full range of motion of all extremities, equal. NEUROLOGIC: No focal deficit. Cranial nerves II through XII are grossly intact. No headache, no double vision or headache. SKIN: Not dry. Intact. Turgor - normal. LYMPHATIC: No palpable lymph nodes/no lymphedema. MUSCULOSKELETAL: Normal joints with no swelling. Muscle tone is normal. LABS: Hemoglobin 13, hematocrit 40, WBC 4,500, normal differential. Creatinine 0.8, BUN 14, potassium 3.8. ASSESSMENT: 1. RIGHT PARAVERTEBRAL SUBCOSTAL AREA PAIN LIKELY MUSCULOSKELETAL OR COULD BE NEUROPATHY OR COMBINATION. 2. HISTORY OF RECURRENT SMALL BOWEL OBSTRUCTION. 3. CORONARY ARTERY DISEASE. 4. HYPERTENSION. 5. DYSLIPIDEMIA. PLAN: 1. Give T4, TSH because daughter feels like he is losing hair. 2. Will start him on soft, low residue diet. CONDITION: Otherwise stable. TIME SPENT: More than 30 minutes. Plan and coordination of the patient's care discussed in the presence of nurse. SHARON
[2019-12-12] MEDS: XANAX PO SCH (20:43)
[2019-12-12] MEDS: NORVASC PO SCH (20:43)
[2019-12-12] MEDS: HYTRIN PO SCH (20:43)
[2019-12-13] MEDS: SODIUM CHLORIDE 1,000 ML IV SCH ×2 (00:19→11:20)
[2019-12-13 04:28] LABS: HEMATOCRIT 38.7 % (42.0-52.0)
[2019-12-13] MEDS: VENTOLIN HFA (PER PUFF-WITH SPACER) IH SCH ×2 (05:15→09:50)
[2019-12-13] MEDS: TORADOL IVP SCH ×2 (05:16→12:50)
[2019-12-13] MEDS: ATROVENT HFA INHALER (PER PUFF-WITH SPACER) IH SCH ×2 (05:17→09:49)
[2019-12-13 05:49] VITALS: BP 154/73; TEMP 97.7
[2019-12-13] MEDS: PROTONIX PO SCH (06:04)
[2019-12-13] MEDS ORDERED: DECADRON 4 MG/ML SDV IM STA (08:10)
[2019-12-13] MEDS: ASPIRIN CHEWABLE PO SCH (09:23)
[2019-12-13] MEDS: PROSCAR PO SCH (09:24)
[2019-12-13] MEDS: K-DUR PO SCH (09:25)
[2019-12-13] MEDS: BETAPACE PO SCH (09:25)
--- NOTE | 2019-12-13 09:26 | PCM.PROG ---
Attending Provider: ATTENDING PROVIDER: Dr. FRANCISCO HERNANDEZ This patient is seen with Anjelica Dewey, Nurse Practitioner. DATE OF SERVICE: 12/13/19 SUBJECTIVE: This 84 year old /WHITE M was hospitalized 12/10/19. Back and flank pain has improved. Ready to go home. X-ray is normal mostly musculoskeletal. He has been up and about. REVIEW OF SYSTEMS: CONSTITUTIONAL: No night sweats. No fatigue, malaise, lethargy. No fever or chills. HEENT: Eyes: No visual changes. No eye pain. No eye discharge. ENT: No runny nose. No epistaxis. No sinus pain. No odynophagia. No congestion. RESPIRATORY: No cough, no congestion. No hemoptysis. No shortness of breath. CARDIOVASCULAR: No angina symptoms. No CHF symptoms. No atypical chest pain for CAD. No palpitations. No orthopnea.. GASTROINTESTINAL: No abdominal pain. No nausea or vomiting. No diarrhea or constipation. No hematemesis. No hematochezia. GENITOURINARY: No urgency. No frequency. No dysuria. No hematuria. No obstruct renetta symptoms. No discharge. No pain. No significant abnormal bleeding. MUSCULOSKELETAL: No musculoskeletal pain; no joint swelling. Back pain. NEUROLOGICAL: Awake, alert, oriented to time, place and person. No headache. No neck pain. No syncope. No seizures. No dizziness. PSYCHIATRIC: Not anxious. No depression. No suicidal thoughts. No homicidal thoughts. SKIN: No rash. No lesions. No wounds. ENDOCRINE: No unexplained weight loss. No weight gain. HEMATOLOGIC/LYMPHATIC: No anemia. No purpura. No petechiae. No prolonged or excessive bleeding. No palpable lymph nodes. PHYSICAL EXAMINATION: GENERAL: The patient is awake, alert and oriented, lying in bed in no distress. VITAL SIGNS: Temperature 97.7 F, Pulse 62, Respiratory Rate 20, BP 154/73, Pulse Ox 93% HEENT: Head normocephalic, atraumatic. Eyes: Extraocular muscles are intact. Pupils are equal, round and reactive to light and accommodation. Ears: No lesions. Nose appeared normal. Throat: No exudate or erythema. NECK: Supple. No JVD, no carotid bruit. No lymphadenopathy or thyromegaly. LUNGS: Diminished breath sounds. Clear to auscultation. Percussion note normal. Chest symmetrical. HEART: S1, S2, no S3. No murmurs. No cyanosis or clubbing. No ascites. Pulses: Dorsalis pedis and posterior tibial pulses +1 to +2 both sides. ABDOMEN: Soft. Non-tender. Bowel sounds active. No CVA tenderness. No mass felt. EXTREMITIES: No edema. Full range of motion of all extremities, equal. NEUROLOGIC: No focal deficit. Cranial nerves II through XII are grossly intact. No headache, no double vision or headache. SKIN: Not dry. Intact. Turgor-normal. LYMPHATIC: No palpable lymph nodes/no lymphedema. MUSCULOSKELETAL: Normal joints with no swelling. Muscle tone is normal. LAB REVIEW: 12/13/19 04:25 12/13/19 04:25 12/13/19 04:25: Sodium 138.1, Potassium 3.67, Chloride 109.5 H, Carbon Dioxide 24.7, Anion Gap 7.57, BUN 13.2, Creatinine 0.74, Estimated GFR (MDRD) 101.00, BUN/Creatinine Ratio 17.83, Glucose 103.3, Calcium 8.73, Total Bilirubin 0.45, AST 21.4, ALT 12.9, Alkaline Phosphatase 73.0, Total Protein 6.32, Albumin 3.18 L, Globulin 3.14, Albumin/Globulin Ratio 1.01 12/13/19 04:25: WBC 7.35, RBC 4.47 L, Hgb 13.3 L, Hct 38.7 L, MCV 86.6, MCH 29.8, MCHC 34.4, RDW Coeff of Bernadette 13.2, Plt Count 186, Immature Gran % (Auto) 0.3, Neut % (Auto) 78.0 H, Lymph % (Auto) 13.3, [place] % (Auto) 8.0, Eos % (Auto) 0.1, Baso % (Auto) 0.3, Neut # (Auto) 5.7, Lymph # (Auto) 1.0, [place] # (Auto) 0.6, Eos # (Auto) 0.0, Baso # (Auto) 0.0, Immature Gran # (Auto) 0.0 12/11/19 04:49: Thyroxine (T4) 6.2 ASSESSMENT: Please see below. 1. Right flank pain radiating from back 2. History of compression fracture 3. Hypertension 4. Anxiety 5. Polyarthritis PLAN: 1. Discharge home 2. Prednisone 10mg daily for 5 days 3. 1/2cc Decadrone today 4. Tramadol 50mg BID PRN 5. Discharge home in stable condition. No mowing for the rest of this week. Plan and coordination of the patient's care discussed in the presence of [facility] [employer]unch[employer] Supervisor and nurse. SCRIBED BY: Dipak LILLY scribed while in presence of service performed by Dr. Hernandez/Anjelica Dewey APRN on 12/13/19 ([id number])
[2019-12-13] MEDS: LOVENOX SUBCUT SCH (09:28)
--- NOTE | 2019-12-13 11:51 | CM.DICTOOL ---
ADMISSION: 12/10/19 08:18 DISCHARGE: DECEMBER 13, 2019 DATE OF SERVICE: 12/13/19 FINAL DIAGNOSIS RT FLANK PAIN RADIATING FROM BACK = RADICULAR HISTORY OF COMPRESSION FRACTURE HYPERTENSION ANXIETY POLYARTHRITIS HX: ATRIAL FIBRILLATION- NOT RECENT CORONARY ARTERY DISEASE- STENT HYPERTENSION COPD ASTHMA TIA RECURRENT SMALL BOWEL OBSTRUCTION REFLUX DISEASE BPH SURGICAL HISTORY: CHOLECYSTECTOMY APPENDECTOMY RT TOTAL KNEE REPLACEMENT LUMBAR SURGERY 1974 LAST VITALS Temp Pulse Resp BP Pulse Ox 97.7 F 62 20 154/73 H 93 L 12/13/19 05:48 12/13/19 05:48 12/13/19 05:48 12/13/19 05:48 12/13/19 05:48 TAKE THESE MEDICATIONS AT HOME Alprazolam (Xanax) 0.5 mg [facility] Last Admin: 12/12/19 20:43 Dose: 0.5 mg Documented by: Amlodipine Besylate (Norvasc) 5 mg PO [facility] Last Admin: 12/12/19 20:43 Dose: 5 mg Aspirin (Aspirin Chewable) 81 mg PO [facility]ILY[facility] Last Admin: 12/13/19 09:23 Dose: 81 mg Finasteride (Proscar) 5 mg PO DAILY [facility] Last Admin: 12/13/19 09:24 Dose: 5 mg Hydrochlorothiazide (Hydrochlorothiazide) 6.25 mg PO MOWEFR [facility] Last Admin: 12/12/19 09:47 Dose: 6.25 MG Losartan Potassium (Cozaar) 50 mg PO [facility] Last Admin: 12/12/19 09:48 Dose: 50 mg Non-Formulary Medication (Mometasone-Formoterol [Dulera]) 2 inh IH BID PRN PRN Reason: Wheezing Pantoprazole Sodium (Protonix) 40 mg PO [facility]AC [facility] Last Admin: 12/13/19 06:04 Dose: 40 mg Potassium Chloride (K-Dur) 20 meq PO DAILY[facility] Last Admin: 12/13/19 09:25 Dose: 20 meq Sotalol HCl (Betapace) 40 mg PO BID [facility] Last Admin: 12/13/19 09:25 Dose: 40 mg Terazosin HCl (Hytrin) 5 mg PO [facility]TIME [facility] Last Admin: 12/12/19 20:43 Dose: 5 mg IPRATROPIUM - ALBUTEROL 1 VIAL PER NEBULIZER TID PRN PREDNISONE 10 MG PO DAILY WITH FOOD X 5 DAYS , START 12/14/2019 --- ( NEW) TRAMADOL 50 MG PO BID PRN --- ( NEW) ALLERGIES butorphanol tartrate [From Stadol] Adverse Reaction (Verified 12/10/19 07:01) Dizziness hydromorphone HCl [From Dilaudid] Adverse Reaction (Verified 12/10/19 07:01) Unknown meperidine HCl [From Demerol] Adverse Reaction (Verified 12/10/19 07:01) Dizziness DISCONTINUED MEDICATIONS NONE NEW PRESCRIPTIONS: PREDNISONE 10 MG PO DAILY WITH FOOD X 5 DAYS , START 12/14/2019 TRAMADOL 50 MG PO BID PRN SMOKING: NON- APPLICABLE DISEASE SPECIFIC EDUCATION: BACK FRACTURE PAIN ARTHRITIS ANXIETY HYPERTENSION COVID LAB REVIEW: 12/13/19 04:25 12/13/19 04:25 12/13/19 04:25: Sodium 138.1, Potassium 3.67, Chloride 109.5 H, Carbon Dioxide 24.7, Anion Gap 7.57, BUN 13.2, Creatinine 0.74, Estimated GFR (MDRD) 101.00, BUN/Creatinine Ratio 17.83, Glucose 103.3, Calcium 8.73, Total Bilirubin 0.45, AST 21.4, ALT 12.9, Alkaline Phosphatase 73.0, Total Protein 6.32, Albumin 3.18 L, Globulin 3.14, Albumin/Globulin Ratio 1.01 12/13/19 04:25: WBC 7.35, RBC 4.47 L, Hgb 13.3 L, Hct 38.7 L, MCV 86.6, MCH 29.8, MCHC 34.4, RDW Coeff of Bernadette 13.2, Plt Count 186, Immature Gran % (Auto) 0.3, Neut % (Auto) 78.0 H, Lymph % (Auto) 13.3, [place] % (Auto) 8.0, Eos % (Auto) 0.1, Baso % (Auto) 0.3, Neut # (Auto) 5.7, Lymph # (Auto) 1.0, [place] # (Auto) 0.6, Eos # (Auto) 0.0, Baso # (Auto) 0.0, Immature Gran # (Auto) 0.0 12/11/19 04:49: Thyroxine (T4) 6.2 PLAN: DISCHARGE HOME TODAY, December ACTIVITY: NO STRENOUS ACTIVITY OR MOWING WITH OLD LAWNMOWER UNTIL RELEASED BY DOCTOR USE WALKING CANE WHEN NEEDED DIET: SOFT LOW FIBER FOLLOW UP: SEE DR. HERNANDEZ/ CLAUDIA FINN APRN/ OSMAN KNIGHT APRN IN THE OFFICE DECEMBER 23, 2019 @ 245 PM CODE STATUS: FULL CODE MR. ALBRIGHT IS ALERT AND ORIENTED X 4. IS UP TOLERATED INDEPENDENTLY, HAS LOWER BACK PAIN AND BURNING TO RT FLANK WITH CERTAIN ACTIVITIES AND WHEN STANDING LONG. RECOMMENDED USING A STRAIGHT CANE FOR CERTAIN ACTIVITIES THAT DO NOT ALLOW SOMETHING TO HOLD ON TO WHEN CHANGING POSITIONS. PRESCRIPTION PROVIDED AND TO HAVE [employer] TO MEASURE FOR DUE TO BEING 6' 5 ", REFUSED TO HAVE CANE ARRANGED FOR NOW. NUTRITIONAL AND FLUID INTAKE GOOD. SKIN WARM AND DRY AND INTACT. CONTINENT OF BOWEL AND BLADDER. LAST BM 12/12/2019. LIVES ALONE, INDEPENDENT WITH IADLS AND ADLS AND DOES NOT WANT ANY FURTHER ASSISTANCE. SON LIVES NEARBY AND FREQUENTS HIS HOME. DAUGHTER ALSO HELPS. MD CLAUDIA MOBLEY APRN ALYCE HANNAN, APRN
--- NOTE | 2019-12-13 13:34 | PN ---
DATE OF SERVICE: 12/13/19 SUBJECTIVE: The patient was seen and examined today. The patient has pain which is much less. The patient's pain is musculoskeletal. X-rays didn't show any fracture. L- spine shows compression fracture at L4, could be part of problem. He needs to limit his activity. Cardiovascular and GI status stable. He will be discharged home on 12/13/19. CONDITION: Stable. TIME SPENT: More than 30 minutes. Plan and coordination of the patient's care discussed in the presence of nurse. SHARON
--- NOTE | 2019-12-13 13:36 | PN ---
BILLING 12/10/19 ADMISSION DAY LEVEL 5 12/11/19 INTERMEDIATE 12/12/19 INTERMEDIATE 12/13/19 DISCHARGE MTDD
--- NOTE | 2019-12-13 13:49 | DS ---
DATE OF SERVICE: 12/13/19 FINAL DIAGNOSIS: 1. RT FLANK PAIN RADIATING FROM BACK = RADICULAR 2. HISTORY OF COMPRESSION FRACTURE 3. HYPERTENSION 4. ANXIETY 5. POLYARTHRITIS HX: 6. ATRIAL FIBRILLATION- NOT RECENT 7. CORONARY ARTERY DISEASE- STENT 8. HYPERTENSION 9. COPD 10. ASTHMA 11. TIA 12. RECURRENT SMALL BOWEL OBSTRUCTION 13. REFLUX DISEASE 14. BPH SURGICAL HISTORY: 15. CHOLECYSTECTOMY 16. APPENDECTOMY 17. RT TOTAL KNEE REPLACEMENT 18. LUMBAR SURGERY 1974 LAST VITALS Temp Pulse Resp BP Pulse Ox 97.7 F 62 20 154/73 H 93 L 12/13/19 05:48 12/13/19 05:48 12/13/19 05:48 12/13/19 05:48 12/13/19 05:48 DISCHARGE INSTRUCTIONS: 1. DISCHARGE HOME TODAY, December 2. MD FOLLOW UP: SEE DR. HERNANDEZ/ CLAUDIA FINN APRN/ OSMAN KNIGHT APRN IN THE OFFICE DECEMBER 23, 2019 @ 245 PM. 3. CODE STATUS: FULL CODE MEDICATIONS AT DISCHARGE: Alprazolam (Xanax) 0.5 mg PO BEDTIME [facility] Last Admin: 12/12/19 20:43 Dose: 0.5 mg Documented by: Amlodipine Besylate (Norvasc) 5 mg PO BEDTIME [facility] Last Admin: 12/12/19 20:43 Dose: 5 mg Aspirin (Aspirin Chewable) 81 mg PO DAILYWM [facility] Last Admin: 12/13/19 09:23 Dose: 81 mg Finasteride (Proscar) 5 mg PO DAILY [facility] Last Admin: 12/13/19 09:24 Dose: 5 mg Hydrochlorothiazide (Hydrochlorothiazide) 6.25 mg PO MOWEFR [facility] Last Admin: 12/12/19 09:47 Dose: 6.25 MG Losartan Potassium (Cozaar) 50 mg PO MOWEFR [facility] Last Admin: 12/12/19 09:48 Dose: 50 mg Non-Formulary Medication (Mometasone-Formoterol ) 2 inh IH BID PRN PRN Reason: Wheezing Pantoprazole Sodium (Protonix) 40 mg PO BIDAC [facility] Last Admin: 12/13/19 06:04 Dose: 40 mg Potassium Chloride (K-Dur) 20 meq PO DAILYWM [facility] Last Admin: 12/13/19 09:25 Dose: 20 meq Sotalol HCl (Betapace) 40 mg PO BID [facility] Last Admin: 12/13/19 09:25 Dose: 40 mg Terazosin HCl (Hytrin) 5 mg PO BEDTIME [facility] Last Admin: 12/12/19 20:43 Dose: 5 mg IPRATROPIUM - ALBUTEROL 1 VIAL PER NEBULIZER TID PRN PREDNISONE 10 MG PO DAILY WITH FOOD X 5 DAYS , START 12/14/2019 --- ( NEW) TRAMADOL 50 MG PO BID PRN --- ( NEW) NEW PRESCRIPTIONS: PREDNISONE 10 MG PO DAILY WITH FOOD X 5 DAYS , START 12/14/2019 TRAMADOL 50 MG PO BID PRN DISCONTINUED MEDICATIONS: NONE DIET INSTRUCTIONS: SOFT LOW FIBER ACTIVITY: NO STRENOUS ACTIVITY OR MOWING WITH OLD LAWNMOWER UNTIL RELEASED BY DOCTOR USE WALKING CANE WHEN NEEDED SMOKING: NON- APPLICABLE DISEASE SPECIFIC EDUCATION: BACK FRACTURE PAIN ARTHRITIS ANXIETY HYPERTENSION [facility] COURSE: Mr. Fu was hospitalized with right flank pain and right paravertebral pain with radiculopathy type of symptoms, was ruled out to have intermittent small bowel obstruction. CT scan was negative for any acute abdominal process. He was treated with IV Toradol. Steroid shot was given. Morphine was used initially for the pain. The patient's pain is more or less under control. He is to be discharged home on Toradol to be taken with Tylenol. Also he was advised to take Prednisone as prescribed. The patient is up and about and his condition is stable. TIME SPENT: More than 60 minutes. MTDD
== END 2019-12-13 12:45 | disposition home or self-care (01) | DRG 552 ==
LOC: ED 06:55 → MEDSURG B 08:18
PROVIDERS: ADMIT Internal Medicine; ATTEND Internal Medicine
DX: Z79.899 Other long term (current) drug therapy; M54.16 Radiculopathy, lumbar region; Z87.311 Personal history of (healed) other pathological fracture; N40.1 Benign prostatic hyperplasia with lower urinary tract symptoms; K21.9 Gastro-esophageal reflux disease without esophagitis; I10 Essential (primary) hypertension; M54.9 Dorsalgia, unspecified; R11.0 Nausea; Z86.73 Personal history of transient ischemic attack (TIA), and cerebral infarction without residual deficits; J44.9 Chronic obstructive pulmonary disease, unspecified; R10.9 Unspecified abdominal pain; M13.0 Polyarthritis, unspecified; Z87.19 Personal history of other diseases of the digestive system; Z95.5 Presence of coronary angioplasty implant and graft; I25.10 Atherosclerotic heart disease of native coronary artery without angina pectoris; Z51.81 Encounter for therapeutic drug level monitoring; F41.9 Anxiety disorder, unspecified

== ENCOUNTER 2024-07-28 09:10 | Inpatient (IN) ==
--- NOTE | 2024-07-28 09:49 | DI ---
EXAM: CHEST RADIOGRAPH TECHNIQUE: Two views. Frontal and lateral. HISTORY: Cough. COMPARISON: 03/02/2021 and older studies. FINDINGS: The lungs are mildly hyperexpanded. Prominent bilateral nipple shadows. Tiny calcified granuloma of t he left mid lung. Mild bibasilar atelectasis. No pulmonary infiltrate is identified. No pleural effusion or pneumothorax is seen. Heart size is normal. Patient is status post coronary artery stenting, as before. No acute displaced rib fractures are identified. Surgical clips in the right upper quadrant, again IMPRESSION: 1. No acute findings in the chest.
--- NOTE | 2024-07-28 09:52 | ED.PDOC ---
General ED Provider: Dr. NAVDEEP COX MD Chief Complaint: Respiratory Complaint Stated Complaint: 89 yo WM with chief complaint of chest congestion and not able to expectorate and some SOB. Been coughing for 2 weeks and seen in the office for 2 weeks. Cough is non-productive. Some wheezing. No fever or chills. No chest pain but some "tightness". No sore throat. Some sinus problem, No headache. Had flu and pneumonia shots. Hx of CAD with 3 stents, last one about 10 years ago. Had neg stress test 3-4 years ago. Hx of asthma, CHF, AFib, HTN. Recheck in the office on Thursday and given IM rocephin and continued Z-navdeep and oral prednisone. Have a nebulizer at home but no medicine. Was given a Breztri sample. Time Seen by Provider: 07/28/24 09:18 Mode of Arrival: Walk-In Information Source: Patient and Family Exam Limitations: No limitations Primary Care Provider: FRANCISCO PAULINO MD Referred to ED by: Clinic Seen Within Last 72 Hours for Same Complaint By: Clinic Nursing and Triage Documentation Reviewed and Agree: Yes Does Patient Take Opioids?: No What is Opioid Naive?: *Opioid Naive implies the patient is not already taking opioids or not chronically receiving opioids on a daily basis. *PRN dosing is not "usually" associated with tolerance. *Patients are at higher risk of over-sedation and aspiration. What is Opioid Tolerant?: *Opioid Tolerance implies less than the expected response to an opioid. *Acquired tolerance is defined by the patient taking 60mg of oral morphine daily (or equianalgesic dose of another opioid) for 1 week or more. *Often associated with chronic pain. *May take more than usual dose to achieve desired pain control. Review of Systems Review Of Systems Constitutional: Reports Loss of appetite; Denies Chills, Diaphoresis, Fever or Sweats Eyes: Reports No symptoms Ears, Nose, Mouth, Throat: Reports Nose discharge; Denies Ear pain or Throat swelling Respiratory: Reports Cough, Shortness of Breath and Wheezing Cardiac: Reports No symptoms GI: Denies Abdominal pain or Vomiting : Reports No symptoms Musculoskeletal: Reports Back pain (chronic ) Skin: Reports No symptoms Neurological: Reports No symptoms [facility] Medical History Arthritis M19.90 - Unspecified osteoarthritis, unspecified site (ICD-10) GERD (gastroesophageal reflux disease) K21.9 - Gastro-esophageal reflux disease without esophagitis (ICD-10) Asthma J45.909 - Unspecified asthma, uncomplicated (ICD-10) Hypertension I10 - Essential (primary) hypertension (ICD-10) Family History FATHER CHF (congestive heart failure) Mother Diabetes Social History Smoking and tobacco status: Never smoker Alcohol intake: never Substance use type: does not use Special lenka needs: No Agree to transfusion: Yes Adopted: No Caregiver/support person: No Foster care: No Household members: children Housing: house Marital status: W / Lives independently: Yes Number of children: 2 service: No Current occupational status: retired History of recent travel: No Do you think of yourself as: straight/heterosexual Current gender identity: male Seatbelt use: always Drives intoxicated or rides with intoxicated 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 Water heater temperature set < 120 degrees: Yes Working smoke detector in home: Yes Fire extinguisher in home: Yes Carbon monoxide detector in home: Yes Firearms in home: Yes Surgical History 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 Hay small bowel surgery Z98.890 - Other specified postprocedural states (ICD-10) Physical Exam Physical Exam Appearance: Reports Well-appearing, No pain distress and Well-nourished; Denies Ill-appearing Ill-appearing: None Pain Distress: Mild Eyes: Reports SHWETA and EOMI ENT: Reports Nose normal and Oropharynx normal Neck: Supple Respiratory: Reports Airway patent, Breath sounds equal, Respirations nonlabored and Rhonchi; Denies Wheezes Cardiovascular: Reports RRR, Pulses normal, No rub and No murmur GI/: Reports Soft, Nontender, No masses and Bowel sounds normal Musculoskeletal: Reports Normal strength, ROM intact, No edema and No calf tenderness Skin: Reports Warm, Dry, Normal color and Pale Neurological: Reports Sensation intact, Motor intact, Cranial nerves intact, Alert and Oriented Psychiatric: Reports Affect appropriate and Mood appropriate Interpretation EKG Interpretation EKG Interpretation By: ED Physician Time of EKG #1: 10:04 Rate: Normal and Claudio Rhythm: Sinus Ectopy: None [place]: Left ST Segment: Normal Interpretation: Sinus Claudio, leftward axis, Borderline EKG Course Course 07/28/24 09:56 07/28/24 09:56 Orders, Labs, Meds: Lab Review 07/28/24 07/28/24 07/28/24 09:45 09:56 12:41 WBC 11.78 H RBC 4.82 Hgb 14.3 Hct 44.0 MCV 91.3 MCH 29.7 MCHC 32.5 RDW Coeff of Bernadette 13.2 Plt Count 250 Immature Gran % (Auto) 0.6 Neut % (Auto) 81.8 H Lymph % (Auto) 7.6 L Glenn % (Auto) 9.7 Eos % (Auto) 0.1 Baso % (Auto) 0.2 Neut # (Auto) 9.7 H Lymph # (Auto) 0.9 Glenn # (Auto) 1.1 Eos # (Auto) 0.0 Baso # (Auto) 0.0 Immature Gran # (Auto) 0.1 Sodium 138.5 Potassium 4.19 Chloride 107.8 H Carbon Dioxide 23.3 Anion Gap 11.59 BUN 16.9 Creatinine 0.82 Estimated GFR (MDRD) 89.00 BUN/Creatinine Ratio 20.60 Glucose 111.2 H Calcium 8.38 L Total Bilirubin 0.80 AST 23.8 ALT 23.8 Alkaline Phosphatase 77.8 Troponin I < 0.012 < 0.012 NT-Pro-B Natriuret Pep 118 Total Protein 7.04 Albumin 3.67 Globulin 3.37 Albumin/Globulin Ratio 1.08 D-Dimer 583.70 H Influ A Molecular Assay Negative by naat Influ B Molecular Assay Negative by naat SARS CoV-2 RNA Rapid SALINAS Negative Orders Category Date Time Status EKG-(ED ONLY) Stat CARDIO 07/28/24 09:45 Completed NEBULIZER TREATMENT Stat CARDIO 07/28/24 11:51 Completed NPO REMINDER: IMAGING ONCE CARE 07/28/24 10:48 Completed Saline Lock [ED IV/MEDIPORT/POWERPORT] .ONCE EMERGENCY 07/28/24 10:47 Active CBC W/ AUTO DIFF Stat LAB 07/28/24 09:56 Completed CMP [COMPREHENSIVE METABOLIC PANEL] Stat LAB 07/28/24 09:56 Completed COVID [SARS COV-2 RNA RAPID SALINAS] Stat LAB 07/28/24 09:45 Completed D-DIMER Stat LAB 07/28/24 09:56 Completed FLU A & B MOLECULAR [FLU A/B MOLECULAR] Stat LAB 07/28/24 09:45 Completed NT-PROBNP(ED) Stat LAB 07/28/24 09:56 Completed TROPONIN I Stat LAB 07/28/24 09:56 Completed TROPONIN I Stat LAB 07/28/24 12:41 Completed 0.9 % Sodium Chloride [Saline Flush] Meds 07/28/24 10:47 Active 1 syr IVF PRN PRN Albuterol Sulfate 0.083% Neb [Albuterol 0.083% Neb] Meds 07/28/24 11:51 Discontinued 2.5 mg NEB ONCE STA Iohexol [Omnipaque 350 mg/ml 100Ml] Meds 07/28/24 11:11 Discontinued 100 ml IVP ONCE ONE Ipratropium/Albuterol Neb [Duoneb] Meds 07/28/24 09:45 Discontinued 3 ml NEB ONCE ONE Ondansetron HCl/Pf [Zofran Sdv] Meds 07/28/24 11:18 Discontinued 4 mg IVP ONCE ONE Sodium Chloride 0.9% [Sodium Chloride] 500 ml Meds 07/28/24 11:51 Discontinued IV BOLUS CHEST, 2 VIEWS PA & LAT Stat RADS 07/28/24 09:25 Completed CTA CHEST PE PROTOCOL Stat RADS 07/28/24 10:47 Completed Medications Generic Name Dose Route Start Last Admin Trade Name Freq PRN Reason Stop Dose Admin Sodium Chloride 1 syr 07/28/24 10:47 0.9% Sodium Chloride 10 Ml Disp.Syrin IVF PRN PRN To flush IV Discontinued Medications Generic Name Dose Route Start Last Admin Trade Name Migel PRN Reason Stop Dose Admin Albuterol Sulfate 2.5 mg 07/28/24 11:51 07/28/24 12:11 Albuterol Sulfate 0.083% Vial.[facility] 07/28/24 11:52 2.5 mg ONCE STA Administration Albuterol/Ipratropium 3 ml 07/28/24 09:45 07/28/24 09:56 Ipratropium/Albuterol Vial.[facility] 07/28/24 09:46 3 ml ONCE ONE Administration Sodium Chloride 500 mls @ 500 mls/hr 07/28/24 11:51 07/28/24 12:16 Sodium Chloride IV 07/28/24 12:50 500 mls/hr BOLUS ONE Administration Iohexol 100 ml 07/28/24 11:11 07/28/24 11:13 Iohexol 350 Mg/Ml 100ml IVP 07/28/24 11:12 100 ml ONCE ONE Administration Ondansetron HCl 4 mg 07/28/24 11:18 07/28/24 11:28 Ondansetron Hcl/Pf 4 Mg/2 Ml Sdv IVP 07/28/24 11:19 4 mg ONCE ONE Administration Vital Signs: Temp Pulse Resp BP Pulse Ox 07/28/24 09:17 96.9 F L 65 20 160/88 H 95 Discharge Plan Discharge Patient Disposition: PLACED OBSERVATION Discharge Problem: Chronic obstructive pulmonary disease with acute exacerbation Prescriptions: No Action alprazolam 0.5 mg tablet 0.5 mg PO BEDTIME Qty: 30 2RF sotalol 80 mg tablet 40 mg PO 2XD Qty: 90 1RF pantoprazole 40 mg tablet,delayed release (DR/EC) 40 mg PO 2XD Qty: 180 1RF potassium chloride 20 mEq tablet,ER particles/crystals 20 meq PO DAILY Qty: 90 1RF amlodipine 5 mg tablet 5 mg PO DAILY Qty: 90 1RF terazosin 5 mg capsule 5 mg PO DAILY Qty: 90 1RF finasteride 5 mg tablet 5 mg PO DAILY Qty: 90 1RF Breztri Aerosphere 160-9-4.8 mcg/actuation HFA aerosol inhaler 2 inh inhalation BID Qty: 10.7 2RF aspirin 81 mg tablet,delayed release (DR/EC) 81 mg PO QDAY azelastine 137 mcg (0.1 %) spray,non-aerosol 137 mcg intranasal BID Qty: 30 5RF Rx Instructions: administer into each nostril fluticasone propionate 50 mcg/actuation spray,suspension 1 spray intranasal BID Qty: 16 5RF Rx Instructions: administer into each nostril Did you review [place] [employer] [employer]OL OFFICER for ALL controlled substances?: Not Applicable ED Provider: NAVDEEP COX Condition: Fair Physician Progress Note: Discussed with patient and family and they preferred admisison as he have no relief with the coughing. CTA neg for PE but did showed some early pneumonia, that was not seen on routine portable CXR. Discussed with [facility] mid level provider and she said admission is ok if family and patient is concerned. Discussed with Nicki and will admit to OBS
[2024-07-28] MEDS: DUONEB NEB ONE (09:56)
[2024-07-28 10:00] LABS: BASOPHILS % (AUTO) 0.2 % (0.0-3.0); EOSINOPHILS % (AUTO) 0.1 % (0.0-7.0); HEMOGLOBIN 14.3 g/dl (14.0-18.0); IMMATURE GRANULOCYTE # (AUTO) 0.1 (0.0-1.0); IMMATURE GRANULOCYTE % (AUTO) 0.6 % (0.0-5.0); LYMPHOCYTES # (AUTO) 0.9 K/uL (0.60-3.4); LYMPHOCYTES % (AUTO) 7.6 (10.0-50.0); MEAN CORPUSCULAR HEMOGLOBIN 29.7 pg (27.0-31.0); MEAN CORPUSCULAR HGB CONC 32.5 (31.8-35.4); MEAN CORPUSCULAR VOLUME 91.3 fl (80.0-94.0); MONOCYTES # (AUTO) 1.1 K/uL (0.4-2.0); MONOCYTES % (AUTO) 9.7 (0-10); NEUTROPHILS # (AUTO) 9.7 K/ul (2.0-6.9); NEUTROPHILS % (AUTO) 81.8 % (42.2-75.2); PLATELET COUNT 250 10^3/uL (140-440); RDW COEFFICIENT OF VARIATION 13.2 % (11.6-14.8); RED BLOOD COUNT 4.82 10^6/ul (4.70-6.10); WHITE BLOOD COUNT 11.78 K/ul (4.2-10.2)
[2024-07-28 10:06] LABS: MOLECULAR FLU A NEGATIVE BY NAAT (NEGATIVE); MOLECULAR FLU B NEGATIVE BY NAAT (NEGATIVE); SARS COV-2 RNA RAPID NAAT NEGATIVE (NEGATIVE)
[2024-07-28 10:24] LABS: ALANINE AMINOTRANSFERASE 23.8 U/L (0-50); ALBUMIN 3.67 g/dL (3.5-5.0); ALKALINE PHOSPHATASE 77.8 U/L (56-119); ASPARTATE AMINO TRANSFERASE 23.8 U/L (17-59); BLOOD UREA NITROGEN 16.9 mg/dL (9-20); CALCIUM 8.38 mg/dL (8.4-10.2); CARBON DIOXIDE 23.3 mmol/L (22-30.0); CHLORIDE 107.8 mmol/L (98-107); CREATININE 0.82 mg/dL (0.60-1.10); GLUCOSE 111.2 mg/dL (74-106); POTASSIUM 4.19 mmol/L (3.5-5.1); SODIUM 138.5 mmol/L (134.5-145); TOTAL PROTEIN 7.04 g/dL (6.3-8.2)
[2024-07-28 10:36] LABS: TROPONIN I < 0.012 ng/ml (0.0000-0.120)
[2024-07-28] MEDS: OMNIPAQUE 350 MG/ML 100ML IVP ONE (11:13)
[2024-07-28] MEDS: ZOFRAN SDV IVP ONE (11:28)
[2024-07-28] MEDS: ALBUTEROL 0.083% NEB NEB STA (12:11)
[2024-07-28] MEDS: SODIUM CHLORIDE 500 ML IV ONE (12:16)
--- NOTE | 2024-07-28 13:16 | CT ---
EXAM: CHEST CTA WITH CONTRAST (PULMONARY ARTERY) HISTORY: Shortness of breath and cough. Elevated D-dimer. TECHNIQUE: CTA acquisition of the chest from the thoracic inlet to the upper abdomen following IV con trast administration timed to filling of the pulmonary artery. 3D/MIP/VR images were utilized. CT Dose Reduction Techniques Employed: Yes. COMPARISON: None. FINDINGS: Adequate opacification of the pulmonary arteries. No pulmonary embolism is identified. Mildly enlarge d right paratracheal node just above level of the azygous vein. Measures 1.4 cm in short axis dimensi on. Several calcified mediastinal and hilar nodes, secondary to old granulomatous disease. Borderline aneurysmal dilatation of the ascending aorta, maximum diameter 3.9 cm. Coronary artery calcification . Mild cardiomegaly. No significant pericardial fluid/thickening. No pleural fluid. Visualized portions of the upper abdomen included in this examination of the chest shows several punc mac calcifications at the pancreas, pachycephaly secondary to chronic pancreatitis. Patient is statu s post cholecystectomy. Couple of 3 under nonobstructing stones, 1 of each of the ports the visualize d kidneys. Lung window images show mild diffuse bronchial wall thickening. Debris in several subsegmental bronch i of both lower lobes. [id number] biapical focal fibrosis. Tree in bud nodularity, [id number] rate of both lower lobes, and mild of both upper lobes. Peribronchovascular nodular consolidation and groundglass, moderate of the left lower lobe Mod of the right lower lobe and lingula. Cerebral calci fied granulomas bilaterally. 5 mm pulmonary nodule in the right lower lobe on image Bone window images show no significant lytic or sclerotic bone lesions. Mild scoliosis, convex to the right. IMPRESSION: 1. No pulmonary embolism is identified. 2. Infectious bronchiolitis and pneumonia bilaterally, most pronounced in the lower lobes. Consider a spiration. 3. Mildly enlarged mediastinal node, and 5 mm pulmonary nodule in the right lower lobe. Follow up rou kareem CT chest in 3 months is recommended. All CT scans are performed using dose optimization techniques as appropriate to the performed exam an d include at least one of the following: Automated exposure control, adjustment of the mA and/or kV according t o size, and the use of iterative reconstruction technique.
--- NOTE | 2024-07-28 14:56 | PCM ---
Date of Service Date Seen by Provider: 07/28/24 Time Seen by Provider: 14:15 Admit Day/Time Admission Date: 07/28/24 Admission Time: 14:05 Reason for Admission Chief Complaint: COPD EXACERBATION Hospital Provider Hospital Provider: HAIDER CAZARES PA-C, [facility] [place] Primary Care Physician Primary Care Physician: FRANCISCO PAULINO MD History of Present Illness History of Present Illness: Patient is an 89 year old male with pmhx of asthma, CAD, bowel obstructions, pancreatitis, a fib, hyperlipidemia, hypertension, osteoarthritis who presents for ongoing cough and sob. Patient states it's been worsening over past 2 weeks. On 07/19 he was prescribed a zpak, prednisone and given decadron IM in the pcp office. On 07/25 he was given decadron and rocephin IM and continued on z payton and prednisone. He was also given a breztri inhaler which he has been trying without relief. States he continues to cough non stop. He denies choking or trouble swallowing. In the ER cxr negative but CTA showed maria elena pneumonia and bronchiolitis, consider aspiration. He is on RA. Admitted to med surg for failed outpatient treatment of CAP. Case Discussed With Case Discussed With: Patient's case was discussed with the ER Physicians, Dr. Brown. [facility] Medical History Arthritis M19.90 - Unspecified osteoarthritis, unspecified site (ICD-10) GERD (gastroesophageal reflux disease) K21.9 - Gastro-esophageal reflux disease without esophagitis (ICD-10) Asthma J45.909 - Unspecified asthma, uncomplicated (ICD-10) Hypertension I10 - Essential (primary) hypertension (ICD-10) Surgical History 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 Hay small bowel surgery Z98.890 - Other specified postprocedural states (ICD-10) Family History FATHER CHF (congestive heart failure) Mother Diabetes Social History Smoking and tobacco status: Never smoker Alcohol intake: never Substance use type: does not use Special lenka needs: No Agree to transfusion: Yes Adopted: No Caregiver/support person: No Foster care: No Household members: children Housing: house Marital status: W / Lives independently: Yes Number of children: 2 service: No Current occupational status: retired History of recent travel: No Do you think of yourself as: straight/heterosexual Current gender identity: male Seatbelt use: always Drives intoxicated or rides with intoxicated 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: No Water heater temperature set < 120 degrees: Yes Working smoke detector in home: Yes Fire extinguisher in home: Yes Carbon monoxide detector in home: Yes Firearms in home: Yes Allergies Allergies Allergy/AdvReac Type Severity Reaction Status Date / Time butorphanol tartrate (From AdvReac Dizziness Verified 07/28/24 09:21 Stadol) hydromorphone HCl (From AdvReac Unknown Verified 07/28/24 09:21 Dilaudid) meperidine HCl (From Demerol) AdvReac Dizziness Verified 07/28/24 09:21 Current Medications Home Medications Acetaminophen (Acetaminophen 325 Mg Tablet) 650 mg PO Q4H PRN PRN Reason: Mild Pain Albuterol/Ipratropium (Ipratropium/Albuterol Vial.Neb) 3 ml NEB RTQ6H PRN PRN Reason: Wheezing Benzonatate (Benzonatate 100 Mg Capsule) 100 mg PO TID PRN PRN Reason: Cough Doxycycline Hyclate (Doxycycline Hyclate 100 Mg Capsule) 100 mg PO Q12HR YANN Stop: 07/31/24 15:29 Ampicillin Sodium/Sulbactam (Sodium 3 gm/ Sodium Chloride) 100 mls @ 200 mls/hr IV Q6HR YANN Stop: 07/31/24 15:29 Ondansetron HCl (Ondansetron Hcl/Pf 4 Mg/2 Ml Sdv) 4 mg IVP Q6H PRN PRN Reason: Nausea / Vomiting Sodium Chloride (0.9% Sodium Chloride 10 Ml Disp.Syrin) 1 syr IVF PRN PRN PRN Reason: To flush IV aspirin 81 mg tablet,delayed release 81 mg PO QDAY 03/01/24 [History Confirmed 07/28/24] azelastine 137 mcg (0.1 %) nasal spray 137 mcg (0.137 mL) intranasal BID #30 mL 03/01/24 [Rx Confirmed 07/28/24] fluticasone propionate 50 mcg/actuation nasal spray,suspension 1 spray intranasal BID #16 grams 03/01/24 [Rx Confirmed 07/28/24] alprazolam 0.5 mg tablet 0.5 mg PO BEDTIME #30 tabs 06/16/24 [Rx Confirmed 07/28/24] amlodipine 5 mg tablet 5 mg PO DAILY #90 tabs 06/16/24 [Rx Confirmed 07/28/24] pantoprazole 40 mg tablet,delayed release 40 mg PO 2XD #180 tabs 06/16/24 [Rx Confirmed 07/28/24] potassium chloride 20 mEq tablet,extended release(part/cryst) 20 meq PO DAILY #90 ea 06/16/24 [Rx Confirmed 07/28/24] sotalol 80 mg tablet 40 mg (1/2 x 80 mg) PO 2XD #90 tabs 06/16/24 [Rx Confirmed 07/28/24] terazosin 5 mg capsule 5 mg PO DAILY #90 ea 06/16/24 [Rx Confirmed 07/28/24] finasteride 5 mg tablet 5 mg PO DAILY #90 tabs 07/14/24 [Rx Confirmed 07/28/24] budesonide 160 mcg-glycopyr 9 mcg-formot 4.8 mcg/actuation HFA inhaler (Breztri Aerosphere) 2 inh inhalation BID #10.7 grams 07/25/24 [Rx Confirmed 07/28/24] Opioid Naive vs. Tolerant Does Patient Take Opioids?: No Is Patient Opioid Naive?: Yes What is Opioid Naive?: *Opioid Naive implies the patient is not already taking opioids or not chronica lly receiving opioids on a daily basis. *PRN dosing is not "usually" associated with tolerance. *Patients are at higher risk of over-sedation and aspiration. Is Patient Opioid Tolerant?: No What is Opioid Tolerant?: *Opioid Tolerance implies less than the expected response to an opioid. *Acquired tolerance is defined by the patient taking 60mg of oral morphine daily (or equianalgesic dose of another opioid) for 1 week or more. *Often associated with chronic pain. *May take more than usual dose to achieve desired pain control. Review of Systems Constitutional: Reports Fatigue, Weakness and Loss of appetite; Denies Fever Head: Reports Normocephalic and Atraumatic Throat: Denies Sore Throat Cardiovascular: Denies Chest pain, Chest Pressure or Edema Respiratory: Reports Cough and Shortness of air Gastrointestinal: Denies Nausea, Vomiting, Diarrhea, Abdominal pain or Melena Genitourinary: Denies Dysuria or Hematuria Neurological: Reports Weakness; Denies Headache Physical examination Most Recent Vital Signs: Most Recent Vital Signs Temperature 96.9 F L 07/28/24 09:17 Temperature Source Infrared 07/28/24 09:17 Pulse Rate 65 07/28/24 09:17 Respiratory Rate 20 07/28/24 09:17 Blood Pressure 160/88 H 07/28/24 09:17 O2 Sat by Pulse Oximetry 95 07/28/24 09:17 Height 6 ft 5 in 07/28/24 09:17 Weight 90.718 kg 07/28/24 09:17 Telemetry Heart Rate 54 L 12/13/19 07:00 Telemetry SPO2 94 08/19/14 10:30 Appearance: Positive No Apparent Distress and Alert and Oriented x3 Skin: Positive [place], Warm, Good Turgor and Good Color HEENT: Positive Normocephalic and Atraumatic Neck: Positive Supple and Midline Trachea Chest/Lungs: Positive Symmetrical With Equal Breath Sounds; Negative Rales, Rhonci or Wheezes Heart: Positive RRR GI/: Positive Soft, Nontender, Bowel Sounds Normal and No Distention Extremities: Negative Edema Neurological: Positive Cranial Nerves Intact, Alert, Oriented and Muscle Strength 5/5 in Upper and Lower Extremities Bilaterally Psychiatric: Positive Oriented x4, Appropriate Mood and Appropriate Affect Labs This Visit Labs This Visit: Labs This Visit 07/28/24 07/28/2407/28/25 09:45 09:56 12:41 WBC 11.78 H RBC 4.82 Hgb 14.3 Hct 44.0 MCV 91.3 MCH 29.7 MCHC 32.5 RDW Coeff of Bernadette 13.2 Plt Count 250 Immature Gran % (Auto) 0.6 Neut % (Auto) 81.8 H Lymph % (Auto) 7.6 L [place] % (Auto) 9.7 Eos % (Auto) 0.1 Baso % (Auto) 0.2 Neut # (Auto) 9.7 H Lymph # (Auto) 0.9 [place] # (Auto) 1.1 Eos # (Auto) 0.0 Baso # (Auto) 0.0 Immature Gran # (Auto) 0.1 Sodium 138.5 Potassium 4.19 Chloride 107.8 H Carbon Dioxide 23.3 Anion Gap 11.59 BUN 16.9 Creatinine 0.82 Estimated GFR (MDRD) 89.00 BUN/Creatinine Ratio 20.60 Glucose 111.2 H Calcium 8.38 L Total Bilirubin 0.80 AST 23.8 ALT 23.8 Alkaline Phosphatase 77.8 Troponin I < 0.012 < 0.012 NT-Pro-B Natriuret Pep 118 Total Protein 7.04 Albumin 3.67 Globulin 3.37 Albumin/Globulin Ratio 1.08 D-Dimer 583.70 H Influ A Molecular Assay Negative by naat Influ B Molecular Assay Negative by naat SARS CoV-2 RNA Rapid SALINAS Negative Imaging Imaging: EXAM: CHEST CTA WITH CONTRAST (PULMONARY ARTERY) HISTORY: Shortness of breath and cough. Elevated D-dimer. TECHNIQUE: CTA acquisition of the chest from the thoracic inlet to the upper abdomen following IV contrast administration timed to filling of the pulmonary artery. 3D/MIP/VR images were utilized. CT Dose Reduction Techniques Employed: Yes. COMPARISON: None. FINDINGS: Adequate opacification of the pulmonary arteries. No pulmonary embolism is identified. Mildly enlarged right paratracheal node just above level of the azygous vein. Measures 1.4 cm in short axis dimension. Several calcified mediastinal and hilar nodes, secondary to old granulomatous disease. Borderline aneurysmal dilatation of the ascending aorta, maximum diameter 3.9 cm. Coronary artery calcification. Mild cardiomegaly. No significant pericardial fluid/thickening. No pleural fluid. Visualized portions of the upper abdomen included in this examination of the chest shows several punctate calcifications at the pancreas, pachycephaly secondary to chronic pancreatitis. Patient is status post cholecystectomy. Couple of 3 under nonobstructing stones, 1 of each of the ports the visualized kidneys. Lung window images show mild diffuse bronchial wall thickening. Debris in several subsegmental bronchi of both lower lobes. [id number] biapical focal fibrosis. Tree in bud nodularity, [id number] of both lower lobes, and mild of both upper lobes. Peribronchovascular nodular consolidation and groundglass, moderate of the left lower lobe Mod of the right lower lobe and lingula. Cerebral calcified granulomas bilaterally. 5 mm pulmonary nodule in the right lower lobe on image Bone window images show no significant lytic or sclerotic bone lesions. Mild scoliosis, convex to the right. IMPRESSION: 1. No pulmonary embolism is identified. 2. Infectious bronchiolitis and pneumonia bilaterally, most pronounced in the lower lobes. Consider aspiration. 3. Mildly enlarged mediastinal node, and 5 mm pulmonary nodule in the right lower lobe. Follow up routine CT chest in 3 months is recommended. EXAM: CHEST RADIOGRAPH TECHNIQUE: Two views. Frontal and lateral. HISTORY: Cough. COMPARISON: 03/02/2021 and older studies. FINDINGS: The lungs are mildly hyperexpanded. Prominent bilateral nipple shadows. Tiny calcified granuloma of the left mid lung. Mild bibasilar atelectasis. No pulmonary infiltrate is identified. No pleural effusion or pneumothorax is seen. Heart size is normal. Patient is status post coronary artery stenting, as before. No acute displaced rib fractures are identified. Surgical clips in the right upper quadrant, again IMPRESSION: 1. No acute findings in the chest. Review Statement Review Statement: I have independently reviewed and interpreted the labs/EKGs/imaging that were ordered by the ER provider. I have reviewed all outside records that are available currently in our EMR including imaging/notes/labs from previous visits. Plan Plan: 1. CAP, bilateral, failed outpatient antibiotics - Unasyn and doxy, given concern for aspiration on CT. Duonebs. Conservative measures. 2. Weakness and debility - PTOT 3. Hypertension - Cont home meds 4. BPH - Cont home meds 5. GERD - Cont home meds DVT Prophylaxis: Ambulation Time Spent: Greater than 80 minutes spent with patient, 50% of the time spent with this patient was devoted to counseling and coordination of care. [facility] minutes spent discussing advance care planning. Admit to: Obs Discussed Plan of Care with Dr. Link Paulino. Medications Medication Orders: Medications Ordered Category Date Time Status 0.9 % Sodium Chloride [Saline Flush] Meds 07/28/24 10:47 Active 1 syr IVF PRN PRN
[2024-07-28] MEDS ORDERED: ZOFRAN SDV IVP PRN (14:58)
[2024-07-28] MEDS: UNASYN 3 GM in SODIUM CHLORIDE 100ML 100 ML IV SCH (16:14)
[2024-07-28] MEDS: DOXYCYCLINE HYCLATE PO SCH (16:48)
[2024-07-28] MEDS: ROBITUSSIN AC PO PRN (16:48)
[2024-07-28 17:29] VITALS: BMI 23.2
[2024-07-28] MEDS: DUONEB NEB PRN (17:45)
[2024-07-28] MEDS: TESSALON PERLES PO PRN (20:34)
[2024-07-28] MEDS: HYTRIN PO SCH (21:38)
[2024-07-28] MEDS: XANAX PO SCH (21:38)
[2024-07-28] MEDS: FLONASE NAS SCH (21:38)
[2024-07-28] MEDS: BETAPACE PO SCH (21:38)
[2024-07-29] MEDS: TYLENOL PO PRN (01:02)
[2024-07-29] MEDS: PROTONIX PO SCH (05:37)
[2024-07-29 06:11] LABS: ALANINE AMINOTRANSFERASE 20.3 U/L (0-50); ALBUMIN 3.1 g/dL (3.5-5.0); ALKALINE PHOSPHATASE 67.2 U/L (56-119); BILIRUBIN,TOTAL 0.78 mg/dL (0.2-1.3); BLOOD UREA NITROGEN 13.3 mg/dL (9-20); CALCIUM 8.2 mg/dL (8.4-10.2); CARBON DIOXIDE 27.4 mmol/L (22-30.0); CHLORIDE 106.4 mmol/L (98-107); CREATININE 0.81 mg/dL (0.60-1.10); POTASSIUM 3.79 mmol/L (3.5-5.1); SODIUM 137.9 mmol/L (134.5-145); TOTAL PROTEIN 6.1 g/dL (6.3-8.2)
[2024-07-29 06:20] LABS: BASOPHILS % (AUTO) 0.4 % (0.0-3.0); EOSINOPHILS # (AUTO) 0.1 K/ul (0.0-0.7); EOSINOPHILS % (AUTO) 1.1 % (0.0-7.0); HEMATOCRIT 39.2 % (42.0-52.0); HEMOGLOBIN 12.9 g/dl (14.0-18.0); IMMATURE GRANULOCYTE % (AUTO) 0.4 % (0.0-5.0); LYMPHOCYTES # (AUTO) 1.1 K/uL (0.60-3.4); LYMPHOCYTES % (AUTO) 13.9 (10.0-50.0); MEAN CORPUSCULAR HEMOGLOBIN 30.1 pg (27.0-31.0); MEAN CORPUSCULAR HGB CONC 32.9 (31.8-35.4); MEAN CORPUSCULAR VOLUME 91.6 fl (80.0-94.0); MONOCYTES # (AUTO) 0.8 K/uL (0.4-2.0); MONOCYTES % (AUTO) 10.1 (0-10); NEUTROPHILS # (AUTO) 5.9 K/ul (2.0-6.9); NEUTROPHILS % (AUTO) 74.1 % (42.2-75.2); PLATELET COUNT 224 10^3/uL (140-440); RDW COEFFICIENT OF VARIATION 13.3 % (11.6-14.8); RED BLOOD COUNT 4.28 10^6/ul (4.70-6.10)
[2024-07-29] MEDS: NORVASC PO SCH (08:05)
[2024-07-29] MEDS: PROSCAR PO SCH (08:06)
[2024-07-29] MEDS: ASPIRIN EC PO SCH (08:06)
[2024-07-29] MEDS: MUCINEX PO SCH (11:47)
[2024-07-29] MEDS: PEPCID IVP SCH (12:01)
--- NOTE | 2024-07-29 15:03 | PCM.PROG ---
Date/Time Seen Date Seen by Provider: 07/29/24 Time Seen by Provider: 08:40 Provider Provider: HAIDER CAZARES PA-C, [facility] Chief Complaint Chief Complaint: COPD EXACERBATION Subjective Subjective: Patient feels about the same today. Continues to have a debilitating cough that is wearing him out. Son at bedside. Objective Appearance: Positive No Apparent Distress and Alert and Oriented x3 Chest/Lungs: Positive Clear to Auscultation Bilaterally; Negative Rales, Rhonci or Wheezes Heart: Positive RRR GI/: Positive Soft, Nontender, Bowel Sounds Normal and No Distention Neurological: Positive Cranial Nerves Intact, Alert, Oriented and Other (+generalized weakness ) Vital Signs Vital Signs: Vital Signs: Last 24 Hours 07/28/24 15:51 07/28/24 15:55 07/28/24 15:55 Temperature 96.7 F L Temperature Source Temporal Artery Scan Pulse Rate 56 L 54 L Respiratory Rate 16 16 Blood Pressure 160/80 H Blood Pressure Mean Blood Pressure Left Arm 184/88 Blood Pressure Location Blood Pressure Position Sitting O2 Sat by Pulse Oximetry 95 98 Oxygen Delivery Method Room Air Room Air Height 6 ft 5 in Weight 89 kg Telemetry Type Telemetry Monitoring Telemetry Heart Rate EKG NC Interval EKG QRS Interval Telemetry Strip Reading 07/28/24 16:38 07/28/24 16:48 07/28/24 17:25 Temperature Temperature Source Pulse Rate Respiratory Rate Blood Pressure Blood Pressure Mean Blood Pressure Left Arm Blood Pressure Location Blood Pressure Position O2 Sat by Pulse Oximetry Oxygen Delivery Method Room Air Room Air Height Weight Telemetry Type Remote Telemetry Telemetry Monitoring Started Telemetry Heart Rate 58 L EKG NC Interval 0.10 L EKG QRS Interval 0.07 Telemetry Strip Reading Sinus Bradycardia 07/28/24 17:48 07/28/24 19:00 07/28/24 19:00 Temperature 97.6 F Temperature Source Temporal Artery Scan Pulse Rate 56 L Respiratory Rate 14 Blood Pressure 132/65 Blood Pressure Mean 87 Blood Pressure Left Arm Blood Pressure Location Left Arm Blood Pressure Position O2 Sat by Pulse Oximetry 96 Oxygen Delivery Method Room Air Room Air Height Weight Telemetry Type Remote Telemetry Telemetry Monitoring Continues Telemetry Heart Rate 58 L EKG NC Interval 0.23 H EKG QRS Interval 0.07 Telemetry Strip Reading SB WITH 1ST DEGREE AVB 07/28/24 20:00 07/28/24 20:00 07/28/24 20:59 Temperature 97.3 F L Temperature Source Temporal Artery Scan Pulse Rate 58 L Respiratory Rate 18 15 Blood Pressure 157/79 H Blood Pressure Mean 105 Blood Pressure Left Arm Blood Pressure Location Left Arm Blood Pressure Position Supine O2 Sat by Pulse Oximetry 94 L Oxygen Delivery Method Room Air Room Air Room Air Height Weight Telemetry Type Telemetry Monitoring Telemetry Heart Rate EKG NC Interval EKG QRS Interval Telemetry Strip Reading 07/28/24 21:00 07/28/24 22:00 07/28/24 23:00 Temperature Temperature Source Pulse Rate Respiratory Rate Blood Pressure Blood Pressure Mean Blood Pressure Left Arm Blood Pressure Location Blood Pressure Position O2 Sat by Pulse Oximetry Oxygen Delivery Method Room Air Room Air Room Air Height Weight Telemetry Type Telemetry Monitoring Telemetry Heart Rate EKG NC Interval EKG QRS Interval Telemetry Strip [place] 07/29/24 00:00 07/29/24 01:00 07/29/24 01:00 Temperature Temperature Source Pulse Rate Respiratory Rate Blood Pressure Blood Pressure Mean Blood Pressure Left Arm Blood Pressure Location Blood Pressure Position O2 Sat by Pulse Oximetry Oxygen Delivery Method Room Air Room Air Height Weight Telemetry Type Remote Telemetry Telemetry Monitoring Continues Telemetry Heart Rate 62 EKG NC Interval 0.24 H EKG QRS Interval 0.06 Telemetry Strip Reading SR WITH 1ST DEGREE AVB 07/29/24 02:00 07/29/24 03:00 07/29/24 04:00 Temperature Temperature Source Pulse Rate Respiratory Rate Blood Pressure Blood Pressure Mean Blood Pressure Left Arm Blood Pressure Location Blood Pressure Position O2 Sat by Pulse Oximetry Oxygen Delivery Method Room Air Room Air Room Air Height Weight Telemetry Type Telemetry Monitoring Telemetry Heart Rate EKG NC Interval EKG QRS Interval Telemetry Strip [place] 07/29/24 04:37 07/29/24 05:06 07/29/24 06:00 Temperature 97 F L Temperature Source Temporal Artery Scan Pulse Rate 86 Respiratory Rate 18 Blood Pressure 108/59 L Blood Pressure Mean 75 Blood Pressure Left Arm Blood Pressure Location Left Arm Blood Pressure Position Supine O2 Sat by Pulse Oximetry 98 Oxygen Delivery Method Room Air Room Air Room Air Height Weight Telemetry Type Telemetry Monitoring Telemetry Heart Rate EKG NC Interval EKG QRS Interval Telemetry Strip Reading 07/29/24 07:00 07/29/24 07:00 07/29/24 07:40 Temperature Temperature Source Pulse Rate Respiratory Rate Blood Pressure Blood Pressure Mean Blood Pressure Left Arm Blood Pressure Location Blood Pressure Position O2 Sat by Pulse Oximetry Oxygen Delivery Method Room Air Room Air Height Weight Telemetry Type Remote Telemetry Telemetry Monitoring Continues Telemetry Heart Rate 50 L EKG NC Interval 0.24 H EKG QRS Interval 0.06 Telemetry Strip Reading SB WITH 1 ST DEGREE AVB 07/29/24 08:00 07/29/24 09:00 07/29/24 10:00 Temperature Temperature Source Pulse Rate Respiratory Rate Blood Pressure Blood Pressure Mean Blood Pressure Left Arm Blood Pressure Location Blood Pressure Position O2 Sat by Pulse Oximetry Oxygen Delivery Method Room Air Room Air Room Air Height Weight Telemetry Type Telemetry Monitoring Telemetry Heart Rate EKG NC Interval EKG QRS Interval Telemetry Strip [place] 07/29/24 10:00 07/29/24 11:00 07/29/24 12:00 Temperature 97.9 F Temperature Source Temporal Artery Scan Pulse Rate 56 L Respiratory Rate 18 Blood Pressure 123/62 Blood Pressure Mean 82 Blood Pressure Left Arm Blood Pressure Location Left Arm Blood Pressure Position Supine O2 Sat by Pulse Oximetry 94 L Oxygen Delivery Method Room Air Room Air Room Air Height Weight Telemetry Type Telemetry Monitoring Telemetry Heart Rate EKG NC Interval EKG QRS Interval Telemetry Strip [place] 07/29/24 13:00 07/29/24 14:00 07/29/24 14:00 Temperature 96.8 F L Temperature Source Temporal Artery Scan Pulse Rate 54 L Respiratory Rate 20 Blood Pressure 122/67 Blood Pressure Mean 85 Blood Pressure Left Arm Blood Pressure Location Left Arm Blood Pressure Position Supine O2 Sat by Pulse Oximetry 94 L Oxygen Delivery Method Room Air Room Air Room Air Height Weight Telemetry Type Telemetry Monitoring Telemetry Heart Rate EKG NC Interval EKG QRS Interval Telemetry Strip Reading Lab Results Lab Results: Lab Results: Last 24 Hours 07/29/24 07/28/24 05:04 12:41 WBC 8.00 RBC 4.28 L Hgb 12.9 L Hct 39.2 L MCV 91.6 MCH 30.1 MCHC 32.9 RDW Coeff of Bernadette 13.3 Plt Count 224 Immature Gran % (Auto) 0.4 Neut % (Auto) 74.1 Lymph % (Auto) 13.9 [place] % (Auto) 10.1 H Eos % (Auto) 1.1 Baso % (Auto) 0.4 Neut # (Auto) 5.9 Lymph # (Auto) 1.1 [place] # (Auto) 0.8 Eos # (Auto) 0.1 Baso # (Auto) 0.0 Immature Gran # (Auto) 0.0 Sodium 137.9 Potassium 3.79 Chloride 106.4 Carbon Dioxide 27.4 Anion Gap 7.89 BUN 13.3 Creatinine 0.81 Estimated GFR (MDRD) 90.00 BUN/Creatinine Ratio 16.41 Glucose 91.0 Calcium 8.20 L Total Bilirubin 0.78 AST 26.0 ALT 20.3 Alkaline Phosphatase 67.2 Total Protein 6.10 L Albumin 3.10 L Globulin 3.00 Albumin/Globulin Ratio 1.03 Procalcitonin < 0.05 Additional Comments Additional Comments: I have independently reviewed and interpreted the labs/EKGs/imaging ordered during this hospital stay. I have reviewed outside records that are available in our EMR that pertain to medical stay including imaging/notes/labs from previous visits. Active Medications Active Medications: Medications Generic Name Dose Route Start Last Admin Trade Name Freq PRN Reason Stop Dose Admin Acetaminophen 650 mg 07/28/24 14:58 07/29/24 01:02 Acetaminophen 325 Mg Tablet PO 650 mg Q4H PRN Administration Mild Pain Albuterol/Ipratropium 3 ml 07/28/24 14:58 07/28/24 17:45 Ipratropium/Albuterol Vial.Neb NEB 3 ml RTQ6H PRN Administration Wheezing Alprazolam 0.5 mg 07/28/24 21:00 07/28/24 21:38 Alprazolam 0.5 Mg Tablet PO 0.5 mg BEDTIME YANN Administration Amlodipine Besylate 5 mg 07/29/24 09:00 07/29/24 08:05 Amlodipine Besylate 5 Mg Tablet PO 5 mg DAILY YANN Administration Aspirin 81 mg 07/30/24 07:30 Aspirin 81 Mg Tablet.Dr PO DAILYWM2 YANN Benzonatate 100 mg 07/28/24 14:58 07/28/24 20:34 Benzonatate 100 Mg Capsule PO 100 mg TID PRN Administration Cough Doxycycline Hyclate 100 mg 07/28/24 15:30 07/29/24 08:06 Doxycycline Hyclate 100 Mg Capsule PO 08/01/24 22:00 100 mg Q12HR YANN Administration Famotidine 20 mg 07/29/24 11:30 07/29/24 12:01 Famotidine Inj 20 Mg/2 Ml Vial IVP 20 mg Q12HR YANN Administration Finasteride 5 mg 07/29/24 09:00 07/29/24 08:06 Finasteride 5 Mg Tablet PO 5 mg DAILY YANN Administration Fluticasone Propionate 1 spray 07/28/24 21:00 07/29/24 08:05 Fluticasone Propionate 16 Gm Nasal [place] LELE 1 spray BID YANN Administration Guaifenesin 600 mg 07/29/24 11:30 07/29/24 11:47 Guaifenesin 600 Mg Tablet.Er PO 600 mg Q12HR YANN Administration Ampicillin Sodium/Sulbactam 100 mls @ 200 mls/hr 07/28/24 15:30 07/29/24 11:47 Sodium 3 gm/ Sodium Chloride IV 07/31/24 15:29 200 mls/hr Q6HR YANN Administration Ondansetron HCl 4 mg 07/28/24 14:58 Ondansetron Hcl/Pf 4 Mg/2 Ml Sdv IVP Q6H PRN Nausea / Vomiting Pantoprazole Sodium 40 mg 07/29/24 06:30 07/29/24 05:37 Pantoprazole Sodium 40 Mg Tablet. PO 40 mg 0630,1700 YANN Administration Sodium Chloride 1 syr 07/29/24 13:00 07/29/24 14:45 0.9% Sodium Chloride 10 Ml Disp.Syrin IVF 1 syr Q8HR YANN Administration Sotalol HCl 40 mg 07/28/24 21:00 07/29/24 08:06 Sotalol Hcl 80 Mg Tablet PO 40 mg 2XD YANN Administration Terazosin HCl 5 mg 07/28/24 21:00 07/28/24 21:38 Terazosin Hcl 5 Mg Capsule PO 5 mg BEDTIME YANN Administration Plan Plan: 1. CAP, bilateral, failed outpatient antibiotics - Unasyn and doxy, given concern for aspiration on CT. Duonebs. Conservative measures. Did well with ST consult. 2. Weakness and debility - PTOT 3. Hypertension - Cont home meds 4. BPH - Cont home meds 5. GERD - Cont home meds 6. Cough - robittusin AC, tessalon perles, mucinex ordered. Try honey as well. Pepcid added. DVT Prophylaxis: Ambulation Dispo: made inpatient today Review Statement Review Statement: I have personally discussed and reviewed the patient's visit/currently labs/imaging/decision making with Dr. Paulino, my supervising attending. Greater that 50 minutes spent with patient, 50% of the time spent with this patient was devoted to counseling and coordination of care.
[2024-07-29] MEDS ORDERED: ROBITUSSIN AC PO PRN (15:06)
[2024-07-30 05:44] LABS: BASOPHILS % (AUTO) 0.5 % (0.0-3.0); EOSINOPHILS # (AUTO) 0.1 K/ul (0.0-0.7); EOSINOPHILS % (AUTO) 1.3 % (0.0-7.0); HEMATOCRIT 39.9 % (42.0-52.0); HEMOGLOBIN 13.3 g/dl (14.0-18.0); IMMATURE GRANULOCYTE # (AUTO) 0.1 (0.0-1.0); IMMATURE GRANULOCYTE % (AUTO) 0.7 % (0.0-5.0); LYMPHOCYTES # (AUTO) 1.1 K/uL (0.60-3.4); LYMPHOCYTES % (AUTO) 12.8 (10.0-50.0); MEAN CORPUSCULAR HEMOGLOBIN 31.1 pg (27.0-31.0); MEAN CORPUSCULAR HGB CONC 33.3 (31.8-35.4); MEAN CORPUSCULAR VOLUME 93.2 fl (80.0-94.0); MONOCYTES # (AUTO) 0.9 K/uL (0.4-2.0); MONOCYTES % (AUTO) 10.9 (0-10); NEUTROPHILS # (AUTO) 6.1 K/ul (2.0-6.9); NEUTROPHILS % (AUTO) 73.8 % (42.2-75.2); PLATELET COUNT 230 10^3/uL (140-440); RDW COEFFICIENT OF VARIATION 13.2 % (11.6-14.8); RED BLOOD COUNT 4.28 10^6/ul (4.70-6.10); WHITE BLOOD COUNT 8.29 K/ul (4.2-10.2)
[2024-07-30 05:59] LABS: ALBUMIN 2.94 g/dL (3.5-5.0); ALKALINE PHOSPHATASE 70.2 U/L (56-119); ASPARTATE AMINO TRANSFERASE 32.1 U/L (17-59); BILIRUBIN,TOTAL 0.81 mg/dL (0.2-1.3); BLOOD UREA NITROGEN 16.3 mg/dL (9-20); CALCIUM 7.92 mg/dL (8.4-10.2); CARBON DIOXIDE 24.8 mmol/L (22-30.0); CHLORIDE 107.4 mmol/L (98-107); CREATININE 0.81 mg/dL (0.60-1.10); GLUCOSE 90.2 mg/dL (74-106); POTASSIUM 3.82 mmol/L (3.5-5.1); SODIUM 138.2 mmol/L (134.5-145); TOTAL PROTEIN 5.95 g/dL (6.3-8.2)
[2024-07-30] MEDS: ASPIRIN EC PO SCH (08:15)
--- NOTE | 2024-07-30 11:33 | PCM.PROG ---
Date/Time Seen Date Seen by Provider: 07/30/24 Time Seen by Provider: 08:30 Provider Provider: HAIDER CAZARES [facility]-C, [facility] Chief Complaint Chief Complaint: COPD EXACERBATION Subjective Subjective: Patient states he feels somewhat better, still having a cough. Overall no change since admission. As we were discussing potential discharge details with him and his son, there was an overwhelming natural gas like odor noted within the room. Multiple staff members brought in and noticed as well. We decided to move patient to another room in the [facility]. Maintenance contacted who was present quickly. He states there's not even natural gas lines in this area but would check it out. After moving patient to another room, it was also odorous in that room. After further evaluation, it seems the patient's breath and coughing make the odor more noticeable. This was not noticed the last two days, and it would've been hard to miss given how prominent it is today. Objective Appearance: Positive No Apparent Distress and Alert and Oriented x3 Chest/Lungs: Positive Clear to Auscultation Bilaterally; Negative Rales, Rhonci or Wheezes Heart: Positive RRR GI/: Positive Soft, Nontender, Bowel Sounds Normal and No Distention Neurological: Positive Cranial Nerves Intact, Alert, Oriented and Other (+generalized weakness ) Vital Signs Vital Signs: Vital Signs: Last 24 Hours 07/29/24 12:00 07/29/24 13:00 07/29/24 13:00 Temperature Temperature Source Pulse Rate Respiratory Rate Blood Pressure Blood Pressure Mean Blood Pressure Location Blood Pressure Position O2 Sat by Pulse Oximetry Oxygen Delivery Method Room Air Room Air Telemetry Type Remote Telemetry Telemetry Monitoring Continues Telemetry Heart Rate 71 EKG [place] Interval 0.22 H EKG QRS Interval 0.08 Telemetry Strip Reading SR with 1st Degree AVB 07/29/24 14:00 07/29/24 14:00 07/29/24 15:00 Temperature 96.8 F L Temperature Source Temporal Artery Scan Pulse Rate 54 L Respiratory Rate 20 Blood Pressure 122/67 Blood Pressure Mean 85 Blood Pressure Location Left Arm Blood Pressure Position Supine O2 Sat by Pulse Oximetry 94 L Oxygen Delivery Method Room Air Room Air Room Air Telemetry Type Telemetry Monitoring Telemetry Heart Rate EKG AK Interval EKG QRS Interval Telemetry Strip Reading 07/29/24 16:00 07/29/24 17:00 07/29/24 17:58 Temperature 97.9 F Temperature Source Temporal Artery Scan Pulse Rate 66 Respiratory Rate 18 Blood Pressure 126/65 Blood Pressure Mean 85 Blood Pressure Location Left Arm Blood Pressure Position Supine O2 Sat by Pulse Oximetry 94 L Oxygen Delivery Method Room Air Room Air Room Air Telemetry Type Telemetry Monitoring Telemetry Heart Rate EKG AK Interval EKG QRS Interval Telemetry Strip Reading 07/29/24 18:00 07/29/24 19:00 07/29/24 19:00 Temperature Temperature Source Pulse Rate Respiratory Rate Blood Pressure Blood Pressure Mean Blood Pressure Location Blood Pressure Position O2 Sat by Pulse Oximetry Oxygen Delivery Method Room Air Room Air Telemetry Type Remote Telemetry Telemetry Monitoring Continues Telemetry Heart Rate 61 EKG AK Interval 0.19 EKG QRS Interval 0.08 Telemetry Strip Reading SR 07/29/24 19:56 07/29/24 20:00 07/29/24 21:00 Temperature Temperature Source Pulse Rate Respiratory Rate Blood Pressure Blood Pressure Mean Blood Pressure Location Blood Pressure Position O2 Sat by Pulse Oximetry Oxygen Delivery Method Room Air Room Air Room Air Telemetry Type Telemetry Monitoring Telemetry Heart Rate EKG AK Interval EKG QRS Interval Telemetry Strip Reading 07/29/24 21:24 07/29/24 22:00 07/29/24 22:49 Temperature 99.2 F Temperature Source Temporal Artery Scan Pulse Rate 69 Respiratory Rate 18 Blood Pressure 112/69 Blood Pressure Mean 83 Blood Pressure Location Right Arm Blood Pressure Position Sitting O2 Sat by Pulse Oximetry 95 Oxygen Delivery Method Room Air Room Air Room Air Telemetry Type Telemetry Monitoring Telemetry Heart Rate EKG AK Interval EKG QRS Interval Telemetry Strip Reading 07/30/24 00:00 07/30/24 01:00 07/30/24 01:00 Temperature Temperature Source Pulse Rate Respiratory Rate Blood Pressure Blood Pressure Mean Blood Pressure Location Blood Pressure Position O2 Sat by Pulse Oximetry Oxygen Delivery Method Room Air Room Air Telemetry Type Remote Telemetry Telemetry Monitoring Continues Telemetry Heart Rate 73 EKG AK Interval 0.22 H EKG QRS Interval 0.08 Telemetry Strip Reading SR/1st degree AVB 07/30/24 01:38 07/30/24 01:48 07/30/24 02:55 Temperature 96.6 F L Temperature Source Temporal Artery Scan Pulse Rate 71 Respiratory Rate 18 Blood Pressure 116/67 Blood Pressure Mean 83 Blood Pressure Location Left Arm Blood Pressure Position Sitting O2 Sat by Pulse Oximetry 95 Oxygen Delivery Method Room Air Room Air Room Air Telemetry Type Telemetry Monitoring Telemetry Heart Rate EKG AK Interval EKG QRS Interval Telemetry Strip Reading 07/30/24 03:52 07/30/24 05:00 07/30/24 05:04 Temperature 97.6 F Temperature Source Temporal Artery Scan Pulse Rate 58 L Respiratory Rate 18 Blood Pressure 135/67 Blood Pressure Mean 89 Blood Pressure Location Left Arm Blood Pressure Position Supine O2 Sat by Pulse Oximetry 95 Oxygen Delivery Method Room Air Room Air Room Air Telemetry Type Telemetry Monitoring Telemetry Heart Rate EKG AK Interval EKG QRS Interval Telemetry Strip Reading 07/30/24 06:00 07/30/24 06:52 07/30/24 07:00 Temperature Temperature Source Pulse Rate Respiratory Rate Blood Pressure Blood Pressure Mean Blood Pressure Location Blood Pressure Position O2 Sat by Pulse Oximetry Oxygen Delivery Method Room Air Room Air Telemetry Type Remote Telemetry Telemetry Monitoring Continues Telemetry Heart Rate 65 EKG AK Interval 0.18 EKG QRS Interval 0.08 Telemetry Strip Reading SR 07/30/24 08:00 07/30/24 08:00 07/30/24 09:00 Temperature Temperature Source Pulse Rate Respiratory Rate Blood Pressure Blood Pressure Mean Blood Pressure Location Blood Pressure Position O2 Sat by Pulse Oximetry Oxygen Delivery Method Room Air Room Air Room Air Telemetry Type Telemetry Monitoring Telemetry Heart Rate EKG AK Interval EKG QRS Interval Telemetry Strip Reading 07/30/24 10:00 07/30/24 10:00 07/30/24 11:00 Temperature 97.5 F L Temperature Source Temporal Artery Scan Pulse Rate 67 Respiratory Rate 16 Blood Pressure 113/55 L Blood Pressure Mean 74 Blood Pressure Location Right Arm Blood Pressure Position Sitting O2 Sat by Pulse Oximetry 95 Oxygen Delivery Method Room Air Room Air Room Air Telemetry Type Telemetry Monitoring Telemetry Heart Rate EKG AK Interval EKG QRS Interval Telemetry Strip Reading Lab Results Lab Results: Lab Results: Last 24 Hours 07/30/24 05:21 WBC 8.29 RBC 4.28 L Hgb 13.3 L Hct 39.9 L MCV 93.2 MCH 31.1 H MCHC 33.3 RDW Coeff of Bernadette 13.2 Plt Count 230 Immature Gran % (Auto) 0.7 Neut % (Auto) 73.8 Lymph % (Auto) 12.8 [place] % (Auto) 10.9 H Eos % (Auto) 1.3 Baso % (Auto) 0.5 Neut # (Auto) 6.1 Lymph # (Auto) 1.1 [place] # (Auto) 0.9 Eos # (Auto) 0.1 Baso # (Auto) 0.0 Immature Gran # (Auto) 0.1 Sodium 138.2 Potassium 3.82 Chloride 107.4 H Carbon Dioxide 24.8 Anion Gap 9.82 BUN 16.3 Creatinine 0.81 Estimated GFR (MDRD) 90.00 BUN/Creatinine Ratio 20.12 Glucose 90.2 Calcium 7.92 L Total Bilirubin 0.81 AST 32.1 ALT 21.0 Alkaline Phosphatase 70.2 Total Protein 5.95 L Albumin 2.94 L Globulin 3.01 Albumin/Globulin Ratio 0.97 Additional Comments Additional Comments: I have independently reviewed and interpreted the labs/EKGs/imaging ordered during this hospital stay. I have reviewed outside records that are available in our EMR that pertain to medical stay including imaging/notes/labs from previous visits. Active Medications Active Medications: Medications Generic Name Dose Route Start Last Admin Trade Name Freq PRN Reason Stop Dose Admin Acetaminophen 650 mg 07/28/24 14:58 07/29/24 01:02 Acetaminophen 325 Mg Tablet PO 650 mg Q4H PRN Administration Mild Pain Albuterol/Ipratropium 3 ml 07/28/24 14:58 07/30/24 08:37 Ipratropium/Albuterol Vial.Neb NEB 3 ml RTQ6H PRN Administration Wheezing Alprazolam 0.5 mg 07/28/24 21:00 07/29/24 20:20 Alprazolam 0.5 Mg Tablet PO 0.5 mg BEDTIME YANN Administration Amlodipine Besylate 5 mg 07/29/24 09:00 07/30/24 08:15 Amlodipine Besylate 5 Mg Tablet PO 5 mg DAILY YANN Administration Aspirin 81 mg 07/30/24 07:30 07/30/24 08:15 Aspirin 81 Mg Tablet.Dr PO 81 mg DAILYWM2 YANN Administration Benzonatate 100 mg 07/28/24 14:58 07/28/24 20:34 Benzonatate 100 Mg Capsule PO 100 mg TID PRN Administration Cough Doxycycline Hyclate 100 mg 07/28/24 15:30 07/30/24 08:14 Doxycycline Hyclate 100 Mg Capsule PO 08/01/24 22:00 100 mg Q12HR YANN Administration Famotidine 20 mg 07/29/24 11:30 07/30/24 09:37 Famotidine Inj 20 Mg/2 Ml Vial IVP 20 mg Q12HR YANN Administration Finasteride 5 mg 07/29/24 09:00 07/30/24 08:15 Finasteride 5 Mg Tablet PO 5 mg DAILY YANN Administration Fluticasone Propionate 1 spray 07/28/24 21:00 07/30/24 08:14 Fluticasone Propionate 16 Gm Nasal [place] LELE 1 spray BID YANN Administration Piperacillin Sod/Tazobactam 100 mls @ 200 mls/hr 07/30/24 12:00 Sod 4.5 gm/ Sodium Chloride IV 08/02/24 11:59 Q6HR YANN Ondansetron HCl 4 mg 07/28/24 14:58 Ondansetron Hcl/Pf 4 Mg/2 Ml Sdv IVP Q6H PRN Nausea / Vomiting Pantoprazole Sodium 40 mg 07/29/24 06:30 07/30/24 05:40 Pantoprazole Sodium 40 Mg Tablet. PO 40 mg 0630,1700 YANN Administration Sodium Chloride 1 syr 07/29/24 13:00 07/30/24 05:08 0.9% Sodium Chloride 10 Ml Disp.Syrin IVF 1 syr Q8HR YANN Administration Sotalol HCl 40 mg 07/28/24 21:00 07/30/24 08:15 Sotalol Hcl 80 Mg Tablet PO 40 mg 2XD YANN Administration Terazosin HCl 5 mg 07/28/24 21:00 07/29/24 20:20 Terazosin Hcl 5 Mg Capsule PO 5 mg BEDTIME YANN Administration Plan Plan: 1. CAP, bilateral, failed outpatient antibiotics - Spoke with Dr. Chand, pulmonary critical care physician at [facility] who graciously discussed this case with me given the natural gas odor. Basically the odor is an odd presentation but there are some bacteria, such as anaerobes and pseudomonas that can produce such odors. He suggested switching unasyn to zosyn to cover the pseudomonas and see if he improves in next 24-48hrs. If he does, will then have to decide duration of abx given a possible pseudomonas lung infection. He is happy to see patient if needed for transfer should he decline. Pt currently has no sputum to produce for sample. Will continue duonebs, cough meds, conservative measures. 2. Weakness and debility - PTOT 3. Hypertension - Cont home meds 4. BPH - Cont home meds 5. GERD - Cont home meds 6. Cough - michela KIM, gab calhoun, stop mucinex as patient feels very try. Try honey as well. Pepcid added. 7. RLL nodule - will need repeat ct in 3 months DVT Prophylaxis: Ambulation, add lovenox Dispo: Will require another 24-48 hrs Review Statement Review Statement: I have personally discussed and reviewed the patient's visit/currently labs/imaging/decision making with Dr. Paulino, my supervising attending. Greater that 50 minutes spent with patient, 50% of the time spent with this patient was devoted to counseling and coordination of care.
[2024-07-30] MEDS: ZOSYN 4.5 GM 4.5 GM in SODIUM CHLORIDE 100ML 100 ML IV SCH (12:01)
[2024-07-31 06:56] LABS: BASOPHILS % (AUTO) 0.4 % (0.0-3.0); EOSINOPHILS # (AUTO) 0.1 K/ul (0.0-0.7); EOSINOPHILS % (AUTO) 1.3 % (0.0-7.0); HEMATOCRIT 41.8 % (42.0-52.0); HEMOGLOBIN 13.8 g/dl (14.0-18.0); IMMATURE GRANULOCYTE # (AUTO) 0.1 (0.0-1.0); IMMATURE GRANULOCYTE % (AUTO) 0.5 % (0.0-5.0); LYMPHOCYTES # (AUTO) 0.9 K/uL (0.60-3.4); MEAN CORPUSCULAR HEMOGLOBIN 30.3 pg (27.0-31.0); MEAN CORPUSCULAR VOLUME 91.7 fl (80.0-94.0); MONOCYTES # (AUTO) 1.3 K/uL (0.4-2.0); NEUTROPHILS # (AUTO) 8.1 K/ul (2.0-6.9); NEUTROPHILS % (AUTO) 76.8 % (42.2-75.2); PLATELET COUNT 304 10^3/uL (140-440); RDW COEFFICIENT OF VARIATION 13.1 % (11.6-14.8); RED BLOOD COUNT 4.56 10^6/ul (4.70-6.10); WHITE BLOOD COUNT 10.49 K/ul (4.2-10.2)
[2024-07-31 07:15] LABS: ALANINE AMINOTRANSFERASE 21.2 U/L (0-50); ALBUMIN 3.14 g/dL (3.5-5.0); ALKALINE PHOSPHATASE 74.9 U/L (56-119); ASPARTATE AMINO TRANSFERASE 29.4 U/L (17-59); BILIRUBIN,TOTAL 1.35 mg/dL (0.2-1.3); BLOOD UREA NITROGEN 13.2 mg/dL (9-20); CALCIUM 8.22 mg/dL (8.4-10.2); CARBON DIOXIDE 24.1 mmol/L (22-30.0); CHLORIDE 109.1 mmol/L (98-107); CREATININE 0.84 mg/dL (0.60-1.10); GLUCOSE 101.8 mg/dL (74-106); POTASSIUM 3.77 mmol/L (3.5-5.1); SODIUM 138.1 mmol/L (134.5-145); TOTAL PROTEIN 6.36 g/dL (6.3-8.2)
[2024-07-31] MEDS: LOVENOX SUBCUT SCH (09:17)
[2024-07-31] MEDS: MIRALAX PO PRN (09:54)
--- NOTE | 2024-07-31 10:37 | PCM.PROG ---
Date/Time Seen Date Seen by Provider: 07/31/24 Time Seen by Provider: 08:40 Provider Provider: HAIDER CAZARES PA-C, [facility] Chief Complaint Chief Complaint: COPD EXACERBATION Subjective Subjective: Son at bedside. Patient is overall doing ok. States his cough seems improved. Overwise no significant change. Plan to get up and ambulate today. Pt is weak. Still a notable natural gas odor when near patient present, less overwhelming than yesterday. Objective Appearance: Positive No Apparent Distress and Alert and Oriented x3 Chest/Lungs: Positive Clear to Auscultation Bilaterally; Negative Rales, Rhonci or Wheezes Heart: Positive RRR GI/: Positive Soft, Nontender, Bowel Sounds Normal and No Distention Neurological: Positive Cranial Nerves Intact, Alert, Oriented and Other (+gen eralized weakness ) Vital Signs Vital Signs: Vital Signs: Last 24 Hours 07/30/24 11:00 07/30/24 12:00 07/30/24 13:00 Temperature Temperature Source Pulse Rate Respiratory Rate Blood Pressure Blood Pressure Mean Blood Pressure Location Blood Pressure Position O2 Sat by Pulse Oximetry Oxygen Delivery Method Room Air Room Air Telemetry Type Remote Telemetry Telemetry Monitoring Continues Telemetry Heart Rate 63 EKG FL Interval 0.22 H EKG QRS Interval 0.08 Telemetry Strip Reading SR with 1st degree AVB 07/30/24 13:00 07/30/24 14:00 07/30/24 14:00 Temperature 97.8 F Temperature Source Temporal Artery Scan Pulse Rate 59 L Respiratory Rate 18 Blood Pressure 139/69 Blood Pressure Mean 92 Blood Pressure Location Right Arm Blood Pressure Position O2 Sat by Pulse Oximetry 95 Oxygen Delivery Method Room Air Room Air Room Air Telemetry Type Telemetry Monitoring Telemetry Heart Rate EKG FL Interval EKG QRS Interval Telemetry Strip Reading 07/30/24 15:00 07/30/24 16:00 07/30/24 17:00 Temperature Temperature Source Pulse Rate Respiratory Rate Blood Pressure Blood Pressure Mean Blood Pressure Location Blood Pressure Position O2 Sat by Pulse Oximetry Oxygen Delivery Method Room Air Room Air Room Air Telemetry Type Telemetry Monitoring Telemetry Heart Rate EKG FL Interval EKG QRS Interval Telemetry Strip Reading 07/30/24 17:38 07/30/24 17:38 07/30/24 19:00 Temperature 98.5 F Temperature Source Temporal Artery Scan Pulse Rate 64 Respiratory Rate 17 Blood Pressure 126/59 L Blood Pressure Mean 81 Blood Pressure Location Right Arm Blood Pressure Position O2 Sat by Pulse Oximetry 94 L Oxygen Delivery Method Room Air Room Air Room Air Telemetry Type Telemetry Monitoring Telemetry Heart Rate EKG FL Interval EKG QRS Interval Telemetry Strip Reading 07/30/24 19:00 07/30/24 20:00 07/30/24 20:00 Temperature Temperature Source Pulse Rate Respiratory Rate Blood Pressure Blood Pressure Mean Blood Pressure Location Blood Pressure Position O2 Sat by Pulse Oximetry Oxygen Delivery Method Room Air Room Air Telemetry Type Remote Telemetry Telemetry Monitoring Continues Telemetry Heart Rate 65 EKG FL Interval 0.22 H EKG QRS Interval 0.07 Telemetry Strip Reading SR W/ 1ST DEGREE AVB 07/30/24 20:42 07/30/24 21:00 07/30/24 22:00 Temperature 98.6 F Temperature Source Temporal Artery Scan Pulse Rate 65 Respiratory Rate 18 Blood Pressure 131/71 Blood Pressure Mean 91 Blood Pressure Location Left Arm Blood Pressure Position Supine O2 Sat by Pulse Oximetry 92 L Oxygen Delivery Method Room Air Room Air Room Air Telemetry Type Telemetry Monitoring Telemetry Heart Rate EKG FL Interval EKG QRS Interval Telemetry Strip Reading 07/30/24 23:00 07/31/24 00:00 07/31/24 01:00 Temperature Temperature Source Pulse Rate Respiratory Rate Blood Pressure Blood Pressure Mean Blood Pressure Location Blood Pressure Position O2 Sat by Pulse Oximetry Oxygen Delivery Method Room Air Room Air Room Air Telemetry Type Telemetry Monitoring Telemetry Heart Rate EKG FL Interval EKG QRS Interval Telemetry Strip Reading 07/31/24 01:00 07/31/24 02:00 07/31/24 02:00 Temperature Temperature Source Pulse Rate 70 Respiratory Rate 18 Blood Pressure Blood Pressure Mean Blood Pressure Location Blood Pressure Position O2 Sat by Pulse Oximetry Oxygen Delivery Method Room Air Room Air Telemetry Type Remote Telemetry Telemetry Monitoring Continues Telemetry Heart Rate 70 EKG FL Interval 0.24 H EKG QRS Interval 0.09 Telemetry Strip Reading SR W/ 1ST DEGREE AVB 07/31/24 03:00 07/31/24 04:00 07/31/24 05:00 Temperature Temperature Source Pulse Rate Respiratory Rate Blood Pressure Blood Pressure Mean Blood Pressure Location Blood Pressure Position O2 Sat by Pulse Oximetry Oxygen Delivery Method Room Air Room Air Room Air Telemetry Type Telemetry Monitoring Telemetry Heart Rate EKG FL Interval EKG QRS Interval Telemetry Strip Reading 07/31/24 05:12 07/31/24 05:52 07/31/24 07:00 Temperature 98.4 F Temperature Source Temporal Artery Scan Pulse Rate 75 Respiratory Rate 18 Blood Pressure 130/79 Blood Pressure Mean 96 Blood Pressure Location Left Arm Blood Pressure Position Supine O2 Sat by Pulse Oximetry 95 Oxygen Delivery Method Room Air Room Air Room Air Telemetry Type Telemetry Monitoring Telemetry Heart Rate EKG FL Interval EKG QRS Interval Telemetry Strip Reading 07/31/24 07:00 07/31/24 08:00 07/31/24 08:00 Temperature Temperature Source Pulse Rate Respiratory Rate Blood Pressure Blood Pressure Mean Blood Pressure Location Blood Pressure Position O2 Sat by Pulse Oximetry Oxygen Delivery Method Room Air Room Air Telemetry Type Remote Telemetry Telemetry Monitoring Continues Telemetry Heart Rate 70 EKG FL Interval 0.22 H EKG QRS Interval 0.08 Telemetry Strip Reading SR with 1st degree AVB 07/31/24 09:00 07/31/24 09:43 Temperature 97.6 F Temperature Source Temporal Artery Scan Pulse Rate 71 Respiratory Rate 18 Blood Pressure 123/59 L Blood Pressure Mean 80 Blood Pressure Location Right Arm Blood Pressure Position Sitting O2 Sat by Pulse Oximetry 96 Oxygen Delivery Method Room Air Room Air Telemetry Type Telemetry Monitoring Telemetry Heart Rate EKG FL Interval EKG QRS Interval Telemetry Strip Reading Lab Results Lab Results: Lab Results: Last 24 Hours 07/31/24 06:46 WBC 10.49 H RBC 4.56 L Hgb 13.8 L Hct 41.8 L MCV 91.7 MCH 30.3 MCHC 33.0 RDW Coeff of Bernadette 13.1 Plt Count 304 D Immature Gran % (Auto) 0.5 Neut % (Auto) 76.8 H Lymph % (Auto) 9.0 L [place] % (Auto) 12.0 H Eos % (Auto) 1.3 Baso % (Auto) 0.4 Neut # (Auto) 8.1 H Lymph # (Auto) 0.9 [place] # (Auto) 1.3 Eos # (Auto) 0.1 Baso # (Auto) 0.0 Immature Gran # (Auto) 0.1 Sodium 138.1 Potassium 3.77 Chloride 109.1 H Carbon Dioxide 24.1 Anion Gap 8.67 BUN 13.2 Creatinine 0.84 Estimated GFR (MDRD) 86.00 BUN/Creatinine Ratio 15.71 Glucose 101.8 Calcium 8.22 L Total Bilirubin 1.35 H AST 29.4 ALT 21.2 Alkaline Phosphatase 74.9 Total Protein 6.36 Albumin 3.14 L Globulin 3.22 Albumin/Globulin Ratio 0.97 Additional Comments Additional Comments: I have independently reviewed and interpreted the labs/EKGs/imaging ordered during this hospital stay. I have reviewed outside records that are available in our EMR that pertain to medical stay including imaging/notes/labs from previous visits. Active Medications Active Medications: Medications Generic Name Dose Route Start Last Admin Trade Name Freq PRN Reason Stop Dose Admin Acetaminophen 650 mg 07/28/24 14:58 07/31/24 09:14 Acetaminophen 325 Mg Tablet PO 650 mg Q4H PRN Administration Mild Pain Albuterol/Ipratropium 3 ml 07/28/24 14:58 07/30/24 08:37 Ipratropium/Albuterol Vial.Neb NEB 3 ml RTQ6H PRN Administration Wheezing Alprazolam 0.5 mg 07/28/24 21:00 07/30/24 20:12 Alprazolam 0.5 Mg Tablet PO 0.5 mg BEDTIME YANN Administration Amlodipine Besylate 5 mg 07/29/24 09:00 07/31/24 09:15 Amlodipine Besylate 5 Mg Tablet PO 5 mg DAILY YANN Administration Aspirin 81 mg 07/30/24 07:30 07/31/24 09:16 Aspirin 81 Mg Tablet.Dr PO 81 mg DAILYWM2 YANN Administration Benzonatate 100 mg 07/28/24 14:58 07/28/24 20:34 Benzonatate 100 Mg Capsule PO 100 mg TID PRN Administration Cough Doxycycline Hyclate 100 mg 07/28/24 15:30 07/31/24 09:13 Doxycycline Hyclate 100 Mg Capsule PO 08/01/24 22:00 100 mg Q12HR YANN Administration Enoxaparin Sodium 40 mg 07/31/24 09:00 07/31/24 09:17 Enoxaparin Sodium 40 Mg/0.4 Ml Syr SUBCUT 40 mg DAILY YANN Administration Famotidine 20 mg 07/29/24 11:30 07/31/24 09:16 Famotidine Inj 20 Mg/2 Ml Vial IVP 20 mg Q12HR YANN Administration Finasteride 5 mg 07/29/24 09:00 07/31/24 09:14 Finasteride 5 Mg Tablet PO 5 mg DAILY YANN Administration Fluticasone Propionate 1 spray 07/28/24 21:00 07/31/24 09:16 Fluticasone Propionate 16 Gm Nasal [place] LELE 1 spray BID YANN Administration Piperacillin Sod/Tazobactam 100 mls @ 200 mls/hr 07/30/24 12:00 07/31/24 05:27 Sod 4.5 gm/ Sodium Chloride IV 08/02/24 11:59 200 mls/hr Q6HR YANN Administration Ondansetron HCl 4 mg 07/28/24 14:58 Ondansetron Hcl/Pf 4 Mg/2 Ml Sdv IVP Q6H PRN Nausea / Vomiting Pantoprazole Sodium 40 mg 07/29/24 06:30 07/31/24 05:31 Pantoprazole Sodium 40 Mg Tablet. PO 40 mg 0630,1700 YANN Administration Polyethylene Glycol 17 gm 07/31/24 09:42 07/31/24 09:54 Polyethylene Glycol 17 Gm Powd.Pack PO 17 gm DAILY PRN Administration Constipation Sodium Chloride 1 syr 07/29/24 13:00 07/31/24 05:27 0.9% Sodium Chloride 10 Ml Disp.Syrin IVF 1 syr Q8HR YANN Administration Sotalol HCl 40 mg 07/28/24 21:00 07/31/24 09:16 Sotalol Hcl 80 Mg Tablet PO 40 mg 2XD YANN Administration Terazosin HCl 5 mg 07/28/24 21:00 07/30/24 20:12 Terazosin Hcl 5 Mg Capsule PO 5 mg BEDTIME YANN Administration Plan Plan: 1. CAP, bilateral, failed outpatient antibiotics - Spoke with Dr. Chand, pulmonary critical care physician at [facility] on 07/30 who graciously discussed this case with me given the natural gas odor. Basically the odor is an odd presentation but there are some bacteria, such as anaerobes and pseudomonas that can produce such odors. He suggested switching unasyn to zosyn to cover the pseudomonas and see if he improves in next 24-48hrs. If he does, will then have to decide duration of abx given a possible pseudomonas lung infection. He is happy to see patient if needed for transfer should he decline. Pt currently has no sputum to produce for sample. Will continue duonebs, cough meds, conservative measures. Unasyn switched to zosyn on 07/30. 2. Weakness and debility - PTOT 3. Hypertension - Cont home meds 4. BPH - Cont home meds 5. GERD - Cont home meds 6. Cough - michela KIM, gab calhoun. Try honey as well. Pepcid added. 7. RLL nodule - will need repeat ct in 3 months DVT Prophylaxis: Lovenox Dispo: Will require another 24-48 hrs Review Statement Review Statement: I have personally discussed and reviewed the patient's visit/currently labs/imaging/decision making with Dr. Paulino, my supervising attending. Greater that 50 minutes spent with patient, 50% of the time spent with this patient was devoted to counseling and coordination of care.
[2024-08-01 05:32] LABS: BASOPHILS # (AUTO) 0.1 K/uL (0-0.2); BASOPHILS % (AUTO) 0.8 % (0.0-3.0); EOSINOPHILS # (AUTO) 0.2 K/ul (0.0-0.7); EOSINOPHILS % (AUTO) 1.8 % (0.0-7.0); HEMATOCRIT 38.8 % (42.0-52.0); HEMOGLOBIN 12.6 g/dl (14.0-18.0); IMMATURE GRANULOCYTE % (AUTO) 0.3 % (0.0-5.0); LYMPHOCYTES % (AUTO) 10.6 (10.0-50.0); MEAN CORPUSCULAR HEMOGLOBIN 29.9 pg (27.0-31.0); MEAN CORPUSCULAR HGB CONC 32.5 (31.8-35.4); MEAN CORPUSCULAR VOLUME 91.9 fl (80.0-94.0); MONOCYTES # (AUTO) 1.2 K/uL (0.4-2.0); NEUTROPHILS # (AUTO) 6.8 K/ul (2.0-6.9); NEUTROPHILS % (AUTO) 73.5 % (42.2-75.2); PLATELET COUNT 282 10^3/uL (140-440); RDW COEFFICIENT OF VARIATION 13.4 % (11.6-14.8); RED BLOOD COUNT 4.22 10^6/ul (4.70-6.10); WHITE BLOOD COUNT 9.22 K/ul (4.2-10.2)
[2024-08-01 05:45] LABS: ALANINE AMINOTRANSFERASE 18.5 U/L (0-50); ALBUMIN 2.97 g/dL (3.5-5.0); ALKALINE PHOSPHATASE 63.4 U/L (56-119); ASPARTATE AMINO TRANSFERASE 22.9 U/L (17-59); BILIRUBIN,TOTAL 1.23 mg/dL (0.2-1.3); BLOOD UREA NITROGEN 13.9 mg/dL (9-20); CALCIUM 8.02 mg/dL (8.4-10.2); CARBON DIOXIDE 25.2 mmol/L (22-30.0); CHLORIDE 109.4 mmol/L (98-107); CREATININE 0.89 mg/dL (0.60-1.10); GLUCOSE 96.2 mg/dL (74-106); POTASSIUM 3.5 mmol/L (3.5-5.1); SODIUM 138.8 mmol/L (134.5-145)
[2024-08-01] MEDS ORDERED: MIRALAX PO PRN (08:34)
--- NOTE | 2024-08-01 09:55 | DCSUM ---
Admission Date Admission Date: 07/28/24 Discharge Date Discharge Date: 08/01/24 Admission Diagnosis Admission Diagnosis: 1. CAP, bilateral, failed outpatient antibiotics 2. Weakness and debility Discharge Diagnosis Discharge Diagnosis: 1. CAP, bilateral, failed outpatient antibiotics - Improving 2. Weakness and debility - Improving 3. Hypertension - Chronic, stable 4. BPH - Chronic, stable 5. GERD - Chronic, stable 6. Cough - Chronic, stable 7. RLL nodule - will need repeat ct in 3 months Hospital Provider Hospital Provider: SREEDHAR EMERY, [facility] [place] Phys[place] Primary Care Physician: FRANCISCO HERNANDEZ MD Summary of History and Physical Summary of History and Physical: Patient is an 89 year old male with pmhx of asthma, CAD, bowel obstructions, pancreatitis, a fib, hyperlipidemia, hypertension, osteoarthritis who presents for ongoing cough and sob. Patient states it's been worsening over past 2 weeks. On 07/19 he was prescribed a zpak, prednisone and given decadron IM in the pcp office. On 07/25 he was given decadron and rocephin IM and continued on z payton and prednisone. He was also given a breztri inhaler which he has been trying without relief. States he continues to cough non stop. He denies choking or trouble swallowing. In the ER cxr negative but CTA showed maria elena pneumonia and bronchiol itis, consider aspiration. He is on RA. Admitted to med surg for failed outpatient treatment of CAP. Hospital Course Subjective: During stay, patient was initially treated for bilateral CAP with unasyn and doxy due to failed treatment with outpatient antibiotics. Patient continued to report weakness and did not show much improvement. On 07/30, patient had noted odor of natural gas in his breath. Spoke with Dr. Chand, pulmonary critical care physician at [facility] on 07/30 who graciously discussed this case with me given the natural gas odor. Basically the odor is an odd presentation but there are some bacteria, such as anaerobes and pseudomonas that can produce such odors. He suggested switching unasyn to zosyn to cover the pseudomonas and see if he improves in next 24-48hrs. Patient has no sputum to produce for sample. Duonebs and cough medications continued prn. Did not require oxygen during his stay. Patient reported feeling much better this morning and requesting discharge. Upon consult with pharmacy, recommended levaquin 750 mg daily x 8 days for total of 10 days of coverage. Rx sent for gab calhoun as well. Of note, new RLL nodule present on CT scan and recommends follow-up in 3 months for repeat imaging. No changes to home medications. VSS. Labs within normal limits. Appearance: Pleasant, No Apparent Distress, Alert and Well-appearing HEENT: MMM, Supple and No JVD CVS: No Murmur, No Rubs and No Gallop Abdomen: Soft, Non-Tender and No Distention Respiratory: No Dyspnea Extremities: No Edema Vital Signs: Most Recent Vital Signs Temperature 97.6 F 08/01/24 05:19 Temperature Source Temporal Artery Scan 08/01/24 05:19 Temperature Source Infrared 07/28/24 09:17 Pulse Rate 77 08/01/24 05:19 Respiratory Rate 18 08/01/24 05:19 Blood Pressure 129/71 08/01/24 05:19 Blood Pressure Mean 90 08/01/24 05:19 Blood Pressure Left Arm 184/88 07/28/24 15:55 Blood Pressure Location Left Arm 08/01/24 05:19 Blood Pressure Position Supine 08/01/24 05:19 O2 Sat by Pulse Oximetry 92 L 08/01/24 05:19 Oxygen Delivery Method Room Air 08/01/24 08:00 Height 6 ft 5 in 07/28/24 15:55 Weight 89 kg 07/28/24 15:55 Telemetry Type Remote Telemetry 08/01/24 07:00 Telemetry Monitoring Continues 08/01/24 07:00 Telemetry Heart Rate 79 08/01/24 07:00 Telemetry SPO2 94 08/19/14 10:30 EKG AZ Interval 0.22 H 08/01/24 07:00 EKG QRS Interval 0.10 08/01/24 07:00 Telemetry Strip Reading SR w/1st Degree AVB 08/01/24 07:00 Imaging: EXAM: CHEST RADIOGRAPH FINDINGS: The lungs are mildly hyperexpanded. Prominent bilateral nipple shadows. Tiny calcified granuloma of the left mid lung. Mild bibasilar atelectasis. No pulmonary infiltrate is identified. No pleural effusion or pneumothorax is seen. Heart size is normal. Patient is status post coronary artery stenting, as before. No acute displaced rib fractures are identified. Surgical clips in the right upper quadrant, again IMPRESSION: 1. No acute findings in the chest. EXAM: CHEST CTA WITH CONTRAST (PULMONARY ARTERY) FINDINGS: Adequate opacification of the pulmonary arteries. No pulmonary embolism is identified. Mildly enlarged right paratracheal node just above level of the azygous vein. Measures 1.4 cm in short axis dimension. Several calcified mediastinal and hilar nodes, secondary to old granulomatous disease. Borderline aneurysmal dilatation of the ascending aorta, maximum diameter 3.9 cm. Coronary artery calcification. Mild cardiomegaly. No significant pericardial fluid/thickening. No pleural fluid. Visualized portions of the upper abdomen included in this examination of the chest shows several punctate calcifications at the pancreas, pachycephaly secondary to chronic pancreatitis. Patient is status post cholecystectomy. Couple of 3 under nonobstructing stones, 1 of each of the ports the visualized kidneys. Lung window images show mild diffuse bronchial wall thickening. Debris in several subsegmental bronchi of both lower lobes. [id number] biapical focal fibrosis. Tree in bud nodularity, [id number] of both lower lobes, and mild of both upper lobes. Peribronchovascular nodular consolidation and groundglass, moderate of the left lower lobe Mod of the right lower lobe and lingula. Cerebral calcified granulomas bilaterally. 5 mm pulmonary nodule in the right lower lobe on image Bone window images show no significant lytic or sclerotic bone lesions. Mild scoliosis, convex to the right. IMPRESSION: 1. No pulmonary embolism is identified. 2. Infectious bronchiolitis and pneumonia bilaterally, most pronounced in the lo wer lobes. Consider aspiration. 3. Mildly enlarged mediastinal node, and 5 mm pulmonary nodule in the right lower lobe. Follow up routine CT chest in 3 months is recommended. Lab Results Last 24 Hours: 08/01/24 05:21 WBC 9.22 RBC 4.22 L Hgb 12.6 L Hct 38.8 L MCV 91.9 MCH 29.9 MCHC 32.5 RDW Coeff of Bernadette 13.4 Plt Count 282 Immature Gran % (Auto) 0.3 Neut % (Auto) 73.5 Lymph % (Auto) 10.6 Redwood % (Auto) 13.0 H Eos % (Auto) 1.8 Baso % (Auto) 0.8 Neut # (Auto) 6.8 Lymph # (Auto) 1.0 Redwood # (Auto) 1.2 Eos # (Auto) 0.2 Baso # (Auto) 0.1 Immature Gran # (Auto) 0.0 Sodium 138.8 Potassium 3.50 Chloride 109.4 H Carbon Dioxide 25.2 Anion Gap 7.70 BUN 13.9 Creatinine 0.89 Estimated GFR (MDRD) 81.00 BUN/Creatinine Ratio 15.61 Glucose 96.2 Calcium 8.02 L Total Bilirubin 1.23 AST 22.9 ALT 18.5 Alkaline Phosphatase 63.4 Total Protein 6.00 L Albumin 2.97 L Globulin 3.03 Albumin/Globulin Ratio 0.98 Discharge Instructions Discharge Planning: Discharge Planning > 40 minutes If patient is discharged with left ventricular systolic dysfunction: no Discharged with a beta tiera? [] If no, why not? [] Discharged with an dario/arb? [] If no, why not? [] Diagnosis: Pneumonia Diet: Regular Activity: as tolerated Follow-up with PCP later this week Medications: [facility] * Levaquin 750 mg daily x 8 days - start today * Tessalon Pearls - up to 3 times a day as needed for cough Discharge Medications: Medications at Discharge (Home Meds & RX) aspirin 81 mg tablet,delayed release 81 mg PO QDAY 03/01/24 azelastine 137 mcg (0.1 %) nasal spray 137 mcg (0.137 mL) intranasal BID #30 mL 03/01/24 fluticasone propionate 50 mcg/actuation nasal spray,suspension 1 spray intranasal BID #16 grams 03/01/24 alprazolam 0.5 mg tablet 0.5 mg PO BEDTIME #30 tabs 06/16/24 amlodipine 5 mg tablet 5 mg PO DAILY #90 tabs 06/16/24 sotalol 80 mg tablet 40 mg (1/2 x 80 mg) PO 2XD #90 tabs 06/16/24 finasteride 5 mg tablet 5 mg PO DAILY #90 tabs 07/14/24 budesonide 160 mcg-glycopyr 9 mcg-formot 4.8 mcg/actuation HFA inhaler (Breztri Aerosphere) 2 inh inhalation BID #10.7 grams 07/25/24 pantoprazole 40 mg tablet,delayed release 40 mg PO 0630,1700 07/28/24 polyethylene glycol 3350 17 gram/dose oral powder (ClearLax) 17 g PO BEDTIME 07/28/24 potassium chloride 20 mEq tablet,extended release(part/cryst) 20 meq PO BEDTIME 07/28/24 terazosin 5 mg capsule 5 mg PO BEDTIME 07/28/24 benzonatate 100 mg capsule 100 mg PO TID PRN cough #20 caps 08/01/24 levofloxacin 750 mg tablet 750 mg PO DAILY #8 tabs 08/01/24 Discharge Plan Discharge Discharge Orders: Discharge Patient (ONCE); Ordered 08/01/24 Ordered By: YARIEL GARVIN Activity Restrictions/Additional Instructions: Diagnosis: Pneumonia Diet: Regular Activity: as tolerated Follow-up with PCP later this week Medications: [facility] * Levaquin 750 mg daily x 8 days - start today * Tessalon Pearls - up to 3 times a day as needed for cough Instructions: Aspiration Pneumonia (GEN) Patient Disposition: HOME WITH FAMILY CARE Prescriptions: New benzonatate 100 mg Capsule 100 mg PO TID PRN (Reason: cough) Qty: 20 0RF levofloxacin 750 mg tablet 750 mg PO DAILY Qty: 8 0RF Rx Instructions: Start today Continued alprazolam 0.5 mg tablet 0.5 mg PO BEDTIME Qty: 30 2RF sotalol 80 mg tablet 40 mg PO 2XD Qty: 90 1RF amlodipine 5 mg tablet 5 mg PO DAILY Qty: 90 1RF finasteride 5 mg tablet 5 mg PO DAILY Qty: 90 1RF Breztri Aerosphere 160-9-4.8 mcg/actuation HFA aerosol inhaler 2 inh inhalation BID Qty: 10.7 2RF polyethylene glycol 3350 [ClearLax] 17 gram/dose powder 17 g PO BEDTIME terazosin 5 mg capsule 5 mg PO BEDTIME potassium chloride 20 mEq tablet,ER particles/crystals 20 meq PO BEDTIME pantoprazole 40 mg tablet,delayed release (DR/EC) 40 mg PO 0630,1700 aspirin 81 mg tablet,delayed release (DR/EC) 81 mg PO QDAY azelastine 137 mcg (0.1 %) spray,non-aerosol 137 mcg intranasal BID Qty: 30 5RF Rx Instructions: administer into each nostril fluticasone propionate 50 mcg/actuation spray,suspension 1 spray intranasal BID Qty: 16 5RF Rx Instructions: administer into each nostril Did you review [place] FINISHED CLOTH CHECKER for ALL controlled substances?: No Discussed opioids are addictive and Narcan is available by prescription or from pharmacy.: No Condition: Fair Referrals: FRANCISCO HERNANDEZ MD [Primary Care Provider] - 08/08/24 11:00 am
[2024-08-01 10:43] VITALS: BP 126/76; PULSE 74; RESP 16; TEMP 98.4
== END 2024-08-01 12:30 | disposition home or self-care (01) | DRG 195 ==
LOC: EDACCT# → MEDSURG B 09:10 → ED 09:10 → MEDSURG B 16:01
PROVIDERS: ADMIT Hospitalist; ATTEND Nurse Practitioner Family